=== PATIENT | male | born 1965 | race Caucasian/White ===

== ENCOUNTER 2021-03-24 17:31 | Inpatient (IN) | payer MEDICAID, SELFPAY ==
--- NOTE | 2021-03-24 | ECG_ITS ---
Test Reason : dyspnea Blood Pressure : / mmHG Vent. Rate : 122 BPM Atrial Rate : 122 BPM P-R Int : 120 ms QRS Dur : 080 ms QT Int : 410 ms P-R-T Axes : 005 -11 051 degrees QTc Int : 584 ms Sinus tachycardia RSR' or QR pattern in V1 suggests right ventricular conduction delay Nonspecific T wave abnormality Left axis deviation Abnormal ECG When compared with ECG of 07-MAY-2018 18:53, Nonspecific T wave abnormality now evident in Lateral leads Inferior leads Referred By: Generic ED Physician Electronically Signed By:YVETTE PEDROZA MD
--- NOTE | ~2021-03-24 | US_ITS ---
EXAMINATION: ULTRASOUND-GUIDED RIGHT THORACENTESIS CLINICAL INFORMATION: Moderate right pleural effusion on chest x-ray 03/27/2021. COMPARISON: Chest x-ray 03/29/2021 and CTA chest 03/24/2021 TECHNIQUE: Following explaining ultrasound-guided right thoracentesis procedure, benefits and risks, a written consent was obtained. Preliminary imaging through the right posterior chest was obtained with patient in upright sitting. An optimal site was selected along the right posterior scapular line and marked. The marked area was cleaned and draped in the usual sterile manner. 1% lidocaine was injected at the puncture site. Through a small skin incision, a 5 [place] N[place]u catheter was advanced into the right pleural space. After observing fluid return, stylet was withdrawn and catheter connected to vacuum bottle via a connecting cannula. After obtaining all fluid and observing normal fluid return, the catheter was withdrawn with complete hemostasis achieved at the puncture site. Gel-coated gauze was applied at the puncture site while withdrawing catheter making sure no air leaked in. Sterile dressing applied postprocedure. Patient tolerated the procedure extremely well. Chest x-ray was obtained subsequently. Patient was monitored by IR nurse during the exam. FINDINGS: On preliminary ultrasound imaging, there is moderate right pleural effusion with underlying atelectatic right lung. Approximately 1.9 L of clear yellowish fluid drained from the right pleural space. Part of this fluid was sent to lab for cell count and differential. US/US thoracentesis IMPRESSION: Successful ultrasound-guided right thoracentesis performed without immediate complication.
--- NOTE | ~2021-03-24 | CT_ITS ---
EXAMINATION: CT ANGIOGRAM OF THE CHEST WITH AND WITHOUT CONTRAST (CT PULMONARY ANGIOGRAM FOR PE) CLINICAL INFORMATION: Reason for Exam sob and elevated D-dimer COMPARISON: None TECHNIQUE: Prior to contrast administration, noncontrast localization images were obtained. Subsequently, multidetector volumetric imaging was performed from the thoracic inlet to below the diaphragms following the administration of 80 mL Omnipaque 350 intravenous contrast. No contrast reaction reported Sagittal, coronal, and MIP oblique sagittal reformatted images were obtained on the CT workstation, uploaded to PACS, and reviewed. This CT examination was performed using dose optimization techniques as appropriate, variously including the following: *Automated exposure control *Adjustment of mA and/or kV according to patient size (this includes techniques or standardized protocols for targeted exams where dose is matched to indication/reason for exam; i.e. extremities or head) *Use of iterative reconstruction technique Total exam dose-length product 502 mGy-cm FINDINGS: QUALITY OF STUDY/CONTRAST BOLUS: Satisfactory. PULMONARY ARTERIES: No evidence of filling defect to suggest a pulmonary embolism. THORACIC AORTA: Normal in caliber. LUNG: Right lung; Right-sided effusion. This appears moderate. Atelectasis of the right lower lobe and right middle lobe. Fluid may well be loculated with some fluid in the minor fissure and some fluid adjacent to the superior right mediastinum Left lung; No significant infiltrate or effusion. Some patchy areas of opacity which are minimal and small areas of nodularity. 7 mm semisolid area of nodularity on image 191 of series 7. PLEURA: Probable loculation on the right as described MEDIASTINUM: Thoracic inlet is within normal limits. There is some mediastinal adenopathy here and some hilar adenopathy is also felt to be present. This may be reactive. Attention to follow-up. For example a 1.3 cm short axis node on image 21 in the AP window. Probable subcarinal adenopathy No evidence of septal bowing or right heart strain. CHEST WALL/AXILLA: No axillary or internal mammary lymphadenopathy. OSSEOUS STRUCTURES: No acute or suspicious osseous abnormality. UPPER ABDOMEN: Exam also demonstrates fluid adjacent to liver and spleen. No reflux of contrast into the hepatic veins to suggest elevated right heart pressures. CT/CT angio chest PE protocol IMPRESSION: There is no filling defect to suggest a pulmonary embolism. There is pleural fluid on the right which in part appears loculated. There is right lower lobe atelectasis and right middle lobe atelectasis and prominent central adenopathy which may be reactive. Of course underlying malignancy cannot be excluded here. There is also ascites in the upper abdomen adjacent to the liver and spleen. Some small areas of nodularity are noted as described above. Recommend low-dose noncontrast CT in 6 months for continued evaluation VTE: negative
--- NOTE | ~2021-03-24 | XR_ITS ---
EXAMINATION: XR CHEST CLINICAL INFORMATION: Post right thoracentesis. COMPARISON: Chest x-ray 03/30/2021 TECHNIQUE: 2 views of the chest were obtained. FINDINGS: Post right thoracentesis there is no visible pneumothorax. There is complete resolution of right pleural effusion. There is linear atelectatic changes right lung base. Rest lungs are clear. The heart size and pulmonary vascularity is normal. There is moderate spondylosis dorsal spine. No lytic process seen. XR/XR chest 2V IMPRESSION: Interval complete resolution of right pleural effusion with no pneumothorax seen. There is minimal atelectatic changes right lung base.
--- NOTE | ~2021-03-24 | XR_ITS ---
EXAMINATION: XR CHEST CLINICAL INFORMATION: Right pleural effusion. COMPARISON: Chest x-ray 03/24/2021. TECHNIQUE: Frontal view of the chest was obtained. FINDINGS: There is opacification of right lung base from known pleural effusion with underlying atelectasis. The right upper lung and left lung remains clear. The heart size and pulmonary vascularity is normal. There is mild spondylosis dorsal spine. Incidental finding of a right azygos lobe. There is moderate spondylosis of dorsal spine.. XR/XR chest 1V IMPRESSION: Moderate right pleural effusion with underlying compressive atelectasis, similar to previous study 03/24/2021.
--- NOTE | ~2021-03-24 | XR_ITS ---
EXAMINATION: XR CHEST CLINICAL INFORMATION: Shortness of breath COMPARISON: Limited 2016 TECHNIQUE: Frontal view of the chest was obtained. FINDINGS: Right-sided opacity is likely moderate effusion with adjacent atelectasis or infiltrate. The left lung is grossly clear. There is some cephalization of the vasculature here. XR/XR chest 1V IMPRESSION: Right-sided opacity is likely moderate effusion with adjacent atelectasis or infiltrate. There is vascular congestion.
[2021-03-24 17:33] VITALS: BP 167/114; PULSE 124; RESP 24; TEMP 36.9; O2SAT 98; BMI 36.2
[2021-03-24 18:36] LABS: MANUAL DIFF FLAG NO
[2021-03-24 18:39] LABS: Basophils Absolute Auto 0.1 X10*3/uL (0.0-0.2); Basophils Percent Auto 0.7 % (0-2); Eosinophils Absolute Auto 0.2 X10*3/uL (0.0-0.4); Eosinophils Percent Auto 1.7 % (0-4); Hematocrit 45.2 % (42.0-52.0); Hemoglobin 14.9 g/dl (14.0-18.0); Imm Gran Abs Auto 0.04 X10*3/uL (0.00-0.03); Imm Gran Pct Auto 0.4 % (0.0-0.4); Lymphocytes Absolute Auto 1.5 X10*3/uL (1.2-4.9); Lymphocytes Percent Auto 15.9 % (20-40); Mean Corpuscular Hemoglobin 32.3 pg (27.0-33.0); Mean Platelet Volume 10.4 fL (9.4-12.4); Monocytes Absolute Auto 0.8 X10*3/uL (0.1-1.2); Monocytes Percent Auto 8.4 % (2-11); Neutrophils Percent Auto 72.9 % (45-73); Platelet Count 245 X10*3/uL (160-400); Red Blood Count 4.61 X10*6/uL (4.60-5.80); Red Cell Distribution Width 12.9 % (11.0-16.0); White Blood Count 9.7 X10*3/uL (4.8-10.8)
--- NOTE | 2021-03-24 18:40 | ED.SOB ---
HPI - SOB/Dyspnea General Chief Complaint: Dyspnea Stated Complaint: Asthma/COPD Time Seen by Provider: 03/24/21 18:33 Source: patient Mode of arrival: ambulatory Limitations: no limitations History of Present Illness HPI Narrative: 55-year-old male came in for evaluation of shortness of breath. Patient's symptoms started 5-6 days ago with shortness of breath, SOB is worsening with exertion, relieved with resting, describes symptoms as constant and moderate in severity, no chest pain associated, patient never had this symptoms in the past, shortness of breath is associated with lower extremity swelling, difficulty to sleep in supine position. Patient is complaining nonproductive cough, no fever, no chills. Patient is currently a smoker. Related Data Home Medications Medication Instructions Recorded Confirmed No Known Home Meds 03/24/21 03/24/21 Allergies Allergy/AdvReac Type Severity Reaction Status Date / Time canagliflozin [Invokana] Allergy Unknown Unknown Verified 03/24/21 19:21 cat dander [CATS] Allergy Unknown RASH Unverified 01/23/20 14:38 cats Allergy Unknown Unknown Unverified 03/24/21 19:21 clindamycin [CLINDAMYCIN] Allergy Unknown RASH Unverified 01/23/20 14:38 Clindamycin HCl Allergy Unknown itch Unverified 05/20/19 00:00 diltiazem [DILTIAZEM] Allergy Unknown ITCH Unverified 01/23/20 14:38 Diltiazem HCl Allergy Unknown itch Unverified 05/20/19 00:00 hydrochlorothiazide Allergy Unknown GOUT Unverified 01/23/20 14:38 [HYDROCHLOROTHIAZIDE] lisinopril [LISINOPRIL] Allergy Unknown TONGUE Unverified 01/23/20 14:38 SWELLING naproxen [From NAPROSYN] Allergy Unknown NIGHTMARES Unverified 01/23/20 14:38 penicillin V Allergy Unknown Unknown Unverified 03/24/21 19:21 Penicillins [PENICILLINS] Allergy Unknown UNKNWON Unverified 01/23/20 14:38 Sulfa (Sulfonamide Allergy Unknown UNKNOWN Unverified 01/23/20 14:38 Antibiotics) [SULFA(SULFONAMIDE ANTIBIOTICS)] Taztia XT Allergy Unknown Unknown Uncoded 03/24/21 19:21 Review of Systems Review of Systems: All other systems are reviewed and are negative Constitutional: Reports as per HPI and Reports no additional constitutional complaints Eyes: Reports as per HPI and Reports no additional eye complaints Reports system reviewed and no additional complaints, except as documented Cardiovascular: Reports as per HPI and Reports no additional cardiovascular complaints Respiratory: Reports as per HPI and Reports no additional respiratory complaints Gastrointestinal: Reports as per HPI and Reports no additional gastrointestinal complaints Genitourinary: Reports no additional female genitourinary complaints Musculoskeletal: Reports no additional musculoskeletal complaints Skin/Breast: Reports system reviewed and no additional complaints, except as docu Psychiatric: Reports no additional psychiatric complaints Endocrine: Reports no additional endocrine complaints Hematologic/Lymphatic: Reports no additional hematologic/lymphatic complaints Allergic/Immunologic: Reports no additional allergic/immunologic complaints Reports system reviewed and no additional complaints, except as documented and Reports Abnormal speech present [facility] Past Medical History Medical History Asthma COPD (chronic obstructive pulmonary disease) Diabetes Surgical History Hx of appendectomy Social History Social History Alcohol intake: unknown Patient Tobacco Use Status: Never used Tobacco Use of substances other than those prescribed or required for medical reasons: Unknown Advance Directives: No Advance Directives Information Provided: No Physical Exam Vital Signs: Vital Signs: Last Vital Signs Temp 98.8 F 03/24/21 18:44 Pulse 120 H 03/24/21 20:28 Resp 20 03/24/21 20:28 BP 151/103 H 03/24/21 20:28 Pulse Ox 92 03/24/21 20:28 Body Mass Index 36.2 Vital signs have been reviewed as appeared to be correct. Blood pressure elevated Heart rate elevated. Respiration rate elevated Temperature normal. Oxygen saturation normal. Appearance: Alert. Oriented X3. Acute mild respiratory distress. Head: Normal external exam. Normocephalic. Atraumatic. No Briggs signs noted. No raccoon eyes noted Eyes: PERRLA. EOMI. Conjunctiva and sclera normal. Eyelids normal. ENT: TM's Normal. Pharynx normal. Uvula midline. Moist mucous membranes. No trismus noted. No drooling noted. No muffled voice noted. Neck: Normal inspection. Neck supple. FROM. No adenopathy. Thyroid Normal. No meningeal signs. No neck mass noted. CVS: Tachycardia. No murmurs noted. Pulses normal throughout. Respiratory: Mild respiratory distress. Painless inspiration. Breath sounds normal. Diffuse expiratory wheezing with prolonged expiration, bilateral basilar rales, Chest nontender. No accessory muscle usage noted or decreased air movement noted. Abdomen: Soft and nontender. Bowel sounds normal in all 4 quadrants. No distention noted. No organomegaly noted. No visible injury noted. Back: No CVA tenderness. Full range of motion noted. Skin: Skin warm and dry. Normal skin color. Normal skin turgor. No rashes/lesions/lacerations noted. Extremities: Bilateral+ 2 lower extremity pitting edema. Extremities exhibit normal range of motion. Extremities nontender. Neuro: Oriented X 3. Cranial nerve exam: II-XII are grossly intact No motor deficit. No sensory deficit. Reflexes normal. Course Course Course Narrative: Assessment and plan. 55-year-old male came in for evaluation of shortness of breath for few days. Physical exam/x-ray/blood workup are consistent with COPD exacerbation and congestive heart failure (new diagnosis). Patient received in the emergency department bronchodilator/Solu-Medrol/magnesium/Lasix/nitro. Because elevated D-dimer in tachycardia patient had a CT of the chest which showed no acute pulmonary embolism. Will admit the patient for further bronchodilators/diuresis/cardiac workup and monitoring. MDM - SOB/Dyspnea Medical Records Attestation: I reviewed the patient's medical records. Lab Data Attestation: I reviewed the patient's lab results. Result diagrams: 03/24/21 18:31 03/24/21 18:31 Labs: Lab Results 03/24/21 03/24/21 03/24/21 Range/Units 18:28 18:31 18:31 WBC 9.7 (4.8-10.8) X10*3/uL RBC 4.61 (4.60-5.80) X10*6/uL Hgb 14.9 (14.0-18.0) g/dl Hct 45.2 (42.0-52.0) % MCV 98.0 (80.0-98.0) fL MCH 32.3 (27.0-33.0) pg MCHC 33.0 (31.0-36.0) g/dl RDW 12.9 (11.0-16.0) % Plt Count 245 (160-400) X10*3/uL MPV 10.4 (9.4-12.4) fL Immature Gran % (Auto) 0.4 (0.0-0.4) % Neut % (Auto) 72.9 (45-73) % Lymph % (Auto) 15.9 L (20-40) % [place] % (Auto) 8.4 (2-11) % Eos % (Auto) 1.7 (0-4) % Baso % (Auto) 0.7 (0-2) % Lymph # (Auto) 1.5 (1.2-4.9) X10*3/uL [place] # (Auto) 0.8 (0.1-1.2) X10*3/uL Eos # (Auto) 0.2 (0.0-0.4) X10*3/uL Baso # (Auto) 0.1 (0.0-0.2) X10*3/uL Abs Immat Gran (auto) 0.04 H (0.00-0.03) X10*3/uL Absolute Neuts (auto) 7.0 (2.0-8.3) x10*3/uL Absolute Nucleated RBC 0.000 (0.0-0.012) X10*3/uL Nucleated RBC % (auto) 0.0 (0.0-0.2) /100WBC D-Dimer High Sensitivty NG/ML Sodium 137 (135-145) mmol/L Potassium 3.9 (3.3-5.1) mmol/L Chloride 98 (96-108) mmol/L Carbon Dioxide 28 (22-29) mmol/L Anion Gap 15 (12-20) BUN 9 (9-16) mg/dL Creatinine 0.98 (0.5-1.4) mg/dL Estim Creat Clear Calc 113.8 Estimated GFR > 60 Random Glucose 379 H* (60-115) mg/dL Lactic Acid (0.5-2.0) mmol/L Calcium 8.8 (8.4-10.2) mg/dL Magnesium (1.6-2.6) mg/dL Total Bilirubin (0.0-1.0) mg/dL Direct Bilirubin (0.0-0.5) mg/dL AST (5-37) U/L ALT (0-40) U/L Alkaline Phosphatase (39-117) U/L Troponin I High Sens (<3.5-35.0) ng/L B-Natriuretic Peptide (<100) pg/mL Total Protein (6.5-8.0) g/dL Albumin (3.5-5.0) g/dL Lipase (8-78) U/L COVID-19 (JENNA) Negative (Negative) COVID-19 Clin Com See Note 03/24/21 03/24/21 03/24/21 Range/Units 18:31 18:31 19:06 WBC (4.8-10.8) X10*3/uL RBC (4.60-5.80) X10*6/uL Hgb (14.0-18.0) g/dl Hct (42.0-52.0) % MCV (80.0-98.0) fL MCH (27.0-33.0) pg MCHC (31.0-36.0) g/dl RDW (11.0-16.0) % Plt Count (160-400) X10*3/uL MPV (9.4-12.4) fL Immature Gran % (Auto) (0.0-0.4) % Neut % (Auto) (45-73) % Lymph % (Auto) (20-40) % [place] % (Auto) (2-11) % Eos % (Auto) (0-4) % Baso % (Auto) (0-2) % Lymph # (Auto) (1.2-4.9) X10*3/uL [place] # (Auto) (0.1-1.2) X10*3/uL Eos # (Auto) (0.0-0.4) X10*3/uL Baso # (Auto) (0.0-0.2) X10*3/uL Abs Immat Gran (auto) (0.00-0.03) X10*3/uL Absolute Neuts (auto) (2.0-8.3) x10*3/uL Absolute Nucleated RBC (0.0-0.012) X10*3/uL Nucleated RBC % (auto) (0.0-0.2) /100WBC D-Dimer High Sensitivty NG/ML Sodium (135-145) mmol/L Potassium (3.3-5.1) mmol/L Chloride (96-108) mmol/L Carbon Dioxide (22-29) mmol/L Anion Gap (12-20) BUN (9-16) mg/dL Creatinine (0.5-1.4) mg/dL Estim Creat Clear Calc Estimated GFR Random Glucose (60-115) mg/dL Lactic Acid 2.0 (0.5-2.0) mmol/L Calcium (8.4-10.2) mg/dL Magnesium (1.6-2.6) mg/dL Total Bilirubin (0.0-1.0) mg/dL Direct Bilirubin (0.0-0.5) mg/dL AST (5-37) U/L ALT (0-40) U/L Alkaline Phosphatase (39-117) U/L Troponin I High Sens 30.8 (<3.5-35.0) ng/L B-Natriuretic Peptide 2697 H (<100) pg/mL Total Protein (6.5-8.0) g/dL Albumin (3.5-5.0) g/dL Lipase (8-78) U/L COVID-19 (JENNA) (Negative) COVID-19 Clin Com 03/24/21 03/24/21 03/24/21 Range/Units 19:06 19:07 19:07 WBC (4.8-10.8) X10*3/uL RBC (4.60-5.80) X10*6/uL Hgb (14.0-18.0) g/dl Hct (42.0-52.0) % MCV (80.0-98.0) fL MCH (27.0-33.0) pg MCHC (31.0-36.0) g/dl RDW (11.0-16.0) % Plt Count (160-400) X10*3/uL MPV (9.4-12.4) fL Immature Gran % (Auto) (0.0-0.4) % Neut % (Auto) (45-73) % Lymph % (Auto) (20-40) % [place] % (Auto) (2-11) % Eos % (Auto) (0-4) % Baso % (Auto) (0-2) % Lymph # (Auto) (1.2-4.9) X10*3/uL [place] # (Auto) (0.1-1.2) X10*3/uL Eos # (Auto) (0.0-0.4) X10*3/uL Baso # (Auto) (0.0-0.2) X10*3/uL Abs Immat Gran (auto) (0.00-0.03) X10*3/uL Absolute Neuts (auto) (2.0-8.3) x10*3/uL Absolute Nucleated RBC (0.0-0.012) X10*3/uL Nucleated RBC % (auto) (0.0-0.2) /100WBC D-Dimer High Sensitivty 428 NG/ML Sodium (135-145) mmol/L Potassium (3.3-5.1) mmol/L Chloride (96-108) mmol/L Carbon Dioxide (22-29) mmol/L Anion Gap (12-20) BUN (9-16) mg/dL Creatinine (0.5-1.4) mg/dL Estim Creat Clear Calc Estimated GFR Random Glucose (60-115) mg/dL Lactic Acid (0.5-2.0) mmol/L Calcium (8.4-10.2) mg/dL Magnesium 1.4 L* (1.6-2.6) mg/dL Total Bilirubin 1.3 H (0.0-1.0) mg/dL Direct Bilirubin 0.7 H (0.0-0.5) mg/dL AST 27 (5-37) U/L ALT 19 (0-40) U/L Alkaline Phosphatase 124 H (39-117) U/L Troponin I High Sens (<3.5-35.0) ng/L B-Natriuretic Peptide 2781 H (<100) pg/mL Total Protein 6.3 L (6.5-8.0) g/dL Albumin 3.7 (3.5-5.0) g/dL Lipase 8 (8-78) U/L COVID-19 (JENNA) (Negative) COVID-19 Clin Com Imaging Data Chest x-ray: Radiologist's impression: Right-sided opacity is likely moderate effusion with adjacent atelectasis or infiltrate. There is vascular congestion. ? CT angio of the chest: Radiologist's impression: There is no filling defect to suggest a pulmonary embolism. ? There is pleural fluid on the right which in part appears loculated. There is right lower lobe atelectasis and right middle lobe atelectasis and prominent central adenopathy which may be reactive. Of course underlying malignancy cannot be excluded here. ? There is also ascites in the upper abdomen adjacent to the liver and spleen. ? Some small areas of nodularity are noted as described above. Recommend low-dose noncontrast CT in 6 months for continued evaluation ? ECG Data Attestation: I personally reviewed and interpreted this ECG as follows: Interpretation: Sinus tachycardia at 122 beats per minutes, normal interval, nonspecific T-wave changes. Discharge Plan Discharge Clinical Impression: Congestive heart failure, Acute exacerbation of chronic obstructive airways disease Patient Disposition: Admitted As Inpatient
[2021-03-24 18:44] VITALS: BP 141/99; PULSE 117; RESP 24; TEMP 37.1; O2SAT 95
[2021-03-24 18:58] LABS: COVID-19 Test Negative (Negative)
[2021-03-24 18:58] LABS: B Type Natriuretic Peptide 2697 pg/mL (<100); Troponin-I High Sensitivity 30.8 ng/L (<3.5-35.0)
[2021-03-24 19:00] LABS: Anion Gap 15 (12-20); Blood Urea Nitrogen 9 mg/dL (9-16); Calcium 8.8 mg/dL (8.4-10.2); Carbon Dioxide 28 mmol/L (22-29); Chloride 98 mmol/L (96-108); Creatinine Clr Calc Pharmacy 113.8; Estimated Glomerular Filt Rate > 60; Glucose Random 379 mg/dL (60-115); Potassium 3.9 mmol/L (3.3-5.1); Sodium 137 mmol/L (135-145)
[2021-03-24] MEDS: Albuterol Sulfate (0.083%) 2.5 MG/3 ML VIAL.NEB 5 MG INHALE (19:08)
[2021-03-24] MEDS: Albuterol/Iprat 2.5/0.5MG 3 ML AMPUL.NEB INHALE (19:08)
[2021-03-24 19:09] VITALS: PULSE 118; O2SAT 96
[2021-03-24] MEDS: methylPREDNISolone Sod Succ 125 MG/2 ML VIAL IVPUSH (19:10)
[2021-03-24] MEDS: Magnesium Sulfate/H2O 2 GM/50 ML PIGGYBACK IV (19:10)
[2021-03-24] MEDS: Furosemide 40 MG/4 ML VIAL IVPUSH (19:10)
[2021-03-24] MEDS: Nitroglycerin 2 % Oint 1 GM Packet 0.5 INCH TRANSDERMA (19:13)
[2021-03-24 19:26] LABS: D Dimer High Sensitivity 428 NG/ML
--- NOTE | 2021-03-24 19:27 | PC.NURSE ---
Patient reports that he doesn't have a pharmacy right now because he currently doesn't have insurance and therefore hasnt taken his medications in awhile.
[2021-03-24 19:36] LABS: Alanine Aminotransferase 19 U/L (0-40); Albumin Level 3.7 g/dL (3.5-5.0); Alkaline Phosphatase 124 U/L (39-117); Aspartate Amino Transferase 27 U/L (5-37); B Type Natriuretic Peptide 2781 pg/mL (<100); Bilirubin Direct 0.7 mg/dL (0.0-0.5); Bilirubin Total 1.3 mg/dL (0.0-1.0); Lipase 8 U/L (8-78); Magnesium 1.4 mg/dL (1.6-2.6); Total Protein 6.3 g/dL (6.5-8.0)
--- NOTE | 2021-03-24 20:00 | PHA.MEDREC ---
Pharmacy Consult ? Medication Reconciliation Pharmacy has completed the medication reconciliation. Patient states they have not seen MD or gotten any prescriptions filled secondary to not having insurance. I called his main pharmacy, [facility] on [address]. and his profile is empty (goes back 5 years). I also called [facility] on [address]. and they too have an empty profile. He states that a long time ago, he was on metformin, clonidine, and losartan. Thanks Italo Jesus Pharm D
[2021-03-24] MEDS: iohexoL 350 MG/ML 100 ML INFUS..BTL IV (20:08)
[2021-03-24 20:28] VITALS: BP 151/103; PULSE 120; RESP 20; O2SAT 92
--- NOTE | 2021-03-24 20:30 | P.HPHOSP_ITS ---
History of Present Illness Date of Service: 03/24/21 Chief Complaint: SOB 55-year-old male with past medical history of asthma, COPD, diabetes, who presents to the hospital with complaints of difficulty breathing. Patient reports that his symptoms started about a week ago, worsened over the next few days, he has a mild cough that has not worsened, with no sputum production, no fever or chills, he has lower extremity edema that also started about a week ago. Orthopnea and PND. He denies any palpitations or chest pain, he denies any headache or any change in vision. No abdominal pain nausea or vomiting, no diarrhea constipation, no urinary symptoms. On arrival to the ED patient's vitals are significant for a temp of 98.5?, heart rate of 124, respiratory rate of 24, blood pressure 167/114, satting 98% on room air Labs are generally unremarkable except for glucose of 379, magnesium of 1.4, and BNP of 2697. UA negative. Troponin of 30, no delta. Chest x-ray shows vascular congestion. Patient denies any history of CHF Patient will be admitted for further management. Review of Systems Review of Systems: Yes all other systems are reviewed and are negative [facility] Medical History (Updated 03/25/21 @ 05:56 by Roslyn Lin MD) Asthma COPD (chronic obstructive pulmonary disease) Diabetes Family History (Updated 03/25/21 @ 05:54 by Roslyn Lin MD) Father Leukemia Mother Scleroderma Surgical History (Updated 03/25/21 @ 05:55 by Roslyn Lin MD) H/O shoulder surgery Hx of appendectomy Social History Household Members: Children Housing: House Do you presently have visiting nurse or other home services: No Alcohol intake: unknown Patient Tobacco Use Status: Current someday Tobacco user Cigarette Packs Per Day: 1 Cigarettes Per Day: 20.0 Years Smoked: 30 Smoked in Last 30 Days: Yes Patient Interested in Nicotine Replacement: No Patient Given Instructions on How to Stop Smoking: Yes Date Education Initiated: 03/25/21 Second Hand Smoke Exposure: No Use of substances other than those prescribed or required for medical reasons: No Have you been hit, kicked, punched, or otherwise hurt by someone within the past year? If so, by whom?: No Do you feel safe in your current relationship?: No Current Relationship Is there a partner from a previous relationship who is making you feel unsafe now?: No Are you made to feel afraid or neglected: No Advance Directives: No Advance Directives Information Provided: No Do you have thoughts of harming others: None Do you have a plan to hurt others: No Plan Recently lost weight without trying: No Eating poorly because of decreased appetite: No Nutrition Risks: No Nutritional Risk Poor oral hygiene: No Meds Allergies Allergy/AdvReac Type Severity Reaction Status Date / Time canagliflozin [Invokana] Allergy Unknown Unknown Verified 03/25/21 00:25 cat dander [CATS] Allergy Unknown RASH Verified 03/25/21 00:25 cats Allergy Unknown Unknown Verified 03/25/21 00:25 clindamycin [CLINDAMYCIN] Allergy Unknown RASH Verified 03/25/21 00:25 Clindamycin HCl Allergy Unknown itch Verified 03/25/21 00:25 diltiazem [DILTIAZEM] Allergy Unknown ITCH Verified 03/25/21 00:25 Diltiazem HCl Allergy Unknown itch Verified 03/25/21 00:25 hydrochlorothiazide Allergy Unknown GOUT Verified 03/25/21 00:25 [HYDROCHLOROTHIAZIDE] lisinopril [LISINOPRIL] Allergy Unknown TONGUE Verified 03/25/21 00:25 SWELLING naproxen [From NAPROSYN] Allergy Unknown NIGHTMARES Verified 03/25/21 00:25 penicillin V Allergy Unknown Unknown Verified 03/25/21 00:25 Penicillins [PENICILLINS] Allergy Unknown UNKNWON Verified 03/25/21 00:25 Sulfa (Sulfonamide Allergy Unknown UNKNOWN Verified 03/25/21 00:25 Antibiotics) [SULFA(SULFONAMIDE ANTIBIOTICS)] Taztia XT Allergy Unknown Unknown Uncoded 03/24/21 19:21 Active Medications: Current Medications Acetaminophen (Acetaminophen 325 Mg Tablet) 650 mg PO Q6H PRN PRN Reason: Pain, Mild (Pain Scale 1-3) Docusate Sodium (Docusate Sodium 100 Mg Capsule) 100 mg PO DAILY PRN PRN Reason: Constipation Enoxaparin Sodium (Enoxaparin Sodium 40 Mg/0.4 Ml Syringe) 40 mg SUBCUT Q24H ANA Furosemide (Furosemide 40 Mg/4 Ml Vial) 40 mg IVPUSH BID@0900,1800 ANA; Protocol Magnesium Sulfate (Magnesium Sulfate/H2o) 2 gm in 50 mls @ 25 mls/hr IV ONCE ONE Stop: 03/24/21 20:33 Last Admin: 03/24/21 19:10 Dose: 25 mls/hr Documented by: Ondansetron HCl (Ondansetron Hcl 4 Mg/2 Ml Vial) 4 mg IVPUSH Q8H PRN PRN Reason: Nausea and Vomiting Pharmacy Consult (Consult Rx Perform Med Rec) 1 each MISCELLANE ONCE PRN PRN Reason: Consult order Sodium Chloride (0.9 % Sodium Chloride Flush 3 Ml Syringe) 3 ml IVFLUSH [facility] Home Medications Medication Instructions Recorded Confirmed Last Taken Type No Known Home Meds 03/24/21 03/24/21 Unknown History Physical Exam Vital Signs and Narrative: Vital Signs: Last Vital Signs Temp 98.8 F 03/24/21 18:44 Pulse 120 H 03/24/21 20:28 Resp 20 03/24/21 20:28 BP 151/103 H 03/24/21 20:28 Pulse Ox 92 03/24/21 20:28 Body Mass Index 36.2 Const: General: cooperative and no acute distress Orientation/consciousness: patient oriented x3 Eyes: General: appearance normal, both eyes and all related structures Pupils: Equal, round and reactive pupils present Resp: Other: Appears dyspneic on talking and given interview Effort & Inspection: normal respiratory effort Auscultation: clear to auscultation bilaterally Cardio: Rate: regular rate Rhythm: regular rhythm GI: Palpation (GI): Soft to palpation Auscultation: normal bowel sounds Skin: General skin exam: no rashes or lesions noted Neuro: General: patient oriented x3 Cranial nerves: Yes Equal, round and reactive pupils present Cognition (Neuro): normal cognition Extrem: Other: 3+ lower extremity edema up to the thighs General: Yes normal to inspection Results Labs CBC and Chem 7: 03/24/21 18:31 03/24/21 18:31 Labs: Laboratory Results - last 24 hr 03/24/21 03/24/21 03/24/21 18:28 18:31 18:31 MCV 98.0 MCH 32.3 MCHC 33.0 RDW 12.9 Plt Count 245 MPV 10.4 Immature Gran % (Auto) 0.4 Neut % (Auto) 72.9 Lymph % (Auto) 15.9 L [place] % (Auto) 8.4 Eos % (Auto) 1.7 Baso % (Auto) 0.7 Lymph # (Auto) 1.5 [place] # (Auto) 0.8 Eos # (Auto) 0.2 Baso # (Auto) 0.1 Abs Immat Gran (auto) 0.04 H Absolute Neuts (auto) 7.0 Absolute Nucleated RBC 0.000 Nucleated RBC % (auto) 0.0 D-Dimer High Sensitivty Anion Gap 15 Estim Creat Clear Calc 113.8 Estimated GFR > 60 Random Glucose 379 H* Lactic Acid Calcium 8.8 Magnesium Total Bilirubin Direct Bilirubin AST ALT Alkaline Phosphatase Troponin I High Sens B-Natriuretic Peptide Total Protein Albumin Lipase COVID-19 (JENNA) Negative COVID-19 Clin Com See Note 03/24/21 03/24/21 03/24/21 18:31 18:31 19:06 MCV MCH MCHC RDW Plt Count MPV Immature Gran % (Auto) Neut % (Auto) Lymph % (Auto) [place] % (Auto) Eos % (Auto) Baso % (Auto) Lymph # (Auto) [place] # (Auto) Eos # (Auto) Baso # (Auto) Abs Immat Gran (auto) Absolute Neuts (auto) Absolute Nucleated RBC Nucleated RBC % (auto) D-Dimer High Sensitivty Anion Gap Estim Creat Clear Calc Estimated GFR Random Glucose Lactic Acid 2.0 Calcium Magnesium Total Bilirubin Direct Bilirubin AST ALT Alkaline Phosphatase Troponin I High Sens 30.8 B-Natriuretic Peptide 2697 H Total Protein Albumin Lipase COVID-19 (JENNA) COVID-19 Clin Com 03/24/21 03/24/21 03/24/21 19:06 19:07 19:07 MCV MCH MCHC RDW Plt Count MPV Immature Gran % (Auto) Neut % (Auto) Lymph % (Auto) [place] % (Auto) Eos % (Auto) Baso % (Auto) Lymph # (Auto) [place] # (Auto) Eos # (Auto) Baso # (Auto) Abs Immat Gran (auto) Absolute Neuts (auto) Absolute Nucleated RBC Nucleated RBC % (auto) D-Dimer High Sensitivty 428 Anion Gap Estim Creat Clear Calc Estimated GFR Random Glucose Lactic Acid Calcium Magnesium 1.4 L* Total Bilirubin 1.3 H Direct Bilirubin 0.7 H AST 27 ALT 19 Alkaline Phosphatase 124 H Troponin I High Sens B-Natriuretic Peptide 2781 H Total Protein 6.3 L Albumin 3.7 Lipase 8 COVID-19 (JENNA) COVID-19 Clin Com ECG Interpretation: Sinus tachycardia, with a prolonged QT of 584, and evidence of septal infarct with age undetermined Imaging Radiologist's Impressions: Impressions Chest X-Ray 03/24/21 18:34 IMPRESSION: Right-sided opacity is likely moderate effusion with adjacent atelectasis or infiltrate. There is vascular congestion. Assessment and Plan (1) CHF exacerbation: Status: Acute 55-year-old male with past medical history of COPD and diabetes presents to the hospital with complaints of shortness of breath to have CHF exacerbation # acute CHF exacerbation - denies any history of CHF - has elevated BNP, dyspnea, edema, vascular congestion on chest x-ray, as well as orthopnea PND - troponin negative - EKG no changes suggestive of ACS but shows changes suggestive of old infarct - no chest pain -1 IV Lasix 40 IV b.i.d. - echocardiogram - strict I&O, daily weight, low-sodium diet - consult cardiology # prolonged QT - has low magnesium - magnesium repleted - will avoid QT prolonging medications - magnesium repleted in the ED - will check magnesium level # COPD - I do not believe the patient is in exacerbation, as he has no increased cough, sputum production, and no wheezing on exam - will continue his home inhalers although they need to be reviewed by pharmacy # diabetes - meds still need to be reconciled by pharmacy - will place him on low-dose sliding scale insulin - diabetic diet DVT prophylaxis: Lovenox Quality Stroke Does the patient have a stroke diagnosis?: No VTE Prior VTE?: No VTE Risk Level:: Medical - moderate - high VTE Device Contraindication: Treatment Not Indicated VTE Drug Contraindication: N/A - Med Ordered
[2021-03-24 20:40] LABS: Appearance Urine CLEAR; Color Urine STRAW; Glucose Urine UA 500 MG/DL (NEG); Leukocyte Esterase Urine NEG (NEG); Nitrite Urine NEG (NEG); Urine Blood NEG (NEG); Urine Ketones NEG (NEG); Urine Protein NEG (NEG-TRACE)
[2021-03-24 20:57] LABS: Troponin-I High Sensitivity 29.1 ng/L (<3.5-35.0)
[2021-03-24] MEDS: Enoxaparin Sodium 40 MG/0.4 ML SYRINGE SUBCUT (21:27)
--- NOTE | 2021-03-24 23:55 | PC.NURSE ---
Attempted to call floor to give report. Spoke to self contained behavior unit teacher who connected me to the nurse. Phone just rang and no answer. Will attempt again in 15 minutes before patient transferred to floor.
[2021-03-25] VITALS (9 sets, daily range): BP systolic 119–162; BP diastolic 73–111; PULSE 98–120; RESP 18–22; TEMP 36.6–37.3; O2SAT 90–97; BMI 36.6
[2021-03-25 00:24] LABS: Glucose, Whole Blood 358 mg/dL (60-115)
[2021-03-25] MEDS: 0.9 % Sodium Chloride Flush 3 ML SYRINGE IVFLUSH ×4 (01:15→22:34)
[2021-03-25] MEDS: Insulin Lispro 100 UNIT/ML 3 ML VIAL SUBCUT ×5 (01:16→22:34)
[2021-03-25 06:50] LABS: MANUAL DIFF FLAG NO
[2021-03-25 06:54] LABS: Basophils Percent Auto 0.3 % (0-2); Hematocrit 42.2 % (42.0-52.0); Hemoglobin 14.4 g/dl (14.0-18.0); Imm Gran Abs Auto 0.03 X10*3/uL (0.00-0.03); Imm Gran Pct Auto 0.4 % (0.0-0.4); Lymphocytes Absolute Auto 0.6 X10*3/uL (1.2-4.9); Lymphocytes Percent Auto 7.6 % (20-40); Mean Corpuscular HGB Conc 34.1 g/dl (31.0-36.0); Mean Corpuscular Hemoglobin 32.9 pg (27.0-33.0); Mean Corpuscular Volume 96.3 fL (80.0-98.0); Mean Platelet Volume 10.9 fL (9.4-12.4); Monocytes Absolute Auto 0.2 X10*3/uL (0.1-1.2); Monocytes Percent Auto 2.8 % (2-11); Neutrophils Absolute Auto 6.4 x10*3/uL (2.0-8.3); Neutrophils Percent Auto 88.9 % (45-73); Platelet Count 261 X10*3/uL (160-400); Red Blood Count 4.38 X10*6/uL (4.60-5.80); Red Cell Distribution Width 12.8 % (11.0-16.0); White Blood Count 7.2 X10*3/uL (4.8-10.8)
[2021-03-25 07:02] LABS: Glucose, Whole Blood 354 mg/dL (60-115)
[2021-03-25 07:41] LABS: Anion Gap 19 (12-20); Blood Urea Nitrogen 11 mg/dL (9-16); Calcium 8.8 mg/dL (8.4-10.2); Carbon Dioxide 26 mmol/L (22-29); Chloride 97 mmol/L (96-108); Creatinine Clr Calc Pharmacy 120.5; Estimated Glomerular Filt Rate > 60; Glucose Random 359 mg/dL (60-115); Magnesium 1.5 mg/dL (1.6-2.6); Potassium 3.7 mmol/L (3.3-5.1); Sodium 138 mmol/L (135-145)
[2021-03-25] MEDS: Folic Acid 1 MG TABLET PO (08:33)
[2021-03-25] MEDS: Magnesium Sulfate/H2O 2 GM/50 ML PIGGYBACK IV (08:33)
[2021-03-25] MEDS: Furosemide 40 MG/4 ML VIAL IVPUSH ×2 (08:33→17:58)
[2021-03-25] MEDS: Thiamine HCL 100 MG TABLET PO (08:34)
--- NOTE | 2021-03-25 09:29 | PC.NURSE ---
Skin assessment completed today. Patient has no skin issues at this time. He has very dry skin and slight pinkness to lower extremities.
--- NOTE | 2021-03-25 10:13 | MHC.CM.PN ---
pt lives in home c his sister. he reports that he is independent in his care. he does not use any AD c transportation. a ref. has been made to financial couseling for patient indicated as having no insurance. pt denies the need for vna at dc and will have his sister provide transportation at dc. dc plan is home no svcs. cm to cont. to follow.
[2021-03-25 11:34] LABS: Glucose, Whole Blood 356 mg/dL (60-115)
--- NOTE | 2021-03-25 12:12 | HO.PM.IMPN ---
Subjective Subjective Date of Service: 03/25/21 Interval History: the patient was seen and evaluated this morning Laying in bed, feels bladder since admission Denies any fever, chills or chest pain Shortness of breath improving No reported other overnight events. Systemic review: No fever, chills or weakness No chest pain, palpitation Improving shortness of breath or coughing No abdominal pain, nausea or vomiting No urinary symptoms No any rash or wounds Physical Exam Vital Signs: Vital Signs: Last Vital Signs Temp 98.9 F 03/25/21 11:48 Pulse 108 H 03/25/21 11:48 Resp 20 03/25/21 11:48 BP 145/93 H 03/25/21 11:48 Pulse Ox 92 03/25/21 11:48 Body Mass Index 36.6 Const: Other: Constitutional : Alert, oriented, not in distress Neck : Normal inspection, Supple Cardiovascular : RRR, S1 S2, +2 bilateral lower extremity edema Respiratory : Fair bilateral air entry, basal bilateral crackles, wheezes or rhonchi Gastrointestinal: soft, lax, Normal bowel sounds, Non tender Skin : Warm, Dry, mild erythema bilateral lower extremities Neurological : Alert & oriented x3, No focal deficit Objective Data Active Medications Acetaminophen (Acetaminophen 325 Mg Tablet) 650 mg PO Q6H PRN PRN Reason: Pain, Mild (Pain Scale 1-3) Dextrose (Dextrose 50 % 25 Gm/50 Ml Vial) 25 gm IVPUSH Q15M PRN; Protocol PRN Reason: per Hypoglycemia Standing Ord. Docusate Sodium (Docusate Sodium 100 Mg Capsule) 100 mg PO DAILY PRN PRN Reason: Constipation Enoxaparin Sodium (Enoxaparin Sodium 40 Mg/0.4 Ml Syringe) 40 mg SUBCUT Q24H [facility] Last Admin: 03/24/21 21:27 Dose: 40 mg Documented by: ARGELIA Folic Acid (Folic Acid 1 Mg Tablet) 1 mg PO DAILY [facility] Last Admin: 03/25/21 08:33 Dose: 1 mg Documented by: ANEESH Furosemide (Furosemide 40 Mg/4 Ml Vial) 40 mg IVPUSH BID@0900,1800 [facility]; Protocol Last Admin: 03/25/21 08:33 Dose: 40 mg Documented by: ANEESH Glucose (Glucose Gel 15 Gm Gel..Gram.) 15 gm PO Q15M PRN; Protocol PRN Reason: per Hypoglycemia Standing Ord. Insulin Human Lispro (Insulin Lispro 100 Unit/Ml 3 Ml Vial) 0 unit SUBCUT QIDACHS [facility]; Protocol Last Admin: 03/25/21 11:56 Dose: 10 unit Documented by: ANEESH Pharmacy Consult (Consult Rx Perform Med Rec) 1 each MISCELLANE ONCE PRN PRN Reason: Consult order Sodium Chloride (0.9 % Sodium Chloride Flush 3 Ml Syringe) 3 ml IVFLUSH QSHIFT [facility] Last Admin: 03/25/21 08:33 Dose: 3 ml Documented by: ANEESH Thiamine HCl (Thiamine Hcl 100 Mg Tablet) 100 mg PO DAILY [facility] Last Admin: 03/25/21 08:34 Dose: 100 mg Documented by: ANEESH Labs CBC & Chem 7: 03/25/21 05:50 03/25/21 05:50 Labs: Laboratory Results - last 24 hr 03/24/21 03/24/21 03/24/21 18:28 18:31 18:31 MCV 98.0 MCH 32.3 MCHC 33.0 RDW 12.9 Plt Count 245 MPV 10.4 Immature Gran % (Auto) 0.4 Neut % (Auto) 72.9 Lymph % (Auto) 15.9 L [place] % (Auto) 8.4 Eos % (Auto) 1.7 Baso % (Auto) 0.7 Lymph # (Auto) 1.5 [place] # (Auto) 0.8 Eos # (Auto) 0.2 Baso # (Auto) 0.1 Abs Immat Gran (auto) 0.04 H Absolute Neuts (auto) 7.0 Absolute Nucleated RBC 0.000 Nucleated RBC % (auto) 0.0 D-Dimer High Sensitivty Anion Gap 15 Estim Creat Clear Calc 113.8 Estimated GFR > 60 POC Glucose Random Glucose 379 H* Lactic Acid Calcium 8.8 Magnesium Total Bilirubin Direct Bilirubin AST ALT Alkaline Phosphatase Troponin I High Sens B-Natriuretic Peptide Total Protein Albumin Lipase Urine Color Urine Appearance Urine pH Ur Specific [place] Urine Protein Urine Glucose (UA) Urine Ketones Urine Blood Urine Nitrite Ur Leukocyte Esterase COVID-19 (JENNA) Negative COVID-19 Clin Com See Note 03/24/21 03/24/21 03/24/21 18:31 18:31 19:06 MCV MCH MCHC RDW Plt Count MPV Immature Gran % (Auto) Neut % (Auto) Lymph % (Auto) [place] % (Auto) Eos % (Auto) Baso % (Auto) Lymph # (Auto) [place] # (Auto) Eos # (Auto) Baso # (Auto) Abs Immat Gran (auto) Absolute Neuts (auto) Absolute Nucleated RBC Nucleated RBC % (auto) D-Dimer High Sensitivty Anion Gap Estim Creat Clear Calc Estimated GFR POC Glucose Random Glucose Lactic Acid 2.0 Calcium Magnesium Total Bilirubin Direct Bilirubin AST ALT Alkaline Phosphatase Troponin I High Sens 30.8 B-Natriuretic Peptide 2697 H Total Protein Albumin Lipase Urine Color Urine Appearance Urine pH Ur Specific [place] Urine Protein Urine Glucose (UA) Urine Ketones Urine Blood Urine Nitrite Ur Leukocyte Esterase COVID-19 (JENNA) COVID-19 [employer] 03/24/21 03/24/21 03/24/21 19:06 19:07 19:07 MCV MCH MCHC RDW Plt Count MPV Immature Gran % (Auto) Neut % (Auto) Lymph % (Auto) [place] % (Auto) Eos % (Auto) Baso % (Auto) Lymph # (Auto) [place] # (Auto) Eos # (Auto) Baso # (Auto) Abs Immat Gran (auto) Absolute Neuts (auto) Absolute Nucleated RBC Nucleated RBC % (auto) D-Dimer High Sensitivty 428 Anion Gap Estim Creat Clear Calc Estimated GFR POC Glucose Random Glucose Lactic Acid Calcium Magnesium 1.4 L* Total Bilirubin 1.3 H Direct Bilirubin 0.7 H AST 27 ALT 19 Alkaline Phosphatase 124 H Troponin I High Sens B-Natriuretic Peptide 2781 H Total Protein 6.3 L Albumin 3.7 Lipase 8 Urine Color Urine Appearance Urine pH Ur Specific [place] Urine Protein Urine Glucose (UA) Urine Ketones Urine Blood Urine Nitrite Ur Leukocyte Esterase COVID-19 (JENNA) COVID-[employer]plica 03/24/21 03/24/21 03/25/21 20:31 20:31 00:21 MCV MCH MCHC RDW Plt Count MPV Immature Gran % (Auto) Neut % (Auto) Lymph % (Auto) [place] % (Auto) Eos % (Auto) Baso % (Auto) Lymph # (Auto) [place] # (Auto) Eos # (Auto) Baso # (Auto) Abs Immat Gran (auto) Absolute Neuts (auto) Absolute Nucleated RBC Nucleated RBC % (auto) D-Dimer High Sensitivty Anion Gap Estim Creat Clear Calc Estimated GFR POC Glucose 358 H* Random Glucose Lactic Acid Calcium Magnesium Total Bilirubin Direct Bilirubin AST ALT Alkaline Phosphatase Troponin I High Sens 29.1 B-Natriuretic Peptide Total Protein Albumin Lipase Urine Color STRAW Urine Appearance CLEAR Urine pH 6.0 Ur Specific [place] 1.010 Urine Protein NEG Urine Glucose (UA) 500 H Urine Ketones NEG Urine Blood NEG Urine Nitrite NEG Ur Leukocyte Esterase NEG COVID-19 (JENNA) COVID-19 Clin Com 03/25/21 03/25/21 03/25/21 05:50 05:50 06:58 MCV 96.3 MCH 32.9 MCHC 34.1 RDW 12.8 Plt Count 261 MPV 10.9 Immature Gran % (Auto) 0.4 Neut % (Auto) 88.9 H Lymph % (Auto) 7.6 L [place] % (Auto) 2.8 Eos % (Auto) 0.0 Baso % (Auto) 0.3 Lymph # (Auto) 0.6 L [place] # (Auto) 0.2 Eos # (Auto) 0.0 Baso # (Auto) 0.0 Abs Immat Gran (auto) 0.03 Absolute Neuts (auto) 6.4 Absolute Nucleated RBC 0.000 Nucleated RBC % (auto) 0.0 D-Dimer High Sensitivty Anion Gap 19 Estim Creat Clear Calc 120.5 Estimated GFR > 60 POC Glucose 354 H* Random Glucose 359 H* Lactic Acid Calcium 8.8 Magnesium 1.5 L Total Bilirubin Direct Bilirubin AST ALT Alkaline Phosphatase Troponin I High Sens B-Natriuretic Peptide Total Protein Albumin Lipase Urine Color Urine Appearance Urine pH Ur Specific [place] Urine Protein Urine Glucose (UA) Urine Ketones Urine Blood Urine Nitrite Ur Leukocyte Esterase COVID-19 (JENNA) COVID-19 Clin Com 03/25/21 11:30 MCV MCH MCHC RDW Plt Count MPV Immature Gran % (Auto) Neut % (Auto) Lymph % (Auto) [place] % (Auto) Eos % (Auto) Baso % (Auto) Lymph # (Auto) [place] # (Auto) Eos # (Auto) Baso # (Auto) Abs Immat Gran (auto) Absolute Neuts (auto) Absolute Nucleated RBC Nucleated RBC % (auto) D-Dimer High Sensitivty Anion Gap Estim Creat Clear Calc Estimated GFR POC Glucose 356 H* Random Glucose Lactic Acid Calcium Magnesium Total Bilirubin Direct Bilirubin AST ALT Alkaline Phosphatase Troponin I High Sens B-Natriuretic Peptide Total Protein Albumin Lipase Urine Color Urine Appearance Urine pH Ur Specific [place] Urine Protein Urine Glucose (UA) Urine Ketones Urine Blood Urine Nitrite Ur Leukocyte Esterase COVID-19 (JENNA) COVID-19 Clin Com Assessment and Plan (1) CHF exacerbation: Status: Acute (2) Congestive heart failure: Status: Acute Assessment and Plan: 55-year-old male with past medical history of COPD and diabetes presents to the hospital with complaints of shortness of breath to have CHF exacerbation # new onset acute CHF exacerbation Pending echo Continue IV Lasix 40 IV b.i.d. Cardiology consult strict I&O, daily weight, low-sodium diet # prolonged QT # hypomagnesemia magnesium repleted avoid QT prolonging medications Follow magnesium level # COPD Not in exacerbation # uncontrolled diabetes Continue sliding scale insulin Add Lantus 10 units diabetic diet DVT prophylaxis Lovenox Quality Stroke Does the patient have a stroke diagnosis?: No VTE Prior VTE?: No VTE Risk Level:: Medical - moderate - high VTE Device Contraindication: Treatment Not Indicated VTE Drug Contraindication: N/A - Med Ordered
[2021-03-25] MEDS: Insulin Glargine,Hum.rec.anlog 100 UNIT/ML 10 ML VIAL 10 UNIT SUBCUT (13:00)
[2021-03-25 15:54] LABS: Glucose, Whole Blood 241 mg/dL (60-115)
[2021-03-25] MEDS: Omeprazole 20 MG CAPSULE.DR PO (16:41)
--- NOTE | 2021-03-25 16:41 | P.CONCA_ITS ---
History of Present Illness History of Present Illness Date of Service: 03/25/21 Requesting physician: William Huang Chief complaint: New Onset CHF Narrative: 55-year-old gentleman with background history of hypertension, hyperlipidemia and alcoholism who is presenting with lower extremity edema and shortness of breath. He has had approximately 1 week ago he started noticing shortness of breath with lower extremity edema. With these symptoms he presented to us. He clinically was noticed to be in congestive heart failure he was admitted and was started on IV diuretics. Denying any chest discomfort. He drinks what car approximately 6 drinks every night and has been doing it for long time. He is current smoker. [facility] Past Medical History Medical History (Updated 03/25/21 @ 05:56 by Roslyn Lin MD) Asthma COPD (chronic obstructive pulmonary disease) Diabetes Family History Family History (Updated 03/25/21 @ 05:54 by Roslyn Lin MD) Father Leukemia Mother Scleroderma Surgical History Surgical History (Updated 03/25/21 @ 05:55 by Roslyn Lin MD) H/O shoulder surgery Hx of appendectomy Social History Social History Household Members: Children Housing: House Do you presently have visiting nurse or other home services: No Alcohol intake: unknown Patient Tobacco Use Status: Current someday Tobacco user Cigarette Packs Per Day: 1 Cigarettes Per Day: 20.0 Years Smoked: 30 Smoked in Last 30 Days: Yes Patient Interested in Nicotine Replacement: No Patient Given Instructions on How to Stop Smoking: Yes Date Education Initiated: 03/25/21 Second Hand Smoke Exposure: No Use of substances other than those prescribed or required for medical reasons: No Currently Displaying Signs/Symptoms of Drug Intoxication Withdrawal: No Have you been hit, kicked, punched, or otherwise hurt by someone within the past year? If so, by whom?: No Do you feel safe in your current relationship?: No Current Relationship Is there a partner from a previous relationship who is making you feel unsafe now?: No Are you made to feel afraid or neglected: No Advance Directives: No Advance Directives Information Provided: No Do you have thoughts of harming others: None Do you have a plan to hurt others: No Plan Recently lost weight without trying: No Eating poorly because of decreased appetite: No Nutrition Risks: No Nutritional Risk Poor oral hygiene: No service: No Current occupational status: unemployed Meds Allergies Allergy/AdvReac Type Severity Reaction Status Date / Time canagliflozin [Invokana] Allergy Unknown Unknown Verified 03/25/21 00:25 cat dander [CATS] Allergy Unknown RASH Verified 03/25/21 00:25 cats Allergy Unknown Unknown Verified 03/25/21 00:25 clindamycin [CLINDAMYCIN] Allergy Unknown RASH Verified 03/25/21 00:25 Clindamycin HCl Allergy Unknown itch Verified 03/25/21 00:25 diltiazem [DILTIAZEM] Allergy Unknown ITCH Verified 03/25/21 00:25 Diltiazem HCl Allergy Unknown itch Verified 03/25/21 00:25 hydrochlorothiazide Allergy Unknown GOUT Verified 03/25/21 00:25 [HYDROCHLOROTHIAZIDE] lisinopril [LISINOPRIL] Allergy Unknown TONGUE Verified 03/25/21 00:25 SWELLING naproxen [From NAPROSYN] Allergy Unknown NIGHTMARES Verified 03/25/21 00:25 penicillin V Allergy Unknown Unknown Verified 03/25/21 00:25 Penicillins [PENICILLINS] Allergy Unknown UNKNWON Verified 03/25/21 00:25 Sulfa (Sulfonamide Allergy Unknown UNKNOWN Verified 03/25/21 00:25 Antibiotics) [SULFA(SULFONAMIDE ANTIBIOTICS)] Taztia XT Allergy Unknown Unknown Uncoded 03/24/21 19:21 Active Medications: Current Medications Acetaminophen (Acetaminophen 325 Mg Tablet) 650 mg PO Q6H PRN PRN Reason: Pain, Mild (Pain Scale 1-3) Dextrose (Dextrose 50 % 25 Gm/50 Ml Vial) 25 gm IVPUSH Q15M PRN; Protocol PRN Reason: per Hypoglycemia Standing Ord. Docusate Sodium (Docusate Sodium 100 Mg Capsule) 100 mg PO DAILY PRN PRN Reason: Constipation Enoxaparin Sodium (Enoxaparin Sodium 40 Mg/0.4 Ml Syringe) 40 mg SUBCUT Q24H [facility] Last Admin: 03/24/21 21:27 Dose: 40 mg Documented by: Fluticasone Propionate (Fluticasone Propionate Nasal 16 Gm Rocky) 2 spray NOSTRIL-B DAILY [facility] Folic Acid (Folic Acid 1 Mg Tablet) 1 mg PO DAILY [facility] Last Admin: 03/25/21 08:33 Dose: 1 mg Documented by: Furosemide (Furosemide 40 Mg/4 Ml Vial) 40 mg IVPUSH BID@0900,1800 [facility]; Protocol Last Admin: 03/25/21 08:33 Dose: 40 mg Documented by: Glucose (Glucose Gel 15 Gm Gel..Gram.) 15 gm PO Q15M PRN; Protocol PRN Reason: per Hypoglycemia Standing Ord. Insulin Glargine (Insulin Glargine,Hum.Rec.Anlog 100 Unit/Ml 10 Ml Vial) 10 unit SUBCUT DAILY [facility] Last Admin: 03/25/21 13:00 Dose: 10 unit Documented by: Insulin Human Lispro (Insulin Lispro 100 Unit/Ml 3 Ml Vial) 0 unit SUBCUT QIDACHS [facility]; Protocol Last Admin: 03/25/21 11:56 Dose: 10 unit Documented by: Omeprazole (Omeprazole 20 Mg Capsule.) 20 mg PO DAILY@0630 [facility] Pharmacy Consult (Consult Rx Perform Med Rec) 1 each MISCELLANE ONCE PRN PRN Reason: Consult order Sodium Chloride (0.9 % Sodium Chloride Flush 3 Ml Syringe) 3 ml IVFLUSH QSHIFT [facility] Last Admin: 03/25/21 08:33 Dose: 3 ml Documented by: Thiamine HCl (Thiamine Hcl 100 Mg Tablet) 100 mg PO DAILY [facility] Last Admin: 03/25/21 08:34 Dose: 100 mg Documented by: Home Medications Medication Instructions Recorded Confirmed Last Taken Type fluticasone propionate 50 2 spray INTRANASAL DAILY 03/25/21 03/25/21 Unknown History mcg/actuation nasal spray,suspension omeprazole 20 mg capsule,delayed 20 mg PO DAILY 03/25/21 03/25/21 Unknown History release Physical Exam Vital Signs: Vital Signs: Last Vital Signs Temp 99.2 F 03/25/21 15:08 Pulse 98 03/25/21 15:08 Resp 22 H 03/25/21 15:08 BP 155/96 H 03/25/21 15:08 Pulse Ox 95 03/25/21 15:08 Body Mass Index 36.6 GENERAL APPEARANCE: Short of breath. NECK: no carotid bruit, + jugular venous distention. SKIN: no suspicious lesions, warm and dry. HEART: no murmurs, tachycardic. LUNGS: Bibasilar crackles. ABDOMEN: soft, nontender. EXTREMITIES: 2+ edema to the knees. PERIPHERAL PULSES: equal. NEUROLOGIC: No gross deficits, AAO X 3 Objective Labs and Meds Result diagrams: 03/25/21 05:50 03/25/21 05:50 Lab results: Laboratory Results - last 24 hr 03/24/21 03/24/21 03/24/21 18:28 18:31 18:31 WBC 9.7 RBC 4.61 Hgb 14.9 Hct 45.2 MCV 98.0 MCH 32.3 MCHC 33.0 RDW 12.9 Plt Count 245 MPV 10.4 Immature Gran % (Auto) 0.4 Neut % (Auto) 72.9 Lymph % (Auto) 15.9 L Kerr % (Auto) 8.4 Eos % (Auto) 1.7 Baso % (Auto) 0.7 Lymph # (Auto) 1.5 Kerr # (Auto) 0.8 Eos # (Auto) 0.2 Baso # (Auto) 0.1 Abs Immat Gran (auto) 0.04 H Absolute Neuts (auto) 7.0 Absolute Nucleated RBC 0.000 Nucleated RBC % (auto) 0.0 D-Dimer High Sensitivty Sodium 137 Potassium 3.9 Chloride 98 Carbon Dioxide 28 Anion Gap 15 BUN 9 Creatinine 0.98 Estim Creat Clear Calc 113.8 Estimated GFR > 60 POC Glucose Random Glucose 379 H* Lactic Acid Calcium 8.8 Magnesium Total Bilirubin Direct Bilirubin AST ALT Alkaline Phosphatase Troponin I High Sens B-Natriuretic Peptide Total Protein Albumin Lipase Urine Color Urine Appearance Urine pH Ur Specific [place] Urine Protein Urine Glucose (UA) Urine Ketones Urine Blood Urine Nitrite Ur Leukocyte Esterase COVID-19 (JENNA) Negative COVID-19 Clin Com See Note 03/24/21 03/24/21 03/24/21 18:31 18:31 19:06 WBC RBC Hgb Hct MCV MCH MCHC RDW Plt Count MPV Immature Gran % (Auto) Neut % (Auto) Lymph % (Auto) Kerr % (Auto) Eos % (Auto) Baso % (Auto) Lymph # (Auto) Kerr # (Auto) Eos # (Auto) Baso # (Auto) Abs Immat Gran (auto) Absolute Neuts (auto) Absolute Nucleated RBC Nucleated RBC % (auto) D-Dimer High Sensitivty Sodium Potassium Chloride Carbon Dioxide Anion Gap BUN Creatinine Estim Creat Clear Calc Estimated GFR POC Glucose Random Glucose Lactic Acid 2.0 Calcium Magnesium Total Bilirubin Direct Bilirubin AST ALT Alkaline Phosphatase Troponin I High Sens 30.8 B-Natriuretic Peptide 2697 H Total Protein Albumin Lipase Urine Color Urine Appearance Urine pH Ur Specific [place] Urine Protein Urine Glucose (UA) Urine Ketones Urine Blood Urine Nitrite Ur Leukocyte Esterase COVID-19 (JENNA) COVID-19 [employer] Com 03/24/21 03/24/21 03/24/21 19:06 19:07 19:07 WBC RBC Hgb Hct MCV MCH MCHC RDW Plt Count MPV Immature Gran % (Auto) Neut % (Auto) Lymph % (Auto) Kerr % (Auto) Eos % (Auto) Baso % (Auto) Lymph # (Auto) Kerr # (Auto) Eos # (Auto) Baso # (Auto) Abs Immat Gran (auto) Absolute Neuts (auto) Absolute Nucleated RBC Nucleated RBC % (auto) D-Dimer High Sensitivty 428 Sodium Potassium Chloride Carbon Dioxide Anion Gap BUN Creatinine Estim Creat Clear Calc Estimated GFR POC Glucose Random Glucose Lactic Acid Calcium Magnesium 1.4 L* Total Bilirubin 1.3 H Direct Bilirubin 0.7 H AST 27 ALT 19 Alkaline Phosphatase 124 H Troponin I High Sens B-Natriuretic Peptide 2781 H Total Protein 6.3 L Albumin 3.7 Lipase 8 Urine Color Urine Appearance Urine pH Ur Specific [place] Urine Protein Urine Glucose (UA) Urine Ketones Urine Blood Urine Nitrite Ur Leukocyte Esterase COVID-19 (JENNA) COVID-19 [employer] Com 03/24/21 03/24/21 03/25/21 20:31 20:31 00:21 WBC RBC Hgb Hct MCV MCH MCHC RDW Plt Count MPV Immature Gran % (Auto) Neut % (Auto) Lymph % (Auto) Kerr % (Auto) Eos % (Auto) Baso % (Auto) Lymph # (Auto) Kerr # (Auto) Eos # (Auto) Baso # (Auto) Abs Immat Gran (auto) Absolute Neuts (auto) Absolute Nucleated RBC Nucleated RBC % (auto) D-Dimer High Sensitivty Sodium Potassium Chloride Carbon Dioxide Anion Gap BUN Creatinine Estim Creat Clear Calc Estimated GFR POC Glucose 358 H* Random Glucose Lactic Acid Calcium Magnesium Total Bilirubin Direct Bilirubin AST ALT Alkaline Phosphatase Troponin I High Sens 29.1 B-Natriuretic Peptide Total Protein Albumin Lipase Urine Color STRAW Urine Appearance CLEAR Urine pH 6.0 Ur Specific [place] 1.010 Urine Protein NEG Urine Glucose (UA) 500 H Urine Ketones NEG Urine Blood NEG Urine Nitrite NEG Ur Leukocyte Esterase NEG COVID-19 (JENNA) COVID-19 [employer] Com 03/25/21 03/25/21 03/25/21 05:50 05:50 06:58 WBC 7.2 RBC 4.38 L Hgb 14.4 Hct 42.2 MCV 96.3 MCH 32.9 MCHC 34.1 RDW 12.8 Plt Count 261 MPV 10.9 Immature Gran % (Auto) 0.4 Neut % (Auto) 88.9 H Lymph % (Auto) 7.6 L Kerr % (Auto) 2.8 Eos % (Auto) 0.0 Baso % (Auto) 0.3 Lymph # (Auto) 0.6 L Kerr # (Auto) 0.2 Eos # (Auto) 0.0 Baso # (Auto) 0.0 Abs Immat Gran (auto) 0.03 Absolute Neuts (auto) 6.4 Absolute Nucleated RBC 0.000 Nucleated RBC % (auto) 0.0 D-Dimer High Sensitivty Sodium 138 Potassium 3.7 Chloride 97 Carbon Dioxide 26 Anion Gap 19 BUN 11 Creatinine 0.93 Estim Creat Clear Calc 120.5 Estimated GFR > 60 POC Glucose 354 H* Random Glucose 359 H* Lactic Acid Calcium 8.8 Magnesium 1.5 L Total Bilirubin Direct Bilirubin AST ALT Alkaline Phosphatase Troponin I High Sens B-Natriuretic Peptide Total Protein Albumin Lipase Urine Color Urine Appearance Urine pH Ur Specific [place] Urine Protein Urine Glucose (UA) Urine Ketones Urine Blood Urine Nitrite Ur Leukocyte Esterase COVID-19 (JENNA) COVID-19 [employer] Com 03/25/21 03/25/21 11:30 15:50 WBC RBC Hgb Hct MCV MCH MCHC RDW Plt Count MPV Immature Gran % (Auto) Neut % (Auto) Lymph % (Auto) Kerr % (Auto) Eos % (Auto) Baso % (Auto) Lymph # (Auto) Kerr # (Auto) Eos # (Auto) Baso # (Auto) Abs Immat Gran (auto) Absolute Neuts (auto) Absolute Nucleated RBC Nucleated RBC % (auto) D-Dimer High Sensitivty Sodium Potassium Chloride Carbon Dioxide Anion Gap BUN Creatinine Estim Creat Clear Calc Estimated GFR POC Glucose 356 H* 241 H Random Glucose Lactic Acid Calcium Magnesium Total Bilirubin Direct Bilirubin AST ALT Alkaline Phosphatase Troponin I High Sens B-Natriuretic Peptide Total Protein Albumin Lipase Urine Color Urine Appearance Urine pH Ur Specific [place] Urine Protein Urine Glucose (UA) Urine Ketones Urine Blood Urine Nitrite Ur Leukocyte Esterase COVID-19 (JENNA) COVID-19 Clin Com Imaging Radiologist's impression: Impressions Chest X-Ray 03/24/21 18:34 IMPRESSION: Right-sided opacity is likely moderate effusion with adjacent atelectasis or infiltrate. There is vascular congestion. Chest CTA 03/24/21 19:31 IMPRESSION: There is no filling defect to suggest a pulmonary embolism. There is pleural fluid on the right which in part appears loculated. There is right lower lobe atelectasis and right middle lobe atelectasis and prominent central adenopathy which may be reactive. Of course underlying malignancy cannot be excluded here. There is also ascites in the upper abdomen adjacent to the liver and spleen. Some small areas of nodularity are noted as described above. Recommend low-dose noncontrast CT in 6 months for continued evaluation VTE: negative Assessment and Plan (1) Congestive heart failure: Status: Acute Pleasant 55-year-old gentleman with background of alcoholism who is presenting with new onset congestive heart failure. Echocardiography is showing biventricular dysfunction. Likely etiology is alcohol use. He is tachycardic which could be due to alcohol withdrawal versus due to cardiomyopathy. I would not give any beta kenton or negative inotropic agents at this point. 40 mg IV b.i.d. Lasix. 2.5 mg metolazone before the next dose which has already been written. Adding hydralazine 25 mg 3 times a day and Imdur 30 mg daily. He has previous lisinopril allergy with tongue swelling. I do not think we can use ARB or Entresto right now. As he gets diuresed and becomes euvolemic then we can discuss about starting carvedilol. Thank you for allowing me to participate in the care of your patient. Please feel free to contact me if you have any questions. Procedures Date of Service Date of Service: 03/25/21
[2021-03-25] MEDS: hydrALAZINE HCl 25 MG TABLET PO (16:49)
[2021-03-25] MEDS: metOLazone 2.5 MG TABLET PO (16:50)
[2021-03-25] MEDS: Isosorbide Mononitrate 30 MG TAB.ER.24H PO (16:50)
--- NOTE | 2021-03-25 20:25 | CA_ITS ---
Transthoracic Echocardiogram Patient (Last, First, Middle): Immanuel Turcios E Gender: Male Date of : 1965 Age: 55 Procedure Date: 03/25/2021 Procedure Type: Transthoracic E[place]ocardiogram [place] [facility] [place]: 180.34 cm Weight: 118.84 kg BSA: 2.37 m2 Heart Rate: bpm BP: 143 / 91 mmHg Ore Buyer: JORGE Referring MD: Roslyn Lin MD Symptoms: new onset CHF Conclusions: - The left ventricular systolic function is moderately decreased. The visually estimated ejection fraction is between 30-35%. - Mildly increased right ventricular cavity size. There is mildly decreased right ventricular systolic function. - Significantly elevated right atrial pressure. Moderate pulmonary hypertension is present. - There is a flattened septum in systole and diastole consistent with right ventricular pressure and volume overload. Findings Left Ventricle Normal left ventricular cavity size. There is mildly increased left ventricular wall thickness. The left ventricular systolic function is moderately decreased. The visually estimated ejection fraction is between 30 35%. There is moderate global hypokinesis. There is a flattened septum in systole and diastole consistent with right ventricular pressure and volume overload. Abnormal diastolic function is noted. Elevated filling pressures. Right Ventricle Mildly increased right ventricular cavity size. There is mildly decreased right ventricular systolic function. Atria The left atrium is mildly dilated. The right atrium is mildly dilated. Aortic Valve Normal aortic valve structure and function. There is no aortic valve stenosis. There is no aortic valve regurgitation. Mitral Valve The mitral valve appears normal. There is trace mitral valve regurgitation. There is no mitral valve stenosis. Pulmonic Valve Normal pulmonic valve structure and function. There is no pulmonic valve regurgitation. Tricuspid Valve Normal tricuspid valve structure. There is mild to moderate tricuspid valve regurgitation. Significantly elevated right atrial pressure. Moderate pulmonary hypertension is present. Great Vessels There is mild dilatation of the ascending aorta measuring 3.40 cm. The visualized portions of the pulmonary artery and branches are normal. Venous The inferior vena cava is dilated and does not collapse with inspiration. Pericardium/Pleural There is no evidence of pericardial effusion. Measurements 2D Linear Measurements IVSd: 1.21 0.6-0.9/0.6-1.0 cm LVIDd: 5.72 3.9-5.3/4.2-5.9 cm LVIDd Index: 2.41 2.4-3.2/2.2-3.1 cm/m2 LVIDs: 5.19 2.0-3.6 cm LVPWd: 1.10 0.7-1.1 cm Ao Root: 3.20 2.1-3.5 cm LA Diam: 4.50 2.7-3.8/3.0-4.0 cm LAIDs Index: 1.90 1.5-2.3 cm/m2 LV Mass: 343.86 67-162/88-224 g LV Mass Index: 145.09 43-95/49-115 g/m2 LVOT Diam: 2.10 3.0+(-)1.3 cm 2D Systolic Function EF 4C: 32.00 >55% EF 2C: 27.60 >55% EF BiP: 30.70 >55% Mitral Valve E'Lateral: 6.31 E'Medial: 2.39 Aortic Valve AoV Pk [place]: 1.27 AoV Mn [place]: 0.89 AoV VTI: 0.20 AoV Pk Grad: 6.00 Aov Mn Grad: 4.00 YENNI Cont.VTI: 2.19 LVOT LVOT Pk [place]: 0.78 LVOT Mn [place]: 0.53 LVOT VTI: 0.13 LVOT Pk Grad: 2.00 LVOT Mn Grad: 1.00 LVOT Diam: 2.10 LVOT Area: 3.46 Diastolic Function E'Medial: 2.39 E' Laterial: 6.31 Right Ventricle TAPSE (mm): 1.41 Tricuspid Valve TR Pk [place]: 3.03 TR Pk Grad: 37.00 RA Press: 15.00 RVSP: 52.00 Great Vessels Aorta Ao Root-2D: 3.20 2.0-3.7 cm Ao Asc: 3.40 2.1-3.4 cm Updated in Other Vendor System with Status of Final Alirio Childress MD electronically signed on 03/29/2021 4:22:24 PM with status of Final
--- NOTE | 2021-03-25 20:25 | CA_ITS ---
PATIENT: ESMER FLORES DATE: 03/25/2021 : 1965 AGE: 55 GENDER: MALE INDICATIONS: NEW ONSET CHF HT: 5'11 WT: 262 BP: 143/91 SENIOR SOFTWARE PROJECT MANAGER: YR STUDY QUALITY: ECG RHYTHM: CONCLUSIONS: FINDINGS: M-MODE/2D MEASUREMENTS: LVd: 5.72 cm LVs: 5.19 cm IVSd: 1.21 cm IVSs: LVPWd: 1.10 cm LVPWs: ASC. AORATA: 3.4 CM RVd: 4.10 cm AO root: 3.2 cm LA: AV Cusp: LVOT: 2.1 cm EF%: 25-30% TAPSE: 1.41 cm OTHER: EFFUSION: THROMBUS: WALL MOTION: RVSP: 52 mmHg Mitral E/A: E Med. 2.39 cm/s E Lat. 6.31 cm/s AV Cusps Trileaflet: DOPPLER MEASUREMENTS: AORTIC PP mmHg MFG 4 mmHg VELOCITY: 127 m/s VALVE AREA: 2.19 cm2 TRICUSPD: PP mmHg VELOCITY: 303 m/s RA Vol. 27.6ml/m2 IVC: 2.34 cm LA: Vol. 31.4 ml/m2 RVS 7.94 cm/s MTDD
[2021-03-25 22:06] LABS: Glucose, Whole Blood 281 mg/dL (60-115)
[2021-03-25] MEDS: Enoxaparin Sodium 40 MG/0.4 ML SYRINGE SUBCUT (22:34)
[2021-03-26] VITALS (10 sets, daily range): BP systolic 127–144; BP diastolic 54–95; PULSE 100–108; RESP 18–22; TEMP 36.1–37.1; O2SAT 95–97
[2021-03-26] MEDS: Omeprazole 20 MG CAPSULE.DR PO (06:11)
[2021-03-26 07:02] LABS: Hematocrit 40.6 % (42.0-52.0); Hemoglobin 13.6 g/dl (14.0-18.0); Mean Corpuscular HGB Conc 33.5 g/dl (31.0-36.0); Mean Corpuscular Hemoglobin 32.7 pg (27.0-33.0); Mean Corpuscular Volume 97.6 fL (80.0-98.0); Mean Platelet Volume 10.9 fL (9.4-12.4); Platelet Count 239 X10*3/uL (160-400); Red Blood Count 4.16 X10*6/uL (4.60-5.80); Red Cell Distribution Width 12.9 % (11.0-16.0); White Blood Count 12.7 X10*3/uL (4.8-10.8)
[2021-03-26 07:16] LABS: Glucose, Whole Blood 216 mg/dL (60-115)
[2021-03-26 07:23] LABS: Anion Gap 17 (12-20); Blood Urea Nitrogen 16 mg/dL (9-16); Calcium 8.3 mg/dL (8.4-10.2); Carbon Dioxide 27 mmol/L (22-29); Chloride 95 mmol/L (96-108); Creatinine Clr Calc Pharmacy 123.1; Estimated Glomerular Filt Rate > 60; Glucose Random 217 mg/dL (60-115); Potassium 3.5 mmol/L (3.3-5.1); Sodium 135 mmol/L (135-145)
[2021-03-26] MEDS: Insulin Lispro 100 UNIT/ML 3 ML VIAL SUBCUT ×4 (08:32→23:05)
[2021-03-26] MEDS: Folic Acid 1 MG TABLET PO (09:17)
[2021-03-26] MEDS: Thiamine HCL 100 MG TABLET PO (09:17)
[2021-03-26] MEDS: Isosorbide Mononitrate 30 MG TAB.ER.24H PO (09:17)
[2021-03-26] MEDS: Furosemide 40 MG/4 ML VIAL IVPUSH ×2 (09:18→17:12)
[2021-03-26] MEDS: hydrALAZINE HCl 25 MG TABLET PO ×3 (09:18→23:04)
[2021-03-26] MEDS: metOLazone 5 MG TABLET PO (09:18)
[2021-03-26] MEDS: 0.9 % Sodium Chloride Flush 3 ML SYRINGE IVFLUSH ×3 (09:19→23:08)
[2021-03-26] MEDS: Insulin Glargine,Hum.rec.anlog 100 UNIT/ML 10 ML VIAL 10 UNIT SUBCUT (09:22)
[2021-03-26] MEDS: Fluticasone Propionate Nasal 16 GM SPRAY 2 SPRAY NOSTRIL-B (09:24)
--- NOTE | 2021-03-26 10:10 | P.PNCA_ITS ---
Subjective Subjective Date of Service: 03/26/21 <TL Menendez - Last Filed: 03/26/21 10:28> 03/26/21 <Alirio Childress MD - Last Filed: 03/26/21 15:25> Principal diagnosis: CHF, CMP <TL Menendez - Last Filed: 03/26/21 10:28> Interval history: Cardiology follow up for CHF, CMP. Seen at 0810. Today he reports ongoing sob. Wearing O2 with nasal cannula. Reports that he slept well during the night with HOB partially elevated. Denies having chest pains, palpitations, dizziness. Reports ongoing leg edema. <TL Menendez Last Filed: 03/26/21 10:28> Review of Systems Review of Systems as above <TL Menendez Last Filed: 03/26/21 10:28> Yes all other systems are reviewed and are negative <TL Menendez - Last Filed: 03/26/21 10:28> Physical Exam Vital Signs: Last Vital Signs Temp 97.6 F 03/26/21 07:06 Pulse 104 H 03/26/21 09:18 Resp 20 03/26/21 07:06 BP 134/87 03/26/21 09:18 Pulse Ox 96 03/26/21 07:06 Body Mass Index 36.6 <TL Menendez Last Filed: 03/26/21 10:28> Const General: cooperative, no acute distress, alert and awake <TL Menendez ast Filed: 03/26/21 10:28> Orientation/consciousness: patient oriented x3 <TL Menendez Last Filed: 03/26/21 10:28> Neck Neck: Yes normal visual inspection and Yes JVD <TL Menendez Last Filed: 03/26/21 10:28> Resp Effort & Inspection: normal respiratory effort and able to speak in complete sentences <TL Menendez Last Filed: 03/26/21 10:28> Auscultation: clear to auscultation bilaterally, no rales, no rhonchi, no wheezes and diminished lung sounds (right lower lobe) <Juliana Ramirez NPC - Last Filed: 03/26/21 10:28> Cardio Jugular venous distension: JVD present <Juilana Ramirez NPC - Last Filed: 03/26/21 10:28> Palpation: normal PMI <Juliana Ramirez NPC - Last Filed: 03/26/21 10:28> Rate: regular rate <Juliana Ramirez [facility] - Last Filed: 03/26/21 10:28> Rhythm: regular rhythm <Julianajessi Ramirez NPC - Last Filed: 03/26/21 10:28> Heart sounds: S1 normal heart sound present and S2 normal heart sound present <Juliana Ramirez NP - Last Filed: 03/26/21 10:28> Peripheral pulses: Peripheral pulses 2+ throughout <Juliana Ramirez [facility] - Last Filed: 03/26/21 10:28> GI Other: obese, distended, edema of tissue lower abdomen <Juliana Ramirez [facility] - Last Filed: 03/26/21 10:28> Neuro General: patient oriented x3 <Juliana Ramirez NPC - Last Filed: 03/26/21 10:28> Extrem Other: Pitting edema to upper thighs <Juliana Ramirez [facility] - Last Filed: 03/26/21 10:28> Objective Labs and Meds Result diagrams: : 03/26/21 05:58 03/26/21 05:58 <Juliana Ramirez NP - Last Filed: 03/26/21 10:28> Lab results: Laboratory Results - last 24 hr 03/25/21 03/25/21 03/25/21 11:30 15:50 22:02 WBC RBC Hgb Hct MCV MCH MCHC RDW Plt Count MPV Absolute Nucleated RBC Nucleated RBC % (auto) Sodium Potassium Chloride Carbon Dioxide Anion Gap BUN Creatinine Estim Creat Clear Calc Estimated GFR POC Glucose 356 H* 241 H 281 H Random Glucose Calcium 03/26/21 03/26/21 03/26/21 05:58 05:58 07:12 WBC 12.7 H RBC 4.16 L Hgb 13.6 L Hct 40.6 L MCV 97.6 MCH 32.7 MCHC 33.5 RDW 12.9 Plt Count 239 MPV 10.9 Absolute Nucleated RBC 0.000 Nucleated RBC % (auto) 0.0 Sodium 135 Potassium 3.5 Chloride 95 L Carbon Dioxide 27 Anion Gap 17 BUN 16 Creatinine 0.91 Estim Creat Clear Calc 123.1 Estimated GFR > 60 POC Glucose 216 H Random Glucose 217 H D Calcium 8.3 L <TL Menendez - Last Filed: 03/26/21 10:28> Progress Note: A&P Assessment and plan (1) Congestive heart failure: Status: Acute <TL Menendez - Last Filed: 03/26/21 10:28> Assessment and Plan: Admit with shortness of breath and edema. BNP elevated at 2697. D dimer elevated - CTA neg for PE. CXR with vascular congestion, right effusion. Echo reported to have biV dysfunction, EF 25-30%. Being treated for acute systolic/ RH failure. Could be alcohol induced. Ischemia is not ruled out. Being diuresed with IV Lasix with neg fluid balance 2.5 liters since admit. Still reporting sob this am. Wearing O2 2liters, sat 96%. Lungs with dim R base, pitting edema all the way to upper thighs/ lower abdomen. Still needs ongoing diuresis. Does not take lasix at home. Continue Lasix 40mg IV BID. Continue hydralazine and Imdur for preload and afterload reduction. No BB at present, will plan to start once more euvolemic. Strict I+O monitoring. Close monitoring of electrolyte and kidney function. Electrolyte replacement as warranted. We will follow. <TL Menendez - Last Filed: 03/26/21 10:28> (2) Cardiomyopathy: Status: Acute <TL Menendez - Last Filed: 03/26/21 10:28> Assessment and Plan: As above. Eventual ischemic eval. <TL Menendez - Last Filed: 03/26/21 10:28> (3) Alcohol abuse: Status: Acute <TL Menendez - Last Filed: 03/26/21 10:28> Assessment and Plan: Hx of daily alcohol use. May undergo withdrawal. Being followed by hospitalist. <TL Menendez - Last Filed: 03/26/21 10:28> Fall Risk Details Current Medications: Current Medications Acetaminophen (Acetaminophen 325 Mg Tablet) 650 mg PO Q6H PRN PRN Reason: Pain, Mild (Pain Scale 1-3) Dextrose (Dextrose 50 % 25 Gm/50 Ml Vial) 25 gm IVPUSH Q15M PRN; Protocol PRN Reason: per Hypoglycemia Standing Ord. Docusate Sodium (Docusate Sodium 100 Mg Capsule) 100 mg PO DAILY PRN PRN Reason: Constipation Enoxaparin Sodium (Enoxaparin Sodium 40 Mg/0.4 Ml Syringe) 40 mg SUBCUT Q24H COUNTS INCLUDE 234 BEDS AT THE [facility] Last Admin: 03/25/21 22:34 Dose: 40 mg Documented by: Fluticasone Propionate (Fluticasone Propionate Nasal 16 Gm [place]) 2 spray NOSTRIL-B DAILY COUNTS INCLUDE 234 BEDS AT THE [facility] Last Admin: 03/26/21 09:24 Dose: 2 spray Documented by: Folic Acid (Folic Acid 1 Mg Tablet) 1 mg PO DAILY COUNTS INCLUDE 234 BEDS AT THE [facility] Last Admin: 03/26/21 09:17 Dose: 1 mg Documented by: Furosemide (Furosemide 40 Mg/4 Ml Vial) 40 mg IVPUSH BID@0900,1800 COUNTS INCLUDE 234 BEDS AT THE [facility]; Protocol Last Admin: 03/26/21 09:18 Dose: 40 mg Documented by: Glucose (Glucose Gel 15 Gm Gel..Gram.) 15 gm PO Q15M PRN; Protocol PRN Reason: per Hypoglycemia Standing Ord. Hydralazine HCl (Hydralazine Hcl 25 Mg Tablet) 25 mg PO TID COUNTS INCLUDE 234 BEDS AT THE [facility]; Protocol Last Admin: 03/26/21 09:18 Dose: 25 mg Documented by: Insulin Glargine (Insulin Glargine,Hum.Rec.Anlog 100 Unit/Ml 10 Ml Vial) 10 unit SUBCUT DAILY COUNTS INCLUDE 234 BEDS AT THE [facility] Last Admin: 03/26/21 09:22 Dose: 10 unit Documented by: Insulin Human Lispro (Insulin Lispro 100 Unit/Ml 3 Ml Vial) 0 unit SUBCUT QIDACHS COUNTS INCLUDE 234 BEDS AT THE [facility]; Protocol Last Admin: 03/26/21 08:32 Dose: 4 unit Documented by: Isosorbide Mononitrate (Isosorbide Mononitrate 30 Mg Tab.Er.24h) 30 mg PO DAILY COUNTS INCLUDE 234 BEDS AT THE [facility]; Protocol Last Admin: 03/26/21 09:17 Dose: 30 mg Documented by: Omeprazole (Omeprazole 20 Mg Capsule.) 20 mg PO DAILY@0630 COUNTS INCLUDE 234 BEDS AT THE [facility] Last Admin: 03/26/21 06:11 Dose: 20 mg Documented by: Pharmacy Consult (Consult Rx Perform Med Rec) 1 each MISCELLANE ONCE PRN PRN Reason: Consult order Sodium Chloride (0.9 % Sodium Chloride Flush 3 Ml Syringe) 3 ml IVFLUSH QSHIFT COUNTS INCLUDE 234 BEDS AT THE [facility] Last Admin: 03/26/21 09:19 Dose: 3 ml Documented by: Thiamine HCl (Thiamine Hcl 100 Mg Tablet) 100 mg PO DAILY COUNTS INCLUDE 234 BEDS AT THE [facility] Last Admin: 03/26/21 09:17 Dose: 100 mg Documented by: <TL Menendez - Last Filed: 03/26/21 10:28> Time Spent With Patient Time: Total time spent is greater than 50% in coordination of care (as documented) at patient's floor/unit and/or counseling patient: <TL Menendez - Last Filed: 03/26/21 10:28> Time with patient: 25 - 35 minutes <TL Menendez - Last Filed: 03/26/21 10:28> Progress Note: Quality Stroke Does the patient have a stroke diagnosis?: No <TL Menendez - Last Filed: 03/26/21 10:28> Procedures Date of Service Date of Service: 03/26/21 <TL Menendez - Last Filed: 03/26/21 10:28>
[2021-03-26 11:11] LABS: Glucose, Whole Blood 231 mg/dL (60-115)
--- NOTE | 2021-03-26 11:52 | HO.PM.IMPN ---
Subjective Subjective Date of Service: 03/26/21 Interval History: the patient was seen and evaluated this morning Laying in bed, feels little better today swelling going down Denies any fever, chills or chest pain Shortness of breath improving No reported other overnight events. Systemic review: No fever, chills or weakness No chest pain, palpitation Improving shortness of breath or coughing No abdominal pain, nausea or vomiting No urinary symptoms No any rash or wounds Physical Exam Vital Signs: Vital Signs: Last Vital Signs Temp 97.2 F 03/26/21 11:03 Pulse 108 H 03/26/21 11:03 Resp 18 03/26/21 11:03 BP 129/90 H 03/26/21 11:03 Pulse Ox 95 03/26/21 11:03 Body Mass Index 36.6 Const: Other: Constitutional : Alert, oriented, not in distress Neck : Normal inspection, Supple Cardiovascular : RRR, S1 S2, +1 bilateral lower extremity edema Respiratory : Fair bilateral air entry, basal bilateral crackles, wheezes or rhonchi Gastrointestinal: soft, lax, Normal bowel sounds, Non tender Skin : Warm, Dry, mild erythema bilateral lower extremities improving Neurological : Alert & oriented x3, No focal deficit Objective Data Active Medications Acetaminophen (Acetaminophen 325 Mg Tablet) 650 mg PO Q6H PRN PRN Reason: Pain, Mild (Pain Scale 1-3) Dextrose (Dextrose 50 % 25 Gm/50 Ml Vial) 25 gm IVPUSH Q15M PRN; Protocol PRN Reason: per Hypoglycemia Standing Ord. Docusate Sodium (Docusate Sodium 100 Mg Capsule) 100 mg PO DAILY PRN PRN Reason: Constipation Enoxaparin Sodium (Enoxaparin Sodium 40 Mg/0.4 Ml Syringe) 40 mg SUBCUT Q24H [facility] Last Admin: 03/25/21 22:34 Dose: 40 mg Documented by: LELAND Fluticasone Propionate (Fluticasone Propionate Nasal 16 Gm [place]) 2 spray NOSTRIL-B DAILY [facility] Last Admin: 03/26/21 09:24 Dose: 2 spray Documented by: EULALIO Folic Acid (Folic Acid 1 Mg Tablet) 1 mg PO DAILY [facility] Last Admin: 03/26/21 09:17 Dose: 1 mg Documented by: EULALIO Furosemide (Furosemide 40 Mg/4 Ml Vial) 40 mg IVPUSH BID@0900,1800 [facility]; Protocol Last Admin: 03/26/21 09:18 Dose: 40 mg Documented by: EULALIO Glucose (Glucose Gel 15 Gm Gel..Gram.) 15 gm PO Q15M PRN; Protocol PRN Reason: per Hypoglycemia Standing Ord. Hydralazine HCl (Hydralazine Hcl 25 Mg Tablet) 25 mg PO TID [facility]; Protocol Last Admin: 03/26/21 09:18 Dose: 25 mg Documented by: EULALIO Insulin Glargine (Insulin Glargine,Hum.Rec.Anlog 100 Unit/Ml 10 Ml Vial) 10 unit SUBCUT DAILY [facility] Last Admin: 03/26/21 09:22 Dose: 10 unit Documented by: EULALIO Insulin Human Lispro (Insulin Lispro 100 Unit/Ml 3 Ml Vial) 0 unit SUBCUT QIDACHS [facility]; Protocol Last Admin: 03/26/21 08:32 Dose: 4 unit Documented by: MARILU Isosorbide Mononitrate (Isosorbide Mononitrate 30 Mg Tab.Er.24h) 30 mg PO DAILY [facility]; Protocol Last Admin: 03/26/21 09:17 Dose: 30 mg Documented by: EULALIO Omeprazole (Omeprazole 20 Mg Capsule.) 20 mg PO DAILY@0630 [facility] Last Admin: 03/26/21 06:11 Dose: 20 mg Documented by: XAVI Pharmacy Consult (Consult Rx Perform Med Rec) 1 each MISCELLANE ONCE PRN PRN Reason: Consult order Sodium Chloride (0.9 % Sodium Chloride Flush 3 Ml Syringe) 3 ml IVFLUSH QSHIFT [facility] Last Admin: 03/26/21 09:19 Dose: 3 ml Documented by: EULALIO Thiamine HCl (Thiamine Hcl 100 Mg Tablet) 100 mg PO DAILY [facility] Last Admin: 03/26/21 09:17 Dose: 100 mg Documented by: EULALIO Labs CBC & Chem 7: 03/26/21 05:58 03/26/21 05:58 Labs: Laboratory Results - last 24 hr 03/25/21 03/25/21 03/26/21 15:50 22:02 05:58 MCV 97.6 MCH 32.7 MCHC 33.5 RDW 12.9 Plt Count 239 MPV 10.9 Absolute Nucleated RBC 0.000 Nucleated RBC % (auto) 0.0 Anion Gap Estim Creat Clear Calc Estimated GFR POC Glucose 241 H 281 H Random Glucose Calcium 03/26/21 03/26/21 03/26/21 05:58 07:12 11:04 MCV MCH MCHC RDW Plt Count MPV Absolute Nucleated RBC Nucleated RBC % (auto) Anion Gap 17 Estim Creat Clear Calc 123.1 Estimated GFR > 60 POC Glucose 216 H 231 H Random Glucose 217 H D Calcium 8.3 L Microbiology Microbiology Results: Microbiology 03/24/21 19:06 Blood Culture - Preliminary Blood - Venous No growth after 24 hours. 03/24/21 18:54 Blood Culture - Preliminary Blood - Venous No growth after 24 hours. Assessment and Plan (1) Cardiomyopathy: Status: Acute (2) Alcohol abuse: Status: Acute (3) CHF exacerbation: Status: Acute (4) Acute systolic CHF (congestive heart failure): Status: Acute Assessment and Plan: 55-year-old male with past medical history of COPD and diabetes presents to the hospital with complaints of shortness of breath to have CHF exacerbation # new onset acute systolic CHF exacerbation echo showing low EF 25-30% Continue IV Lasix 40 IV b.i.d. with Metolazone Addition of Hydralazine and Imdur Cardiology consult appreciated strict I&O, daily weight, low-sodium diet # prolonged QT # hypomagnesemia magnesium repleted avoid QT prolonging medications Follow magnesium level # COPD Not in exacerbation # uncontrolled diabetes Continue sliding scale insulin Lantus 10 units diabetic diet DVT prophylaxis Lovenox Quality Stroke Does the patient have a stroke diagnosis?: No VTE Prior VTE?: No VTE Risk Level:: Medical - moderate - high VTE Device Contraindication: Treatment Not Indicated VTE Drug Contraindication: N/A - Med Ordered
--- NOTE | 2021-03-26 11:54 | MHC.CM.PN ---
per rounds no dc date at thsi time dc plan remains home no servcies
[2021-03-26] MEDS: Acetaminophen 325 MG TABLET 650 MG PO (12:03)
[2021-03-26 16:15] LABS: Glucose, Whole Blood 228 mg/dL (60-115)
[2021-03-26 21:43] LABS: Glucose, Whole Blood 284 mg/dL (60-115)
[2021-03-26] MEDS: Enoxaparin Sodium 40 MG/0.4 ML SYRINGE SUBCUT (23:03)
[2021-03-27] VITALS (10 sets, daily range): BP systolic 117–149; BP diastolic 77–99; PULSE 95–100; RESP 18–20; TEMP 36.1–36.7; O2SAT 92–96
[2021-03-27 07:16] LABS: Glucose, Whole Blood 215 mg/dL (60-115)
[2021-03-27 08:04] LABS: B Type Natriuretic Peptide 1689 pg/mL (<100)
[2021-03-27 08:10] LABS: Anion Gap 13 (12-20); Blood Urea Nitrogen 13 mg/dL (9-16); Calcium 8.3 mg/dL (8.4-10.2); Carbon Dioxide 34 mmol/L (22-29); Chloride 90 mmol/L (96-108); Creatinine Clr Calc Pharmacy 141.9; Estimated Glomerular Filt Rate > 60; Glucose Random 212 mg/dL (60-115); Potassium 3.3 mmol/L (3.3-5.1); Sodium 134 mmol/L (135-145)
[2021-03-27] MEDS: Isosorbide Mononitrate 30 MG TAB.ER.24H PO (08:55)
[2021-03-27] MEDS: Folic Acid 1 MG TABLET PO (08:56)
[2021-03-27] MEDS: Thiamine HCL 100 MG TABLET PO (08:56)
[2021-03-27] MEDS: hydrALAZINE HCl 25 MG TABLET PO ×3 (08:57→21:46)
[2021-03-27] MEDS: Furosemide 40 MG/4 ML VIAL IVPUSH ×2 (08:58→18:14)
[2021-03-27] MEDS: 0.9 % Sodium Chloride Flush 3 ML SYRINGE IVFLUSH ×3 (08:59→21:52)
[2021-03-27] MEDS: Insulin Lispro 100 UNIT/ML 3 ML VIAL SUBCUT ×4 (09:00→21:46)
[2021-03-27] MEDS: Insulin Glargine,Hum.rec.anlog 100 UNIT/ML 10 ML VIAL 15 UNIT SUBCUT (09:00)
[2021-03-27] MEDS: Fluticasone Propionate Nasal 16 GM SPRAY 2 SPRAY NOSTRIL-B (09:02)
--- NOTE | 2021-03-27 10:50 | P.PNIM_ITS ---
Subjective Subjective Date of Service: 03/27/21 Interval History: The patient was seen and evaluated this morning Laying in bed, feels little better today but still short of breath Denies any fever, chills or chest pain Shortness of breath improving No reported other overnight events. Systemic review: No fever, chills or weakness No chest pain, palpitation Improving shortness of breath or coughing No abdominal pain, nausea or vomiting No urinary symptoms No any rash or wounds Physical Exam Vital Signs: Vital Signs: Last Vital Signs Temp 97.2 F 03/27/21 07:25 Pulse 95 03/27/21 08:57 Resp 20 03/27/21 07:25 BP 117/81 03/27/21 08:57 Pulse Ox 96 03/27/21 07:25 Body Mass Index 36.6 Const: Other: Constitutional : Alert, oriented, not in distress Neck : Normal inspection, Supple Cardiovascular : RRR, S1 S2, +1 bilateral lower extremity edema Respiratory : Fair bilateral air entry, basal bilateral crackles, wheezes or rhonchi Gastrointestinal: soft, lax, Normal bowel sounds, Non tender Skin : Warm, Dry, mild erythema bilateral lower extremities improving Neurological : Alert & oriented x3, No focal deficit Objective Data Active Medications Acetaminophen (Acetaminophen 325 Mg Tablet) 650 mg PO Q6H PRN PRN Reason: Pain, Mild (Pain Scale 1-3) Last Admin: 03/26/21 12:03 Dose: 650 mg Documented by: EULALIO Dextrose (Dextrose 50 % 25 Gm/50 Ml Vial) 25 gm IVPUSH Q15M PRN; Protocol PRN Reason: per Hypoglycemia Standing Ord. Docusate Sodium (Docusate Sodium 100 Mg Capsule) 100 mg PO DAILY PRN PRN Reason: Constipation Enoxaparin Sodium (Enoxaparin Sodium 40 Mg/0.4 Ml Syringe) 40 mg SUBCUT Q24H [facility] Last Admin: 03/26/21 23:03 Dose: 40 mg Documented by: MANUEL Fluticasone Propionate (Fluticasone Propionate Nasal 16 Gm [place]) 2 spray NOSTRIL-B DAILY [facility] Last Admin: 03/27/21 09:02 Dose: 2 spray Documented by: EULALIO Folic Acid (Folic Acid 1 Mg Tablet) 1 mg PO DAILY [facility] Last Admin: 03/27/21 08:56 Dose: 1 mg Documented by: EULALIO Furosemide (Furosemide 40 Mg/4 Ml Vial) 40 mg IVPUSH BID@0900,1800 [facility]; Protocol Last Admin: 03/27/21 08:58 Dose: 40 mg Documented by: EULALIO Glucose (Glucose Gel 15 Gm Gel..Gram.) 15 gm PO Q15M PRN; Protocol PRN Reason: per Hypoglycemia Standing Ord. Hydralazine HCl (Hydralazine Hcl 25 Mg Tablet) 25 mg PO TID [facility]; Protocol Last Admin: 03/27/21 08:57 Dose: 25 mg Documented by: EULALIO Insulin Glargine (Insulin Glargine,Hum.Rec.Anlog 100 Unit/Ml 10 Ml Vial) 15 unit SUBCUT DAILY [facility] Last Admin: 03/27/21 09:00 Dose: 15 unit Documented by: EULALIO Insulin Human Lispro (Insulin Lispro 100 Unit/Ml 3 Ml Vial) 0 unit SUBCUT QIDACHS [facility]; Protocol Last Admin: 03/27/21 09:00 Dose: 4 unit Documented by: EULALIO Isosorbide Mononitrate (Isosorbide Mononitrate 30 Mg Tab.Er.24h) 30 mg PO DAILY [facility]; Protocol Last Admin: 03/27/21 08:55 Dose: 30 mg Documented by: EULALIO Omeprazole (Omeprazole 20 Mg Capsule.) 20 mg PO DAILY@0630 [facility] Last Admin: 03/27/21 06:30 Dose: Not Given Documented by: MANUEL Non-Admin Reason: Patient Refused Pharmacy Consult (Consult Rx Perform Med Rec) 1 each MISCELLANE ONCE PRN PRN Reason: Consult order Sodium Chloride (0.9 % Sodium Chloride Flush 3 Ml Syringe) 3 ml IVFLUSH QSHIFT [facility] Last Admin: 03/27/21 08:59 Dose: 3 ml Documented by: EULALIO Thiamine HCl (Thiamine Hcl 100 Mg Tablet) 100 mg PO DAILY [facility] Last Admin: 03/27/21 08:56 Dose: 100 mg Documented by: EULALIO Labs CBC & Chem 7: 03/26/21 05:58 03/27/21 07:06 Labs: Laboratory Results - last 24 hr 03/26/21 03/26/21 03/26/21 11:04 15:54 21:26 Anion Gap Estim Creat Clear Calc Estimated GFR POC Glucose 231 H 228 H 284 H Random Glucose Calcium B-Natriuretic Peptide 03/27/21 03/27/21 03/27/21 07:06 07:06 07:10 Anion Gap 13 Estim Creat Clear Calc 141.9 Estimated GFR > 60 POC Glucose 215 H Random Glucose 212 H Calcium 8.3 L B-Natriuretic Peptide 1689 H Microbiology Microbiology Results: Microbiology 03/24/21 19:06 Blood Culture - Preliminary Blood - Venous No growth after 48 hours. 03/24/21 18:54 Blood Culture - Preliminary Blood - Venous No growth after 48 hours. Assessment and Plan (1) Acute systolic CHF (congestive heart failure): Status: Acute (2) Uncontrolled diabetes mellitus: Status: Acute Assessment and Plan: 55-year-old male with past medical history of COPD and diabetes presents to the hospital with complaints of shortness of breath to have CHF exacerbation # new onset acute systolic CHF exacerbation echo showing low EF 25-30% Continue IV Lasix 40 IV b.i.d. Addition of Hydralazine and Imdur Cardiology consult appreciated strict I&O, daily weight, low-sodium diet # prolonged QT # hypomagnesemia magnesium repleted avoid QT prolonging medications Follow magnesium level # COPD Not in exacerbation # uncontrolled diabetes w hyperglycemia Continue sliding scale insulin increase Lantus 15 units diabetic diet DVT prophylaxis Lovenox Quality Stroke Does the patient have a stroke diagnosis?: No VTE Prior VTE?: No VTE Risk Level:: Medical - moderate - high VTE Device Contraindication: Treatment Not Indicated VTE Drug Contraindication: N/A - Med Ordered
[2021-03-27 11:04] LABS: Glucose, Whole Blood 268 mg/dL (60-115)
--- NOTE | 2021-03-27 12:17 | P.PNCA_ITS ---
Subjective Subjective Date of Service: 03/27/21 Principal diagnosis: CHF, CMP Interval history: Feeling better. Continues to be volume overloaded. Physical Exam Vital Signs: Last Vital Signs Temp 97.3 F 03/27/21 11:03 Pulse 97 03/27/21 11:03 Resp 20 03/27/21 11:03 BP 125/83 03/27/21 11:03 Pulse Ox 93 03/27/21 11:03 Body Mass Index 36.6 GENERAL APPEARANCE:? In no acute distress NECK: no carotid bruit, + jugular venous distention. SKIN: no suspicious lesions, warm and dry. HEART: no murmurs, regular rate and rhythm. LUNGS:? Clear to auscultation. ABDOMEN: soft, nontender. EXTREMITIES:? 2+ edema. PERIPHERAL PULSES: equal. NEUROLOGIC: No gross deficits, AAO X 3 Objective Labs and Meds Result diagrams: 03/26/21 05:58 03/27/21 07:06 Lab results: Laboratory Results - last 24 hr 03/26/21 03/26/21 03/27/21 15:54 21:26 07:06 Sodium 134 L Potassium 3.3 Chloride 90 L Carbon Dioxide 34 H Anion Gap 13 BUN 13 Creatinine 0.79 Estim Creat Clear Calc 141.9 Estimated GFR > 60 POC Glucose 228 H 284 H Random Glucose 212 H Calcium 8.3 L B-Natriuretic Peptide 03/27/21 03/27/21 03/27/21 07:06 07:10 10:58 Sodium Potassium Chloride Carbon Dioxide Anion Gap BUN Creatinine Estim Creat Clear Calc Estimated GFR POC Glucose 215 H 268 H Random Glucose Calcium B-Natriuretic Peptide 1689 H Progress Note: A&P Assessment and plan (1) Cardiomyopathy: Status: Acute (2) Alcohol abuse: Status: Acute (3) Acute systolic CHF (congestive heart failure): Status: Acute Assessment and Plan: 55-year-old gentleman with alcoholism and new onset cardiomyopathy and acute systolic heart failure. Responding to diuretics. Continue IV diuretics at this stage. Started on hydralazine nitrate because he has an Rafael inhibitor allergy. Not ready for beta-blockers yet. As we diurese further and he becomes euvolemic then I will add carvedilol 3.125 mg twice a day. We will follow along with you. Thank you for allowing me to participate in the care of your patient. Please feel free to contact me if you have any questions. Fall Risk Details Current Medications: Current Medications Acetaminophen (Acetaminophen 325 Mg Tablet) 650 mg PO Q6H PRN PRN Reason: Pain, Mild (Pain Scale 1-3) Last Admin: 03/26/21 12:03 Dose: 650 mg Documented by: Dextrose (Dextrose 50 % 25 Gm/50 Ml Vial) 25 gm IVPUSH Q15M PRN; Protocol PRN Reason: per Hypoglycemia Standing Ord. Docusate Sodium (Docusate Sodium 100 Mg Capsule) 100 mg PO DAILY PRN PRN Reason: Constipation Enoxaparin Sodium (Enoxaparin Sodium 40 Mg/0.4 Ml Syringe) 40 mg SUBCUT Q24H [facility] Last Admin: 03/26/21 23:03 Dose: 40 mg Documented by: Fluticasone Propionate (Fluticasone Propionate Nasal 16 Gm [place]) 2 spray NOSTRIL-B DAILY [facility] Last Admin: 03/27/21 09:02 Dose: 2 spray Documented by: Folic Acid (Folic Acid 1 Mg Tablet) 1 mg PO DAILY [facility] Last Admin: 03/27/21 08:56 Dose: 1 mg Documented by: Furosemide (Furosemide 40 Mg/4 Ml Vial) 40 mg IVPUSH BID@0900,1800 [facility]; Protocol Last Admin: 03/27/21 08:58 Dose: 40 mg Documented by: Glucose (Glucose Gel 15 Gm Gel..Gram.) 15 gm PO Q15M PRN; Protocol PRN Reason: per Hypoglycemia Standing Ord. Hydralazine HCl (Hydralazine Hcl 25 Mg Tablet) 25 mg PO TID [facility]; Protocol Last Admin: 03/27/21 08:57 Dose: 25 mg Documented by: Insulin Glargine (Insulin Glargine,Hum.Rec.Anlog 100 Unit/Ml 10 Ml Vial) 15 unit SUBCUT DAILY [facility] Last Admin: 03/27/21 09:00 Dose: 15 unit Documented by: Insulin Human Lispro (Insulin Lispro 100 Unit/Ml 3 Ml Vial) 0 unit SUBCUT QIDACHS [facility]; Protocol Last Admin: 03/27/21 11:29 Dose: 6 unit Documented by: Isosorbide Mononitrate (Isosorbide Mononitrate 30 Mg Tab.Er.24h) 30 mg PO DAILY [facility]; Protocol Last Admin: 03/27/21 08:55 Dose: 30 mg Documented by: Omeprazole (Omeprazole 20 Mg Capsule.) 20 mg PO DAILY@0630 [facility] Last Admin: 03/27/21 06:30 Dose: Not Given Documented by: Pharmacy Consult (Consult Rx Perform Med Rec) 1 each MISCELLANE ONCE PRN PRN Reason: Consult order Sodium Chloride (0.9 % Sodium Chloride Flush 3 Ml Syringe) 3 ml IVFLUSH QSHIFT [facility] Last Admin: 03/27/21 08:59 Dose: 3 ml Documented by: Thiamine HCl (Thiamine Hcl 100 Mg Tablet) 100 mg PO DAILY [facility] Last Admin: 03/27/21 08:56 Dose: 100 mg Documented by: Time Spent With Patient Time: Total time spent is greater than 50% in coordination of care (as documented) at patient's floor/unit and/or counseling patient: Time with patient: 15 - 24 minutes Progress Note: Quality Stroke Does the patient have a stroke diagnosis?: No Procedures Date of Service Date of Service: 03/27/21
[2021-03-27] MEDS: Acetaminophen 325 MG TABLET 650 MG PO (13:08)
[2021-03-27 15:40] LABS: Magnesium 1.4 mg/dL (1.6-2.6)
[2021-03-27 15:52] LABS: Glucose, Whole Blood 185 mg/dL (60-115)
[2021-03-27] MEDS: Magnesium Sulfate/H2O 2 GM/50 ML PIGGYBACK IV (16:09)
--- NOTE | 2021-03-27 16:52 | PC.NURSE ---
Pt had a short run of PAT; remained asymptomatic for duration and had no complaints. Noted upon review of labs that mag drawn two days go, redraw was was 1.4 and potassium was 3.3 this am[address] Provider informed Dr Huang - new order for IV Magnesium - administered. Will continue to monitor.)
[2021-03-27 20:07] LABS: Glucose, Whole Blood 214 mg/dL (60-115)
[2021-03-27] MEDS: Enoxaparin Sodium 40 MG/0.4 ML SYRINGE SUBCUT (21:47)
[2021-03-28] VITALS (9 sets, daily range): BP systolic 119–131; BP diastolic 81–88; PULSE 96–102; RESP 18–20; TEMP 36.1–36.8; O2SAT 90–97
[2021-03-28 06:13] LABS: Hematocrit 42.4 % (42.0-52.0); Hemoglobin 14.3 g/dl (14.0-18.0); Mean Corpuscular HGB Conc 33.7 g/dl (31.0-36.0); Mean Corpuscular Hemoglobin 32.3 pg (27.0-33.0); Mean Corpuscular Volume 95.7 fL (80.0-98.0); Mean Platelet Volume 10.7 fL (9.4-12.4); Platelet Count 251 X10*3/uL (160-400); Red Blood Count 4.43 X10*6/uL (4.60-5.80); Red Cell Distribution Width 12.3 % (11.0-16.0); White Blood Count 8.2 X10*3/uL (4.8-10.8)
[2021-03-28 06:47] LABS: Anion Gap 16 (12-20); Blood Urea Nitrogen 13 mg/dL (9-16); Calcium 8.9 mg/dL (8.4-10.2); Carbon Dioxide 33 mmol/L (22-29); Chloride 89 mmol/L (96-108); Creatinine Clr Calc Pharmacy 130.3; Estimated Glomerular Filt Rate > 60; Glucose Random 269 mg/dL (60-115); Magnesium 1.6 mg/dL (1.6-2.6); Potassium 3.5 mmol/L (3.3-5.1); Sodium 134 mmol/L (135-145)
[2021-03-28 07:46] LABS: Glucose, Whole Blood 253 mg/dL (60-115)
[2021-03-28] MEDS: Isosorbide Mononitrate 30 MG TAB.ER.24H PO (08:05)
[2021-03-28] MEDS: Folic Acid 1 MG TABLET PO (08:05)
[2021-03-28] MEDS: Furosemide 40 MG/4 ML VIAL IVPUSH ×2 (08:06→18:06)
[2021-03-28] MEDS: Thiamine HCL 100 MG TABLET PO (08:06)
[2021-03-28] MEDS: hydrALAZINE HCl 25 MG TABLET PO ×3 (08:06→21:07)
[2021-03-28] MEDS: Insulin Glargine,Hum.rec.anlog 100 UNIT/ML 10 ML VIAL 20 UNIT SUBCUT (08:07)
[2021-03-28] MEDS: Insulin Lispro 100 UNIT/ML 3 ML VIAL SUBCUT ×4 (08:07→21:09)
[2021-03-28] MEDS: Fluticasone Propionate Nasal 16 GM SPRAY 2 SPRAY NOSTRIL-B (08:11)
[2021-03-28] MEDS: 0.9 % Sodium Chloride Flush 3 ML SYRINGE IVFLUSH ×3 (08:11→21:15)
[2021-03-28 11:11] LABS: Glucose, Whole Blood 183 mg/dL (60-115)
--- NOTE | 2021-03-28 11:13 | HO.PM.IMPN ---
Subjective Subjective Date of Service: 03/28/21 Interval History: The patient was seen and evaluated this morning Laying in bed, feels better today With improvement in breathing Denies any fever, chills or chest pain Shortness of breath improving No reported other overnight events. Systemic review: No fever, chills or weakness No chest pain, palpitation Improving shortness of breath or coughing No abdominal pain, nausea or vomiting No urinary symptoms No any rash or wounds Physical Exam Vital Signs: Vital Signs: Last Vital Signs Temp 97.9 F 03/28/21 07:15 Pulse 96 03/28/21 08:06 Resp 20 03/28/21 07:15 BP 131/88 03/28/21 08:06 Pulse Ox 90 L 03/28/21 07:15 Body Mass Index 36.6 Const: Other: Constitutional : Alert, oriented, not in distress Neck : Normal inspection, Supple Cardiovascular : RRR, S1 S2, Trace bilateral lower extremity edema Respiratory : Fair bilateral air entry, Fine basal bilateral crackles, wheezes or rhonchi Gastrointestinal: soft, lax, Normal bowel sounds, Non tender Skin : Warm, Dry, mild erythema bilateral lower extremities improving Neurological : Alert & oriented x3, No focal deficit Objective Data Active Medications Acetaminophen (Acetaminophen 325 Mg Tablet) 650 mg PO Q6H PRN PRN Reason: Pain, Mild (Pain Scale 1-3) Last Admin: 03/27/21 13:08 Dose: 650 mg Documented by: JOY Dextrose (Dextrose 50 % 25 Gm/50 Ml Vial) 25 gm IVPUSH Q15M PRN; Protocol PRN Reason: per Hypoglycemia Standing Ord. Docusate Sodium (Docusate Sodium 100 Mg Capsule) 100 mg PO DAILY PRN PRN Reason: Constipation Enoxaparin Sodium (Enoxaparin Sodium 40 Mg/0.4 Ml Syringe) 40 mg SUBCUT Q24H [facility] Last Admin: 03/27/21 21:47 Dose: 40 mg Documented by: MANUEL Fluticasone Propionate (Fluticasone Propionate Nasal 16 Gm [place]) 2 spray NOSTRIL-B DAILY [facility] Last Admin: 03/28/21 08:11 Dose: 2 spray Documented by: EULALIO Folic Acid (Folic Acid 1 Mg Tablet) 1 mg PO DAILY [facility] Last Admin: 03/28/21 08:05 Dose: 1 mg Documented by: EULALIO Furosemide (Furosemide 40 Mg/4 Ml Vial) 40 mg IVPUSH BID@0900,1800 [facility]; Protocol Last Admin: 03/28/21 08:06 Dose: 40 mg Documented by: EULALIO Glucose (Glucose Gel 15 Gm Gel..Gram.) 15 gm PO Q15M PRN; Protocol PRN Reason: per Hypoglycemia Standing Ord. Hydralazine HCl (Hydralazine Hcl 25 Mg Tablet) 25 mg PO TID [facility]; Protocol Last Admin: 03/28/21 08:06 Dose: 25 mg Documented by: EULALIO Insulin Glargine (Insulin Glargine,Hum.Rec.Anlog 100 Unit/Ml 10 Ml Vial) 20 unit SUBCUT DAILY [facility] Last Admin: 03/28/21 08:07 Dose: 20 unit Documented by: EULALIO Insulin Human Lispro (Insulin Lispro 100 Unit/Ml 3 Ml Vial) 0 unit SUBCUT QIDACHS [facility]; Protocol Last Admin: 03/28/21 08:07 Dose: 6 unit Documented by: EULALIO Isosorbide Mononitrate (Isosorbide Mononitrate 30 Mg Tab.Er.24h) 30 mg PO DAILY [facility]; Protocol Last Admin: 03/28/21 08:05 Dose: 30 mg Documented by: EULALIO Omeprazole (Omeprazole 20 Mg Capsule.) 20 mg PO DAILY@0630 [facility] Last Admin: 03/28/21 06:25 Dose: Not Given Documented by: MANUEL Non-Admin Reason: Patient Refused Pharmacy Consult (Consult Rx Perform Med Rec) 1 each MISCELLANE ONCE PRN PRN Reason: Consult order Sodium Chloride (0.9 % Sodium Chloride Flush 3 Ml Syringe) 3 ml IVFLUSH QSHIFT [facility] Last Admin: 03/28/21 08:11 Dose: 3 ml Documented by: EULALIO Thiamine HCl (Thiamine Hcl 100 Mg Tablet) 100 mg PO DAILY [facility] Last Admin: 03/28/21 08:06 Dose: 100 mg Documented by: EULALIO Labs CBC & Chem 7: 03/28/21 05:33 03/28/21 05:33 Labs: Laboratory Results - last 24 hr 03/27/21 03/27/21 03/27/21 07:06 15:48 19:49 MCV MCH MCHC RDW Plt Count MPV Absolute Nucleated RBC Nucleated RBC % (auto) Anion Gap Estim Creat Clear Calc Estimated GFR POC Glucose 185 H 214 H Random Glucose Calcium Magnesium 1.4 L* 03/28/21 03/28/21 03/28/21 05:33 05:33 07:32 MCV 95.7 MCH 32.3 MCHC 33.7 RDW 12.3 Plt Count 251 MPV 10.7 Absolute Nucleated RBC 0.000 Nucleated RBC % (auto) 0.0 Anion Gap 16 Estim Creat Clear Calc 130.3 Estimated GFR > 60 POC Glucose 253 H Random Glucose 269 H Calcium 8.9 D Magnesium 1.6 03/28/21 11:05 MCV MCH MCHC RDW Plt Count MPV Absolute Nucleated RBC Nucleated RBC % (auto) Anion Gap Estim Creat Clear Calc Estimated GFR POC Glucose 183 H Random Glucose Calcium Magnesium Assessment and Plan (1) Uncontrolled diabetes mellitus: Status: Acute (2) Acute systolic CHF (congestive heart failure): Status: Acute (3) Cardiomyopathy: Status: Acute Assessment and Plan: 55-year-old male with past medical history of COPD and diabetes presents to the hospital with complaints of shortness of breath to have CHF exacerbation # new onset acute systolic CHF exacerbation echo showing low EF 25-30% Continue IV Lasix 40 IV b.i.d. Addition of Hydralazine and Imdur Cardiology consult appreciated strict I&O, daily weight, low-sodium diet Plan to add carvedilol b.i.d. tomorrow # prolonged QT # hypomagnesemia magnesium Of 1.6, to give extra today avoid QT prolonging medications Follow magnesium level # COPD Not in exacerbation # uncontrolled diabetes w hyperglycemia Continue sliding scale insulin increase Lantus 20 units diabetic diet DVT prophylaxis Lovenox Quality Stroke Does the patient have a stroke diagnosis?: No VTE Prior VTE?: No VTE Risk Level:: Medical - moderate - high VTE Device Contraindication: Treatment Not Indicated VTE Drug Contraindication: N/A - Med Ordered
--- NOTE | 2021-03-28 11:22 | PM.PNCARD ---
Subjective Subjective Date of Service: 03/28/21 Principal diagnosis: CHF, CMP Interval history: Still overloaded and short of breath. Physical Exam Vital Signs: Last Vital Signs Temp 97.9 F 03/28/21 07:15 Pulse 96 03/28/21 08:06 Resp 20 03/28/21 07:15 BP 131/88 03/28/21 08:06 Pulse Ox 90 L 03/28/21 07:15 Body Mass Index 36.6 GENERAL APPEARANCE:? In no acute distress NECK: no carotid bruit, + jugular venous distention. SKIN: no suspicious lesions, warm and dry. HEART: no murmurs, regular rate and rhythm. LUNGS:? Clear to auscultation. ABDOMEN: soft, nontender. EXTREMITIES:? 1-2+ edema. PERIPHERAL PULSES: equal. NEUROLOGIC: No gross deficits, AAO X 3 Objective Labs and Meds Result diagrams: 03/28/21 05:33 03/28/21 05:33 Lab results: Laboratory Results - last 24 hr 03/27/21 03/27/21 03/27/21 07:06 15:48 19:49 WBC RBC Hgb Hct MCV MCH MCHC RDW Plt Count MPV Absolute Nucleated RBC Nucleated RBC % (auto) Sodium Potassium Chloride Carbon Dioxide Anion Gap BUN Creatinine Estim Creat Clear Calc Estimated GFR POC Glucose 185 H 214 H Random Glucose Calcium Magnesium 1.4 L* 03/28/21 03/28/21 03/28/21 05:33 05:33 07:32 WBC 8.2 RBC 4.43 L Hgb 14.3 Hct 42.4 MCV 95.7 MCH 32.3 MCHC 33.7 RDW 12.3 Plt Count 251 MPV 10.7 Absolute Nucleated RBC 0.000 Nucleated RBC % (auto) 0.0 Sodium 134 L Potassium 3.5 Chloride 89 L Carbon Dioxide 33 H Anion Gap 16 BUN 13 Creatinine 0.86 Estim Creat Clear Calc 130.3 Estimated GFR > 60 POC Glucose 253 H Random Glucose 269 H Calcium 8.9 D Magnesium 1.6 03/28/21 11:05 WBC RBC Hgb Hct MCV MCH MCHC RDW Plt Count MPV Absolute Nucleated RBC Nucleated RBC % (auto) Sodium Potassium Chloride Carbon Dioxide Anion Gap BUN Creatinine Estim Creat Clear Calc Estimated GFR POC Glucose 183 H Random Glucose Calcium Magnesium Progress Note: A&P Assessment and plan (1) Acute systolic CHF (congestive heart failure): Status: Acute (2) Cardiomyopathy: Status: Acute (3) Alcohol abuse: Status: Acute Assessment and Plan: 55-year-old gentleman with alcoholism and new onset cardiomyopathy and acute systolic heart failure.? Responding to diuretics.? Continue IV diuretics at this stage.? Started on hydralazine nitrate because he has an Rafael inhibitor allergy.? Not ready for beta-blockers yet.? As we diurese further and he becomes euvolemic then I will add carvedilol 3.125 mg twice a day.? We will follow along with you.? Thank you for allowing me to participate in the care of your patient.? Please feel free to contact me if you have any questions. Fall Risk Details Current Medications: Current Medications Acetaminophen (Acetaminophen 325 Mg Tablet) 650 mg PO Q6H PRN PRN Reason: Pain, Mild (Pain Scale 1-3) Last Admin: 03/27/21 13:08 Dose: 650 mg Documented by: Dextrose (Dextrose 50 % 25 Gm/50 Ml Vial) 25 gm IVPUSH Q15M PRN; Protocol PRN Reason: per Hypoglycemia Standing Ord. Docusate Sodium (Docusate Sodium 100 Mg Capsule) 100 mg PO DAILY PRN PRN Reason: Constipation Enoxaparin Sodium (Enoxaparin Sodium 40 Mg/0.4 Ml Syringe) 40 mg SUBCUT Q24H [facility] Last Admin: 03/27/21 21:47 Dose: 40 mg Documented by: Fluticasone Propionate (Fluticasone Propionate Nasal 16 Gm [place]) 2 spray NOSTRIL-B DAILY [facility] Last Admin: 03/28/21 08:11 Dose: 2 spray Documented by: Folic Acid (Folic Acid 1 Mg Tablet) 1 mg PO DAILY [facility] Last Admin: 03/28/21 08:05 Dose: 1 mg Documented by: Furosemide (Furosemide 40 Mg/4 Ml Vial) 40 mg IVPUSH BID@0900,1800 [facility]; Protocol Last Admin: 03/28/21 08:06 Dose: 40 mg Documented by: Glucose (Glucose Gel 15 Gm Gel..Gram.) 15 gm PO Q15M PRN; Protocol PRN Reason: per Hypoglycemia Standing Ord. Hydralazine HCl (Hydralazine Hcl 25 Mg Tablet) 25 mg PO TID [facility]; Protocol Last Admin: 03/28/21 08:06 Dose: 25 mg Documented by: Magnesium Sulfate (Magnesium Sulfate/H2o) 2 gm in 50 mls @ 25 mls/hr IV ONCE ONE Stop: 03/28/21 13:15 Insulin Glargine (Insulin Glargine,Hum.Rec.Anlog 100 Unit/Ml 10 Ml Vial) 20 unit SUBCUT DAILY [facility] Last Admin: 03/28/21 08:07 Dose: 20 unit Documented by: Insulin Human Lispro (Insulin Lispro 100 Unit/Ml 3 Ml Vial) 0 unit SUBCUT QIDACHS [facility]; Protocol Last Admin: 03/28/21 08:07 Dose: 6 unit Documented by: Isosorbide Mononitrate (Isosorbide Mononitrate 30 Mg Tab.Er.24h) 30 mg PO DAILY [facility]; Protocol Last Admin: 03/28/21 08:05 Dose: 30 mg Documented by: Omeprazole (Omeprazole 20 Mg Capsule.Dr) 20 mg PO DAILY@0630 [facility] Last Admin: 03/28/21 06:25 Dose: Not Given Documented by: Pharmacy Consult (Consult Rx Perform Med Rec) 1 each MISCELLANE ONCE PRN PRN Reason: Consult order Sodium Chloride (0.9 % Sodium Chloride Flush 3 Ml Syringe) 3 ml IVFLUSH QSHIFT [facility] Last Admin: 03/28/21 08:11 Dose: 3 ml Documented by: Thiamine HCl (Thiamine Hcl 100 Mg Tablet) 100 mg PO DAILY [facility] Last Admin: 03/28/21 08:06 Dose: 100 mg Documented by: Time Spent With Patient Time: Total time spent is greater than 50% in coordination of care (as documented) at patient's floor/unit and/or counseling patient: Time with patient: 15 - 24 minutes Progress Note: Quality Stroke Does the patient have a stroke diagnosis?: No Procedures Date of Service Date of Service: 03/28/21
[2021-03-28] MEDS: Magnesium Sulfate/H2O 2 GM/50 ML PIGGYBACK IV (12:27)
[2021-03-28 16:02] LABS: Glucose, Whole Blood 239 mg/dL (60-115)
[2021-03-28 19:39] LABS: Glucose, Whole Blood 349 mg/dL (60-115)
[2021-03-28] MEDS: Enoxaparin Sodium 40 MG/0.4 ML SYRINGE SUBCUT (21:06)
[2021-03-29] VITALS (11 sets, daily range): BP systolic 109–122; BP diastolic 68–82; PULSE 88–102; RESP 16–20; TEMP 36.1–36.9; O2SAT 90–99
[2021-03-29 06:43] LABS: Anion Gap 17 (12-20); Blood Urea Nitrogen 11 mg/dL (9-16); Calcium 8.7 mg/dL (8.4-10.2); Carbon Dioxide 29 mmol/L (22-29); Chloride 92 mmol/L (96-108); Creatinine Clr Calc Pharmacy 141.9; Estimated Glomerular Filt Rate > 60; Glucose Random 276 mg/dL (60-115); Potassium 4.1 mmol/L (3.3-5.1); Sodium 134 mmol/L (135-145)
[2021-03-29 06:47] LABS: Magnesium 1.6 mg/dL (1.6-2.6)
[2021-03-29 06:52] LABS: Hematocrit 42.1 % (42.0-52.0); Hemoglobin 14.3 g/dl (14.0-18.0); Mean Corpuscular Hemoglobin 32.6 pg (27.0-33.0); Mean Corpuscular Volume 96.1 fL (80.0-98.0); Mean Platelet Volume 10.9 fL (9.4-12.4); Platelet Count 240 X10*3/uL (160-400); Red Blood Count 4.38 X10*6/uL (4.60-5.80); Red Cell Distribution Width 12.5 % (11.0-16.0); White Blood Count 8.3 X10*3/uL (4.8-10.8)
[2021-03-29 06:53] LABS: B Type Natriuretic Peptide 1362 pg/mL (<100)
[2021-03-29 07:29] LABS: Glucose, Whole Blood 249 mg/dL (60-115)
[2021-03-29] MEDS: Omeprazole 20 MG CAPSULE.DR PO (07:57)
[2021-03-29] MEDS: Fluticasone Propionate Nasal 16 GM SPRAY 2 SPRAY NOSTRIL-B (07:58)
[2021-03-29] MEDS: metOLazone 5 MG TABLET PO (07:58)
[2021-03-29] MEDS: Thiamine HCL 100 MG TABLET PO (07:58)
[2021-03-29] MEDS: Folic Acid 1 MG TABLET PO (07:58)
[2021-03-29] MEDS: Isosorbide Mononitrate 30 MG TAB.ER.24H PO (07:58)
[2021-03-29] MEDS: hydrALAZINE HCl 25 MG TABLET PO ×3 (07:58→20:41)
[2021-03-29] MEDS: Furosemide 40 MG/4 ML VIAL IVPUSH ×2 (07:59→16:28)
[2021-03-29] MEDS: 0.9 % Sodium Chloride Flush 3 ML SYRINGE IVFLUSH ×3 (07:59→20:41)
[2021-03-29] MEDS: Insulin Glargine,Hum.rec.anlog 100 UNIT/ML 10 ML VIAL 30 UNIT SUBCUT (07:59)
[2021-03-29] MEDS: Insulin Lispro 100 UNIT/ML 3 ML VIAL SUBCUT ×4 (07:59→20:39)
--- NOTE | 2021-03-29 09:41 | P.PNCA_ITS ---
Subjective Subjective Date of Service: 03/29/21 <TL Menendez - Last Filed: 03/29/21 11:36> 03/29/21 <Brayan Cadena MD - Last Filed: 03/29/21 12:41> Principal diagnosis: CHF, CMP <TL Menendez - Last Filed: 03/29/21 11:36> Interval history: Cardiology follow up for CHF, CMP. Seen at 0830. Today he reports having episodes of sob at times, that makes him feel like it is hyperventilating. Not wearing O2 supplement. Denies cough. Slept with HOB elevated some. Denies having any chest pains, abdominal pains. Leg swelling much improved but still present in lower legs. No dizziness when getting up into recliner today. He reports that may be discharged today but is concerned about his insurance and getting medication. <TL Menendez - Last Filed: 03/29/21 11:36> Review of Systems Review of Systems as above <TL Menendez - Last Filed: 03/29/21 11:36> Yes all other systems are reviewed and are negative <TL Menendez - Last Filed: 03/29/21 11:36> Physical Exam Vital Signs: Last Vital Signs Temp 98.2 F 03/29/21 07:23 Pulse 100 03/29/21 07:58 Resp 18 03/29/21 07:23 BP 110/68 03/29/21 07:58 Pulse Ox 93 03/29/21 07:23 Body Mass Index 36.6 <TL Menendez - Last Filed: 03/29/21 11:36> Const General: cooperative, no acute distress, alert and awake <TL Menendez - Last Filed: 03/29/21 11:36> Orientation/consciousness: patient oriented x3 <TL Menendez Last Filed: 03/29/21 11:36> Neck Neck: Yes normal visual inspection and Yes no JVD <TL Menendez - Last Filed: 03/29/21 11:36> Resp Effort & Inspection: normal respiratory effort, able to speak in complete sentences and not labored <SKINNY Menendez - Last Filed: 03/29/21 11:36> Auscultation: clear to auscultation bilaterally, no rales, no rhonchi, no wheezes and diminished lung sounds (right lung 1/2 up diminished) <Juliana Ramirez NP - Last Filed: 03/29/21 11:36> Cardio Palpation: normal PMI <SKINNY Menendez - Last Filed: 03/29/21 11:36> Rate: regular rate <[facility] Last Filed: 03/29/21 11:36> Rhythm: regular rhythm <[facility] Last Filed: 03/29/21 11:36> Heart sounds: S1 normal heart sound present and S2 normal heart sound present <[facility] Last Filed: 03/29/21 11:36> Peripheral pulses: Peripheral pulses 2+ throughout <[facility] Last Filed: 03/29/21 11:36> GI Inspection: Yes normal to inspection <Juliana Ramirez NP - Last Filed: 03/29/21 11:36> Skin General skin exam: no rashes or lesions noted <SKINNY Menendez - Last Filed: 03/29/21 11:36> Neuro General: patient oriented x3 <[facility] Last Filed: 03/29/21 11:36> Extrem Other: redness to skin of lower legs, no open skin areas noted. Lower leg pitting edema present <Juliana Ramirez NP - Last Filed: 03/29/21 11:36> Objective Labs and Meds Result diagrams: : 03/29/21 05:58 03/29/21 05:58 <Juliana Ramirez NP - Last Filed: 03/29/21 11:36> Lab results: Laboratory Results - last 24 hr 03/28/21 03/28/21 03/28/21 11:05 15:55 19:31 WBC RBC Hgb Hct MCV MCH MCHC RDW Plt Count MPV Absolute Nucleated RBC Nucleated RBC % (auto) Sodium Potassium Chloride Carbon Dioxide Anion Gap BUN Creatinine Estim Creat Clear Calc Estimated GFR POC Glucose 183 H 239 H 349 H Random Glucose Calcium Magnesium B-Natriuretic Peptide 03/29/21 03/29/21 03/29/21 05:58 05:58 05:58 WBC 8.3 RBC 4.38 L Hgb 14.3 Hct 42.1 MCV 96.1 MCH 32.6 MCHC 34.0 RDW 12.5 Plt Count 240 MPV 10.9 Absolute Nucleated RBC 0.000 Nucleated RBC % (auto) 0.0 Sodium 134 L Potassium 4.1 Chloride 92 L Carbon Dioxide 29 Anion Gap 17 BUN 11 Creatinine 0.79 Estim Creat Clear Calc 141.9 Estimated GFR > 60 POC Glucose Random Glucose 276 H Calcium 8.7 Magnesium 1.6 B-Natriuretic Peptide 03/29/21 03/29/21 05:59 07:24 WBC RBC Hgb Hct MCV MCH MCHC RDW Plt Count MPV Absolute Nucleated RBC Nucleated RBC % (auto) Sodium Potassium Chloride Carbon Dioxide Anion Gap BUN Creatinine Estim Creat Clear Calc Estimated GFR POC Glucose 249 H Random Glucose Calcium Magnesium B-Natriuretic Peptide 1362 H <TL Menendez - Last Filed: 03/29/21 11:36> Progress Note: A&P Assessment and plan (1) Acute systolic CHF (congestive heart failure): Status: Acute <TL Menendez - Last Filed: 03/29/21 11:36> Assessment and Plan: Admit with shortness of breath and edema. BNP elevated at 2697. D dimer elevated - CTA neg for PE.? CXR with vascular congestion, right effusion. Echo reported to have biV dysfunction, EF 25-30%. Being treated for acute systolic/ RH failure. Could be alcohol induced. Ischemia is not ruled out. Being diuresed with IV Lasix with neg fluid balance 13 liters since admit. Sat 93% on room air. Still has episodes of sob. Right lung very dim posteriorly. CXR this am, shows moderate right effusion with atelectasis. Edema much improved. Still has some in lower legs. Continue IV Lasix today, then eval for change to PO victorino orrow. Continue hydralazine and Imdur for preload and afterload reduction. Notes indicate he has allergy to Lisinopril. ARB will be avoided for this reason. Initially not started on BB, however now that he is more euvolemic, will start on Carvedilol 3.125mg bid. Tele does shows SR/ ST 90- low 100s. Will start Aldactone 12.5mg daily. Continue I+O monitoring. Close monitoring of electrolyte and kidney function. Electrolyte replacement as warranted. Plan for outpt ischemic eval. He will need CHF education and complete abstinence from alcohol. We will follow. <TL Menendez - Last Filed: 03/29/21 11:36> Admit with shortness of breath and edema. BNP elevated at 2697. D dimer elevated - CTA neg for PE.? CXR with vascular congestion, right effusion. Echo reported to have biV dysfunction, EF 25-30%. Being treated for acute systolic/ RH failure. Could be alcohol induced. Ischemia is not ruled out. Being diuresed with IV Lasix with neg fluid balance 13 liters since admit. Sat 93% on room air. Still has episodes of sob. Right lung very dim posteriorly. CXR this am, shows moderate right effusion with atelectasis. Edema much improved. Still has some in lower legs. Continue IV Lasix today, then eval for change to PO tomorrow. Continue hydralazine and Imdur for preload and afterload reduction. Notes indicate he has allergy to Lisinopril. ARB will be avoided for this reason. Initially not started on BB, however now that he is more euvolemic, will start on Carvedilol 3.125mg bid. Tele does shows SR/ ST 90- low 100s. Will start Aldactone 12.5mg daily. Continue I+O monitoring. Close monitoring of electrolyte and kidney function. Electrolyte replacement as warranted. Plan for outpt ischemic eval. He will need CHF education and complete abstinence from alcohol. We will follow. Patient seen and examined. Case discussed with Juliana campos here. Patient still appears mildly fluid overloaded. Continue IV diuresis. Strict intake and output chart. Should consider right pleural effusion removal. Will start him on carvedilol. Will also start him on Aldactone. Continue vasodilators therapy. Heart failure management was discussed with him. Complete cessation of alcohol was discussed. Strict intake and output chart. Ischemic workup as an outpatient. Will follow with you <Brayan Cadena MD - Last Filed: 03/29/21 12:41> (2) Cardiomyopathy: Status: Acute <TL Menendez - Last Filed: 03/29/21 11:36> (3) Alcohol abuse: Status: Acute <TL Menendez - Last Filed: 03/29/21 11:36> Fall Risk Details Current Medications: Current Medications Acetaminophen (Acetaminophen 325 Mg Tablet) 650 mg PO Q6H PRN PRN Reason: Pain, Mild (Pain Scale 1-3) Last Admin: 03/27/21 13:08 Dose: 650 mg Documented by: Dextrose (Dextrose 50 % 25 Gm/50 Ml Vial) 25 gm IVPUSH Q15M PRN; Protocol PRN Reason: per Hypoglycemia Standing Ord. Docusate Sodium (Docusate Sodium 100 Mg Capsule) 100 mg PO DAILY PRN PRN Reason: Constipation Enoxaparin Sodium (Enoxaparin Sodium 40 Mg/0.4 Ml Syringe) 40 mg SUBCUT Q24H [facility] Last Admin: 03/28/21 21:06 Dose: 40 mg Documented by: Fluticasone Propionate (Fluticasone Propionate Nasal 16 Gm [place]) 2 spray NOSTRIL-B DAILY [facility] Last Admin: 03/29/21 07:58 Dose: 2 spray Documented by: Folic Acid (Folic Acid 1 Mg Tablet) 1 mg PO DAILY [facility] Last Admin: 03/29/21 07:58 Dose: 1 mg Documented by: Furosemide (Furosemide 40 Mg/4 Ml Vial) 40 mg IVPUSH BID@0900,1800 [facility]; Protocol Last Admin: 03/29/21 07:59 Dose: 40 mg Documented by: Glucose (Glucose Gel 15 Gm Gel..Gram.) 15 gm PO Q15M PRN; Protocol PRN Reason: per Hypoglycemia Standing Ord. Hydralazine HCl (Hydralazine Hcl 25 Mg Tablet) 25 mg PO TID [facility]; Protocol Last Admin: 03/29/21 07:58 Dose: 25 mg Documented by: Insulin Glargine (Insulin Glargine,Hum.Rec.Anlog 100 Unit/Ml 10 Ml Vial) 30 unit SUBCUT DAILY [facility] Last Admin: 03/29/21 07:59 Dose: 30 unit Documented by: Insulin Human Lispro (Insulin Lispro 100 Unit/Ml 3 Ml Vial) 0 unit SUBCUT QIDACHS [facility]; Protocol Last Admin: 03/29/21 07:59 Dose: 4 unit Documented by: Isosorbide Mononitrate (Isosorbide Mononitrate 30 Mg Tab.Er.24h) 30 mg PO DAILY [facility]; Protocol Last Admin: 03/29/21 07:58 Dose: 30 mg Documented by: Omeprazole (Omeprazole 20 Mg Capsule.Dr) 20 mg PO DAILY@0630 [facility] Last Admin: 03/29/21 07:57 Dose: 20 mg Documented by: Pharmacy Consult (Consult Rx Perform Med Rec) 1 each MISCELLANE ONCE PRN PRN Reason: Consult order Sodium Chloride (0.9 % Sodium Chloride Flush 3 Ml Syringe) 3 ml IVFLUSH QSHIFT [facility] Last Admin: 03/29/21 07:59 Dose: 3 ml Documented by: Thiamine HCl (Thiamine Hcl 100 Mg Tablet) 100 mg PO DAILY [facility] Last Admin: 03/29/21 07:58 Dose: 100 mg Documented by: <TL Menendez - Last Filed: 03/29/21 11:36> Time Spent With Patient Time: Total time spent is greater than 50% in coordination of care (as documented) at patient's floor/unit and/or counseling patient: 26 <TL Menendez - Last Filed: 03/29/21 11:36> Time with patient: 25 - 35 minutes <TL Menendez - Last Filed: 03/29/21 11:36> Progress Note: Quality Stroke Does the patient have a stroke diagnosis?: No <TL Menendez - Last Filed: 03/29/21 11:36> Procedures Date of Service Date of Service: 03/29/21 <TL Menendez - Last Filed: 03/29/21 11:36>
[2021-03-29 11:06] LABS: Glucose, Whole Blood 250 mg/dL (60-115)
--- NOTE | 2021-03-29 11:29 | P.PNIM_ITS ---
Subjective Subjective Date of Service: 03/29/21 Interval History: The patient was seen and evaluated this morning Laying in bed, feels better today But still complaining of shortness of breath and orthopnea Denies any fever, chills or chest pain Shortness of breath improving No reported other overnight events. Systemic review: No fever, chills or weakness No chest pain, palpitation Improving shortness of breath or coughing No abdominal pain, nausea or vomiting No urinary symptoms No any rash or wounds Physical Exam Vital Signs: Vital Signs: Last Vital Signs Temp 97.6 F 03/29/21 11:02 Pulse 101 H 03/29/21 11:02 Resp 18 03/29/21 11:02 BP 122/82 03/29/21 11:02 Pulse Ox 91 L 03/29/21 11:02 Body Mass Index 36.6 Const: Other: Constitutional : Alert, oriented, not in distress Neck : Normal inspection, Supple Cardiovascular : RRR, S1 S2, Trace bilateral lower extremity edema Respiratory : Fair bilateral air entry, Fine basal bilateral crackles more on t he right side, wheezes or rhonchi Gastrointestinal: soft, lax, Normal bowel sounds, Non tender Skin : Warm, Dry, mild erythema bilateral lower extremities improving Neurological : Alert & oriented x3, No focal deficit Objective Data Active Medications Acetaminophen (Acetaminophen 325 Mg Tablet) 650 mg PO Q6H PRN PRN Reason: Pain, Mild (Pain Scale 1-3) Last Admin: 03/27/21 13:08 Dose: 650 mg Documented by: JOY Carvedilol (Carvedilol 3.125 Mg Tablet) 3.125 mg PO BID [facility]; Protocol Dextrose (Dextrose 50 % 25 Gm/50 Ml Vial) 25 gm IVPUSH Q15M PRN; Protocol PRN Reason: per Hypoglycemia Standing Ord. Docusate Sodium (Docusate Sodium 100 Mg Capsule) 100 mg PO DAILY PRN PRN Reason: Constipation Enoxaparin Sodium (Enoxaparin Sodium 40 Mg/0.4 Ml Syringe) 40 mg SUBCUT Q24H [facility] Last Admin: 03/28/21 21:06 Dose: 40 mg Documented by: DAVID Fluticasone Propionate (Fluticasone Propionate Nasal 16 Gm [place]) 2 spray NOSTRIL-B DAILY [facility] Last Admin: 03/29/21 07:58 Dose: 2 spray Documented by: MARILU Folic Acid (Folic Acid 1 Mg Tablet) 1 mg PO DAILY [facility] Last Admin: 03/29/21 07:58 Dose: 1 mg Documented by: MARILU Furosemide (Furosemide 40 Mg/4 Ml Vial) 40 mg IVPUSH BID@0900,1800 [facility]; Protocol Last Admin: 03/29/21 07:59 Dose: 40 mg Documented by: MARILU Glucose (Glucose Gel 15 Gm Gel..Gram.) 15 gm PO Q15M PRN; Protocol PRN Reason: per Hypoglycemia Standing Ord. Hydralazine HCl (Hydralazine Hcl 25 Mg Tablet) 25 mg PO TID [facility]; Protocol Last Admin: 03/29/21 07:58 Dose: 25 mg Documented by: MARILU Insulin Glargine (Insulin Glargine,Hum.Rec.Anlog 100 Unit/Ml 10 Ml Vial) 30 unit SUBCUT DAILY [facility] Last Admin: 03/29/21 07:59 Dose: 30 unit Documented by: MARILU Insulin Human Lispro (Insulin Lispro 100 Unit/Ml 3 Ml Vial) 0 unit SUBCUT QIDACHS [facility]; Protocol Last Admin: 03/29/21 07:59 Dose: 4 unit Documented by: MARILU Isosorbide Mononitrate (Isosorbide Mononitrate 30 Mg Tab.Er.24h) 30 mg PO DAILY [facility]; Protocol Last Admin: 03/29/21 07:58 Dose: 30 mg Documented by: MARILU Omeprazole (Omeprazole 20 Mg Capsule.Dr) 20 mg PO DAILY@0630 [facility] Last Admin: 03/29/21 07:57 Dose: 20 mg Documented by: MARILU Pharmacy Consult (Consult Rx Perform Med Rec) 1 each MISCELLANE ONCE PRN PRN Reason: Consult order Sodium Chloride (0.9 % Sodium Chloride Flush 3 Ml Syringe) 3 ml IVFLUSH QSHIFT [facility] Last Admin: 03/29/21 07:59 Dose: 3 ml Documented by: MARILU Spironolactone (Spironolactone 25 Mg Tablet) 12.5 mg PO DAILY [facility]; Protocol Thiamine HCl (Thiamine Hcl 100 Mg Tablet) 100 mg PO DAILY [facility] Last Admin: 03/29/21 07:58 Dose: 100 mg Documented by: MARILU Labs CBC & Chem 7: 03/29/21 05:58 03/29/21 05:58 Labs: Laboratory Results - last 24 hr 03/28/21 03/28/21 03/29/21 15:55 19:31 05:58 MCV 96.1 MCH 32.6 MCHC 34.0 RDW 12.5 Plt Count 240 MPV 10.9 Absolute Nucleated RBC 0.000 Nucleated RBC % (auto) 0.0 Anion Gap Estim Creat Clear Calc Estimated GFR POC Glucose 239 H 349 H Random Glucose Calcium Magnesium B-Natriuretic Peptide 03/29/21 03/29/21 03/29/21 05:58 05:58 05:59 MCV MCH MCHC RDW Plt Count MPV Absolute Nucleated RBC Nucleated RBC % (auto) Anion Gap 17 Estim Creat Clear Calc 141.9 Estimated GFR > 60 POC Glucose Random Glucose 276 H Calcium 8.7 Magnesium 1.6 B-Natriuretic Peptide 1362 H 03/29/21 03/29/21 07:24 11:03 MCV MCH MCHC RDW Plt Count MPV Absolute Nucleated RBC Nucleated RBC % (auto) Anion Gap Estim Creat Clear Calc Estimated GFR POC Glucose 249 H 250 H Random Glucose Calcium Magnesium B-Natriuretic Peptide Assessment and Plan (1) Uncontrolled diabetes mellitus: Status: Acute (2) Acute systolic CHF (congestive heart failure): Status: Acute (3) Cardiomyopathy: Status: Acute Assessment and Plan: 55-year-old male with past medical history of COPD and diabetes presents to the hospital with complaints of shortness of breath to have CHF exacerbation # new onset acute systolic CHF exacerbation # Right-sided pleural effusion echo showing low EF 25-30% Repeated CXR showing right-sided pleural effusion, to drain Continue IV Lasix 40 IV b.i.d. Continue Hydralazine, spironolactone and Imdur Cardiology consult appreciated strict I&O, daily weight, low-sodium diet Started carvedilol b.i.d. # prolonged QT # hypomagnesemia magnesium Of 1.6, to give extra today avoid QT prolonging medications Follow magnesium level # COPD Not in exacerbation # uncontrolled diabetes w hyperglycemia Continue sliding scale insulin increase Lantus 30 units diabetic diet DVT prophylaxis Lovenox Quality Stroke Does the patient have a stroke diagnosis?: No VTE Prior VTE?: No VTE Risk Level:: Medical - moderate - high VTE Device Contraindication: Treatment Not Indicated VTE Drug Contraindication: N/A - Med Ordered
[2021-03-29] MEDS: carvediloL 3.125 MG TABLET PO ×2 (12:01→20:40)
--- NOTE | 2021-03-29 12:01 | MHC.CM.PN ---
per rounds pt to be dcd today home no servceis
--- NOTE | 2021-03-29 12:16 | MHC.CM.PN ---
met with pt pt given pcp list at [facility] pt to be milagro sue
--- NOTE | 2021-03-29 12:18 | MHC.CM.PN ---
per rounds pt to be dcd in 1 to 2 days dc plan remanins home with resumption of [employer] servceis
[2021-03-29 12:35] LABS: INTERNATIONAL NORM RATIO 1.2 (0.9-1.1); Prothrombin Time 13.6 SEC (9.9-13.0)
[2021-03-29 12:38] LABS: Lactate Dehydrogenase 214 U/L (118-273); Total Protein 6.7 g/dL (6.5-8.0)
[2021-03-29 16:18] LABS: Glucose, Whole Blood 229 mg/dL (60-115)
[2021-03-29] MEDS: Acetaminophen 325 MG TABLET 650 MG PO (16:28)
[2021-03-29 20:17] LABS: Glucose, Whole Blood 323 mg/dL (60-115)
[2021-03-30] VITALS (7 sets, daily range): BP systolic 98–115; BP diastolic 61–83; PULSE 90–103; RESP 18–20; TEMP 36.6–37.2; O2SAT 91–97
[2021-03-30] MEDS: Omeprazole 20 MG CAPSULE.DR PO (06:03)
[2021-03-30 06:51] LABS: Anion Gap 15 (12-20); Blood Urea Nitrogen 11 mg/dL (9-16); Carbon Dioxide 29 mmol/L (22-29); Chloride 94 mmol/L (96-108); Estimated Glomerular Filt Rate > 60; Glucose Random 252 mg/dL (60-115); Sodium 134 mmol/L (135-145)
[2021-03-30 06:52] LABS: B Type Natriuretic Peptide 1006 pg/mL (<100)
[2021-03-30 07:26] LABS: Glucose, Whole Blood 223 mg/dL (60-115)
[2021-03-30] MEDS: Spironolactone 25 MG TABLET 12.5 MG PO (08:22)
[2021-03-30] MEDS: Thiamine HCL 100 MG TABLET PO (08:22)
[2021-03-30] MEDS: carvediloL 3.125 MG TABLET PO (08:22)
[2021-03-30] MEDS: metOLazone 5 MG TABLET PO (08:22)
[2021-03-30] MEDS: Insulin Lispro 100 UNIT/ML 3 ML VIAL SUBCUT ×2 (08:22→11:46)
[2021-03-30] MEDS: hydrALAZINE HCl 25 MG TABLET PO (08:22)
[2021-03-30] MEDS: Isosorbide Mononitrate 30 MG TAB.ER.24H PO (08:22)
[2021-03-30] MEDS: Folic Acid 1 MG TABLET PO (08:22)
[2021-03-30] MEDS: Insulin Glargine,Hum.rec.anlog 100 UNIT/ML 10 ML VIAL 30 UNIT SUBCUT (08:24)
[2021-03-30] MEDS: 0.9 % Sodium Chloride Flush 3 ML SYRINGE IVFLUSH (08:25)
[2021-03-30] MEDS: Fluticasone Propionate Nasal 16 GM SPRAY 2 SPRAY NOSTRIL-B (08:28)
[2021-03-30 09:05] LABS: Estimated Average Glucose 318 mg/dL; Hemoglobin A1c % 12.7 %
[2021-03-30] MEDS: Lidocaine HCl 1 % MPF 5 ML VIAL SUBCUT (09:48)
[2021-03-30 10:15] LABS: MN% 90.9 %; PMN% 9.1 %; RBC Peritoneal Fluid < 0.002 X10*6/uL
--- NOTE | 2021-03-30 10:30 | PM.PNCARD ---
Subjective Subjective Date of Service: 03/30/21 <TL Menendez - Last Filed: 03/30/21 11:01> 03/30/21 <Brayan Cadena MD - Last Filed: 03/30/21 11:56> Principal diagnosis: CHF, CMP <TL Menendez - Last Filed: 03/30/21 11:01> Interval history: Cardiology follow up for CHF, CMP. Seen at 0835. Today he is observed sitting up in chair. He reports that breathing is comfortable. Denies PND, orthopnea. Not wearing supplemental O2. No reports of chest pains or palpitation. Leg edema much improved since admit. Planning thoracentesis at 9a today. Hoping to be able to go home but concerned about being able to get his meds. <TL Menendez - Last Filed: 03/30/21 11:01> Review of Systems Review of Systems as above <TL Menendez - Last Filed: 03/30/21 11:01> Yes all other systems are reviewed and are negative <TL Menendez - Last Filed: 03/30/21 11:01> Physical Exam Vital Signs: Last Vital Signs Temp 98.0 F 03/30/21 10:03 Pulse 102 H 03/30/21 10:03 Resp 20 03/30/21 10:03 BP 112/79 03/30/21 10:03 Pulse Ox 97 03/30/21 10:03 Body Mass Index 36.6 <TL Menendez - Last Filed: 03/30/21 11:01> Const General: cooperative, no acute distress, alert and awake <TL Menendez - Last Filed: 03/30/21 11:01> Orientation/consciousness: patient oriented x3 <TL Menendez - Last Filed: 03/30/21 11:01> Neck Neck: Yes normal visual inspection and Yes no JVD <TL Menendez - Last Filed: 03/30/21 11:01> Resp Other: Dim 1/2 up on right posterior <TL Menendez - Last Filed: 03/30/21 11:01> Effort & Inspection: normal respiratory effort, able to speak in complete sentences and not labored <Juliana JamesHUONG-C - Last Filed: 03/30/21 11:01> Auscultation: clear to auscultation bilaterally, no rales, no rhonchi and no wheezes <[facility] SOAP INSPECTOR-C - Last Filed: 03/30/21 11:01> Cardio Palpation: normal PMI <[facility] JamesHUONG-C - Last Filed: 03/30/21 11:01> Rate: regular rate [facility]PECT[facility] - Last Filed: 03/30/21 11:01> Rhythm: regular rhythm <[facility], SOAP INSPECTOR-C - Last Filed: 03/30/21 11:01> Heart sounds: S1 normal heart sound present and S2 normal heart sound present <[facility] JamesHUONG-C - Last Filed: 03/30/21 11:01> Neuro General: patient oriented x3 <[facility] JamesHUONG-C - Last Filed: 03/30/21 11:01> Extrem Other: Pitting edema of lower legs, mid calf down bilaterally <[facility] SOAP INSPECTOR-C - Last Filed: 03/30/21 11:01> Objective Labs and Meds Result diagrams: : 03/29/21 05:58 03/30/21 05:52 <Juliana JamesHUONG-C - Last Filed: 03/30/21 11:01> Lab results: Laboratory Results - last 24 hr 03/29/21 03/29/21 03/29/21 11:03 12:21 12:21 PT 13.6 H INR 1.2 H Sodium Potassium Chloride Carbon Dioxide Anion Gap BUN Creatinine Estim Creat Clear Calc Estimated GFR POC Glucose 250 H Random Glucose Estimat Average Glucose Hemoglobin A1c % Calcium Lactate Dehydrogenase 214 B-Natriuretic Peptide Total Protein 6.7 Peritoneal WBC Peritoneal RBC 03/29/21 03/29/21 03/30/21 16:04 20:11 05:52 PT INR Sodium 134 L Potassium 4.0 Chloride 94 L Carbon Dioxide 29 Anion Gap 15 BUN 11 Creatinine 0.83 Estim Creat Clear Calc 135.0 Estimated GFR > 60 POC Glucose 229 H 323 H Random Glucose 252 H Estimat Average Glucose Hemoglobin A1c % Calcium 9.0 Lactate Dehydrogenase B-Natriuretic Peptide Total Protein Peritoneal WBC Peritoneal RBC 03/30/21 03/30/21 03/30/21 05:52 07:13 08:05 PT INR Sodium Potassium Chloride Carbon Dioxide Anion Gap BUN Creatinine Estim Creat Clear Calc Estimated GFR POC Glucose 223 H Random Glucose Estimat Average Glucose 318 Hemoglobin A1c % 12.7 Calcium Lactate Dehydrogenase B-Natriuretic Peptide 1006 H Total Protein Peritoneal WBC Peritoneal RBC 03/30/21 09:20 PT INR Sodium Potassium Chloride Carbon Dioxide Anion Gap BUN Creatinine Estim Creat Clear Calc Estimated GFR POC Glucose Random Glucose Estimat Average Glucose Hemoglobin A1c % Calcium Lactate Dehydrogenase B-Natriuretic Peptide Total Protein Peritoneal WBC 0.490 Peritoneal RBC < 0.002 <TL Menendez - Last Filed: 03/30/21 11:01> Imaging Radiologist's impression: Impressions Chest X-Ray 03/29/21 10:08 IMPRESSION: Moderate right pleural effusion with underlying compressive atelectasis, similar to previous study 03/24/2021. Chest X-Ray 03/30/21 09:52 IMPRESSION: Interval complete resolution of right pleural effusion with no pneumothorax seen. There is minimal atelectatic changes right lung base. <TL Menendez - Last Filed: 03/30/21 11:01> Progress Note: A&P Assessment and plan (1) Acute systolic CHF (congestive heart failure): Status: Acute <TL Menendez - Last Filed: 03/30/21 11:01> Assessment and Plan: Admit with shortness of breath and edema. Echo reported to have biV dysfunction, EF 25-30%. Being treated for acute systolic/ RH failure. Could be alcohol induced. Ischemia is not ruled out. Being diuresed with IV Lasix with neg fluid balance 16 liters since admit. Sat 94% on room air. Still has episodes of sob. Right lung very dim posteriorly.? CXR yest am, shows moderate right effusion with atelectasis. He has Thoracentesis planned for this am. Edema much improved this admit. Still has some in lower legs.?Will change his Lasix to po. Continue hydralazine and Imdur for preload and afterload reduction. Notes indicate he has allergy to Lisinopril. ARB will be avoided for this reason. Continue Carvedilol and aldactone. Later today, he can be discharged from a cardiology perspective. I spoke with case management and they will give him his insurance information so that he can obtain his medications as outpt. Will arrange for outpt nuclear stress test to eval for ischemia and outpt cardiology follow up. I spent time reviewing CHF education and complete abstinence from alcohol.?Reinforce on discharge. <TL Menendez - Last Filed: 03/30/21 11:01> Admit with shortness of breath and edema. Echo reported to have biV dysfunction, EF 25-30%. Being treated for acute systolic/ RH failure. Could be alcohol induced. Ischemia is not ruled out. Being diuresed with IV Lasix with neg fluid balance 16 liters since admit. Sat 94% on room air. Still has episodes of sob. Right lung very dim posteriorly.? CXR yest am, shows moderate right effusion with atelectasis. He has Thoracentesis planned for this am. Edema much improved this admit. Still has some in lower legs.?Will change his Lasix to po. Continue hydralazine and Imdur for preload and afterload reduction. Notes indicate he has allergy to Lisinopril. ARB will be avoided for this reason. Continue Carvedilol and aldactone. Later today, he can be discharged from a cardiology perspective. I spoke with case management and they will give him his insurance information so that he can obtain his medications as outpt. Will arrange for outpt nuclear stress test to eval for ischemia and outpt cardiology follow up. I spent time reviewing CHF education and complete abstinence from alcohol.?Reinforce on discharge. Patient seen and case discussed with Juliana Ramirez. Patient status post thoracocentesis. Doing well. Continue current medications including vasodilators as well as carvedilol and Aldactone. Outpatient ischemic workup will be pursued. Complete abstinence from alcohol was discussed with the patient. Heart failure management was discussed. Continue current diuretic regimen. Patient can be discharged from cardiac perspective. Will follow as outpatient <Brayan Cadena MD - Last Filed: 03/30/21 11:56> (2) Cardiomyopathy: Status: Acute <TL Menendez - Last Filed: 03/30/21 11:01> (3) Alcohol abuse: Status: Acute <TL Menendez - Last Filed: 03/30/21 11:01> Fall Risk Details Current Medications: Current Medications Acetaminophen (Acetaminophen 325 Mg Tablet) 650 mg PO Q6H PRN PRN Reason: Pain, Mild (Pain Scale 1-3) Last Admin: 03/29/21 16:28 Dose: 650 mg Documented by: Carvedilol (Carvedilol 3.125 Mg Tablet) 3.125 mg PO BID [facility]; Protocol Last Admin: 03/30/21 08:22 Dose: 3.125 mg Documented by: Dextrose (Dextrose 50 % 25 Gm/50 Ml Vial) 25 gm IVPUSH Q15M PRN; Protocol PRN Reason: per Hypoglycemia Standing Ord. Docusate Sodium (Docusate Sodium 100 Mg Capsule) 100 mg PO DAILY PRN PRN Reason: Constipation Enoxaparin Sodium (Enoxaparin Sodium 40 Mg/0.4 Ml Syringe) 40 mg SUBCUT Q24H [facility] Last Admin: 03/28/21 21:06 Dose: 40 mg Documented by: Fluticasone Propionate (Fluticasone Propionate Nasal 16 Gm [place]) 2 spray NOSTRIL-B DAILY [facility] Last Admin: 03/30/21 08:28 Dose: 2 spray Documented by: Folic Acid (Folic Acid 1 Mg Tablet) 1 mg PO DAILY [facility] Last Admin: 03/30/21 08:22 Dose: 1 mg Documented by: Glucose (Glucose Gel 15 Gm Gel..Gram.) 15 gm PO Q15M PRN; Protocol PRN Reason: per Hypoglycemia Standing Ord. Hydralazine HCl (Hydralazine Hcl 25 Mg Tablet) 25 mg PO TID [facility]; Protocol Last Admin: 03/30/21 08:22 Dose: 25 mg Documented by: Insulin Glargine (Insulin Glargine,Hum.Rec.Anlog 100 Unit/Ml 10 Ml Vial) 40 unit SUBCUT DAILY [facility] Insulin Human Lispro (Insulin Lispro 100 Unit/Ml 3 Ml Vial) 0 unit SUBCUT QIDACHS [facility]; Protocol Last Admin: 03/30/21 08:22 Dose: 4 unit Documented by: Isosorbide Mononitrate (Isosorbide Mononitrate 30 Mg Tab.Er.24h) 30 mg PO DAILY [facility]; Protocol Last Admin: 03/30/21 08:22 Dose: 30 mg Documented by: Omeprazole (Omeprazole 20 Mg Capsule.Dr) 20 mg PO DAILY@0630 [facility] Last Admin: 03/30/21 06:03 Dose: 20 mg Documented by: Pharmacy Consult (Consult Rx Perform Med Rec) 1 each MISCELLANE ONCE PRN PRN Reason: Consult order Sodium Chloride (0.9 % Sodium Chloride Flush 3 Ml Syringe) 3 ml IVFLUSH QSHIFT [facility] Last Admin: 03/30/21 08:25 Dose: 3 ml Documented by: Spironolactone (Spironolactone 25 Mg Tablet) 12.5 mg PO DAILY [facility]; Protocol Last Admin: 03/30/21 08:22 Dose: 12.5 mg Documented by: Thiamine HCl (Thiamine Hcl 100 Mg Tablet) 100 mg PO DAILY [facility] Last Admin: 03/30/21 08:22 Dose: 100 mg Documented by: <TL Menendez - Last Filed: 03/30/21 11:01> Time Spent With Patient Time: Total time spent is greater than 50% in coordination of care (as documented) at patient's floor/unit and/or counseling patient: 26 <TL Menendez - Last Filed: 03/30/21 11:01> Time with patient: 25 - 35 minutes <TL Menendez - Last Filed: 03/30/21 11:01> Progress Note: Quality Stroke Does the patient have a stroke diagnosis?: No <TL Menendez - Last Filed: 03/30/21 11:01> Procedures Date of Service Date of Service: 03/30/21 <TL Menendez - Last Filed: 03/30/21 11:01>
[2021-03-30 10:43] LABS: BF Shift QC OK YES; Basophils Peritoneal Fl 0 %; Eosinophils Peritoneal Fl 2 %; Lymphocyte Peritoneal Fl 40 %; Man Diluent Bkgrd OK YES; Monocytes Peritoneal Fl 2 %; Neutrophils Peritoneal Fluid 7 %; Other Peritioneal Fl 52 %
--- NOTE | 2021-03-30 11:15 | P.DS_ITS ---
DS: Providers Provider Date of Service: 03/30/21 Date of admission: 03/24/21 20:24 Primary care physician: Unknown Physician Consults: 03/25/21 10:07 Consult to Cardiology Routine Consulting Provider: Alirio Childress Reason for consultation: New onset CHF w exacerbation. DS: Diagnosis Discharge Diagnosis (1) Acute systolic CHF (congestive heart failure): Status: Acute (2) Cardiomyopathy: Status: Acute (3) Uncontrolled diabetes mellitus: Status: Acute DS: Summary Hospital Course Hospital Course: Admission note HPI 55-year-old male with past medical history of asthma, COPD, diabetes, who presents to the hospital with complaints of difficulty breathing.? Patient reports that his symptoms started about a week ago, worsened over the next few days, he has a mild cough that has not worsened, with no sputum production, no fever or chills, he has lower extremity edema that also started about a week ago.? Orthopnea and PND.? He denies any palpitations or chest pain, he denies any headache or any change in vision.? No abdominal pain nausea or vomiting, no diarrhea constipation, no urinary symptoms.? On arrival to the ED patient's vitals are significant for a temp of 98.5?, heart rate of 124, respiratory rate of 24, blood pressure 167/114, satting 98% on room air Labs are generally unremarkable except for glucose of 379, magnesium of 1.4, and BNP of 2697.? UA negative.? Troponin of 30, no delta. Chest x-ray shows vascular congestion.? Patient denies any history of CHF Patient will be admitted for further management. Hospital course Patient was admitted for evaluation of difficulty breathing. Chest x-ray showed evidence of pulmonary edema with right-sided effusion. Blood work was consistent with elevated BNP and signs of heart failure. Admitted and treated with IV diuresis with good response over the course of hospital stay as an echo was done showing ejection fraction of 25-30%. Evaluated by Cardiology team 0 started multiple medications including hydralazine, Aldactone, isosorbide mononitrate and eventually carvedilol along with the Lasix. Thoracentesis was done to the right-sided pleural effusion with removal of 1.9 L of fluids. Patient was weaned off the oxygen was able to ambulate on room air with no reported difficulty breathing. Blood sugar was noticed to be significantly elevated. He reported missing medication for over a year now. Started on Lantus insulin with dose increased up to 40 units with blood sugar readings remain around 200s. Diabetes education done by the nurses as the patient will be discharged home on metformin, insulin lispro and Lantus. With a plan for referral to endocrinology and to follow-up with his PCP. Time Spent with Patient Time attestation: Total time spent providing and/or coordinating discharge services: Discharge coordination time: Greater than 30 minutes Quality: Stroke Does the patient have a stroke diagnosis?: No Physical Exam Vital Signs: Vital Signs: Last Vital Signs Temp 98.0 F 03/30/21 10:03 Pulse 102 H 03/30/21 10:03 Resp 20 03/30/21 10:03 BP 112/79 03/30/21 10:03 Pulse Ox 97 03/30/21 10:03 Body Mass Index 36.6 Const: Other: Constitutional : Alert, oriented, not in distress Neck : Normal inspection, Supple Cardiovascular : RRR, S1 S2, Trace bilateral lower extremity edema Respiratory : Fair bilateral air entry, Fine basal bilateral crackles more on the right side, wheezes or rhonchi Gastrointestinal: soft, lax, Normal bowel sounds, Non tender Skin : Warm, Dry, mild erythema bilateral lower extremities improving Neurological : Alert & oriented x3, No focal deficit DS: Data Data Completed and Pending Labs on day of discharge: Laboratory Results - last 24 hr 03/29/21 03/29/21 03/29/21 12:21 12:21 16:04 PT 13.6 H INR 1.2 H Sodium Potassium Chloride Carbon Dioxide Anion Gap BUN Creatinine Estim Creat Clear Calc Estimated GFR POC Glucose 229 H Random Glucose Estimat Average Glucose Hemoglobin A1c % Calcium Lactate Dehydrogenase 214 B-Natriuretic Peptide Total Protein 6.7 Peritoneal WBC Peritoneal RBC Periton Neutrophils Periton Lymphocytes Peritoneal Monocytes Peritoneal Eosinophils Peritoneal Basophils Peritoneal Other Cells 03/29/21 03/30/21 03/30/21 20:11 05:52 05:52 PT INR Sodium 134 L Potassium 4.0 Chloride 94 L Carbon Dioxide 29 Anion Gap 15 BUN 11 Creatinine 0.83 Estim Creat Clear Calc 135.0 Estimated GFR > 60 POC Glucose 323 H Random Glucose 252 H Estimat Average Glucose Hemoglobin A1c % Calcium 9.0 Lactate Dehydrogenase B-Natriuretic Peptide 1006 H Total Protein Peritoneal WBC Peritoneal RBC Periton Neutrophils Periton Lymphocytes Peritoneal Monocytes Peritoneal Eosinophils Peritoneal Basophils Peritoneal Other Cells 03/30/21 03/30/21 03/30/21 07:13 08:05 09:20 PT INR Sodium Potassium Chloride Carbon Dioxide Anion Gap BUN Creatinine Estim Creat Clear Calc Estimated GFR POC Glucose 223 H Random Glucose Estimat Average Glucose 318 Hemoglobin A1c % 12.7 Calcium Lactate Dehydrogenase B-Natriuretic Peptide Total Protein Peritoneal WBC 0.490 Peritoneal RBC < 0.002 Periton Neutrophils 7 Periton Lymphocytes 40 Peritoneal Monocytes 2 Peritoneal Eosinophils 2 Peritoneal Basophils 0 Peritoneal Other Cells 52 Discharge Plan Discharge Patient Disposition: Home, Self-Care Discharge Diagnosis: Acute heart failure exacerbation Uncontrolled diabetes type 2 Uncontrolled hypertension Referrals: Physician,Unknown J [Primary Care Provider] - 1 Week Discharge Medications: New furosemide 40 mg Tablet 40 mg PO BID@0900,1800 30 Days RF: 0 Lantus U-100 Insulin 100 unit/mL Solution 40 unit subcut DAILY 30 Days Qty: 12 RF: 0 isosorbide mononitrate 30 mg Tablet Extended Release 24 Hr 30 mg PO DAILY 30 Days Qty: 30 RF: 0 hydralazine 25 mg Tablet 25 mg PO TID 30 Days Qty: 90 RF: 0 spironolactone 25 mg Tablet 12.5 mg PO DAILY 30 Days Qty: 15 RF: 0 carvedilol 3.125 mg Tablet 3.125 mg PO BID 30 Days Qty: 60 RF: 0 nystatin-triamcinolone 100,000-0.1 unit/gram-% Ointment 1 appl topical BID 7 Days RF: 0 insulin lispro [Humalog U-100 Insulin] 100 unit/mL Solution See Protocol unit subcut QIDACHS 30 Days RF: 0 (DME) blood-glucose meter [FreeStyle Lite Meter] Kit See Rx Instructions .ROUTE .MEDSUPPLY Qty: 1 RF: 0 (DME) FreeStyle Lite Strips Strip See Rx Instructions .ROUTE .MEDSUPPLY Qty: 100 RF: 0 (DME) lancets Misc See Rx Instructions .ROUTE .MEDSUPPLY Qty: 100 RF: 0 (DME) needle (disp) 32 gauge 32 gauge x 5/16 needle See Rx Instructions .ROUTE .MEDSUPPLY Qty: 100 RF: 0 alcohol swabs Pads, Medicated See Rx Instructions .ROUTE .COMPLEX Qty: 200 RF: 0 metformin 500 mg tablet 500 mg PO BID Qty: 60 RF: 0 Continued omeprazole 20 mg Capsule,Delayed Release(Dr/Ec) 20 mg PO DAILY 30 Days Qty: 30 RF: 0 fluticasone propionate 50 mcg/actuation [place],Suspension 2 spray INTRANASAL DAILY 30 Days RF: 0 Discharge Orders: Discharge Order (Routine); Ordered 03/30/21 Ordered By: William Huang Diet: advance to usual diet and low salt diet Activity on Discharge: As tolerated Stand Alone Forms: Patient Portal Discharge page Care Plan Goals: Read below Health Concerns: Read below Plan of Treatment: Read below Assessment: You were admitted to the hospital for evaluation of difficulty breathing. Found to have heart failure symptoms. Treated with IV diuretics with good response. Evaluated by Cardiology team who did an echo showing decreased heart ejection fraction to 30%. Repeated chest x-ray showed fluid collection in your right lung which was drained out almost 2 L. You were noticed to have significantly elevated blood sugar readings treated with insulin. Start insulin long and short-acting, to follow with Endocrinology Clinic as outpatient and your PCP to adjusted doses Start heart failure medications as prescribed Monitor your weight at home and report any changes to PCP or optic fibre drawer To follow up with Cardiology team as outpatient
[2021-03-30 11:16] LABS: Glucose, Whole Blood 269 mg/dL (60-115)
--- NOTE | 2021-03-30 11:17 | MHC.CM.PN ---
pt dcd home pt given mass enGreet number with effective dATE FOR HIS MED COVERAGE
[2021-03-31 08:30] LABS: Total Protein Peritoneal Fluid 2.2
[2021-03-31 08:31] LABS: LDH Peritoneal Fluid 96
[2021-03-31 08:32] LABS: Glucose Peritoneal Fluid 303
== END 2021-03-30 15:45 | disposition home or self-care (01) | DRG 194 ==
LOC: HO.ED 19:41 → HO.EDOVER 21:16 → HO.IMC 23:35
PROVIDERS: Radiology Diagnostic Radiology; Admitting Provider Internal Medicine; Emergency Provider Emergency Medicine; Visit Provider Student in an Organized Health Care Education/Training Program
DX: I11.0 Hypertensive heart disease with heart failure (principal); I42.9 Cardiomyopathy, unspecified; F17.210 Nicotine dependence, cigarettes, uncomplicated; I50.21 Acute systolic (congestive) heart failure; Z20.822 Contact with and (suspected) exposure to COVID-19; R94.31 Abnormal electrocardiogram [ECG] [EKG]; E83.42 Hypomagnesemia; E78.5 Hyperlipidemia, unspecified; F10.20 Alcohol dependence, uncomplicated; J44.9 Chronic obstructive pulmonary disease, unspecified; E11.65 Type 2 diabetes mellitus with hyperglycemia; Z23 Encounter for immunization; Z71.6 Tobacco abuse counseling; Z88.0 Allergy status to penicillin; Z88.2 Allergy status to sulfonamides; Z88.6 Allergy status to analgesic agent; Z79.4 Long term (current) use of insulin; Z79.51 Long term (current) use of inhaled steroids; Z79.899 Other long term (current) drug therapy
CPT/HCPCS: 32555; 36415; 71045; 71046; 71275; 80048; 80076; 81003; 82945; 82947; 83036; 83605; 83615; 83690; 83735; 83880; 84155; 84157; 84484; 85025; 85027; 85379; 85610; 87040; 87635; 89051; 90686; 93005; 93306; 94640; 94644; 96365; 96366; 96375; 99285; J1650; J1940; J2930; J3475; Q9957; Q9967

== ENCOUNTER → 2021-05-17 09:51 | Outpatient (REF) | payer MEDICAID, SELFPAY ==
--- NOTE | ~2021-05-17 | NM_ITS ---
Myocardial perfusion study Indication: Cardiomyopathy to evaluate for myocardial ischemia Technique: The patient was brought in for a Lexiscan perfusion study on 05/17/2021. Patient performed low-level exercise and was injected 0.4 mg of Lexiscan intravenously. Within a minute of injection, 30 mCi of sestamibi was given intravenously. Images were obtained using the SPECT gamma camera interlaced with the gating device. Images were obtained in supine position. Resting perfusion study was performed on 05/18/2021. Patient was administered 30 mCi of sestamibi intravenously at rest. Images were then obtained in supine position. Images obtained with and without CT attenuation. Total DLP 96 mGy-cm. Images were processed with the software and compared side to side in short axis, horizontal long axis and vertical long axis views. Findings: The stress perfusion study showed non attenuated images show moderately reduced uptake in the inferior wall of the LV myocardium. Remainder of the LV myocardium normally perfused. Attenuation corrected images show mildly to moderately uptake in the distal anterior, mid anterior, anterolateral, anteroseptal as well as distal lateral wall of the LV myocardium.. The gated study shows reduced LV systolic function with calculated LVEF of 28%. LV cavity is moderately dilated size. The gated study shows diffusely reduced wall thickening and contraction of all segments. Resting study shows non attenuated images show moderately reduced uptake in the inferior wall of the LV myocardium. Attenuation corrected images show mildly to moderately reduced uptake in the apex of the LV myocardium. Gating at rest reveals diffuse inferior hypokinesis with ejection fraction at 59%. The findings are consistent with attenuated corrected images suggesting reversible defect in the LAD territory.. NM/NM cardiolite stress test Impression: 1. Myocardial perfusion imaging study shows LAD territory ischemia on attenuated corrected images 2. Gated LVEF is 28% 3. Transient ischemic dilatation not present but LV cavity is dilated EKG is nondiagnostic for ischemia
--- NOTE | 2021-05-17 09:56 | CA_ITS ---
Acquisition Time: 2021-05-17 09:58:47 Total Exercise Time: 00:02:00 Test Indications: CARDIOMYOPATHY Medications: SEE CHART Protocol: LEXISCAN Max HR: 125 BPM 74% of Pred: 167 BPM Max BP: 118/070 mmHG Max Work Load: 1.0 METS Pharmacological stress test with Lexiscan injection, while sitting and kicking his legs, without anginal symptoms, without arrythmia, with normotensive response to injection, with nondiagnostic EKG for ischemia. In recovery he reported sob and headache that was treated with Aminophylline 75mg IVP with resolution of symptoms. Nuclear images pending. Test reviewed with Dr Back. Referred By: Juliana Ramirez Overread By: JULIANA RAMIREZ
== END ==
LOC: HO.CARD 09:51
PROVIDERS: Visit Provider Nurse Practitioner Family
DX: I42.9 Cardiomyopathy, unspecified (principal)
CPT/HCPCS: 78452; 93017; A9500; J0280; J2785

== ENCOUNTER 2021-05-26 12:35 | Outpatient (REF) | payer MEDICAID, SELFPAY ==
[2021-05-26 15:02] LABS: Alanine Aminotransferase 20 U/L (0-40); Albumin Level 4.4 g/dL (3.5-5.0); Alkaline Phosphatase 66 U/L (39-117); Anion Gap 17 (12-20); Aspartate Amino Transferase 17 U/L (5-37); B Type Natriuretic Peptide 393 pg/mL (<100); Blood Urea Nitrogen 20 mg/dL (9-16); Calcium 10.4 mg/dL (8.4-10.2); Carbon Dioxide 25 mmol/L (22-29); Chloride 100 mmol/L (96-108); Cholesterol 202 mg/dL; Estimated Glomerular Filt Rate > 60; Glucose Random 214 mg/dL (60-115); HDL Cholesterol 31 mg/dL; LDL Cholesterol Calculated 137 mg/dl; Sodium 137 mmol/L (135-145); Total Protein 7.3 g/dL (6.5-8.0); Triglycerides 171 mg/dL
== END 2021-05-26 12:36 | disposition home or self-care (01) ==
LOC: HO.LAB 12:35
PROVIDERS: Referring Provider Nurse Practitioner Family; Visit Provider Nurse Practitioner Family
DX: I50.9 Heart failure, unspecified (principal); I42.9 Cardiomyopathy, unspecified; R94.39 Abnormal result of other cardiovascular function study; J44.9 Chronic obstructive pulmonary disease, unspecified; E11.9 Type 2 diabetes mellitus without complications; F10.10 Alcohol abuse, uncomplicated; F17.210 Nicotine dependence, cigarettes, uncomplicated
CPT/HCPCS: 36415; 80053; 80061; 83880; 99212

== ENCOUNTER 2021-06-12 09:03 | Outpatient (REF) | payer MEDICAID, SELFPAY ==
[2021-06-12 09:21] LABS: MANUAL DIFF FLAG NO
[2021-06-12 10:14] LABS: Basophils Absolute Auto 0.1 X10*3/uL (0.0-0.2); Basophils Percent Auto 0.9 % (0-2); Eosinophils Absolute Auto 0.6 X10*3/uL (0.0-0.4); Eosinophils Percent Auto 5.6 % (0-4); Hemoglobin 12.1 g/dl (14.0-18.0); Imm Gran Abs Auto 0.03 X10*3/uL (0.00-0.03); Imm Gran Pct Auto 0.3 % (0.0-0.4); Lymphocytes Absolute Auto 2.7 X10*3/uL (1.2-4.9); Lymphocytes Percent Auto 27.2 % (20-40); Mean Corpuscular HGB Conc 34.6 g/dl (31.0-36.0); Mean Corpuscular Hemoglobin 31.2 pg (27.0-33.0); Mean Corpuscular Volume 90.2 fL (80.0-98.0); Mean Platelet Volume 10.4 fL (9.4-12.4); Monocytes Absolute Auto 0.8 X10*3/uL (0.1-1.2); Monocytes Percent Auto 8.1 % (2-11); Neutrophils Absolute Auto 5.8 x10*3/uL (2.0-8.3); Neutrophils Percent Auto 57.9 % (45-73); Platelet Count 338 X10*3/uL (160-400); Red Blood Count 3.88 X10*6/uL (4.60-5.80); Red Cell Distribution Width 12.8 % (11.0-16.0)
[2021-06-12 10:19] LABS: INTERNATIONAL NORM RATIO 1.1 (0.9-1.1)
[2021-06-12 10:36] LABS: Anion Gap 15 (12-20); Blood Urea Nitrogen 17 mg/dL (9-16); Carbon Dioxide 26 mmol/L (22-29); Chloride 103 mmol/L (96-108); Estimated Glomerular Filt Rate > 60; Glucose Random 115 mg/dL (60-115); Potassium 4.1 mmol/L (3.3-5.1); Sodium 140 mmol/L (135-145)
== END 2021-06-12 09:04 | disposition home or self-care (01) ==
LOC: HO.LAB 09:03
PROVIDERS: Visit Provider Nurse Practitioner Family
DX: R94.39 Abnormal result of other cardiovascular function study (principal)
CPT/HCPCS: 36415; 80048; 85025; 85610

== ENCOUNTER → 2021-06-16 13:22 | Outpatient (BNVA) | payer MEDICAID, SELFPAY | PROVIDERS: PCP Emergency Medicine; Referring Provider Emergency Medicine; Visit Provider Nurse Practitioner Family ==

== ENCOUNTER → 2021-08-02 12:52 | Outpatient (REF) | payer MEDICAID, SELFPAY ==
--- NOTE | 2021-08-02 12:59 | CA_ITS ---
Transthoracic Echocardiogram Patient (Last, First, Middle): Immanuel Turcios E Gender: Male Date of : 1965 Age: 56 Procedure Date: 08/02/2021 Procedure Type: Transthoracic Echocardiogram Location: OP Height: 182.88 cm Weight: 81.65 kg BSA: 2.04 m2 Heart Rate: bpm BP: 132 / 94 mmHg Pie Maker Machine: MAURO Referring MD: Juliana Ramirez SLOT MACHINE KEY PERSONKarleyC Symptoms: I42.9 - Cardiomyopathy, unspecified Study Quality: Fair ECG Rhythm: Sinus Conclusions: - The left ventricular systolic function is moderately decreased. The visually estimated ejection fraction is between 30-35%. Findings Left Ventricle Normal left ventricular cavity size. There is mildly increased left ventricular wall thickness. The left ventricular systolic function is moderately decreased. The visually estimated ejection fraction is between 30 35%. There is severe global hypokinesis. LV peak GLS -8.9% (significantly reduced). Prior Study Comparison No significant change compared to prior study dated: 03/25/2021. Measurements 2D Linear Measurements IVSd: 1.23 0.6-0.9/0.6-1.0 cm LVIDd: 5.50 3.9-5.3/4.2-5.9 cm LVIDd Index: 2.70 2.4-3.2/2.2-3.1 cm/m2 LVIDs: 4.83 2.0-3.6 cm LVPWd: 1.14 0.7-1.1 cm LV Mass: 333.91 67-162/88-224 g LV Mass Index: 163.68 43-95/49-115 g/m2 2D Systolic Function EF 4C: 42.20 >55% EF 2C: 42.70 >55% Mitral Valve E'Lateral: 3.24 E'Medial: 2.68 Diastolic Function E'Medial: 2.68 E' Laterial: 3.24 Updated in Other Vendor System with Status of Final Mino Back MD electronically signed on 08/03/2021 11:46:36 AM with status of Final
== END ==
LOC: HO.CARD 12:52
PROVIDERS: Visit Provider Nurse Practitioner Family
DX: I42.9 Cardiomyopathy, unspecified (principal)
CPT/HCPCS: 93308; 93356

== ENCOUNTER → 2021-09-20 13:06 | Outpatient (BNVA) | payer MEDICAID, SELFPAY | PROVIDERS: PCP Emergency Medicine; Referring Provider Emergency Medicine; Visit Provider Internal Medicine Cardiovascular Disease | DX: I42.9 Cardiomyopathy, unspecified (principal); I50.9 Heart failure, unspecified | CPT/HCPCS: 93005; 99212 ==

== ENCOUNTER 2021-09-27 16:05 | Emergency (ER) | payer MEDICAID, SELFPAY ==
[2021-09-27 16:37] VITALS: BP 107/72; PULSE 110; RESP 18; TEMP 36.9; O2SAT 98; BMI 24.4
--- NOTE | 2021-09-27 16:39 | ECG_ITS ---
Test Reason : CHF/TACHY Blood Pressure : / mmHG Vent. Rate : 111 BPM Atrial Rate : 111 BPM P-R Int : 140 ms QRS Dur : 098 ms QT Int : 354 ms P-R-T Axes : 072 -02 052 degrees QTc Int : 481 ms Sinus tachycardia Otherwise normal ECG When compared with ECG of 24-MAR-2021 18:00, Criteria for Septal infarct are no longer Present Nonspecific T wave abnormality no longer evident in Lateral leads Referred By: Generic ED Physician Electronically Signed By:Alirio Childress
[2021-09-27 16:53] LABS: Basophils Absolute Auto 0.1 X10*3/uL (0.0-0.2); Basophils Percent Auto 0.8 % (0-2); Eosinophils Absolute Auto 0.5 X10*3/uL (0.0-0.4); Eosinophils Percent Auto 3.9 % (0-4); Hemoglobin 13.8 g/dl (14.0-18.0); Imm Gran Abs Auto 0.03 X10*3/uL (0.00-0.03); Imm Gran Pct Auto 0.2 % (0.0-0.4); Lymphocytes Absolute Auto 3.5 X10*3/uL (1.2-4.9); Lymphocytes Percent Auto 27.5 % (20-40); MANUAL DIFF FLAG NO; Mean Corpuscular HGB Conc 35.4 g/dl (31.0-36.0); Mean Corpuscular Hemoglobin 32.7 pg (27.0-33.0); Mean Corpuscular Volume 92.4 fL (80.0-98.0); Mean Platelet Volume 9.4 fL (9.4-12.4); Monocytes Absolute Auto 0.9 X10*3/uL (0.1-1.2); Monocytes Percent Auto 7.4 % (2-11); Neutrophils Absolute Auto 7.6 x10*3/uL (2.0-8.3); Neutrophils Percent Auto 60.2 % (45-73); Platelet Count 322 X10*3/uL (160-400); Red Blood Count 4.22 X10*6/uL (4.60-5.80); Red Cell Distribution Width 12.4 % (11.0-16.0); White Blood Count 12.7 X10*3/uL (4.8-10.8)
[2021-09-27 17:08] LABS: Anion Gap 17 (12-20); Blood Urea Nitrogen 20 mg/dL (9-16); Calcium 10.3 mg/dL (8.4-10.2); Carbon Dioxide 26 mmol/L (22-29); Chloride 100 mmol/L (96-108); Estimated Glomerular Filt Rate > 60; Glucose Random 199 mg/dL (60-115); Potassium 4.2 mmol/L (3.3-5.1); Sodium 139 mmol/L (135-145)
--- NOTE | 2021-09-27 21:56 | ED_ITS ---
HPI - General Adult General Chief complaint: General Medical Stated complaint: ? Bug Bites Side Pain Time Seen by Provider: 09/27/21 21:56 Source: patient Mode of arrival: ambulatory Limitations: no limitations History of Present Illness HPI narrative: Patient diabetic ,history of hypertension, alcohol abuse, COPD complaining of mottling of superficial blood vessels on his lower extremities since morning otherwise patient feels fine fever no chills no shortness of breath no cough no open wound Related Data Home Medications Medication Instructions Recorded Confirmed lancets 28 gauge (FreeStyle #100 ea 05/26/21 09/20/21 Lancets) nicotine (polacrilex) 4 mg buccal mg PO 05/26/21 09/20/21 lozenge Previous Rx's Medication Instructions Recorded alcohol swabs See Rx Instructions .ROUTE 03/30/21 .COMPLEX #200 ea blood sugar diagnostic (FreeStyle #100 ea 03/30/21 Lite Strips) blood-glucose meter (FreeStyle #1 ea 03/30/21 Lite Meter) fluticasone propionate 50 2 spray INTRANASAL DAILY 30 Days g 03/30/21 mcg/actuation nasal spray,suspension insulin glargine 100 unit/mL 40 unit (0.4 mL) SUBCUT DAILY 30 03/30/21 subcutaneous solution (Lantus Days #12 ml U-100 Insulin) insulin lispro 100 unit/mL See Protocol SUBCUT QIDACHS 30 03/30/21 subcutaneous solution (Humalog Days ml U-100 Insulin) lancets #100 ea 03/30/21 metformin 500 mg tablet 500 mg PO BID #60 tab 03/30/21 needle (disp) 32 gauge 32 gauge x #100 ea 03/30/2109/20 nystatin-triamcinolone 100,000 1 appl TOPICAL BID 7 Days g 03/30/21 unit/gram-0.1 % topical ointment omeprazole 20 mg capsule,delayed 20 mg PO DAILY 30 Days #30 cap 03/30/21 release needle (disp) 31 gauge 31 gauge x #100 ea 03/31/2109/20 atorvastatin 40 mg tablet 40 mg PO BEDTIME #90 tab 09/20/21 carvedilol 3.125 mg tablet 3.125 mg PO BID 90 Days #180 tab 09/20/21 furosemide 40 mg tablet 40 mg PO DAILY 90 Days #90 tab 09/20/21 hydralazine 50 mg tablet 50 mg PO TID #120 tab 09/20/21 isosorbide mononitrate 30 mg 30 mg PO DAILY 90 Days #90 tab 09/20/21 tablet,extended release 24 hr spironolactone 25 mg tablet 25 mg PO DAILY #90 tab 09/20/21 Allergies Allergy/AdvReac Type Severity Reaction Status Date / Time canagliflozin [Invokana] Allergy Unknown Unknown Verified 09/20/21 13:09 cats Allergy Unknown Unknown Verified 09/20/21 13:09 Clindamycin HCl Allergy Unknown itch Verified 09/20/21 13:09 Diltiazem HCl Allergy Unknown itch Verified 09/20/21 13:09 hydrochlorothiazide Allergy Unknown GOUT Verified 09/20/21 13:09 [HYDROCHLOROTHIAZIDE] lisinopril [LISINOPRIL] Allergy Unknown TONGUE Verified 09/20/21 13:09 SWELLING naproxen [From NAPROSYN] Allergy Unknown NIGHTMARES Verified 09/20/21 13:09 penicillin V Allergy Unknown Unknown Verified 09/20/21 13:09 Sulfa (Sulfonamide Allergy Unknown UNKNOWN Verified 09/20/21 13:09 Antibiotics) [SULFA(SULFONAMIDE ANTIBIOTICS)] Taztia XT Allergy Unknown Unknown Uncoded 09/20/21 13:09 Review of Systems Review of Systems: Yes all other systems are reviewed and are negative PMFSH Past Medical History Medical History Alcohol abuse Asthma Cardiomyopathy Congestive heart failure COPD (chronic obstructive pulmonary disease) Diabetes Uncontrolled diabetes mellitus Surgical History H/O shoulder surgery Hx of appendectomy Family History Family History Father Leukemia Mother Scleroderma Social History Social History Household Members: Children Housing: House Do you presently have visiting nurse or other home services: No Alcohol intake: never Patient Tobacco Use Status: Current everyday Tobacco user Cigarette Packs Per Day: 1 Cigarettes Per Day: 20.0 Years Smoked: 30 Second Hand Smoke Exposure: No Use of substances other than those prescribed or required for medical reasons: No Advance Directives: No Advance Directives Information Provided: No service: No Current occupational status: unemployed Physical Exam ED Vital Signs: Vital Signs - 24 hr 09/27/21 16:37 09/27/21 22:18 09/27/21 22:19 Temperature 98.4 F Pulse Rate 110 H 86 90 Respiratory Rate 18 Blood Pressure 107/72 138/82 132/88 Pulse Oximetry 98 09/27/21 22:20 09/27/21 22:38 09/27/21 22:40 Temperature 98.5 F Pulse Rate 87 70 Respiratory Rate 15 Blood Pressure 118/78 115/70 110/62 Pulse Oximetry 97 BMI result Body Mass Index 24.4 Appearance: Alert. Oriented X3. No acute distress. Anxious Eyes: No pallor or icterus ENT: Pharynx normal. Oral Mucosa moist Neck: Normal inspection. Neck supple. CVS: Normal heart rate and rhythm. Pulses normal. Respiratory: No respiratory distress. Equal air entry bilateral, no wheezing/rales/rhonchi Abdomen: Soft and nontender. Bowel sounds are present, no mass palpable, no CVA tenderness Skin: Skin warm and dry. Normal skin color. Normal skin turgor. Extremities: No lower extremity edema. No calf tenderness , prominent superficial veins in lower extremity Neuro: Oriented X 3. No motor deficit. No sensory deficit.No cerebellar signs , cranial nerves II-XII intact Medical Decision Making MDM Narrative Medical decision making narrative: Patient non specific rash no signs of infection or sepsis will discharge patient home patient has stable orthostatic blood pressures Lab Data Lab results reviewed: Yes I reviewed the patient's lab results. Result diagrams: 09/27/21 16:45 09/27/21 16:45 Labs: Lab Results 09/27/21 09/27/21 Range/Units 16:45 16:45 WBC 12.7 H (4.8-10.8) X10*3/uL RBC 4.22 L (4.60-5.80) X10*6/uL Hgb 13.8 L (14.0-18.0) g/dl Hct 39.0 L (42.0-52.0) % MCV 92.4 (80.0-98.0) fL MCH 32.7 (27.0-33.0) pg MCHC 35.4 (31.0-36.0) g/dl RDW 12.4 (11.0-16.0) % Plt Count 322 (160-400) X10*3/uL MPV 9.4 (9.4-12.4) fL Immature Gran % (Auto) 0.2 (0.0-0.4) % Neut % (Auto) 60.2 (45-73) % Lymph % (Auto) 27.5 (20-40) % [place] % (Auto) 7.4 (2-11) % Eos % (Auto) 3.9 (0-4) % Baso % (Auto) 0.8 (0-2) % Lymph # (Auto) 3.5 (1.2-4.9) X10*3/uL [place] # (Auto) 0.9 (0.1-1.2) X10*3/uL Eos # (Auto) 0.5 H (0.0-0.4) X10*3/uL Baso # (Auto) 0.1 (0.0-0.2) X10*3/uL Abs Immat Gran (auto) 0.03 (0.00-0.03) X10*3/uL Absolute Neuts (auto) 7.6 (2.0-8.3) x10*3/uL Absolute Nucleated RBC 0.000 (0.0-0.012) X10*3/uL Nucleated RBC % (auto) 0.0 (0.0-0.2) /100WBC Sodium 139 (135-145) mmol/L Potassium 4.2 (3.3-5.1) mmol/L Chloride 100 (96-108) mmol/L Carbon Dioxide 26 (22-29) mmol/L Anion Gap 17 (12-20) BUN 20 H (9-16) mg/dL Creatinine 1.11 (0.5-1.4) mg/dL Estim Creat Clear Calc 81.0 Estimated GFR > 60 Random Glucose 199 H D (60-115) mg/dL Calcium 10.3 H (8.4-10.2) mg/dL ECG Data Attestation: I personally reviewed and interpreted this ECG as follows: Interpretation: Sinus tachycardia heart rate 111 beats per minute nonspecific ST T-wave changes no acute ischemic normal axis Discharge Plan Discharge Clinical Impression: Rash, skin Patient Disposition: Home, Self-Care Instructions: Acute Rash (ED) Additional Instructions: you have nonspecific rash Report to the ER if any fever Prescriptions: No Action Lantus U-100 Insulin 100 unit/mL Solution 40 unit subcut DAILY 30 Days Qty: 12 0RF nystatin-triamcinolone 100,000-0.1 unit/gram-% Ointment 1 appl topical BID 7 Days 0RF Protocol: Apply to: Apply to: affected areas insulin lispro [Humalog U-100 Insulin] 100 unit/mL Solution See Protocol unit subcut QIDACHS 30 Days 0RF Protocol: Insulin Correction Scale Less than or equal to 110 ---- Give (units): 0 111 to 150 Give (units): 0 151 to 200 Give (units): 2 201 to 250 Give (units): 4 251 to 300 Give (units): 6 301 to 350 Give (units): 8 Greater than 350 Give (units): 10 Call MD if Blood Glucose > : 350 (DME) blood-glucose meter [FreeStyle Lite Meter] Kit See Rx Instructions .ROUTE .MEDSUPPLY Qty: 1 0RF Rx Instructions: As directed (DME) FreeStyle Lite Strips Strip See Rx Instructions .ROUTE .MEDSUPPLY Qty: 100 0RF Rx Instructions: As directed (DME) lancets [facility] [place] See Rx Instructions .ROUTE .MEDSUPPLY Qty: 100 0RF Rx Instructions: 4 times daily (DME) needle (disp) 32 gauge 32 gauge x 5/16 needle See Rx Instructions .ROUTE .MEDSUPPLY Qty: 100 0RF Rx Instructions: As directed alcohol swabs Pads, Medicated See Rx Instructions .ROUTE .COMPLEX Qty: 200 0RF Rx Instructions: pad topically omeprazole 20 mg Capsule,Delayed Release(Dr/Ec) 20 mg PO DAILY 30 Days Qty: 30 0RF fluticasone propionate 50 mcg/actuation [place],Suspension 2 spray INTRANASAL DAILY 30 Days 0RF metformin 500 mg tablet 500 mg PO BID Qty: 60 0RF (DME) needle (disp) 31 gauge 31 gauge x 5/16 needle See Rx Instructions .Route Qty: 100 1RF Rx Instructions: As directed (DME) lancets [FreeStyle Lancets] 28 gauge misc See Rx Instructions ea topical QID Qty: 100 0RF Rx Instructions: As directed nicotine (polacrilex) 4 mg lozenge PO 0RF atorvastatin 40 mg tablet 40 mg PO BEDTIME Qty: 90 3RF carvedilol 3.125 mg tablet 3.125 mg PO BID 90 Days Qty: 180 3RF Protocol: Hold for SBP/HR < HOLD for SBP < : 90 HOLD for HR < : 60 furosemide 40 mg tablet 40 mg PO DAILY 90 Days Qty: 90 3RF Protocol: Hold for SBP< HOLD for SBP < : 90 hydralazine 50 mg tablet 50 mg PO TID Qty: 120 3RF isosorbide mononitrate 30 mg tablet extended release 24 hr 30 mg PO DAILY 90 Days Qty: 90 3RF Protocol: Hold for SBP< HOLD for SBP < : 90 spironolactone 25 mg tablet 25 mg PO DAILY Qty: 90 3RF
[2021-09-27 22:18] VITALS: BP 138/82; PULSE 86
[2021-09-27 22:19] VITALS: BP 132/88; PULSE 90
[2021-09-27 22:20] VITALS: BP 118/78; PULSE 87
[2021-09-27 22:38] VITALS: BP 115/70; PULSE 70; RESP 15; TEMP 36.9; O2SAT 97
[2021-09-27 22:40] VITALS: BP 110/62
== END 2021-09-27 23:01 | disposition home or self-care (01) ==
PROVIDERS: Emergency Provider Internal Medicine; PCP Emergency Medicine
DX: R21 Rash and other nonspecific skin eruption (principal); R00.0 Tachycardia, unspecified; E11.9 Type 2 diabetes mellitus without complications; I10 Essential (primary) hypertension; F17.200 Nicotine dependence, unspecified, uncomplicated; Z79.4 Long term (current) use of insulin
CPT/HCPCS: 36415; 80048; 85025; 93005; 99284

== ENCOUNTER → 2021-11-29 14:28 | Outpatient (BNVA) | payer MEDICAID, SELFPAY | PROVIDERS: PCP Nurse Practitioner; Referring Provider Nurse Practitioner; Visit Provider Internal Medicine Cardiovascular Disease | DX: I42.8 Other cardiomyopathies (principal); I50.9 Heart failure, unspecified; Z79.899 Other long term (current) drug therapy | CPT/HCPCS: 93005; 99212 ==

== ENCOUNTER → 2021-12-06 13:37 | Outpatient (REF) | payer MEDICAID, SELFPAY ==
--- NOTE | 2021-12-06 13:41 | CA_ITS ---
Transthoracic Echocardiogram Patient (Last, First, Middle): Immanuel Turcios E Gender: Male Date of : 1965 Age: 56 Procedure Date: 12/06/2021 Procedure Type: Transthoracic Echocardiogram Location: OP Height: 180.34 cm Weight: 81.65 kg BSA: 2.02 m2 Heart Rate: 87 bpm BP: 102 / 76 mmHg Medical Data Analyst: SB Referring MD: Alirio Childress MD Director Of Strategic Communications: Brayan Cadena MD Symptoms: I50.9 - Heart failure, unspecified Study Quality: Adequate ECG Rhythm: Sinus Conclusions: - 1. Mildly reduced LV systolic function with LVEF of 45-50% with grade 1 diastolic dysfunction 2. Normal cardiac valvular Dopplers 3. No gross pericardial effusion Findings Left Ventricle Normal left ventricular cavity size. There is normal left ventricular wall thickness. The left ventricular systolic function is mildly decreased. The visually estimated ejection fraction is between 45-50%. Spectral Doppler is indicative of an impaired relaxation filling pattern. E/E prime ratio is <8, consistent with normal filling pressures. Evidence suggests grade I (mild) diastolic dysfunction. Peak GLS is -11.8%, which is reduced. Right Ventricle Normal right ventricular cavity size and systolic function. Atria The left atrium is normal in size. There is lipomatous hypertrophy of the interatrial septum. There is no evidence of interatrial shunt. The right atrium is normal in size. Aortic Valve The aortic valve structure and function is likely normal. There is no aortic valve stenosis. There is no aortic valve regurgitation. Mitral Valve There is mild anterior and posterior mitral leaflet thickening. There is trace mitral valve regurgitation. There is no mitral valve stenosis. Pulmonic Valve The pulmonic valve was not well visualized. Tricuspid Valve Likely normal tricuspid valve structure and function. Tricuspid regurgitation envelope is inadequate for calculation of right ventricular systolic pressure. Normal right atrial pressure. Great Vessels All visible segments of the aorta are normal in size. The pulmonary artery was not well visualized. Venous The inferior vena cava is normal in size and collapses greater than 50% with inspiration. Pericardium/Pleural There is no evidence of pericardial effusion. Prior Study Comparison Changes noted compared to prior study dated: 08/02/2021. LV systolic function is improved Measurements 2D Linear Measurements IVSd: 0.79 0.6-0.9/0.6-1.0 cm LVIDd: 4.62 3.9-5.3/4.2-5.9 cm LVIDd Index: 2.29 2.4-3.2/2.2-3.1 cm/m2 LVIDs: 3.51 2.0-3.6 cm LVPWd: 1.08 0.7-1.1 cm LA Diam: 2.80 2.7-3.8/3.0-4.0 cm LAIDs Index: 1.39 1.5-2.3 cm/m2 LV Mass: 181.21 67-162/88-224 g LV Mass Index: 89.71 43-95/49-115 g/m2 LVOT Diam: 2.10 3.0+(-)1.3 cm 2D Systolic Function EF 4C: 44.90 >55% EF 2C: 47.80 >55% EF BiP: 46.10 >55% Mitral Valve MV Pk E: 0.43 MV PK A: 0.63 MV Decel Time: 170.00 E/A: 0.70 E'Lateral: 5.22 E'Medial: 5.22 E/E' Med: 8.20 E/E' Lat: 8.20 PHT: 50.00 MVA PHT: 4.40 Decel [place]: 2.51 Aortic Valve AoV Pk [place]: 1.18 AoV Mn [place]: 0.84 AoV VTI: 0.18 AoV Pk Grad: 6.00 Aov Mn Grad: 3.00 YENNI Cont.VTI: 2.48 LVOT LVOT Pk [place]: 0.83 LVOT Mn [place]: 0.59 LVOT VTI: 0.13 LVOT Pk Grad: 3.00 LVOT Mn Grad: 2.00 LVOT Diam: 2.10 LVOT Area: 3.46 Diastolic Function MV Pk E: 0.43 MV Pk A: 0.63 E/A: 0.70 E'Medial: 5.22 E/E' Med: 8.20 E' Laterial: 5.22 E/E' Lat: 8.20 Right Ventricle TAPSE (mm): 12.40 TVS' [place]: 8.92 Tricuspid Valve RA Press: 3.00 Great Vessels Aorta Sinus of Valsalva: 3.10 2.0-3.5 cm Ao Asc: 3.70 2.1-3.4 cm Ao Arch: 3.20 Pulmonary Valve PV Pk [place]: 0.73 Peak PV Grad: 2.00 Updated in Other Vendor System with Status of Final Brayan Cadena MD electronically signed on 12/06/2021 3:04:35 PM with status of Final
== END ==
LOC: HO.CARD 13:37
PROVIDERS: Visit Provider Internal Medicine Cardiovascular Disease
DX: I50.9 Heart failure, unspecified (principal)
CPT/HCPCS: 93306; 93356

== ENCOUNTER 2022-01-28 13:53 | Outpatient (REF) | payer MEDICAID, SELFPAY ==
[2021-12-20 07:44] VITALS: BP 106/62; BP 116/74
[2022-01-14 11:35] VITALS: BP 120/80; BMI 25.7
--- NOTE | ~2022-01-28 | CT_ITS ---
EXAMINATION: CT CHEST SCREENING CLINICAL INFORMATION: Current smoker. 36 pack year history. COMPARISON: Previous chest CTA March 2021 and chest x-ray March 2021 TECHNIQUE: Multidetector volumetric CT imaging of the chest is performed without contrast using low dose technique. Additional 2D coronal and sagittal reformatted images and axial 3D maximum intensity projection (MIP) images are generated on the CT workstation. This CT examination was performed using dose optimization techniques as appropriate, variously including the following: *Automated exposure control *Adjustment of mA and/or kV according to patient size (this includes techniques or standardized protocols for targeted exams where dose is matched to indication/reason for exam; i.e. extremities or head) *Use of iterative reconstruction technique DLP: 60 mGy-cm FINDINGS: LUNGS: There is a 4 mm heterogeneous left upper lobe nodule axial image 143 series 5. The lungs are otherwise clear. No endobronchial or endotracheal lesion. There is an azygos lobe. MEDIASTINUM: Normal heart size. No pericardial effusion. Normal caliber thoracic aorta. Small mediastinal lymph nodes. No enlarged lymph nodes seen. CORONARY ARTERY CALCIFICATION: Mild PLEURA: There is no pleural effusion. No pleural mass or thickening. AXILLA: Bilateral gynecomastia. UPPER ABDOMEN: Unremarkable OSSEOUS STRUCTURES: Degenerative changes of the spine. CT/CT lung screening IMPRESSION: Small left upper lobe nodule. Mild coronary artery calcification. ASSESSMENT: Lung-RADS category 1: Negative RECOMMENDATION: Annual low-dose chest CT follow-up recommended.
== END 2022-01-28 13:54 | disposition home or self-care (01) ==
LOC: HO.CT 13:53
PROVIDERS: Visit Provider Physician Assistant Medical
DX: Z12.2 Encounter for screening for malignant neoplasm of respiratory organs (principal); F17.210 Nicotine dependence, cigarettes, uncomplicated
CPT/HCPCS: 71271; G0296

== ENCOUNTER 2022-04-04 15:07 | Outpatient (REF) | payer MEDICAID, SELFPAY ==
[2021-12-20 07:44] VITALS: BP 106/62; BP 116/74
[2022-03-15 10:04] VITALS: BP 100/52; BMI 27.1
--- NOTE | ~2022-04-04 | XR_ITS ---
EXAMINATION: XR HIP, LEFT CLINICAL INFORMATION: Pain COMPARISON: None TECHNIQUE: Two views of the left hip. FINDINGS: Bone alignment is normal. No fracture or dislocation. The joint space is normal. Soft tissues are normal. XR/XR hip LT min 2V IMPRESSION: Normal left hip.
== END 2022-04-04 15:08 | disposition home or self-care (01) ==
LOC: HO.XRAY 15:07
PROVIDERS: Visit Provider Nurse Practitioner Primary Care
DX: M25.552 Pain in left hip (principal)
CPT/HCPCS: 73502

== ENCOUNTER → 2022-08-03 15:29 | Outpatient (BNVA) | payer MEDICAID, SELFPAY ==
[2021-12-20 07:44] VITALS: BP 106/62; BP 116/74
[2022-07-12 07:42] VITALS: BP 132/78; BMI 28.8
== END ==
PROVIDERS: PCP Nurse Practitioner Primary Care; Referring Provider Nurse Practitioner; Visit Provider Internal Medicine Cardiovascular Disease
DX: I42.8 Other cardiomyopathies (principal); I50.9 Heart failure, unspecified; F10.10 Alcohol abuse, uncomplicated; F17.210 Nicotine dependence, cigarettes, uncomplicated; Z79.899 Other long term (current) drug therapy
CPT/HCPCS: 93005; 99212

== ENCOUNTER 2022-09-09 20:42 | Inpatient (IN) | payer MEDICAID, SELFPAY ==
[2021-12-20 07:44] VITALS: BP 106/62; BP 116/74
[2022-07-12 07:42] VITALS: BP 132/78; BMI 28.8
--- NOTE | ~2022-09-09 | XR_ITS ---
EXAMINATION: XR PELVIS CLINICAL INFORMATION: Post left hip arthroplasty COMPARISON: Left hip x-ray on 09/09/2022 TECHNIQUE: AP view of the pelvis. FINDINGS: Prosthetic components of the left total hip arthroplasty are appropriately aligned. No periprosthetic fracture. Gas from recent surgery is present in the surrounding soft tissues. Moderate degenerative disease of the right hip. XR/XR pelvis 1-2V IMPRESSION: Normal postoperative appearance of the left total hip prosthesis.
--- NOTE | ~2022-09-09 | XR_ITS ---
EXAMINATION: XR HIP, LEFT CLINICAL INFORMATION: Left hip pain. COMPARISON: 04/04/2022. TECHNIQUE: Two views of the left hip. FINDINGS: Displaced and impacted left femoral neck fracture. 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 SI joints are symmetric. Pubic symphysis is maintained. XR/XR hip LT w PEL1V IMPRESSION: Displaced and impacted left femoral neck fracture.
[2022-09-09 20:54] VITALS: BP 113/65; BP 115/80; PULSE 104; PULSE 90; RESP 18; TEMP 37.1; O2SAT 97; O2SAT 98; BMI 31.6
[2022-09-09 20:58] VITALS: BP 113/65; PULSE 90; RESP 18; TEMP 37.1; O2SAT 97
[2022-09-09 21:16] LABS: MANUAL DIFF FLAG NO
[2022-09-09 21:21] LABS: Basophils Absolute Auto 0.1 X10*3/uL (0.0-0.2); Basophils Percent Auto 0.6 % (0-2); Eosinophils Absolute Auto 0.4 X10*3/uL (0.0-0.4); Eosinophils Percent Auto 2.9 % (0-4); Hematocrit 36.9 % (42.0-52.0); Hemoglobin 12.8 g/dl (14.0-18.0); Imm Gran Pct Auto 0.8 % (0.0-0.4); Lymphocytes Absolute Auto 3.6 X10*3/uL (1.2-4.9); Lymphocytes Percent Auto 28.7 % (20-40); Mean Corpuscular HGB Conc 34.7 g/dl (31.0-36.0); Mean Corpuscular Hemoglobin 32.2 pg (27.0-33.0); Mean Corpuscular Volume 92.7 fL (80.0-98.0); Mean Platelet Volume 9.1 fL (9.4-12.4); Monocytes Absolute Auto 0.8 X10*3/uL (0.1-1.2); Monocytes Percent Auto 6.6 % (2-11); Neutrophils Absolute Auto 7.6 x10*3/uL (2.0-8.3); Neutrophils Percent Auto 60.4 % (45-73); Platelet Count 301 X10*3/uL (160-400); Red Blood Count 3.98 X10*6/uL (4.60-5.80); Red Cell Distribution Width 12.2 % (11.0-16.0); White Blood Count 12.6 X10*3/uL (4.8-10.8)
[2022-09-09 21:31] LABS: Alanine Aminotransferase 59 U/L (0-40); Albumin Level 4.1 g/dL (3.5-5.0); Alkaline Phosphatase 110 U/L (39-117); Anion Gap 18 (12-20); Aspartate Amino Transferase 31 U/L (5-37); Bilirubin Total 0.3 mg/dL (0.0-1.0); Blood Urea Nitrogen 19 mg/dL (9-16); Calcium 8.8 mg/dL (8.4-10.2); Carbon Dioxide 23 mmol/L (22-29); Chloride 102 mmol/L (96-108); Creatinine Clr Calc Pharmacy 108.1; Estimated Glomerular Filt Rate > 60; Glucose Random 172 mg/dL (60-115); Potassium 3.6 mmol/L (3.3-5.1); Sodium 139 mmol/L (135-145); Total Protein 6.4 g/dL (6.5-8.0)
--- NOTE | 2022-09-09 22:20 | ED.FALL ---
HPI - Fall General Chief Complaint: Extremity Problem Stated Complaint: left hip pain Time Seen by Provider: 09/09/22 22:08 Source: patient and family ( sister) Mode of arrival: EMS Limitations: no limitations History of Present Illness HPI Narrative: 57-year-old male with history of diabetes mellitus, diabetic neuropathy, hypertension cardiomegaly, CHF who presents emergency department for evaluation of left hip injury after fall. The patient states that he has diabetic neuropathy. His car was parked at the curb. He reached into his car to pull out some pillows, his foot got stuck between the car and the curb, he twisted and then fell landing on his left hip. Developed immediate pain in his hip. He denied any head injury or loss of consciousness. An ambulance was called and was brought to the emergency department. In the emergency department he was complaining of 10/10 pain in his left hip and was having difficulty moving his hip secondary to pain. He did have an abrasion to his left knee that occurred through his pants, states that his tetanus status is up-to-date he received a tetanus shot within 5 years. Patient states that he was drinking alcohol this evening and did have 2 beers to drink prior to coming to the emergency department. Related Data Home Medications Medication Instructions Recorded Confirmed lancets 28 gauge (FreeStyle #100 ea 05/26/21 08/03/22 Lancets) gabapentin 100 mg capsule 100 mg PO TID 11/29/21 08/03/22 levalbuterol tartrate 45 2 puff PO Q6H 11/29/21 08/03/22 mcg/actuation aerosol inhaler (Xopenex HFA) vitamin E (dl, acetate) 180 mg 180 mg PO DAILY 11/29/21 08/03/22 (400 unit) capsule ascorbate calcium (vitamin C) 500 500 mg PO DAILY 08/03/22 08/03/22 mg tablet cholecalciferol (vitamin D3) 25 25 mcg PO DAILY 08/03/22 08/03/22 mcg (1,000 unit) capsule hydralazine 50 mg tablet 25 mg PO TID 08/03/22 08/03/22 Previous Rx's Medication Instructions Recorded alcohol swabs See Rx Instructions .Route 03/30/21 .COMPLEX #200 ea blood sugar diagnostic (FreeStyle #100 ea 03/30/21 Lite Strips) blood-glucose meter (FreeStyle #1 ea 03/30/21 Lite Meter kit) fluticasone propionate 50 2 spray intranasal DAILY 30 days 03/30/21 mcg/actuation nasal spray,suspension insulin glargine 100 unit/mL 40 unit (0.4 mL) subcut DAILY 30 03/30/21 subcutaneous solution (Lantus days #12 mL U-100 Insulin) lancets #100 ea 03/30/21 metformin 500 mg tablet 500 mg PO BID #60 tabs 03/30/21 needle (disp) 32 gauge 32 gauge x #100 ea 03/30/21 5 omeprazole 20 mg capsule,delayed 20 mg PO DAILY 30 days #30 caps 03/30/21 release needle (disp) 31 gauge 31 gauge x #100 ea 03/31/2109/20 furosemide 40 mg tablet 20 mg PO DAILY 90 days #45 tabs 11/29/21 carvedilol 6.25 mg tablet 6.25 mg PO BID #100 tabs 08/03/22 atorvastatin 40 mg tablet 40 mg PO BEDTIME #90 tabs 09/09/22 isosorbide mononitrate 30 mg 30 mg PO DAILY 90 days #90 tabs 09/09/22 tablet,extended release 24 hr spironolactone 25 mg tablet 25 mg PO DAILY #90 tabs 09/09/22 Allergies Allergy/AdvReac Type Severity Reaction Status Date / Time canagliflozin [Invokana] Allergy Unknown Unknown Verified 08/03/22 15:47 cats Allergy Unknown Unknown Verified 08/03/22 15:47 Clindamycin HCl Allergy Unknown itch Verified 08/03/22 15:47 Diltiazem HCl Allergy Unknown itch Verified 08/03/22 15:47 hydrochlorothiazide Allergy Unknown GOUT Verified 08/03/22 15:47 [HYDROCHLOROTHIAZIDE] lisinopril [LISINOPRIL] Allergy Unknown TONGUE Verified 08/03/22 15:47 SWELLING naproxen [From NAPROSYN] Allergy Unknown NIGHTMARES Verified 08/03/22 15:47 penicillin V Allergy Unknown Unknown Verified 08/03/22 15:47 Sulfa (Sulfonamide Allergy Unknown UNKNOWN Verified 08/03/22 15:47 Antibiotics) [SULFA(SULFONAMIDE ANTIBIOTICS)] Taztia XT Allergy Unknown Unknown Uncoded 08/03/22 15:47 Review of Systems Review of Systems: Yes all other systems are reviewed and are negative PMFSH Past Medical History [facility] Narrative: Social history: Patient denies tobacco use. He states that he drinks 4 beers per week. He did drink 2 beers this evening. He denies drug use. Medical History (Updated 09/10/22 @ 00:36 by Cornelius Crowder MD) Alcohol abuse Asthma Cardiomyopathy Congestive heart failure COPD (chronic obstructive pulmonary disease) Diabetes Personal history of nicotine dependence Uncontrolled diabetes mellitus Surgical History History of appendectomy History of cardiac cath History of esophagogastroduodenoscopy (EGD) History of shoulder surgery Family History Family History Father Leukemia Mother Scleroderma Social History Social History Household Members: Children Housing: House Do you presently have visiting nurse or other home services: No Alcohol intake: current Alcohol intake frequency: 3 or more drinks per day Alcohol type: beer and hard liquor Patient Tobacco Use Status: Current everyday Tobacco user Tobacco use type: Cigarette Cigarette Packs Per Day: 1 Cigarettes Per Day: 20.0 Years Smoked: (onset 20yo, 3/4-1ppd x 36yrs, 30pyh) Smoked in Last 30 Days: Yes Second Hand Smoke Exposure: No Use of substances other than those prescribed or required for medical reasons: No Advance Directives: No Advance Directives Information Provided: Yes service: No Current occupational status: unemployed Physical Exam Vital Signs: Vital Signs: Last Vital Signs Temp 98.7 F 09/09/22 20:58 Pulse 90 09/09/22 20:58 Resp 18 09/09/22 23:23 BP 113/65 09/09/22 20:58 Pulse Ox 97 09/09/22 20:58 O2 Del Method Room Air 09/09/22 20:58 BMI result Body Mass Index 31.6 Const: Other: Awake, alert, male patient, appears to be in distress secondary to his pain, unable to move his left hip secondary to pain. Orientation/consciousness: oriented to person and oriented to place HEENT: Head: Yes normal to inspection, Yes normocephalic and Yes atraumatic Ears: external ears normal General nose exam: Normal external nose present Face and sinus: Yes normal facial exam Mouth: Normal oral and palatal mucosa present Throat: Yes posterior oropharynx normal Eyes: General: appearance normal, both eyes and all related structures Pupils: Equal, round and reactive pupils present Neck: Neck: Yes normal visual inspection, Yes no lymphadenopathy, Yes trachea midline and Yes supple Chest: Chest palpation & inspection: normal inspection of the chest and normal palpation of entire chest wall Resp: Effort & Inspection: normal respiratory effort and able to speak in complete sentences Auscultation: clear to auscultation bilaterally Cardio: Rate: regular rate Rhythm: regular rhythm Heart sounds: S1 normal heart sound present, S2 normal heart sound present and no murmurs GI: Inspection: Yes normal to inspection Palpation (GI): Soft to palpation, nontender and no guarding Auscultation: normal bowel sounds : General: Yes no CVA tenderness Back/Spine/Pelvis: Back: no CVA tenderness Skin: General skin exam: no rashes or lesions noted Neuro: General: oriented to person and oriented to place Cranial nerves: Yes CN's II-XII intact bilaterally and Yes Equal, round and reactive pupils present Cognition (Neuro): normal cognition Motor exam (neuro): 5/5 motor strength present throughout ( except for left hip /lower extremity) Extrem: Other: Patient has an abrasion to his left knee, no abrasions or hematomas noted to his left lateral hip, patient has significant pain with minimal movement of his left hip joint, his lower extremities neurovascular intact Psych: Appearance: grossly normal Speech and movement: Normal speech and movement present Affect: normal affect Attitude: cooperative Thought process: Normal thought process present Thought content: Normal thought content present Medications Administered Discontinued Medications Generic Name Dose Route Start Last Admin Trade Name Jaden PRN Reason Stop Dose Admin Diphenhydramine HCl 50 mg 09/09/22 23:20 09/09/22 23:23 Diphenhydramine Hcl 50 Mg/Ml Vial IVPUSH 09/09/22 23:21 50 mg ONCE STA Administration Hydromorphone HCl 1 mg 09/09/22 22:17 09/09/22 22:32 Hydromorphone Hcl 1 Mg/Ml Syringe IVPUSH 09/09/22 22:18 1 mg ONCE STA Administration Protocol Hydromorphone HCl 1 mg 09/09/22 23:20 09/09/22 23:23 Hydromorphone Hcl 1 Mg/Ml Syringe IVPUSH 09/09/22 23:21 1 mg ONCE STA Administration Protocol Medical Decision Making Medical Decision Making [facility] Narrative: 57-year-old male who presents emergency department for evaluation of severe left hip pain after trip and fall that occurred prior to coming to the emergency department. Patient does have an abrasion to his left knee, no evidence of a hematoma or abrasion to his left lateral hip. Patient has significant pain with minimal movement of his hip, his left lower extremity is neurovascularly intact. No evidence for any other injury, the patient is awake and alert and able answer questions without any difficulty. He does not appear to be acutely intoxicated and states that mainly drink 2 beers today. X-ray of the left hip revealed a left femoral neck fracture. Patient was treated with Dilaudid 1 mg IV x2. I did discuss this patient over tiger text with the orthopedic physician care management assistant Magalys Andrew who recommended the patient be admitted to the hospitalist with orthopedic consult. I also discuss this patient's presentation and orthopedic recommendations with the covering hospitalist, Dr. Lin accepted the onto the hospitalist service. The patient's tetanus status is up-to-date he believes that he had 1 within 5 years. I did order a PT /INR, PTT, type and screen and alcohol level Differential Diagnosis Differential diagnosis includes was not limited to left hip fracture, pelvic fracture, left hip contusion, left hip sprain, electrolyte abnormality, anemia, alcohol intoxication Admission/Observation Consideration of admission/observation: Escalation of care including admission/observation considered Consult Healthcare Provider Management of the patient was discussed with: Hospitalist and Category Development Manager ( orthopedics) Lab Data [facility] Lab Attestation statement: I reviewed the patient's lab results. my independent interpretation patient's laboratory evaluation is as follows: Elevated WBC [id number] likely secondary to pain, anemia with an H&H of 12 and 36.9. Elevated glucose 172. Elevated ALT 59. 09/09/22 21:08 09/09/22 21:08 Labs: Lab Results 09/09/22 09/09/22 Range/Units 21:08 21:08 WBC 12.6 H (4.8-10.8) X10*3/uL RBC 3.98 L (4.60-5.80) X10*6/uL Hgb 12.8 L (14.0-18.0) g/dl Hct 36.9 L (42.0-52.0) % MCV 92.7 (80.0-98.0) fL MCH 32.2 (27.0-33.0) pg MCHC 34.7 (31.0-36.0) g/dl RDW 12.2 (11.0-16.0) % Plt Count 301 (160-400) X10*3/uL MPV 9.1 L (9.4-12.4) fL Immature Gran % (Auto) 0.8 H (0.0-0.4) % Neut % (Auto) 60.4 (45-73) % Lymph % (Auto) 28.7 (20-40) % [place] % (Auto) 6.6 (2-11) % Eos % (Auto) 2.9 (0-4) % Baso % (Auto) 0.6 (0-2) % Lymph # (Auto) 3.6 (1.2-4.9) X10*3/uL [place] # (Auto) 0.8 (0.1-1.2) X10*3/uL Eos # (Auto) 0.4 (0.0-0.4) X10*3/uL Baso # (Auto) 0.1 (0.0-0.2) X10*3/uL Abs Immat Gran (auto) 0.10 H (0.00-0.03) X10*3/uL Absolute Neuts (auto) 7.6 (2.0-8.3) x10*3/uL Absolute Nucleated RBC 0.000 (0.0-0.012) X10*3/uL Nucleated RBC % (auto) 0.0 (0.0-0.2) /100WBC Sodium 139 (135-145) mmol/L Potassium 3.6 (3.3-5.1) mmol/L Chloride 102 (96-108) mmol/L Carbon Dioxide 23 (22-29) mmol/L Anion Gap 18 (12-20) BUN 19 H (9-16) mg/dL Creatinine 0.97 (0.5-1.4) mg/dL Estim Creat Clear Calc 108.1 Estimated GFR > 60 Random Glucose 172 H (60-115) mg/dL Calcium 8.8 D (8.4-10.2) mg/dL Total Bilirubin 0.3 (0.0-1.0) mg/dL AST 31 (5-37) U/L ALT 59 H (0-40) U/L Alkaline Phosphatase 110 (39-117) U/L Total Protein 6.4 L (6.5-8.0) g/dL Albumin 4.1 (3.5-5.0) g/dL Independent Interpretation I performed an independent interpretation of an: EKG and Plain X-Ray ( left hip and pelvis) Interpretation: my independent interpretation patient's left hip and pelvis x-ray is as follows: Left femoral neck fracture my independent interpretation patient's 12 EKG done at 00:33 hours is as follows: Normal sinus rhythm with a rate of 97, normal NV and QRS duration, elevated QTC of 485 milliseconds, Q-wave in 3 and AVF, no ST segment elevation, no ST segment depression, flattened T-wave in 3 and V1 compared to EKG dated 09/27/2021 Q-wave in AVF is new, flattened T-wave in 3 and V1 are new. I do not think these changes however are acute and not related to the patient's presentation. Radiology Impression Discussion of test interpretation with radiology: I have reviewed the radiologist's reading. Radiologist Impression: XR hip LT w PEL1V IMPRESSION: Displaced and impacted left femoral neck fracture. Dictated By:Mirta Lovett Independent Historian Clinical information obtained from an independent historian. History obtained from or confirmed by: Other ( sister) External Record Review External record reviewed: Inpatient record ( 03/30/2021 -admit for CHF, cardiomyopathy, diabetes mellitus with elevated glucose) Discharge Plan Discharge Clinical Impression: Closed fracture of neck of left femur Qualifiers: Encounter type: initial encounter Qualified Code(s): S72.002A - Fracture of unspecified part of neck of left femur, initial encounter for closed fracture Fall Qualifiers: Encounter type: initial encounter Qualified Code(s): W19.XXXA - Unspecified fall, initial encounter Patient Disposition: Admitted As Inpatient
[2022-09-09 22:32] VITALS: RESP 16
[2022-09-09] MEDS: HYDROmorphone HCl 1 MG/ML SYRINGE IVPUSH ×2 (22:32→23:23)
[2022-09-09 23:23] VITALS: RESP 18
[2022-09-09] MEDS: diphenhydrAMINE HCL 50 MG/ML VIAL IVPUSH (23:23)
--- NOTE | 2022-09-10 00:10 | ECG_ITS ---
Test Reason : PREOP,LEFT INTRATROCHANTERIC FRACTURE Blood Pressure : / mmHG Vent. Rate : 097 BPM Atrial Rate : 097 BPM P-R Int : 146 ms QRS Dur : 094 ms QT Int : 382 ms P-R-T Axes : 056 -25 049 degrees QTc Int : 485 ms Normal sinus rhythm Possible Inferior infarct , age undetermined Abnormal ECG When compared with ECG of 27-SEP-2021 16:36, Borderline criteria for Inferior infarct are now Present Referred By: Cornelius Crowder Electronically Signed By:GUI FLORENTINO MD
--- NOTE | 2022-09-10 00:35 | P.HPHOSP_ITS ---
History of Present Illness Date of Service: 09/10/22 Chief Complaint: fall 57-year-old male with past medical history of diabetes, COPD, HFrEF, presents to the hospital after experiencing a mechanical fall. Patient reports that he got home, trying to grab something from his car, twisted his foot and fell to the left side, causing him cell significant pain in the left hip. Patient denies any loss of consciousness, no head injury, denies any chest pain, no shortness of breath, no palpitations, no headache or change in vision, no urinary symptoms and no lower extremity edema. No abdominal pain nausea or vom iting, no diarrhea constipation, On arrival to the ED patient hemodynamically stable with no significant abnormal vitals Labs are significant for WBC count of 12.6, hemoglobin of 12.8, hematocrit 36.9, Hip x-ray shows displaced an impacted left femoral neck fracture orthopedic consult to, patient will be admitted for further evaluation Review of Systems Review of Systems: Yes all other systems are reviewed and are negative [facility] Medical History Alcohol abuse Asthma Cardiomyopathy Congestive heart failure COPD (chronic obstructive pulmonary disease) Diabetes Personal history of nicotine dependence Uncontrolled diabetes mellitus Family History Father Leukemia Mother Scleroderma Surgical History History of appendectomy History of cardiac cath History of esophagogastroduodenoscopy (EGD) History of shoulder surgery Social History Household Members: Children Housing: Apartment Do you presently have visiting nurse or other home services: No Alcohol intake: current Alcohol intake frequency: 3 or more drinks per day Alcohol type: beer and hard liquor Patient Tobacco Use Status: Current everyday Tobacco user Tobacco use type: Cigarette Cigarette Packs Per Day: 1 Cigarettes Per Day: 20.0 Years Smoked: (onset 20yo, 3/4-1ppd x 36yrs, 30pyh) Smoked in Last 30 Days: Yes Second Hand Smoke Exposure: No Use of substances other than those prescribed or required for medical reasons: No Have you been hit, kicked, punched, or otherwise hurt by someone within the past year? If so, by whom?: No Do you feel safe in your current relationship?: No Current Relationship Is there a partner from a previous relationship who is making you feel unsafe now?: No Are you made to feel afraid or neglected: No Advance Directives: No Advance Directives Information Provided: Yes Do you have thoughts of harming others: None Do you have a plan to hurt others: No Plan Recently lost weight without trying: No Eating poorly because of decreased appetite: No Nutrition Risks: No Nutritional Risk Poor oral hygiene: No (no teeth, no dentures) service: No Current occupational status: unemployed Meds Allergies Allergy/AdvReac Type Severity Reaction Status Date / Time canagliflozin [Invokana] Allergy Unknown Unknown Verified 08/03/22 15:47 cats Allergy Unknown Unknown Verified 08/03/22 15:47 Clindamycin HCl Allergy Unknown itch Verified 08/03/22 15:47 Diltiazem HCl Allergy Unknown itch Verified 08/03/22 15:47 hydrochlorothiazide Allergy Unknown GOUT Verified 08/03/22 15:47 [HYDROCHLOROTHIAZIDE] lisinopril [LISINOPRIL] Allergy Unknown TONGUE Verified 08/03/22 15:47 SWELLING naproxen [From NAPROSYN] Allergy Unknown NIGHTMARES Verified 08/03/22 15:47 penicillin V Allergy Unknown Unknown Verified 08/03/22 15:47 Sulfa (Sulfonamide Allergy Unknown UNKNOWN Verified 08/03/22 15:47 Antibiotics) [SULFA(SULFONAMIDE ANTIBIOTICS)] Taztia XT Allergy Unknown Unknown Uncoded 08/03/22 15:47 Home Medications Medication Instructions Recorded Confirmed Last Taken Type lancets 28 gauge (FreeStyle #100 ea 05/26/21 08/03/22 Unknown History Lancets) atorvastatin 40 mg tablet 40 mg PO BEDTIME 09/10/22 09/10/22 Unknown History carvedilol 6.25 mg tablet 6.25 mg PO BID 09/10/22 09/10/22 Unknown History furosemide 40 mg tablet 20 mg PO DAILY 09/10/22 09/10/22 Unknown History gabapentin 100 mg capsule 100 mg PO TID 09/10/22 09/10/22 Unknown History hydralazine 50 mg tablet 25 mg PO TID 09/10/22 09/10/22 Unknown History insulin glargine 100 unit/mL (3 30 unit subcut QPM 09/10/22 09/10/22 Unknown H istory mL) subcutaneous pen (Lantus Solostar U-100 Insulin) levalbuterol tartrate 45 2 puff inhalation Q6H 09/10/22 09/10/22 Unknown History mcg/actuation aerosol inhaler (Xopenex HFA) omeprazole 20 mg capsule,delayed 20 mg PO DAILY 09/10/22 09/10/22 Unknown History release spironolactone 25 mg tablet 25 mg PO DAILY 09/10/22 09/10/22 Unknown History Physical Exam Vital Signs and Narrative: Vital Signs: Last Vital Signs Temp 98.7 F 09/09/22 20:58 Pulse 90 09/09/22 20:58 Resp 18 09/09/22 23:23 BP 113/65 09/09/22 20:58 Pulse Ox 97 09/09/22 20:58 O2 Del Method Room Air 09/09/22 20:58 BMI result Body Mass Index 31.6 Const: General: cooperative and no acute distress Orientation/consciousness: patient oriented x3 Eyes: General: appearance normal, both eyes and all related structures Pupils: Equal, round and reactive pupils present Resp: Effort & Inspection: normal respiratory effort Auscultation: clear to auscultation bilaterally Cardio: Rate: regular rate Rhythm: regular rhythm GI: Palpation (GI): Soft to palpation Auscultation: normal bowel sounds Skin: General skin exam: no rashes or lesions noted Neuro: General: patient oriented x3 Cranial nerves: Yes Equal, round and reactive pupils present Cognition (Neuro): normal cognition Extrem: Other: left hip externally rotated, shortened compared to right General: Yes no pedal edema Results Labs 09/09/22 21:08 09/09/22 21:08 Labs: Laboratory Results - last 24 hr 09/09/22 09/09/22 21:08 21:08 MCV 92.7 MCH 32.2 MCHC 34.7 RDW 12.2 Plt Count 301 MPV 9.1 L Immature Gran % (Auto) 0.8 H Neut % (Auto) 60.4 Lymph % (Auto) 28.7 [place] % (Auto) 6.6 Eos % (Auto) 2.9 Baso % (Auto) 0.6 Lymph # (Auto) 3.6 [place] # (Auto) 0.8 Eos # (Auto) 0.4 Baso # (Auto) 0.1 Abs Immat Gran (auto) 0.10 H Absolute Neuts (auto) 7.6 Absolute Nucleated RBC 0.000 Nucleated RBC % (auto) 0.0 Anion Gap 18 Estim Creat Clear Calc 108.1 Estimated GFR > 60 Random Glucose 172 H Calcium 8.8 D Total Bilirubin 0.3 AST 31 ALT 59 H Alkaline Phosphatase 110 Total Protein 6.4 L Albumin 4.1 Imaging Radiologist's Impressions: Impressions Hip/Pelvis X-Ray 09/09/22 23:41 IMPRESSION: Displaced and impacted left femoral neck fracture. Assessment and Plan (1) Closed fracture of neck of left femur: Qualifiers: Encounter type: initial encounter Qualified Code(s): S72.002A - Fracture of unspecified part of neck of left femur, initial encounter for closed fracture Status: Acute (2) Fall: Qualifiers: Encounter type: initial encounter Qualified Code(s): W19.XXXA - Unspecified fall, initial encounter Status: Acute Plan 57-year-old male with a history of CHF with reduced ejection fracture, diabetes, presents to the hospital after having a fall and experiencing a femoral neck fracture # acute left femoral neck fracture - secondary to mechanical fall - IV pain control - orthopedic consulted - given patient's past medical history of CHF, and insulin use, patienthas a class 3 risk revised cardiac risk index placing him a 10% risk of developing major 30 day event including AR, , cardiac arrest - currently has no chest pain, no EKG changes suggestive of ACS - given this risk, will consult Cardiology, for risk stratification, for surgery # diabetes - hold low-dose sliding scale insulin - diabetic diet # CHF - with reduced ejection fraction - not in acute exacerbation - continue Lasix, spironolactone, # hypertension - stable - continue antihypertensives DVT prophylaxis: Lovenox given patient's need for further evaluation by Orthopedic for possible hip fracture patient will require minimum 2 nights inpatient hospital stay for further management and monitor Time Spent With Patient Time: Total time managing care of this patient today ____ minutes. Quality Stroke Does the patient have a stroke diagnosis?: No VTE Prior VTE?: No VTE Risk Level:: Surgical - high VTE Device Contraindication: N/A - Device Ordered VTE Drug Contraindication: Treatment Not Indicated
[2022-09-10 00:47] LABS: Ethanol 190 mg/dL
[2022-09-10 00:58] LABS: Prothrombin Time 11.4 SEC (10.0-13.1)
[2022-09-10 01:00] LABS: Partial Thromboplastin Time 26.4 SEC (26.0-36.4)
[2022-09-10 01:07] LABS: COVID-19 Test Negative (Negative); IDNOW Serial# 6674DD1D
--- NOTE | 2022-09-10 01:32 | MHC.EDTECH ---
Patient is unable to provide a urine sample at this time
[2022-09-10 01:45] VITALS: RESP 16
[2022-09-10] MEDS: HYDROmorphone HCl 0.5 MG/0.5 ML SYRINGE IVPUSH ×2 (01:45→05:24)
--- NOTE | 2022-09-10 01:50 | PC.NURSE ---
Patient is alert and oriented x3, VSS. Patient reports pain in left hip ranging from 7-10/10 on 0/10 pain scale. Per patient's report pain is constant, sharp, achy, and being aggravated by movement/repositioning. Pain is managed with Dilaudid IV push with fair relief. 20 G IV line in R AC is patient. Patient is able to make his needs known. Call leon placed within patient's reach.
[2022-09-10 02:24] VITALS: BMI 31.6
[2022-09-10] MEDS: Lactated Ringers 1,000 ML 50 ML IVCONT (02:38)
[2022-09-10 03:49] VITALS: BP 145/87; PULSE 99; RESP 18; TEMP 37.6; O2SAT 95
[2022-09-10 06:34] LABS: MANUAL DIFF FLAG NO
[2022-09-10 06:37] LABS: Basophils Absolute Auto 0.1 X10*3/uL (0.0-0.2); Basophils Percent Auto 0.4 % (0-2); Eosinophils Absolute Auto 0.3 X10*3/uL (0.0-0.4); Eosinophils Percent Auto 2.1 % (0-4); Hematocrit 35.9 % (42.0-52.0); Hemoglobin 12.6 g/dl (14.0-18.0); Imm Gran Pct Auto 0.6 % (0.0-0.4); Lymphocytes Absolute Auto 2.8 X10*3/uL (1.2-4.9); Lymphocytes Percent Auto 18.1 % (20-40); Mean Corpuscular HGB Conc 35.1 g/dl (31.0-36.0); Mean Corpuscular Hemoglobin 32.9 pg (27.0-33.0); Mean Corpuscular Volume 93.7 fL (80.0-98.0); Mean Platelet Volume 9.5 fL (9.4-12.4); Monocytes Absolute Auto 1.3 X10*3/uL (0.1-1.2); Monocytes Percent Auto 8.6 % (2-11); Neutrophils Absolute Auto 10.9 x10*3/uL (2.0-8.3); Neutrophils Percent Auto 70.2 % (45-73); Platelet Count 291 X10*3/uL (160-400); Red Blood Count 3.83 X10*6/uL (4.60-5.80); Red Cell Distribution Width 12.3 % (11.0-16.0); White Blood Count 15.5 X10*3/uL (4.8-10.8)
[2022-09-10 06:52] LABS: Anion Gap 15 (12-20); Blood Urea Nitrogen 16 mg/dL (9-16); Calcium 8.8 mg/dL (8.4-10.2); Carbon Dioxide 26 mmol/L (22-29); Chloride 100 mmol/L (96-108); Creatinine Clr Calc Pharmacy 124.9; Estimated Glomerular Filt Rate > 60; Glucose Random 131 mg/dL (60-115); Potassium 4.4 mmol/L (3.3-5.1); Sodium 137 mmol/L (135-145)
[2022-09-10 07:44] VITALS: BP 163/92; PULSE 98; RESP 20; TEMP 37.1; O2SAT 98
[2022-09-10 07:48] LABS: Glucose, Whole Blood 144 mg/dL (60-115)
[2022-09-10] MEDS: Acetaminophen 325 MG TABLET 650 MG PO (08:51)
[2022-09-10] MEDS: Furosemide 20 MG TABLET PO (08:51)
[2022-09-10] MEDS: hydrALAZINE HCl 25 MG TABLET PO ×3 (08:51→21:17)
[2022-09-10] MEDS: oxyCODONE HCl Immed Release 5 MG TABLET PO (08:52)
[2022-09-10] MEDS: Isosorbide Mononitrate 30 MG TAB.ER.24H PO (08:52)
[2022-09-10] MEDS: Gabapentin 100 MG CAPSULE PO ×3 (08:52→21:17)
[2022-09-10] MEDS: carvediloL 6.25 MG TABLET PO ×2 (08:52→21:18)
[2022-09-10] MEDS: Omeprazole 20 MG CAPSULE.DR PO (08:52)
--- NOTE | 2022-09-10 08:58 | PHA.MEDREC ---
Pharmacy Consult ? Medication Reconciliation Pharmacy has completed the medication reconciliation. Spoke to patient to confirm meds. Patient attests to taking metformin 500mg bid, lasix 20mg daily, hydralazine 25mg tid, and lantus 30 units at bedtime.
[2022-09-10] MEDS: HYDROmorphone HCl 0.5 MG/0.5 ML SYRINGE 1 MG IVPUSH ×3 (09:31→16:29)
--- NOTE | 2022-09-10 09:54 | PM.EVENT ---
Event Note Date of Service: 09/10/22 Event Note: Patient seen and evaluated report significant pain in LLE NPO for now good functional status at baseline, pending Cardio eval for preOp clearance Pending Ortho eval Increase Dilaudid for severe pain Narcan PRN for reversal if needed Time Spent With Patient Time: Total time managing care of this patient today ____ minutes.
--- NOTE | 2022-09-10 10:22 | P.CONOP_ITS ---
History of Present Illness HPI Consult date: 09/10/22 Chief complaint: left hip fx Narrative: Patient presented to the ED yesterday after sustaining a fall. He was reaching into his car to grab some pillows and placed his foot between the car and curb. He twisted and lost his balance landing on the left hip. X-rays obtained in the ED revela a left hip femoral neck fracture. He was admitted to the medicine service and orthopedics was consulted for further evaluation and treatent. PMH: DMII with neuropathy, COPD, CHF, cardiomegaly Review of Systems Review of Systems: Yes all other systems are reviewed and are negative [facility] Past Medical History Medical History Alcohol abuse Asthma Cardiomyopathy Congestive heart failure COPD (chronic obstructive pulmonary disease) Diabetes Personal history of nicotine dependence Uncontrolled diabetes mellitus Family History Family History Father Leukemia Mother Scleroderma Surgical History Surgical History History of appendectomy History of cardiac cath History of esophagogastroduodenoscopy (EGD) History of shoulder surgery Social History Social History Household Members: Children Housing: Apartment Do you presently have visiting nurse or other home services: No Alcohol intake: current Alcohol intake frequency: 3 or more drinks per day Alcohol type: beer and hard liquor Patient Tobacco Use Status: Current everyday Tobacco user Tobacco use type: Cigarette Cigarette Packs Per Day: 1 Cigarettes Per Day: 20.0 Years Smoked: (onset 20yo, 3/4-1ppd x 36yrs, 30pyh) Smoked in Last 30 Days: Yes Second Hand Smoke Exposure: No Use of substances other than those prescribed or required for medical reasons: No Currently Displaying Signs/Symptoms of Drug Intoxication Withdrawal: No Have you been hit, kicked, punched, or otherwise hurt by someone within the past year? If so, by whom?: No Do you feel safe in your current relationship?: No Current Relationship Is there a partner from a previous relationship who is making you feel unsafe now?: No Are you made to feel afraid or neglected: No Advance Directives: No Advance Directives Information Provided: Yes Do you have thoughts of harming others: None Do you have a plan to hurt others: No Plan Recently lost weight without trying: No Eating poorly because of decreased appetite: No Nutrition Risks: No Nutritional Risk Poor oral hygiene: No (no teeth, no dentures) service: No Current occupational status: unemployed Meds Allergies Allergy/AdvReac Type Severity Reaction Status Date / Time canagliflozin [Invokana] Allergy Unknown Unknown Verified 08/03/22 15:47 cats Allergy Unknown Unknown Verified 08/03/22 15:47 Clindamycin HCl Allergy Unknown itch Verified 08/03/22 15:47 Diltiazem HCl Allergy Unknown itch Verified 08/03/22 15:47 hydrochlorothiazide Allergy Unknown GOUT Verified 08/03/22 15:47 [HYDROCHLOROTHIAZIDE] lisinopril [LISINOPRIL] Allergy Unknown TONGUE Verified 08/03/22 15:47 SWELLING naproxen [From NAPROSYN] Allergy Unknown NIGHTMARES Verified 08/03/22 15:47 penicillin V Allergy Unknown Unknown Verified 08/03/22 15:47 Sulfa (Sulfonamide Allergy Unknown UNKNOWN Verified 08/03/22 15:47 Antibiotics) [SULFA(SULFONAMIDE ANTIBIOTICS)] Taztia XT Allergy Unknown Unknown Uncoded 08/03/22 15:47 Active Medications: Current Medications Acetaminophen (Acetaminophen 325 Mg Tablet) 650 mg PO Q6H PRN PRN Reason: Pain, Mild (Pain Scale 1-3) Last Admin: 09/10/22 08:51 Dose: 650 mg Atorvastatin Calcium (Atorvastatin Calcium 40 Mg Tablet) 40 mg PO BEDTIME ANA Carvedilol (Carvedilol 6.25 Mg Tablet) 6.25 mg PO BID ANA; Protocol Last Admin: 09/10/22 08:52 Dose: 6.25 mg Fluticasone Propionate (Fluticasone Propionate Nasal 16 Gm [place]) 1 spray NOSTRIL-B DAILY ANA Furosemide (Furosemide 20 Mg Tablet) 20 mg PO DAILY ANA; Protocol Last Admin: 09/10/22 08:51 Dose: 20 mg Gabapentin (Gabapentin 100 Mg Capsule) 100 mg PO TID ANA Last Admin: 09/10/22 08:52 Dose: 100 mg Glucose (Glucose Gel 15 Gm Gel..Gram.) 15 gm PO Q15M PRN; Protocol PRN Reason: per Hypoglycemia Standing Ord. Hydralazine HCl (Hydralazine Hcl 25 Mg Tablet) 25 mg PO TID [facility]; Protocol Last Admin: 09/10/22 08:51 Dose: 25 mg Hydromorphone HCl (Hydromorphone Hcl 0.5 Mg/0.5 Ml Syringe) 1 mg IVPUSH Q3H PRN; Protocol PRN Reason: Pain, Severe (Pain Scale 7-10) Last Admin: 09/10/22 09:31 Dose: 1 mg Dextrose (D10) 250 mls @ 750 mls/hr IV Q15M PRN; Protocol PRN Reason: per Hypoglycemia Standing Ord. Dextrose (D10) 250 mls @ 750 mls/hr IV Q15M PRN; Protocol PRN Reason: per Hypoglycemia Standing Ord. Insulin Glargine (Insulin Glargine,Hum.Rec.Anlog 100 Unit/Ml 10 Ml Vial) 30 unit SUBCUT BEDTIME [facility] Insulin Human Lispro (Insulin Lispro 100 Unit/Ml 3 Ml Vial) 0 unit SUBCUT QIDACHS [facility]; Protocol Last Admin: 09/10/22 07:54 Dose: Not Given Isosorbide Mononitrate (Isosorbide Mononitrate 30 Mg Tab.Er.24h) 30 mg PO DAILY [facility]; Protocol Last Admin: 09/10/22 08:52 Dose: 30 mg Levalbuterol HCl (Levalbuterol Hcl 1.25 Mg/3 Ml Vial.Neb) 1.25 mg INHALE Q3H PRN PRN Reason: Shortness of Breath/Wheezing Loratadine (Loratadine 10 Mg Tablet) 10 mg PO DAILY [facility] Naloxone HCl (Naloxone Hcl Nasal 4 Mg [place]) 4 mg NOSTRILALT ONCE PRN PRN Reason: Opiate Reversal Omeprazole (Omeprazole 20 Mg Capsule.Dr) 20 mg PO DAILY [facility] Last Admin: 09/10/22 08:52 Dose: 20 mg Ondansetron HCl (Ondansetron Hcl 4 Mg/2 Ml Vial) 4 mg IVPUSH Q8H PRN PRN Reason: Nausea and Vomiting Oxycodone HCl (Oxycodone Hcl Immed Release 5 Mg Tablet) 5 mg PO Q4H PRN PRN Reason: Pain, Moderate(Pain Scale 4-6) Last Admin: 09/10/22 08:52 Dose: 5 mg Pharmacy Consult (Consult Rx Perform Med Rec) 1 each MISCELLANE ONCE PRN PRN Reason: Consult order Sodium Chloride (0.9 % Sodium Chloride Flush 3 Ml Syringe) 3 ml IVFLUSH QSHIFT [facility] Last Admin: 09/10/22 07:14 Dose: Not Given Home Medications Medication Instructions Recorded Confirmed Last Taken Type lancets 28 gauge (FreeStyle #100 ea 05/26/21 08/03/22 Unknown History Lancets) ascorbic acid (vitamin C) 500 mg 500 mg PO DAILY 09/10/22 09/10/22 09/09/22 09:00 History tablet (Vitamin C) atorvastatin 40 mg tablet 40 mg PO BEDTIME 09/10/22 09/10/22 09/08/22 History carvedilol 6.25 mg tablet 6.25 mg PO BID 09/10/22 09/10/22 09/09/22 09:00 History cholecalciferol (vitamin D3) 10 10 mcg PO DAILY 09/10/22 09/10/22 09/09/22 09:00 History mcg (400 unit) tablet (Vitamin D3) fluticasone propionate 50 1 spray intranasal DAILY 09/10/22 09/10/22 09/09/22 09:00 History mcg/actuation nasal spray,suspension furosemide 40 mg tablet 20 mg PO DAILY 09/10/22 09/10/22 09/09/22 09:00 History gabapentin 100 mg capsule 100 mg PO TID 09/10/22 09/10/22 09/09/22 09:00 History hydralazine 50 mg tablet 25 mg PO TID 09/10/22 09/10/22 09/09/22 09:00 History insulin glargine 100 unit/mL (3 30 unit subcut BEDTIME 09/10/22 09/10/22 09/08/22 History mL) subcutaneous pen (Lantus Solostar U-100 Insulin) levalbuterol tartrate 45 2 puff inhalation Q6H PRN 09/10/22 09/10/22 Unknown History mcg/actuation aerosol inhaler Shortness Of Breath Or Wheezing (Xopenex HFA) loratadine 10 mg tablet (Claritin) 10 mg PO DAILY 09/10/22 09/10/22 09/09/22 09:00 History multivitamin 1 tab PO DAILY 09/10/22 09/10/22 09/09/22 09:00 History omeprazole 20 mg capsule,delayed 20 mg PO DAILY@0630 09/10/22 09/10/22 09/09/22 07:00 History release spironolactone 25 mg tablet 25 mg PO DAILY 09/10/22 09/10/22 09/09/22 09:00 History Physical Exam Vital Signs: Vital Signs: Last Vital Signs Temp 98.8 F 09/10/22 07:44 Pulse 98 09/10/22 07:44 Resp 20 09/10/22 07:44 BP 163/92 H 09/10/22 07:44 Pulse Ox 98 09/10/22 07:44 O2 Del Method Room Air 09/10/22 07:44 BMI result Body Mass Index 31.6 Extrem: Other: Left hip skin is intact. Lower extremity is shortened and externally rotated. Able to dorsi/plantarflex. Results Labs 09/10/22 06:11 09/10/22 06:11 Labs: Abnormal lab results 09/09/22 09/09/22 09/10/22 Range/Units 21:08 21:08 06:11 WBC 12.6 H 15.5 H (4.8-10.8) X10*3/uL RBC 3.98 L 3.83 L (4.60-5.80) X10*6/uL Hgb 12.8 L 12.6 L (14.0-18.0) g/dl Hct 36.9 L 35.9 L (42.0-52.0) % MPV 9.1 L (9.4-12.4) fL Immature Gran % (Auto) 0.8 H 0.6 H (0.0-0.4) % Lymph % (Auto) 18.1 L (20-40) % [place] # (Auto) 1.3 H (0.1-1.2) X10*3/uL Abs Immat Gran (auto) 0.10 H 0.10 H (0.00-0.03) X10*3/uL Absolute Neuts (auto) 10.9 H (2.0-8.3) x10*3/uL BUN 19 H (9-16) mg/dL POC Glucose (60-115) mg/dL Random Glucose 172 H (60-115) mg/dL ALT 59 H (0-40) U/L Total Protein 6.4 L (6.5-8.0) g/dL 09/10/22 09/10/22 Range/Units 06:11 07:42 WBC (4.8-10.8) X10*3/uL RBC (4.60-5.80) X10*6/uL Hgb (14.0-18.0) g/dl Hct (42.0-52.0) % MPV (9.4-12.4) fL Immature Gran % (Auto) (0.0-0.4) % Lymph % (Auto) (20-40) % [place] # (Auto) (0.1-1.2) X10*3/uL Abs Immat Gran (auto) (0.00-0.03) X10*3/uL Absolute Neuts (auto) (2.0-8.3) x10*3/uL BUN (9-16) mg/dL POC Glucose 144 H (60-115) mg/dL Random Glucose 131 H (60-115) mg/dL ALT (0-40) U/L Total Protein (6.5-8.0) g/dL H & H 09/09/22 09/10/22 Range/Units 21:08 06:11 Hgb 12.8 L 12.6 L (14.0-18.0) g/dl Hct 36.9 L 35.9 L (42.0-52.0) % Coagulation 09/10/22 Range/Units 00:46 INR 1.0 (0.9-1.1) All other labs normal. Assessment and Plan (1) Closed fracture of neck of left femur: Qualifiers: Encounter type: initial encounter Qualified Code(s): S72.002A - Fracture of unspecified part of neck of left femur, initial encounter for closed fracture Status: Acute Plan for LTHA once medical clearance is obtained NPO after midnight Pain management as appropriate Time Spent With Patient Time: Total time managing care of this patient today ____ minutes. Procedures Date of Service Date of Service: 09/10/22
[2022-09-10 11:17] LABS: Glucose, Whole Blood 167 mg/dL (60-115)
--- NOTE | 2022-09-10 11:52 | P.CONCA_ITS ---
History of Present Illness History of Present Illness Date of Service: 09/10/22 Requesting physician: William Huang Consult reason: pre-op evaluation Chief complaint: left hip fx Narrative: I was consulted to see Immanuel in cardiology consultation today for preoperative cardiovascular risk stratification. 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 Patient's last LV ejection fraction noted be 45-50%. Currently participate in cardiac rehab and doing well. He also denies use of alcohol. Yesterday he had an accidental fall with fracture of his left femoral head. Plan to undergo hip replacement tomorrow. Patient has no recent cardiac complaints. Currently in mild pain, blood pressure is elevated related to the same. He has no recent heart failure symptoms. Has been in good functional status taking all his medications. He has no anginal symptoms. No palpitations or irregular heartbeat. Review of Systems Constitutional: Constitutional: Reports no additional constitutional complaints Cardiovascular: Cardiovascular: Reports no additional cardiovascular complaints Respiratory: Respiratory: Reports no additional respiratory complaints Gastrointestinal: Gastrointestinal: Reports no additional gastrointestinal complaints Musculoskeletal: Musculoskeletal: Reports other (Left hip pain) Neurologic: Reports system reviewed and no additional complaints, except as documented Psychiatric: Psychiatric: Reports no additional psychiatric complaints Endocrine: Endocrine: Reports no additional endocrine complaints Hematologic/Lymphatic: Hematologic/Lymphatic: Reports no additional hemat ologic/lymphatic complaints Allergic/Immunologic: Allergic/Immunologic: Reports no additional allergic/immunologic complaints [facility] Past Medical History Medical History Alcohol abuse Asthma Cardiomyopathy Congestive heart failure COPD (chronic obstructive pulmonary disease) Diabetes Personal history of nicotine dependence Uncontrolled diabetes mellitus Family History Family History Father Leukemia Mother Scleroderma Surgical History Surgical History History of appendectomy History of cardiac cath History of esophagogastroduodenoscopy (EGD) History of shoulder surgery Social History Social History Household Members: Children Housing: Apartment Do you presently have visiting nurse or other home services: No Alcohol intake: current Alcohol intake frequency: 3 or more drinks per day Alcohol type: beer and hard liquor Patient Tobacco Use Status: Current everyday Tobacco user Tobacco use type: Cigarette Cigarette Packs Per Day: 1 Cigarettes Per Day: 20.0 Years Smoked: (onset 20yo, 3/4-1ppd x 36yrs, 30pyh) Smoked in Last 30 Days: Yes Second Hand Smoke Exposure: No Use of substances other than those prescribed or required for medical reasons: No Currently Displaying Signs/Symptoms of Drug Intoxication Withdrawal: No Have you been hit, kicked, punched, or otherwise hurt by someone within the past year? If so, by whom?: No Do you feel safe in your current relationship?: No Current Relationship Is there a partner from a previous relationship who is making you feel unsafe now?: No Are you made to feel afraid or neglected: No Advance Directives: No Advance Directives Information Provided: Yes Do you have thoughts of harming others: None Do you have a plan to hurt others: No Plan Recently lost weight without trying: No Eating poorly because of decreased appetite: No Nutrition Risks: No Nutritional Risk Poor oral hygiene: No (no teeth, no dentures) service: No Current occupational status: unemployed Meds Allergies Allergy/AdvReac Type Severity Reaction Status Date / Time canagliflozin [Invokana] Allergy Unknown Unknown Verified 08/03/22 15:47 cats Allergy Unknown Unknown Verified 08/03/22 15:47 Clindamycin HCl Allergy Unknown itch Verified 08/03/22 15:47 Diltiazem HCl Allergy Unknown itch Verified 08/03/22 15:47 hydrochlorothiazide Allergy Unknown GOUT Verified 08/03/22 15:47 [HYDROCHLOROTHIAZIDE] lisinopril [LISINOPRIL] Allergy Unknown TONGUE Verified 08/03/22 15:47 SWELLING naproxen [From NAPROSYN] Allergy Unknown NIGHTMARES Verified 08/03/22 15:47 penicillin V Allergy Unknown Unknown Verified 08/03/22 15:47 Sulfa (Sulfonamide Allergy Unknown UNKNOWN Verified 08/03/22 15:47 Antibiotics) [SULFA(SULFONAMIDE ANTIBIOTICS)] Taztia XT Allergy Unknown Unknown Uncoded 08/03/22 15:47 Active Medications: Current Medications Acetaminophen (Acetaminophen 325 Mg Tablet) 650 mg PO Q6H PRN PRN Reason: Pain, Mild (Pain Scale 1-3) Last Admin: 09/10/22 08:51 Dose: 650 mg Atorvastatin Calcium (Atorvastatin Calcium 40 Mg Tablet) 40 mg PO BEDTIME [facility] Carvedilol (Carvedilol 6.25 Mg Tablet) 6.25 mg PO BID [facility]; Protocol Last Admin: 09/10/22 08:52 Dose: 6.25 mg Fluticasone Propionate (Fluticasone Propionate Nasal 16 Gm [place]) 1 spray NOSTRIL-B DAILY [facility] Furosemide (Furosemide 20 Mg Tablet) 20 mg PO DAILY [facility]; Protocol Last Admin: 09/10/22 08:51 Dose: 20 mg Gabapentin (Gabapentin 100 Mg Capsule) 100 mg PO TID [facility] Last Admin: 09/10/22 08:52 Dose: 100 mg Glucose (Glucose Gel 15 Gm Gel..Gram.) 15 gm PO Q15M PRN; Protocol PRN Reason: per Hypoglycemia Standing Ord. Hydralazine HCl (Hydralazine Hcl 25 Mg Tablet) 25 mg PO TID [facility]; Protocol Last Admin: 09/10/22 08:51 Dose: 25 mg Hydromorphone HCl (Hydromorphone Hcl 0.5 Mg/0.5 Ml Syringe) 1 mg IVPUSH Q3H PRN; Protocol PRN Reason: Pain, Severe (Pain Scale 7-10) Last Admin: 09/10/22 09:31 Dose: 1 mg Dextrose (D10) 250 mls @ 750 mls/hr IV Q15M PRN; Protocol PRN Reason: per Hypoglycemia Standing Ord. Dextrose (D10) 250 mls @ 750 mls/hr IV Q15M PRN; Protocol PRN Reason: per Hypoglycemia Standing Ord. Insulin Glargine (Insulin Glargine,Hum.Rec.Anlog 100 Unit/Ml 10 Ml Vial) 30 unit SUBCUT BEDTIME [facility] Insulin Human Lispro (Insulin Lispro 100 Unit/Ml 3 Ml Vial) 0 unit SUBCUT QIDACHS [facility]; Protocol Last Admin: 09/10/22 07:54 Dose: Not Given Isosorbide Mononitrate (Isosorbide Mononitrate 30 Mg Tab.Er.24h) 30 mg PO DAILY [facility]; Protocol Last Admin: 09/10/22 08:52 Dose: 30 mg Levalbuterol HCl (Levalbuterol Hcl 1.25 Mg/3 Ml Vial.Neb) 1.25 mg INHALE Q3H PRN PRN Reason: Shortness of Breath/Wheezing Loratadine (Loratadine 10 Mg Tablet) 10 mg PO DAILY [facility] Naloxone HCl (Naloxone Hcl Nasal 4 Mg [place]) 4 mg NOSTRILALT ONCE PRN PRN Reason: Opiate Reversal Omeprazole (Omeprazole 20 Mg Capsule.Dr) 20 mg PO DAILY [facility] Last Admin: 09/10/22 08:52 Dose: 20 mg Ondansetron HCl (Ondansetron Hcl 4 Mg/2 Ml Vial) 4 mg IVPUSH Q8H PRN PRN Reason: Nausea and Vomiting Oxycodone HCl (Oxycodone Hcl Immed Release 5 Mg Tablet) 5 mg PO Q4H PRN PRN Reason: Pain, Moderate(Pain Scale 4-6) Last Admin: 09/10/22 08:52 Dose: 5 mg Pharmacy Consult (Consult Rx Perform Med Rec) 1 each MISCELLANE ONCE PRN PRN Reason: Consult order Sodium Chloride (0.9 % Sodium Chloride Flush 3 Ml Syringe) 3 ml IVFLUSH QSHIFT [facility] Last Admin: 09/10/22 07:14 Dose: Not Given Home Medications Medication Instructions Recorded Confirmed Last Taken Type lancets 28 gauge (FreeStyle #100 ea 05/26/21 08/03/22 Unknown History Lancets) ascorbic acid (vitamin C) 500 mg 500 mg PO DAILY 09/10/22 09/10/22 09/09/22 09:00 History tablet (Vitamin C) atorvastatin 40 mg tablet 40 mg PO BEDTIME 09/10/22 09/10/22 09/08/22 History carvedilol 6.25 mg tablet 6.25 mg PO BID 09/10/22 09/10/22 09/09/22 09:00 History cholecalciferol (vitamin D3) 10 10 mcg PO DAILY 09/10/22 09/10/22 09/09/22 09:00 History mcg (400 unit) tablet (Vitamin D3) fluticasone propionate 50 1 spray intranasal DAILY 09/10/22 09/10/22 09/09/22 09:00 History mcg/actuation nasal spray,suspension furosemide 40 mg tablet 20 mg PO DAILY 09/10/22 09/10/22 09/09/22 09:00 History gabapentin 100 mg capsule 100 mg PO TID 09/10/22 09/10/22 09/09/22 09:00 History hydralazine 50 mg tablet 25 mg PO TID 09/10/22 09/10/22 09/09/22 09:00 History insulin glargine 100 unit/mL (3 30 unit subcut BEDTIME 09/10/22 09/10/22 09/08/22 History mL) subcutaneous pen (Lantus Solostar U-100 Insulin) levalbuterol tartrate 45 2 puff inhalation Q6H PRN 09/10/22 09/10/22 Unknown History mcg/actuation aerosol inhaler Shortness Of Breath Or Wheezing (Xopenex HFA) loratadine 10 mg tablet (Claritin) 10 mg PO DAILY 09/10/22 09/10/22 09/09/22 09:00 History multivitamin 1 tab PO DAILY 09/10/22 09/10/22 09/09/22 09:00 History omeprazole 20 mg capsule,delayed 20 mg PO DAILY@0630 09/10/22 09/10/22 09/09/22 07:00 History release spironolactone 25 mg tablet 25 mg PO DAILY 09/10/22 09/10/22 09/09/22 09:00 History Physical Exam Vital Signs: Vital Signs: Last Vital Signs Temp 98.8 F 09/10/22 07:44 Pulse 98 09/10/22 07:44 Resp 20 09/10/22 07:44 BP 163/92 H 09/10/22 07:44 Pulse Ox 98 09/10/22 07:44 O2 Del Method Room Air 09/10/22 07:44 BMI result Body Mass Index 31.6 Const: General: cooperative, comfortable, no acute distress, alert and awake Nutritional Appearance: overweight Orientation/consciousness: patient oriented x3 HEENT: Head: Yes normocephalic and Yes atraumatic Neck: Neck: Yes trachea midline, Yes supple and Yes no JVD Resp: Effort & Inspection: normal respiratory effort Auscultation: clear to auscultation bilaterally Cardio: Jugular venous distension: no JVD Palpation: normal PMI Rate: regular rate Rhythm: regular rhythm Heart sounds: S1 normal heart sound present, S2 normal heart sound present, no click, no gallops, no murmurs and no rubs GI: Auscultation: normal bowel sounds Skin: General skin exam: no rashes or lesions noted Neuro: General: patient oriented x3 and no focal motor deficits Extrem: General: Yes no clubbing, cyanosis or edema Objective Labs and Meds 09/10/22 06:11 09/10/22 06:11 Lab results: Laboratory Results - last 24 hr 09/09/22 09/09/22 09/10/22 21:08 21:08 00:46 WBC 12.6 H RBC 3.98 L Hgb 12.8 L Hct 36.9 L MCV 92.7 MCH 32.2 MCHC 34.7 RDW 12.2 Plt Count 301 MPV 9.1 L Immature Gran % (Auto) 0.8 H Neut % (Auto) 60.4 Lymph % (Auto) 28.7 [place] % (Auto) 6.6 Eos % (Auto) 2.9 Baso % (Auto) 0.6 Lymph # (Auto) 3.6 [place] # (Auto) 0.8 Eos # (Auto) 0.4 Baso # (Auto) 0.1 Abs Immat Gran (auto) 0.10 H Absolute Neuts (auto) 7.6 Absolute Nucleated RBC 0.000 Nucleated RBC % (auto) 0.0 PT 11.4 INR 1.0 APTT 26.4 Sodium 139 Potassium 3.6 Chloride 102 Carbon Dioxide 23 Anion Gap 18 BUN 19 H Creatinine 0.97 Estim Creat Clear Calc 108.1 Estimated GFR > 60 POC Glucose Random Glucose 172 H Calcium 8.8 D Total Bilirubin 0.3 AST 31 ALT 59 H Alkaline Phosphatase 110 Total Protein 6.4 L Albumin 4.1 Ethyl Alcohol 190 COVID-19 ([facility]ENNA) COVID-19 Clin Com Blood Type Antibody Screen 09/10/22 09/10/22 09/10/22 00:46 00:46 06:11 WBC 15.5 H RBC 3.83 L Hgb 12.6 L Hct 35.9 L MCV 93.7 MCH 32.9 MCHC 35.1 RDW 12.3 Plt Count 291 MPV 9.5 Immature Gran % (Auto) 0.6 H Neut % (Auto) 70.2 Lymph % (Auto) 18.1 L [place] % (Auto) 8.6 Eos % (Auto) 2.1 Baso % (Auto) 0.4 Lymph # (Auto) 2.8 [place] # (Auto) 1.3 H Eos # (Auto) 0.3 Baso # (Auto) 0.1 Abs Immat Gran (auto) 0.10 H Absolute Neuts (auto) 10.9 H Absolute Nucleated RBC 0.000 Nucleated RBC % (auto) 0.0 PT INR APTT Sodium Potassium Chloride Carbon Dioxide Anion Gap BUN Creatinine Estim Creat Clear Calc Estimated GFR POC Glucose Random Glucose Calcium Total Bilirubin AST ALT Alkaline Phosphatase Total Protein Albumin Ethyl Alcohol COVID-19 ([facility]ENNA) Negative COVID-19 Clin Com See Note Blood Type A Positive Antibody Screen NEGATIVE 09/10/22 09/10/22 09/10/22 06:11 07:42 11:06 WBC RBC Hgb Hct MCV MCH MCHC RDW Plt Count MPV Immature Gran % (Auto) Neut % (Auto) Lymph % (Auto) [place] % (Auto) Eos % (Auto) Baso % (Auto) Lymph # (Auto) [place] # (Auto) Eos # (Auto) Baso # (Auto) Abs Immat Gran (auto) Absolute Neuts (auto) Absolute Nucleated RBC Nucleated RBC % (auto) PT INR APTT Sodium 137 Potassium 4.4 D Chloride 100 Carbon Dioxide 26 Anion Gap 15 BUN 16 Creatinine 0.84 Estim Creat Clear Calc 124.9 Estimated GFR > 60 POC Glucose 144 H 167 H Random Glucose 131 H Calcium 8.8 Total Bilirubin AST ALT Alkaline Phosphatase Total Protein Albumin Ethyl Alcohol COVID-19 ([facility]NA) COVID-19 Clin Com Blood Type Antibody Screen EKG shows normal sinus rhythm with left axis deviation with Q-waves in lead 3 and AVF most likely due to body habitus Imaging Radiologist's impression: Impressions Hip/Pelvis X-Ray 09/09/22 23:41 IMPRESSION: Displaced and impacted left femoral neck fracture. Assessment and Plan (1) Preoperative cardiovascular examination: Status: Acute Preoperative cardiovascular risk stratification this middle-aged man with prior history of nonischemic cardiomyopathy with heart failure syndrome which has remained stable and NYHA class 1-2 symptoms, currently participate in cardiac rehab. He is currently on carvedilol as well as hydralazine and isosorbide combination due to intolerance to renin angiotensin antagonist in the past. Clinically euvolemic and well compensated and good functional status recently. He unfortunately had a fall with left hip fracture and needs to undergo urgent left hip replacement therapy. Clinically without heart failure appears to be euvolemic. His blood pressure is elevated most likely due to pain. Will further optimize any increase carvedilol to 12.5 mg b.i.d. and increase hydralazine to 50 mg b.i.d. and isosorbide to 30 mg b.i.d.. Continue Lasix therapy. He is currently optimized to undergo surgery with low to intermediate risk for perioperative cardiovascular morbidity mortality. Close hemodynamic monitoring through surgery and close attention to fluid shifts and replace acute blood loss volume immediately. Will sign of the case at this point time. Feel free to consult me if the any further cardiac issues. Thank you for allowing me to partake in his care Time Spent With Patient Time: Total time managing care of this patient today ____ minutes. Procedures Date of Service Date of Service: 09/10/22
[2022-09-10] MEDS: Insulin Lispro 100 UNIT/ML 3 ML VIAL SUBCUT ×3 (12:12→21:18)
[2022-09-10 13:09] LABS: Amphetamine Screen Urine Not Detected (Not Detect); Barbiturates, Urine Not Detected (Not Detect); Benzodiazepines Screen Urine Not Detected (Not Detect); Cannabinoid Screen Urine POSITIVE (Not Detect); Cocaine Screen Urine Not Detected (Not Detect); Fentanyl, urine Not Detected (Not Detect); Opiate Screen Urine POSITIVE (Not Detect); Phencyclidine Screen Urine Not Detected (Not Detect)
[2022-09-10] MEDS: 0.9 % Sodium Chloride Flush 3 ML SYRINGE IVFLUSH ×2 (14:03→21:19)
[2022-09-10 15:37] VITALS: BP 142/87; PULSE 100; RESP 20; TEMP 37.3; O2SAT 95
[2022-09-10 16:29] LABS: Glucose, Whole Blood 165 mg/dL (60-115)
[2022-09-10] MEDS: HYDROmorphone HCl 1 MG/ML SYRINGE IVPUSH ×2 (19:18→22:06)
[2022-09-10 19:37] VITALS: BP 145/84; PULSE 97; RESP 20; TEMP 37.2; O2SAT 92
[2022-09-10 20:11] LABS: Glucose, Whole Blood 233 mg/dL (60-115)
[2022-09-10] MEDS: Atorvastatin Calcium 40 MG TABLET PO (21:17)
[2022-09-10] MEDS: Insulin Glargine,Hum.rec.anlog 100 UNIT/ML 10 ML VIAL 30 UNIT SUBCUT (21:18)
[2022-09-11] VITALS (14 sets, daily range): BP systolic 119–163; BP diastolic 73–99; PULSE 96–108; RESP 15–18; TEMP 36.1–36.9; O2SAT 90–95
[2022-09-11] MEDS: HYDROmorphone HCl 1 MG/ML SYRINGE IVPUSH ×6 (01:02→22:19)
[2022-09-11 06:14] LABS: Hematocrit 38.3 % (42.0-52.0); Hemoglobin 13.2 g/dl (14.0-18.0); Mean Corpuscular HGB Conc 34.5 g/dl (31.0-36.0); Mean Corpuscular Hemoglobin 32.8 pg (27.0-33.0); Mean Corpuscular Volume 95.3 fL (80.0-98.0); Mean Platelet Volume 9.4 fL (9.4-12.4); Platelet Count 245 X10*3/uL (160-400); Red Blood Count 4.02 X10*6/uL (4.60-5.80); Red Cell Distribution Width 12.4 % (11.0-16.0); White Blood Count 14.3 X10*3/uL (4.8-10.8)
[2022-09-11 06:38] LABS: Anion Gap 13 (12-20); Blood Urea Nitrogen 13 mg/dL (9-16); Calcium 8.7 mg/dL (8.4-10.2); Carbon Dioxide 28 mmol/L (22-29); Chloride 99 mmol/L (96-108); Estimated Glomerular Filt Rate > 60; Glucose Random 164 mg/dL (60-115); Potassium 4.2 mmol/L (3.3-5.1); Sodium 136 mmol/L (135-145)
[2022-09-11 07:40] LABS: Glucose, Whole Blood 184 mg/dL (60-115)
[2022-09-11] MEDS: Isosorbide Mononitrate 30 MG TAB.ER.24H PO ×2 (07:49→20:49)
[2022-09-11] MEDS: hydrALAZINE HCl 25 MG TABLET PO (07:49)
[2022-09-11] MEDS: Loratadine 10 MG TABLET PO (07:49)
[2022-09-11] MEDS: carvediloL 6.25 MG TABLET PO (07:49)
[2022-09-11] MEDS: Fluticasone Propionate Nasal 16 GM SPRAY 1 SPRAY NOSTRIL-B (07:50)
[2022-09-11] MEDS: Omeprazole 20 MG CAPSULE.DR PO (07:50)
[2022-09-11] MEDS: Gabapentin 100 MG CAPSULE PO ×3 (07:50→20:49)
[2022-09-11] MEDS: 0.9 % Sodium Chloride Flush 3 ML SYRINGE IVFLUSH ×3 (07:50→20:48)
--- NOTE | 2022-09-11 08:51 | P.CONAN_ITS ---
HPI - Anesthesia Eval Consult details Narrative: Left femoral neck fracture PMFSH Active Problems Active Problems: All Active Problems (Updated 09/10/22 @ 11:55 by Brayan Cadena MD) Preoperative cardiovascular examination (Acute) Closed fracture of neck of left femur (Acute) Fall (Acute) Nicotine dependence, cigarettes, uncomplicated (Acute) Personal history of nicotine dependence (Acute) Chronic heart failure (Acute) Alcohol abuse (Acute) Cardiomyopathy (Acute) Abnormal nuclear stress test (Acute) Congestive heart failure (Acute) Past Medical History Medical History Alcohol abuse Asthma Cardiomyopathy Congestive heart failure COPD (chronic obstructive pulmonary disease) Diabetes Personal history of nicotine dependence Uncontrolled diabetes mellitus Family History Family History Father Leukemia Mother Scleroderma Family history of problems with anesthesia: No Surgical History Surgical History History of appendectomy History of cardiac cath History of esophagogastroduodenoscopy (EGD) History of shoulder surgery History of Problems with Anesthesia: No Social History Social History Household Members: Children Housing: Apartment Do you presently have visiting nurse or other home services: No Alcohol intake: current Alcohol intake frequency: 3 or more drinks per day Alcohol type: beer and hard liquor Patient Tobacco Use Status: Current everyday Tobacco user Tobacco use type: Cigarette Cigarette Packs Per Day: 1 Cigarettes Per Day: 20.0 Years Smoked: (onset 20yo, 3/4-1ppd x 36yrs, 30pyh) Smoked in Last 30 Days: Yes Second Hand Smoke Exposure: No Use of substances other than those prescribed or required for medical reasons: No Currently Displaying Signs/Symptoms of Drug Intoxication Withdrawal: No Have you been hit, kicked, punched, or otherwise hurt by someone within the past year? If so, by whom?: No Do you feel safe in your current relationship?: No Current Relationship Is there a partner from a previous relationship who is making you feel unsafe now?: No Are you made to feel afraid or neglected: No Advance Directives: No Advance Directives Information Provided: Yes Do you have thoughts of harming others: None Do you have a plan to hurt others: No Plan Recently lost weight without trying: No Eating poorly because of decreased appetite: No Nutrition Risks: No Nutritional Risk Poor oral hygiene: No (no teeth, no dentures) service: No Current occupational status: unemployed Meds Allergies Allergy/AdvReac Type Severity Reaction Status Date / Time canagliflozin [Invokana] Allergy Unknown Unknown Verified 08/03/22 15:47 cats Allergy Unknown Unknown Verified 08/03/22 15:47 Clindamycin HCl Allergy Unknown itch Verified 08/03/22 15:47 Diltiazem HCl Allergy Unknown itch Verified 08/03/22 15:47 hydrochlorothiazide Allergy Unknown GOUT Verified 08/03/22 15:47 [HYDROCHLOROTHIAZIDE] lisinopril [LISINOPRIL] Allergy Unknown TONGUE Verified 08/03/22 15:47 SWELLING naproxen [From NAPROSYN] Allergy Unknown NIGHTMARES Verified 08/03/22 15:47 penicillin V Allergy Unknown Unknown Verified 08/03/22 15:47 Sulfa (Sulfonamide Allergy Unknown UNKNOWN Verified 08/03/22 15:47 Antibiotics) [SULFA(SULFONAMIDE ANTIBIOTICS)] Taztia XT Allergy Unknown Unknown Uncoded 08/03/22 15:47 Active Medications: Current Medications Acetaminophen (Acetaminophen 325 Mg Tablet) 650 mg PO Q6H PRN PRN Reason: Pain, Mild (Pain Scale 1-3) Last Admin: 09/10/22 08:51 Dose: 650 mg Atorvastatin Calcium (Atorvastatin Calcium 40 Mg Tablet) 40 mg PO BEDTIME [facility] Last Admin: 09/10/22 21:17 Dose: 40 mg Carvedilol (Carvedilol 6.25 Mg Tablet) 6.25 mg PO BID [facility]; Protocol Last Admin: 09/11/22 07:49 Dose: 6.25 mg Fluticasone Propionate (Fluticasone Propionate Nasal 16 Gm [place]) 1 spray NOSTRIL-B DAILY [facility] Last Admin: 09/11/22 07:50 Dose: 1 spray Furosemide (Furosemide 20 Mg Tablet) 20 mg PO DAILY [facility]; Protocol Last Admin: 09/10/22 08:51 Dose: 20 mg Gabapentin (Gabapentin 100 Mg Capsule) 100 mg PO TID [facility] Last Admin: 09/11/22 07:50 Dose: 100 mg Glucose (Glucose Gel 15 Gm Gel..Gram.) 15 gm PO Q15M PRN; Protocol PRN Reason: per Hypoglycemia Standing Ord. Hydralazine HCl (Hydralazine Hcl 25 Mg Tablet) 25 mg PO TID [facility]; Protocol Last Admin: 09/11/22 07:49 Dose: 25 mg Hydromorphone HCl (Hydromorphone Hcl 1 Mg/Ml Syringe) 1 mg IVPUSH Q3H PRN; Protocol PRN Reason: Pain, Severe (Pain Scale 7-10) Last Admin: 09/11/22 06:52 Dose: 1 mg Dextrose (D10) 250 mls @ 750 mls/hr IV Q15M PRN; Protocol PRN Reason: per Hypoglycemia Standing Ord. Dextrose (D10) 250 mls @ 750 mls/hr IV Q15M PRN; Protocol PRN Reason: per Hypoglycemia Standing Ord. Cefazolin Sodium/Dextrose (Ancef) 2 gm in 50 mls @ 100 mls/hr IV PREOP ONE Stop: 09/11/22 09:08 Insulin Glargine (Insulin Glargine,Hum.Rec.Anlog 100 Unit/Ml 10 Ml Vial) 30 unit SUBCUT BEDTIME [facility] Last Admin: 09/10/22 21:18 Dose: 30 unit Insulin Human Lispro (Insulin Lispro 100 Unit/Ml 3 Ml Vial) 0 unit SUBCUT QIDACHS [facility]; Protocol Last Admin: 09/11/22 07:39 Dose: Not Given Isosorbide Mononitrate (Isosorbide Mononitrate 30 Mg Tab.Er.24h) 30 mg PO DAILY [facility]; Protocol Last Admin: 09/11/22 07:49 Dose: 30 mg Levalbuterol HCl (Levalbuterol Hcl 1.25 Mg/3 Ml Vial.Neb) 1.25 mg INHALE Q3H PRN PRN Reason: Shortness of Breath/Wheezing Loratadine (Loratadine 10 Mg Tablet) 10 mg PO DAILY [facility] Last Admin: 09/11/22 07:49 Dose: 10 mg Naloxone HCl (Naloxone Hcl Nasal 4 Mg [place]) 4 mg NOSTRILALT ONCE PRN PRN Reason: Opiate Reversal Omeprazole (Omeprazole 20 Mg Capsule.Dr) 20 mg PO DAILY [facility] Last Admin: 09/11/22 07:50 Dose: 20 mg Ondansetron HCl (Ondansetron Hcl 4 Mg/2 Ml Vial) 4 mg IVPUSH Q8H PRN PRN Reason: Nausea and Vomiting Oxycodone HCl (Oxycodone Hcl Immed Release 5 Mg Tablet) 5 mg PO Q4H PRN PRN Reason: Pain, Moderate(Pain Scale 4-6) Last Admin: 09/10/22 08:52 Dose: 5 mg Pharmacy Consult (Consult Rx Perform Med Rec) 1 each MISCELLANE ONCE PRN PRN Reason: Consult order Sodium Chloride (0.9 % Sodium Chloride Flush 3 Ml Syringe) 3 ml IVFLUSH QSHIFT [facility] Last Admin: 09/11/22 07:50 Dose: 3 ml Home Medications Medication Instructions Recorded Confirmed Last Taken Type lancets 28 gauge (FreeStyle #100 ea 05/26/21 08/03/22 Unknown History Lancets) ascorbic acid (vitamin C) 500 mg 500 mg PO DAILY 09/10/22 09/10/22 09/09/22 09:00 History tablet (Vitamin C) atorvastatin 40 mg tablet 40 mg PO BEDTIME 09/10/22 09/10/22 09/08/22 History carvedilol 6.25 mg tablet 6.25 mg PO BID 09/10/22 09/10/22 09/09/22 09:00 History cholecalciferol (vitamin D3) 10 10 mcg PO DAILY 09/10/22 09/10/22 09/09/22 09:00 History mcg (400 unit) tablet (Vitamin D3) fluticasone propionate 50 1 spray intranasal DAILY 09/10/22 09/10/22 09/09/22 09:00 History mcg/actuation nasal spray,suspension furosemide 40 mg tablet 20 mg PO DAILY 09/10/22 09/10/22 09/09/22 09:00 History gabapentin 100 mg capsule 100 mg PO TID 09/10/22 09/10/22 09/09/22 09:00 History hydralazine 50 mg tablet 25 mg PO TID 09/10/22 09/10/22 09/09/22 09:00 History insulin glargine 100 unit/mL (3 30 unit subcut BEDTIME 09/10/22 09/10/22 09/08/22 History mL) subcutaneous pen (Lantus Solostar U-100 Insulin) levalbuterol tartrate 45 2 puff inhalation Q6H PRN 09/10/22 09/10/22 Unknown History mcg/actuation aerosol inhaler Shortness Of Breath Or Wheezing (Xopenex HFA) loratadine 10 mg tablet (Claritin) 10 mg PO DAILY 09/10/22 09/10/22 09/09/22 09:00 History multivitamin 1 tab PO DAILY 09/10/22 09/10/22 09/09/22 09:00 History omeprazole 20 mg capsule,delayed 20 mg PO DAILY@0630 09/10/22 09/10/22 09/09/22 07:00 History release spironolactone 25 mg tablet 25 mg PO DAILY 09/10/22 09/10/22 09/09/22 09:00 History Exam Exam Date and Time: September 11, 2022 0851 Height,Weight and Vital Signs: Height 6 ft Weight 105.8 kg Last Vital Signs Temp 98.3 F 09/11/22 08:00 Pulse 96 09/11/22 08:00 Resp 18 09/11/22 08:00 BP 147/83 H 09/11/22 08:00 Pulse Ox 91 L 09/11/22 08:00 O2 Del Method Room Air 09/11/22 08:00 Pertinent Lab Results Pertinent Lab Results: Laboratory Tests 09/09/22 09/09/22 09/10/22 21:08 21:08 00:46 WBC 12.6 H RBC 3.98 L Hgb 12.8 L Hct 36.9 L MCV 92.7 MCH 32.2 MCHC 34.7 RDW 12.2 Plt Count 301 MPV 9.1 L Immature Gran % (Auto) 0.8 H Neut % (Auto) 60.4 Lymph % (Auto) 28.7 [place] % (Auto) 6.6 Eos % (Auto) 2.9 Baso % (Auto) 0.6 Lymph # (Auto) 3.6 [place] # (Auto) 0.8 Eos # (Auto) 0.4 Baso # (Auto) 0.1 Abs Immat Gran (auto) 0.10 H Absolute Neuts (auto) 7.6 Absolute Nucleated RBC 0.000 Nucleated RBC % (auto) 0.0 PT 11.4 INR 1.0 APTT 26.4 Sodium 139 Potassium 3.6 Chloride 102 Carbon Dioxide 23 Anion Gap 18 BUN 19 H Creatinine 0.97 Estim Creat Clear Calc 108.1 Estimated GFR > 60 POC Glucose Random Glucose 172 H Calcium 8.8 D Total Bilirubin 0.3 AST 31 ALT 59 H Alkaline Phosphatase 110 Total Protein 6.4 L Albumin 4.1 Urine Opiates Screen Urine Fentanyl Screen Ur Barbiturates Screen Ur Phencyclidine Scrn Ur Amphetamines Screen U Benzodiazepines Scrn Urine Cocaine Screen U Marijuana (THC) Screen Ethyl Alcohol 190 COVID-19 ([facility]ENNA) COVID-19 Clin Com Blood Type Antibody Screen 09/10/22 09/10/22 09/10/22 00:46 00:46 06:11 WBC 15.5 H RBC 3.83 L Hgb 12.6 L Hct 35.9 L MCV 93.7 MCH 32.9 MCHC 35.1 RDW 12.3 Plt Count 291 MPV 9.5 Immature Gran % (Auto) 0.6 H Neut % (Auto) 70.2 Lymph % (Auto) 18.1 L [place] % (Auto) 8.6 Eos % (Auto) 2.1 Baso % (Auto) 0.4 Lymph # (Auto) 2.8 [place] # (Auto) 1.3 H Eos # (Auto) 0.3 Baso # (Auto) 0.1 Abs Immat Gran (auto) 0.10 H Absolute Neuts (auto) 10.9 H Absolute Nucleated RBC 0.000 Nucleated RBC % (auto) 0.0 PT INR APTT Sodium Potassium Chloride Carbon Dioxide Anion Gap BUN Creatinine Estim Creat Clear Calc Estimated GFR POC Glucose Random Glucose Calcium Total Bilirubin AST ALT Alkaline Phosphatase Total Protein Albumin Urine Opiates Screen Urine Fentanyl Screen Ur Barbiturates Screen Ur Phencyclidine Scrn Ur Amphetamines Screen U Benzodiazepines Scrn Urine Cocaine Screen U Marijuana (THC) Screen Ethyl Alcohol COVID-19 (JENNA) Negative COVID-19 Clin Com See Note Blood Type A Positive Antibody Screen NEGATIVE 09/10/22 09/10/22 09/10/22 06:11 07:42 11:06 WBC RBC Hgb Hct MCV MCH MCHC RDW Plt Count MPV Immature Gran % (Auto) Neut % (Auto) Lymph % (Auto) [place] % (Auto) Eos % (Auto) Baso % (Auto) Lymph # (Auto) [place] # (Auto) Eos # (Auto) Baso # (Auto) Abs Immat Gran (auto) Absolute Neuts (auto) Absolute Nucleated RBC Nucleated RBC % (auto) PT INR APTT Sodium 137 Potassium 4.4 D Chloride 100 Carbon Dioxide 26 Anion Gap 15 BUN 16 Creatinine 0.84 Estim Creat Clear Calc 124.9 Estimated GFR > 60 POC Glucose 144 H 167 H Random Glucose 131 H Calcium 8.8 Total Bilirubin AST ALT Alkaline Phosphatase Total Protein Albumin Urine Opiates Screen Urine Fentanyl Screen Ur Barbiturates Screen Ur Phencyclidine Scrn Ur Amphetamines Screen U Benzodiazepines Scrn Urine Cocaine Screen U Marijuana (THC) Screen Ethyl Alcohol COVID-19 (JENNA) COVID-19 [facility] Com Blood Type Antibody Screen 09/10/22 09/10/22 09/10/22 12:00 16:21 20:06 WBC RBC Hgb Hct MCV MCH MCHC RDW Plt Count MPV Immature Gran % (Auto) Neut % (Auto) Lymph % (Auto) [place] % (Auto) Eos % (Auto) Baso % (Auto) Lymph # (Auto) [place] # (Auto) Eos # (Auto) Baso # (Auto) Abs Immat Gran (auto) Absolute Neuts (auto) Absolute Nucleated RBC Nucleated RBC % (auto) PT INR APTT Sodium Potassium Chloride Carbon Dioxide Anion Gap BUN Creatinine Estim Creat Clear Calc Estimated GFR POC Glucose 165 H 233 H Random Glucose Calcium Total Bilirubin AST ALT Alkaline Phosphatase Total Protein Albumin Urine Opiates Screen POSITIVE H Urine Fentanyl Screen Not Detected Ur Barbiturates Screen Not Detected Ur Phencyclidine Scrn Not Detected Ur Amphetamines Screen Not Detected U Benzodiazepines Scrn Not Detected Urine Cocaine Screen Not Detected U Marijuana (THC) Screen POSITIVE H Ethyl Alcohol COVID-19 (JENNA) COVID-19 [facility] Com Blood Type Antibody Screen 09/11/22 09/11/22 09/11/22 06:05 06:05 07:35 WBC 14.3 H RBC 4.02 L Hgb 13.2 L Hct 38.3 L MCV 95.3 MCH 32.8 MCHC 34.5 RDW 12.4 Plt Count 245 MPV 9.4 Immature Gran % (Auto) Neut % (Auto) Lymph % (Auto) [place] % (Auto) Eos % (Auto) Baso % (Auto) Lymph # (Auto) [place] # (Auto) Eos # (Auto) Baso # (Auto) Abs Immat Gran (auto) Absolute Neuts (auto) Absolute Nucleated RBC 0.000 Nucleated RBC % (auto) 0.0 PT INR APTT Sodium 136 Potassium 4.2 Chloride 99 Carbon Dioxide 28 Anion Gap 13 BUN 13 Creatinine 0.86 Estim Creat Clear Calc 122.0 Estimated GFR > 60 POC Glucose 184 H Random Glucose 164 H Calcium 8.7 Total Bilirubin AST ALT Alkaline Phosphatase Total Protein Albumin Urine Opiates Screen Urine Fentanyl Screen Ur Barbiturates Screen Ur Phencyclidine Scrn Ur Amphetamines Screen U Benzodiazepines Scrn Urine Cocaine Screen U Marijuana (THC) Screen Ethyl Alcohol COVID-19 (JENNA) COVID-19 Clin Com Blood Type Antibody Screen Airway Mallampati Class: II TM Dist: >3cm Neck ROM: Full Denture: Upper and Lower Loose/Missing/Broken Teeth: No Heart: RRR Lungs: CTA Assessment and Plan Assessment Anesthesia Assessment: Anesthesia Plan Discussed, Smoking Cess. Discussed and Chart Reviewed Final Anesthetic Review Family History of Problems with Anesthesia: No History of Problems with Anesthesia: No NPO: Yes ASA Class: III Final Preanesthetic Review: No Changes in Pt Med Stat, Meds/Allgs Chart Reviewed, Consent Obtained/Reviewed and Anes Risks/Benef Reviewed Patient Risk: Intermediate Procedure Risk: Intermediate Anesthetic Plan Anesthetic Plan: GA Disposition: Standard PACU
--- NOTE | 2022-09-11 09:44 | HO.PM.IMPN ---
Subjective Subjective Date of Service: 09/11/22 Interval History: Seen and evaluated this morning Less pain in hip planning to go for surger today no other overnight events Review of Systems Review of Systems: Yes all other systems are reviewed and are negative Physical Exam Vital Signs: Vital Signs: Last Vital Signs Temp 98.3 F 09/11/22 08:00 Pulse 96 09/11/22 08:00 Resp 18 09/11/22 08:00 BP 147/83 H 09/11/22 08:00 Pulse Ox 91 L 09/11/22 08:00 O2 Del Method Room Air 09/11/22 08:00 BMI result Body Mass Index 31.6 Const: Other: Constitutional : Awake, interactive, not in distress Neck : Normal inspection, Supple Cardiovascular : RRR, no JVP, no lower extremity edema Respiratory : good bilateral air entry, no crackles, wheezes or rhonchi Gastrointestinal: soft, lax, Normal bowel sounds, Non tender Skin : Warm, Dry skeletal: LLE shorted and externally rotated Neurological : Alert & oriented x3, No focal deficit Objective Data Active Medications Acetaminophen (Acetaminophen 325 Mg Tablet) 650 mg PO Q6H PRN PRN Reason: Pain, Mild (Pain Scale 1-3) Last Admin: 09/10/22 08:51 Dose: 650 mg Documented By: SUSHMA Albuterol Sulfate (Albuterol Sulfate (0.083%) 2.5 Mg/3 Ml Vial.Neb) 2.5 mg INHALE ONCE PRN PRN Reason: Wheezing Atorvastatin Calcium (Atorvastatin Calcium 40 Mg Tablet) 40 mg PO BEDTIME [facility] Last Admin: 09/10/22 21:17 Dose: 40 mg Documented By: SUSHMA Carvedilol (Carvedilol 6.25 Mg Tablet) 6.25 mg PO BID [facility]; Protocol Last Admin: 09/11/22 07:49 Dose: 6.25 mg Documented By: MAXWELL Fentanyl (Fentanyl Citrate/Pf 100 Mcg/2 Ml Vial) 50 mcg IVPUSH Q5M PRN; Protocol PRN Reason: Pain, Severe (Pain Scale 7-10) Fluticasone Propionate (Fluticasone Propionate Nasal 16 Gm [place]) 1 spray NOSTRIL-B DAILY [facility] Last Admin: 09/11/22 07:50 Dose: 1 spray Documented By: MAXWELL Furosemide (Furosemide 20 Mg Tablet) 20 mg PO DAILY [facility]; Protocol Last Admin: 09/10/22 08:51 Dose: 20 mg Documented By: SUSHMA Gabapentin (Gabapentin 100 Mg Capsule) 100 mg PO TID [facility] Last Admin: 09/11/22 07:50 Dose: 100 mg Documented By: MAXWELL Glucose (Glucose Gel 15 Gm Gel..Gram.) 15 gm PO Q15M PRN; Protocol PRN Reason: per Hypoglycemia Standing Ord. Hydralazine HCl (Hydralazine Hcl 25 Mg Tablet) 25 mg PO TID [facility]; Protocol Last Admin: 09/11/22 07:49 Dose: 25 mg Documented By: MAXWELL Hydromorphone HCl (Hydromorphone Hcl 1 Mg/Ml Syringe) 1 mg IVPUSH Q3H PRN; Protocol PRN Reason: Pain, Severe (Pain Scale 7-10) Last Admin: 09/11/22 06:52 Dose: 1 mg Documented By: SUSHMA Hydromorphone HCl (Hydromorphone Hcl 0.5 Mg/0.5 Ml Syringe) 0.5 mg IVPUSH Q5M PRN; Protocol PRN Reason: Pain, Severe (Pain Scale 7-10) Dextrose (D10) 250 mls @ 750 mls/hr IV Q15M PRN; Protocol PRN Reason: per Hypoglycemia Standing Ord. Dextrose (D10) 250 mls @ 750 mls/hr IV Q15M PRN; Protocol PRN Reason: per Hypoglycemia Standing Ord. Promethazine HCl 12.5 mg/ (Sodium Chloride) 50.5 mls @ 202 mls/hr IV ONCE PRN PRN Reason: Nausea and Vomiting Insulin Glargine (Insulin Glargine,Hum.Rec.Anlog 100 Unit/Ml 10 Ml Vial) 30 unit SUBCUT BEDTIME [facility] Last Admin: 09/10/22 21:18 Dose: 30 unit Documented By: SUSHMA Insulin Human Lispro (Insulin Lispro 100 Unit/Ml 3 Ml Vial) 0 unit SUBCUT QIDACHS [facility]; Protocol Last Admin: 09/11/22 07:39 Dose: Not Given Documented By: MAXWELL Non-Admin Reason: NPO Isosorbide Mononitrate (Isosorbide Mononitrate 30 Mg Tab.Er.24h) 30 mg PO DAILY [facility]; Protocol Last Admin: 09/11/22 07:49 Dose: 30 mg Documented By: MAXWELL Levalbuterol HCl (Levalbuterol Hcl 1.25 Mg/3 Ml Vial.Neb) 1.25 mg INHALE Q3H PRN PRN Reason: Shortness of Breath/Wheezing Loratadine (Loratadine 10 Mg Tablet) 10 mg PO DAILY [facility] Last Admin: 09/11/22 07:49 Dose: 10 mg Documented By: MAXWELL Naloxone HCl (Naloxone Hcl Nasal 4 Mg [place]) 4 mg NOSTRILALT ONCE PRN PRN Reason: Opiate Reversal Omeprazole (Omeprazole 20 Mg Capsule.Dr) 20 mg PO DAILY [facility] Last Admin: 09/11/22 07:50 Dose: 20 mg Documented By: MAXWELL Ondansetron HCl (Ondansetron Hcl 4 Mg/2 Ml Vial) 4 mg IVPUSH Q8H PRN PRN Reason: Nausea and Vomiting Ondansetron HCl (Ondansetron Hcl 4 Mg/2 Ml Vial) 4 mg IVPUSH ONCE PRN PRN Reason: Nausea and Vomiting Oxycodone HCl (Oxycodone Hcl Immed Release 5 Mg Tablet) 5 mg PO Q4H PRN PRN Reason: Pain, Moderate(Pain Scale 4-6) Last Admin: 09/10/22 08:52 Dose: 5 mg Documented By: SUSHMA Pharmacy Consult (Consult Rx Perform Med Rec) 1 each MISCELLANE ONCE PRN PRN Reason: Consult order Sodium Chloride (0.9 % Sodium Chloride Flush 3 Ml Syringe) 3 ml IVFLUSH QSHIFT [facility] Last Admin: 09/11/22 07:50 Dose: 3 ml Documented By: MAXWELL Labs 09/11/22 06:05 09/11/22 06:05 Labs: Laboratory Results - last 24 hr 09/10/22 09/10/22 09/10/22 11:06 12:00 16:21 MCV MCH MCHC RDW Plt Count MPV Absolute Nucleated RBC Nucleated RBC % (auto) Anion Gap Estim Creat Clear Calc Estimated GFR POC Glucose 167 H 165 H Random Glucose Calcium Urine Opiates Screen POSITIVE H Urine Fentanyl Screen Not Detected Ur Barbiturates Screen Not Detected Ur Phencyclidine Scrn Not Detected Ur Amphetamines Screen Not Detected U Benzodiazepines Scrn Not Detected Urine Cocaine Screen Not Detected U Marijuana (THC) Screen POSITIVE H 09/10/22 09/11/22 09/11/22 20:06 06:05 06:05 MCV 95.3 MCH 32.8 MCHC 34.5 RDW 12.4 Plt Count 245 MPV 9.4 Absolute Nucleated RBC 0.000 Nucleated RBC % (auto) 0.0 Anion Gap 13 Estim Creat Clear Calc 122.0 Estimated GFR > 60 POC Glucose 233 H Random Glucose 164 H Calcium 8.7 Urine Opiates Screen Urine Fentanyl Screen Ur Barbiturates Screen Ur Phencyclidine Scrn Ur Amphetamines Screen U Benzodiazepines Scrn Urine Cocaine Screen U Marijuana (THC) Screen 09/11/22 07:35 MCV MCH MCHC RDW Plt Count MPV Absolute Nucleated RBC Nucleated RBC % (auto) Anion Gap Estim Creat Clear Calc Estimated GFR POC Glucose 184 H Random Glucose Calcium Urine Opiates Screen Urine Fentanyl Screen Ur Barbiturates Screen Ur Phencyclidine Scrn Ur Amphetamines Screen U Benzodiazepines Scrn Urine Cocaine Screen U Marijuana (THC) Screen Assessment and Plan (1) Closed fracture of neck of left femur: Status: Acute (2) Cardiomyopathy: Status: Acute Plan 57-year-old male with a history of CHF with reduced ejection fracture, diabetes, presents to the hospital after having a fall and experiencing a femoral neck fracture # acute left femoral neck fracture secondary to mechanical fall IV pain control orthopedic to do arthroplasty today cleared to OP with low risk # diabetes hold low-dose sliding scale insulin diabetic diet # CHF with reduced ejection fraction not in acute exacerbation continue Lasix, spironolactone, increase carvedilol to 12.5 mg b.i.d. and hydralazine to 50 mg b.i.d. and isosorbide to 30 mg b.i.d # hypertension stable continue antihypertensives DVT prophylaxis: Lovenox given patient's need for further evaluation by Orthopedic for possible hip fracture patient will overnight inpatient hospital stay for further management and monitor Time Spent With Patient Time: Total time managing care of this patient today ____ minutes. Quality Stroke Does the patient have a stroke diagnosis?: No VTE Prior VTE?: No VTE Risk Level:: Surgical - high VTE Device Contraindication: N/A - Device Ordered VTE Drug Contraindication: Treatment Not Indicated
--- NOTE | 2022-09-11 10:06 | MHC.CM.PN ---
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
--- NOTE | 2022-09-11 12:16 | P.BOP_ITS ---
Brief Operative Note Date of Service: 09/11/22 Pre-op diagnosis: left femoral neck fracture Post-op diagnosis: same Procedure: Left SARWAT Implants: Dorene [place] 2 56/20 deg liner [place] Accolade2 #8 132deg with +0/36/femoral head Surgeon: Leeroy Denis MD Was an Rn Clinical Trials used for this Procedure?: No Rn Clinical Trials: Magalys Andrew Estimated blood loss (mL): 200 IV fluids (mL): 1,000 Pathology: other Condition: stable Disposition: PACU
[2022-09-11] MEDS: fentaNYL citrate/PF 100 MCG/2 ML VIAL 50 MCG IVPUSH ×4 (12:33→12:59)
[2022-09-11] MEDS: oxyCODONE HCl Immed Release 5 MG TABLET PO ×2 (12:51→20:49)
[2022-09-11 13:13] LABS: Glucose, Whole Blood 247 mg/dL (60-115)
--- NOTE | 2022-09-11 15:24 | P.OP_ITS ---
Operative Note Operative Note Date of Service: 09/11/22 Narrative: Date of Service: 09/11/22 Pre-op diagnosis: left femoral neck fracture Post-op diagnosis: same Procedure: Left SARWAT Implants: [place] Trident 2 56/20 deg liner Dorene Accolade2 #8 132deg with +0/36/femoral head Surgeon: Leeroy Denis MD Was an Administration Dean used for this Procedure?: No Administration Dean: Magalys Andrew Estimated blood loss (mL): 200 IV fluids (mL): 1,000 Pathology: other Condition: stable Disposition: PACU Indications: This is a 57-year-old active gentleman with a displaced femoral neck fracture. He was consented to undergo total hip arthroplasty given his high activity level and relatively young age. Procedure in detail: Patient was brought into the operating room and placed in the right lateral decubitus position. All bony prominences were well padded and the limb was prepped and draped in standard sterile fashion. A time-out was called to identify proper site procedure proper surgeon IV antibiotics and 1 g of transaxemic acid were administered. I began by making a curvilinear incision over the posterolateral aspect of the greater trochanter. Dissection was taken down to the tensor fascia which was incised in line with the incision and a Charnley retractor was placed. Cautery was used to maintain hemostasis. The hip was internally rotated and the external rotators were identified. The vessels were cauterized and a full-thickness capsular/external rotator layer was developed starting just proximal to the piriformis. This layer was tagged and a dull Hohmann retractor was placed underneath the neck in the hip was examined. There was a femoral neck fracture. A clean-up cut was used and the head was removed with a corkscrew. An additional neck cut was made 1 cm proximal to the lesser trochanter and the head and neck were removed and measured 52mm on the back table. I then removed the labrum and cauterized the fovea. I started with a 44 reamer and medialized to the inner table. I sequentially reamed up to a size 55 and impacted a 56mm cup at 45 degrees of inclination and 25 degrees of version. I then placed a 20 deg posterior lipped liner and turned my attention to the femur. I identified the piriformis insertion and used this as a starting point for my courtney cutter. The medius tendon was protected with a Hibs retractor. A Charnley awl was inserted in the canal and a curved curette used to remove the lateral bone. I irrigated copiously. I then sequentially broached in the patient's natural version to a size 8 and placed my trial implants. I used a #8/132/+0 based on my pre-operative template. Using a trail head I took the hip through range of motion. I was satisfied with the stability. and length. I removed all instrumentation and copiously irrigated. I placed my final femoral implant and again took the hip through range of motion and was satisfied with the stability and length. The final 36/+0 implant was impacted in place and the hip reduced. A Werewolf cautery wand was used to maintain hemostasis over the capsule and meniscal beds, the gutters and peripatellar soft tissues. I then irrigated for 3 minutes with iodine and placed 1 g of local transaxemic acid. I performed a capsular closure with 2.0 fiberwire, Pavan's fascia with 0 Vicryl, subcuticular with 2-0 Vicryl and the skin with rosalinda. Patient was placed into a sterile dressing. Patient was extubated brought to the recovery room in stable condition. There were no known complications.
[2022-09-11 16:21] LABS: Glucose, Whole Blood 219 mg/dL (60-115)
[2022-09-11] MEDS: Insulin Lispro 100 UNIT/ML 3 ML VIAL SUBCUT ×2 (17:40→20:47)
[2022-09-11 20:02] LABS: Glucose, Whole Blood 194 mg/dL (60-115)
[2022-09-11] MEDS: Insulin Glargine,Hum.rec.anlog 100 UNIT/ML 10 ML VIAL 30 UNIT SUBCUT (20:47)
[2022-09-11] MEDS: hydrALAZINE HCl 50 MG TABLET PO (20:48)
[2022-09-11] MEDS: Acetaminophen 325 MG TABLET 650 MG PO (20:48)
[2022-09-11] MEDS: Atorvastatin Calcium 40 MG TABLET PO (20:48)
[2022-09-11] MEDS: carvediloL 12.5 MG TABLET PO (20:49)
[2022-09-12] MEDS: HYDROmorphone HCl 1 MG/ML SYRINGE IVPUSH (01:46)
[2022-09-12 03:29] VITALS: BP 125/56; PULSE 100; RESP 18; TEMP 36.7; O2SAT 95
[2022-09-12 05:31] LABS: Basophils Percent Auto 0.2 % (0-2); Eosinophils Absolute Auto 0.2 X10*3/uL (0.0-0.4); Hematocrit 32.1 % (42.0-52.0); Hemoglobin 11.1 g/dl (14.0-18.0); Imm Gran Abs Auto 0.09 X10*3/uL (0.00-0.03); Imm Gran Pct Auto 0.5 % (0.0-0.4); Lymphocytes Absolute Auto 1.3 X10*3/uL (1.2-4.9); Lymphocytes Percent Auto 8.2 % (20-40); MANUAL DIFF FLAG SCAN; Mean Corpuscular HGB Conc 34.6 g/dl (31.0-36.0); Mean Corpuscular Hemoglobin 33.3 pg (27.0-33.0); Mean Corpuscular Volume 96.4 fL (80.0-98.0); Mean Platelet Volume 9.2 fL (9.4-12.4); Monocytes Absolute Auto 1.8 X10*3/uL (0.1-1.2); Monocytes Percent Auto 10.9 % (2-11); Neutrophils Percent Auto 79.2 % (45-73); Platelet Count 226 X10*3/uL (160-400); Red Blood Count 3.33 X10*6/uL (4.60-5.80); Red Cell Distribution Width 12.5 % (11.0-16.0); SCAN SMEAR FLAG 1; White Blood Count 16.4 X10*3/uL (4.8-10.8)
[2022-09-12 05:45] LABS: Anion Gap 13 (12-20); Blood Urea Nitrogen 12 mg/dL (9-16); Calcium 8.3 mg/dL (8.4-10.2); Carbon Dioxide 25 mmol/L (22-29); Chloride 99 mmol/L (96-108); Creatinine Clr Calc Pharmacy 109.2; Estimated Glomerular Filt Rate > 60; Glucose Random 185 mg/dL (60-115); Potassium 4.1 mmol/L (3.3-5.1); Sodium 133 mmol/L (135-145)
[2022-09-12 05:50] LABS: SLIDE REVIEW VERIFIED
[2022-09-12] MEDS: Acetaminophen 325 MG TABLET 650 MG PO (06:18)
[2022-09-12] MEDS: oxyCODONE HCl Immed Release 5 MG TABLET PO (06:18)
[2022-09-12 07:21] VITALS: BP 123/69; PULSE 106; RESP 18; TEMP 36.6; O2SAT 92
[2022-09-12 07:29] LABS: Glucose, Whole Blood 223 mg/dL (60-115)
[2022-09-12] MEDS: Insulin Lispro 100 UNIT/ML 3 ML VIAL SUBCUT ×4 (08:09→21:00)
[2022-09-12] MEDS: Fluticasone Propionate Nasal 16 GM SPRAY 1 SPRAY NOSTRIL-B (08:10)
[2022-09-12] MEDS: 0.9 % Sodium Chloride Flush 3 ML SYRINGE IVFLUSH ×2 (08:10→15:28)
[2022-09-12] MEDS: Omeprazole 20 MG CAPSULE.DR PO (08:11)
[2022-09-12] MEDS: Isosorbide Mononitrate 30 MG TAB.ER.24H PO ×2 (08:11→20:59)
[2022-09-12] MEDS: Gabapentin 100 MG CAPSULE PO ×3 (08:11→21:00)
[2022-09-12] MEDS: carvediloL 12.5 MG TABLET PO ×2 (08:11→20:59)
[2022-09-12] MEDS: Loratadine 10 MG TABLET PO (08:11)
[2022-09-12] MEDS: hydrALAZINE HCl 50 MG TABLET PO ×2 (08:11→21:00)
--- NOTE | 2022-09-12 08:21 | PM.PNORT ---
Subjective Subjective Date of Service: 09/12/22 Interval history: POD1 s/p LTHA. Patient is resting in bed comfortably. No overnight events. Complains of pain. No additional complaints. Physical Exam Vital Signs: Vital Signs: Last Vital Signs Temp 97.9 F 09/12/22 07:21 Pulse 106 H 09/12/22 07:21 Resp 18 09/12/22 07:21 BP 123/69 09/12/22 07:21 Pulse Ox 92 09/12/22 07:21 O2 Del Method Room Air 09/12/22 07:21 O2 Flow Rate 2 09/11/22 13:44 BMI result Body Mass Index 31.6 Const: General: cooperative, healthy appearing and no acute distress Resp: Effort & Inspection: normal respiratory effort and able to speak in complete sentences Cardio: Rate: regular rate Peripheral pulses: Peripheral pulses 2+ throughout GI: Palpation (GI): Soft to palpation Skin: Lesions: no lesions Rashes: no rashes Extrem: Other: Left hip Aquacel is c/d/i. Able to dorsi/plantar flex. NVI. Procedures Date of Service Date of Service: 09/12/22 Progress Note: A&P Assessment and plan (1) S/P total left hip arthroplasty: Status: Acute Assessment and Plan: Continue pain mgmnt Begin Lovenox for dvt ppx begin PT for LTHA - WBAT Dispo planning-Pending PT eval, pain mgmnt Time Spent With Patient Time: Total time managing care of this patient today ____ minutes. Quality Stroke Does the patient have a stroke diagnosis?: No VTE Prior VTE?: No VTE Risk Level:: Surgical - high VTE Device Contraindication: N/A - Device Ordered VTE Drug Contraindication: Treatment Not Indicated
[2022-09-12] MEDS: oxyCODONE HCl ER 10 MG TAB.ER.12H PO ×2 (09:07→20:59)
[2022-09-12] MEDS: oxyCODONE HCl Immed Release 5 MG TABLET 10 MG PO ×2 (09:08→14:53)
[2022-09-12] MEDS: Enoxaparin Sodium 40 MG/0.4 ML SYRINGE SUBCUT (09:08)
--- NOTE | 2022-09-12 09:18 | MHC.CLN ---
NUTRITION DIET CHANGED TO DIABETIC 2000 KCALS, CARDIAC DUE TO DX DM AND CHF.
[2022-09-12 10:38] VITALS: BP 123/69; PULSE 106; O2SAT 92
[2022-09-12 11:15] LABS: Glucose, Whole Blood 230 mg/dL (60-115)
--- NOTE | 2022-09-12 11:55 | HO.PM.IMPN ---
Subjective Subjective Date of Service: 09/12/22 Interval History: Seen and evaluated this morning improved pain in hip after surgery plan for PT eval no other overnight events Review of Systems Review of Systems: Yes all other systems are reviewed and are negative Physical Exam Vital Signs: Vital Signs: Last Vital Signs Temp 97.9 F 09/12/22 07:21 Pulse 106 H 09/12/22 10:38 Resp 18 09/12/22 07:21 BP 123/69 09/12/22 10:38 Pulse Ox 92 09/12/22 10:38 O2 Del Method Room Air 09/12/22 07:21 O2 Flow Rate 2 09/11/22 13:44 BMI result Body Mass Index 31.6 Const: Other: Constitutional : Awake, interactive, not in distress Neck : Normal inspection, Supple Cardiovascular : RRR, no JVP, no lower extremity edema Respiratory : good bilateral air entry, no crackles, wheezes or rhonchi Gastrointestinal: soft, lax, Normal bowel sounds, Non tender Skin : Warm, Dry skeletal: LLE surgical wound clean with no bleeding or drainage Neurological : Alert & oriented x3, No focal deficit Objective Data Active Medications Acetaminophen (Acetaminophen 325 Mg Tablet) 650 mg PO Q6H PRN PRN Reason: Pain, Mild (Pain Scale 1-3) Last Admin: 09/12/22 06:18 Dose: 650 mg Documented By: SUSHMA Atorvastatin Calcium (Atorvastatin Calcium 40 Mg Tablet) 40 mg PO BEDTIME [facility] Last Admin: 09/11/22 20:48 Dose: 40 mg Documented By: SUSHMA Carvedilol (Carvedilol 12.5 Mg Tablet) 12.5 mg PO BID [facility]; Protocol Last Admin: 09/12/22 08:11 Dose: 12.5 mg Documented By: BOB Enoxaparin Sodium (Enoxaparin Sodium 40 Mg/0.4 Ml Syringe) 40 mg SUBCUT Q24H [facility] Last Admin: 09/12/22 09:08 Dose: 40 mg Documented By: BOB Fluticasone Propionate (Fluticasone Propionate Nasal 16 Gm [place]) 1 spray NOSTRIL-B DAILY [facility] Last Admin: 09/12/22 08:10 Dose: 1 spray Documented By: BOB Furosemide (Furosemide 20 Mg Tablet) 20 mg PO DAILY [facility]; Protocol Last Admin: 09/10/22 08:51 Dose: 20 mg Documented By: SUSHMA Gabapentin (Gabapentin 100 Mg Capsule) 100 mg PO TID [facility] Last Admin: 09/12/22 08:11 Dose: 100 mg Documented By: BOB Glucose (Glucose Gel 15 Gm Gel..Gram.) 15 gm PO Q15M PRN; Protocol PRN Reason: per Hypoglycemia Standing Ord. Hydralazine HCl (Hydralazine Hcl 50 Mg Tablet) 50 mg PO BID [facility]; Protocol Last Admin: 09/12/22 08:11 Dose: 50 mg Documented By: BOB Hydromorphone HCl (Hydromorphone Hcl 1 Mg/Ml Syringe) 0.5 mg IVPUSH Q3H PRN; Protocol PRN Reason: Pain, Severe (Pain Scale 7-10) Dextrose (D10) 250 mls @ 750 mls/hr IV Q15M PRN; Protocol PRN Reason: per Hypoglycemia Standing Ord. Dextrose (D10) 250 mls @ 750 mls/hr IV Q15M PRN; Protocol PRN Reason: per Hypoglycemia Standing Ord. Insulin Glargine (Insulin Glargine,Hum.Rec.Anlog 100 Unit/Ml 10 Ml Vial) 30 unit SUBCUT BEDTIME [facility] Last Admin: 09/11/22 20:47 Dose: 30 unit Documented By: SUSHMA Insulin Human Lispro (Insulin Lispro 100 Unit/Ml 3 Ml Vial) 0 unit SUBCUT QIDACHS [facility]; Protocol Last Admin: 09/12/22 08:09 Dose: 4 unit Documented By: BOB Isosorbide Mononitrate (Isosorbide Mononitrate 30 Mg Tab.Er.24h) 30 mg PO BID [facility]; Protocol Last Admin: 09/12/22 08:11 Dose: 30 mg Documented By: BOB Levalbuterol HCl (Levalbuterol Hcl 1.25 Mg/3 Ml Vial.Neb) 1.25 mg INHALE Q3H PRN PRN Reason: Shortness of Breath/Wheezing Loratadine (Loratadine 10 Mg Tablet) 10 mg PO DAILY [facility] Last Admin: 09/12/22 08:11 Dose: 10 mg Documented By: BOB Naloxone HCl (Naloxone Hcl Nasal 4 Mg [place]) 4 mg NOSTRILALT ONCE PRN PRN Reason: Opiate Reversal Omeprazole (Omeprazole 20 Mg Capsule.) 20 mg PO DAILY [facility] Last Admin: 09/12/22 08:11 Dose: 20 mg Documented By: BOB Ondansetron HCl (Ondansetron Hcl 4 Mg/2 Ml Vial) 4 mg IVPUSH Q8H PRN PRN Reason: Nausea and Vomiting Oxycodone HCl (Oxycodone Hcl Er 10 Mg Tab.Er.12h) 10 mg PO BID [facility] Last Admin: 09/12/22 09:07 Dose: 10 mg Documented By: BOB Oxycodone HCl (Oxycodone Hcl Immed Release 5 Mg Tablet) 10 mg PO Q4H PRN PRN Reason: Pain, Moderate(Pain Scale 4-6) Last Admin: 09/12/22 09:08 Dose: 10 mg Documented By: BOB Pharmacy Consult (Consult Rx Perform Med Rec) 1 each MISCELLANE ONCE PRN PRN Reason: Consult order Sodium Chloride (0.9 % Sodium Chloride Flush 3 Ml Syringe) 3 ml IVFLUSH QSHIFT [facility] Last Admin: 09/12/22 08:10 Dose: 3 ml Documented By: BOB Labs 09/12/22 05:21 09/12/22 05:21 Labs: Laboratory Results - last 24 hr 09/11/22 09/11/22 09/11/22 13:08 16:17 20:00 MCV MCH MCHC RDW Plt Count MPV Immature Gran % (Auto) Neut % (Auto) Lymph % (Auto) [place] % (Auto) Eos % (Auto) Baso % (Auto) Lymph # (Auto) [place] # (Auto) Eos # (Auto) Baso # (Auto) Abs Immat Gran (auto) Absolute Neuts (auto) Absolute Nucleated RBC Nucleated RBC % (auto) Smear Tech's Comments Anion Gap Estim Creat Clear Calc Estimated GFR POC Glucose 247 H 219 H 194 H Random Glucose Calcium 09/12/22 09/12/22 09/12/22 05:21 05:21 07:24 MCV 96.4 MCH 33.3 H MCHC 34.6 RDW 12.5 Plt Count 226 MPV 9.2 L Immature Gran % (Auto) 0.5 H Neut % (Auto) 79.2 H Lymph % (Auto) 8.2 L [place] % (Auto) 10.9 Eos % (Auto) 1.0 Baso % (Auto) 0.2 Lymph # (Auto) 1.3 [place] # (Auto) 1.8 H Eos # (Auto) 0.2 Baso # (Auto) 0.0 Abs Immat Gran (auto) 0.09 H Absolute Neuts (auto) 13.0 H Absolute Nucleated RBC 0.000 Nucleated RBC % (auto) 0.0 Smear Tech's Comments VERIFIED Anion Gap 13 Estim Creat Clear Calc 109.2 Estimated GFR > 60 POC Glucose 223 H Random Glucose 185 H Calcium 8.3 L 09/12/22 11:11 MCV MCH MCHC RDW Plt Count MPV Immature Gran % (Auto) Neut % (Auto) Lymph % (Auto) [place] % (Auto) Eos % (Auto) Baso % (Auto) Lymph # (Auto) [place] # (Auto) Eos # (Auto) Baso # (Auto) Abs Immat Gran (auto) Absolute Neuts (auto) Absolute Nucleated RBC Nucleated RBC % (auto) Smear Tech's Comments Anion Gap Estim Creat Clear Calc Estimated GFR POC Glucose 230 H Random Glucose Calcium Assessment and Plan (1) S/P total left hip arthroplasty: Status: Acute (2) Closed fracture of neck of left femur: Status: Acute Plan 57-year-old male with a history of CHF with reduced ejection fracture, diabetes, presents to the hospital after having a fall and experiencing a femoral neck fracture # acute left femoral neck fracture secondary to mechanical fall POD 1 pain control orthopedic following start PT DVT PPx # diabetes low-dose sliding scale insulin and Lantus diabetic diet # CHF with reduced ejection fraction not in acute exacerbation continue Lasix, spironolactone, Cardiology input appreciated, increase carvedilol to 12.5 mg b.i.d. and hydralazine to 50 mg b.i.d. and isosorbide to 30 mg b.i.d # hypertension stable continue antihypertensives DVT prophylaxis: Lovenox given patient's need for PT pending safe discharge plan post hip surgery Time Spent With Patient Time: Total time managing care of this patient today ____ minutes. Quality Stroke Does the patient have a stroke diagnosis?: No VTE Prior VTE?: No VTE Risk Level:: Surgical - high VTE Device Contraindication: N/A - Device Ordered VTE Drug Contraindication: Treatment Not Indicated
--- NOTE | 2022-09-12 14:43 | HO.POSTANES ---
Post Anesthesia Evaluation Post Anesthesia Evaluation Vital Signs: Vital Signs Temp Pulse Resp BP Pulse Ox O2 Del Method 09/12/22 10:38 106 H 123/69 92 09/12/22 07:21 97.9 F 106 H 18 123/69 92 Room Air 09/12/22 03:29 98.0 F 100 18 125/56 L 95 Room Air Anesthesia: General Mental Status: Awake Pain Control: Satisfactory (complains of pain. ) Nausea/Vomiting: None Hydration: Adequate Anesthesia-Related Issues: No Anes. Related Issues
[2022-09-12 15:12] VITALS: BP 131/76; PULSE 108; RESP 20; TEMP 36.9; O2SAT 93
[2022-09-12] MEDS: Tamsulosin HCL 0.4 MG CAPSULE 0.8 MG PO (15:24)
--- NOTE | 2022-09-12 16:11 | MHC.CM.PN ---
per rounds pt will need str pt agreeable mds completed
[2022-09-12 16:13] LABS: Glucose, Whole Blood 201 mg/dL (60-115)
[2022-09-12 19:05] VITALS: BP 136/74; PULSE 115; RESP 18; TEMP 37.1; O2SAT 92
[2022-09-12 20:31] LABS: Glucose, Whole Blood 200 mg/dL (60-115)
[2022-09-12] MEDS: Atorvastatin Calcium 40 MG TABLET PO (20:59)
[2022-09-12] MEDS: Insulin Glargine,Hum.rec.anlog 100 UNIT/ML 10 ML VIAL 30 UNIT SUBCUT (21:00)
[2022-09-13] MEDS: 0.9 % Sodium Chloride Flush 3 ML SYRINGE IVFLUSH ×3 (01:04→15:13)
[2022-09-13 04:00] VITALS: BP 108/64; PULSE 99; RESP 16; TEMP 36.3; O2SAT 93
[2022-09-13 04:58] LABS: Basophils Percent Auto 0.3 % (0-2); Eosinophils Absolute Auto 0.2 X10*3/uL (0.0-0.4); Eosinophils Percent Auto 1.5 % (0-4); Hematocrit 28.2 % (42.0-52.0); Hemoglobin 9.7 g/dl (14.0-18.0); Imm Gran Abs Auto 0.09 X10*3/uL (0.00-0.03); Imm Gran Pct Auto 0.6 % (0.0-0.4); Lymphocytes Absolute Auto 1.8 X10*3/uL (1.2-4.9); Lymphocytes Percent Auto 11.8 % (20-40); MANUAL DIFF FLAG SCAN; Mean Corpuscular HGB Conc 34.4 g/dl (31.0-36.0); Mean Corpuscular Hemoglobin 32.8 pg (27.0-33.0); Mean Corpuscular Volume 95.3 fL (80.0-98.0); Mean Platelet Volume 9.4 fL (9.4-12.4); Monocytes Percent Auto 13.1 % (2-11); Neutrophils Absolute Auto 10.8 x10*3/uL (2.0-8.3); Neutrophils Percent Auto 72.7 % (45-73); Platelet Count 215 X10*3/uL (160-400); Red Blood Count 2.96 X10*6/uL (4.60-5.80); Red Cell Distribution Width 12.4 % (11.0-16.0); SCAN SMEAR FLAG 1; White Blood Count 14.9 X10*3/uL (4.8-10.8)
[2022-09-13 05:08] LABS: Anion Gap 11 (12-20); Blood Urea Nitrogen 12 mg/dL (9-16); Calcium 8.1 mg/dL (8.4-10.2); Carbon Dioxide 28 mmol/L (22-29); Chloride 100 mmol/L (96-108); Creatinine Clr Calc Pharmacy 111.6; Estimated Glomerular Filt Rate > 60; Glucose Random 157 mg/dL (60-115); Potassium 3.9 mmol/L (3.3-5.1); Sodium 135 mmol/L (135-145)
[2022-09-13 05:30] LABS: SLIDE REVIEW VERIFIED
[2022-09-13 07:22] VITALS: BP 128/69; PULSE 99; RESP 18; TEMP 36.9; O2SAT 93
[2022-09-13 08:03] LABS: Glucose, Whole Blood 172 mg/dL (60-115)
[2022-09-13] MEDS: Insulin Lispro 100 UNIT/ML 3 ML VIAL SUBCUT ×4 (08:08→21:15)
[2022-09-13] MEDS: Gabapentin 100 MG CAPSULE PO ×3 (08:09→21:14)
[2022-09-13] MEDS: hydrALAZINE HCl 50 MG TABLET PO ×2 (08:09→21:15)
[2022-09-13] MEDS: Omeprazole 20 MG CAPSULE.DR PO (08:09)
[2022-09-13] MEDS: Isosorbide Mononitrate 30 MG TAB.ER.24H PO ×2 (08:09→21:15)
[2022-09-13] MEDS: carvediloL 12.5 MG TABLET PO ×2 (08:09→21:15)
[2022-09-13] MEDS: Loratadine 10 MG TABLET PO (08:09)
[2022-09-13] MEDS: oxyCODONE HCl ER 10 MG TAB.ER.12H PO ×2 (08:09→21:14)
[2022-09-13] MEDS: Fluticasone Propionate Nasal 16 GM SPRAY 1 SPRAY NOSTRIL-B (08:12)
--- NOTE | 2022-09-13 10:10 | PM.PNORT ---
Subjective Subjective Date of Service: 09/13/22 Interval history: POD 2 s/p LTHA. Patient is resting in bed comfortably. No overnight events. Complains of pain. No additional complaints. Physical Exam Vital Signs: Vital Signs: Last Vital Signs Temp 98.4 F 09/13/22 07:22 Pulse 99 09/13/22 07:22 Resp 18 09/13/22 07:22 BP 128/69 09/13/22 07:22 Pulse Ox 93 09/13/22 07:22 O2 Del Method Room Air 09/13/22 07:22 O2 Flow Rate 2 09/11/22 13:44 BMI result Body Mass Index 31.6 Const: General: cooperative, healthy appearing and no acute distress Resp: Effort & Inspection: normal respiratory effort and able to speak in complete sentences Cardio: Rate: regular rate Peripheral pulses: Peripheral pulses 2+ throughout GI: Palpation (GI): Soft to palpation Skin: Lesions: no lesions Rashes: no rashes Extrem: Other: Left hip Aquacel is c/d/i. Able to dorsi/plantar flex. NVI. Procedures Date of Service Date of Service: 09/13/22 Progress Note: A&P Assessment and plan (1) S/P total left hip arthroplasty: Status: Acute Assessment and Plan: Continue pain mgmnt continue Lovenox for dvt ppx continue PT /OT for LTHA - WBAT posterior precautions Dispo planning-STR placement Time Spent With Patient Time: Total time managing care of this patient today ____ minutes. Quality Stroke Does the patient have a stroke diagnosis?: No VTE Prior VTE?: No VTE Risk Level:: Surgical - high VTE Device Contraindication: N/A - Device Ordered VTE Drug Contraindication: Treatment Not Indicated
[2022-09-13 11:15] LABS: Glucose, Whole Blood 269 mg/dL (60-115)
[2022-09-13] MEDS: Enoxaparin Sodium 40 MG/0.4 ML SYRINGE SUBCUT (11:24)
[2022-09-13] MEDS: oxyCODONE HCl Immed Release 5 MG TABLET 10 MG PO ×3 (11:24→21:14)
--- NOTE | 2022-09-13 13:06 | HO.PM.IMPN ---
Subjective Subjective Date of Service: 09/13/22 Interval History: Seen and evaluated this morning improved pain , walking with help of PT Hb dropped below 10 but no bleeding reported no other overnight events Review of Systems Review of Systems: Yes all other systems are reviewed and are negative Physical Exam Vital Signs: Vital Signs: Last Vital Signs Temp 98.4 F 09/13/22 07:22 Pulse 99 09/13/22 07:22 Resp 18 09/13/22 07:22 BP 128/69 09/13/22 07:22 Pulse Ox 93 09/13/22 07:22 O2 Del Method Room Air 09/13/22 07:22 O2 Flow Rate 2 09/11/22 13:44 BMI result Body Mass Index 31.6 Const: Other: Constitutional : Awake, interactive, not in distress Neck : Normal inspection, Supple Cardiovascular : RRR, no JVP, no lower extremity edema Respiratory : good bilateral air entry, no crackles, wheezes or rhonchi Gastrointestinal: soft, lax, Normal bowel sounds, Non tender Skin : Warm, Dry skeletal: LLE surgical wound clean with no bleeding or drainage Neurological : Alert & oriented x3, No focal deficit Objective Data Active Medications Acetaminophen (Acetaminophen 325 Mg Tablet) 650 mg PO Q6H PRN PRN Reason: Pain, Mild (Pain Scale 1-3) Last Admin: 09/12/22 06:18 Dose: 650 mg Documented By: SUSHMA Atorvastatin Calcium (Atorvastatin Calcium 40 Mg Tablet) 40 mg PO BEDTIME [facility] Last Admin: 09/12/22 20:59 Dose: 40 mg Documented By: EULALIO Carvedilol (Carvedilol 12.5 Mg Tablet) 12.5 mg PO BID [facility]; Protocol Last Admin: 09/13/22 08:09 Dose: 12.5 mg Documented By: DARRYL Enoxaparin Sodium (Enoxaparin Sodium 40 Mg/0.4 Ml Syringe) 40 mg SUBCUT Q24H [facility] Last Admin: 09/13/22 11:24 Dose: 40 mg Documented By: DARRYL Fluticasone Propionate (Fluticasone Propionate Nasal 16 Gm [place]) 1 spray NOSTRIL-B DAILY [facility] Last Admin: 09/13/22 08:12 Dose: 1 spray Documented By: DARRYL Furosemide (Furosemide 20 Mg Tablet) 20 mg PO DAILY [facility]; Protocol Last Admin: 09/10/22 08:51 Dose: 20 mg Documented By: SUSHMA Gabapentin (Gabapentin 100 Mg Capsule) 100 mg PO TID [facility] Last Admin: 09/13/22 08:09 Dose: 100 mg Documented By: DARRYL Glucose (Glucose Gel 15 Gm Gel..Gram.) 15 gm PO Q15M PRN; Protocol PRN Reason: per Hypoglycemia Standing Ord. Hydralazine HCl (Hydralazine Hcl 50 Mg Tablet) 50 mg PO BID [facility]; Protocol Last Admin: 09/13/22 08:09 Dose: 50 mg Documented By: DARRYL Hydromorphone HCl (Hydromorphone Hcl 1 Mg/Ml Syringe) 0.5 mg IVPUSH Q3H PRN; Protocol PRN Reason: Pain, Severe (Pain Scale 7-10) Dextrose (D10) 250 mls @ 750 mls/hr IV Q15M PRN; Protocol PRN Reason: per Hypoglycemia Standing Ord. Dextrose (D10) 250 mls @ 750 mls/hr IV Q15M PRN; Protocol PRN Reason: per Hypoglycemia Standing Ord. Insulin Glargine (Insulin Glargine,Hum.Rec.Anlog 100 Unit/Ml 10 Ml Vial) 30 unit SUBCUT BEDTIME [facility] Last Admin: 09/12/22 21:00 Dose: 30 unit Documented By: EULALIO Insulin Human Lispro (Insulin Lispro 100 Unit/Ml 3 Ml Vial) 0 unit SUBCUT QIDACHS [facility]; Protocol Last Admin: 09/13/22 11:25 Dose: 6 unit Documented By: DARRYL Isosorbide Mononitrate (Isosorbide Mononitrate 30 Mg Tab.Er.24h) 30 mg PO BID [facility]; Protocol Last Admin: 09/13/22 08:09 Dose: 30 mg Documented By: DARRYL Levalbuterol HCl (Levalbuterol Hcl 1.25 Mg/3 Ml Vial.Neb) 1.25 mg INHALE Q3H PRN PRN Reason: Shortness of Breath/Wheezing Loratadine (Loratadine 10 Mg Tablet) 10 mg PO DAILY [facility] Last Admin: 09/13/22 08:09 Dose: 10 mg Documented By: DARRYL Naloxone HCl (Naloxone Hcl Nasal 4 Mg [place]) 4 mg NOSTRILALT ONCE PRN PRN Reason: Opiate Reversal Omeprazole (Omeprazole 20 Mg Capsule.Dr) 20 mg PO DAILY [facility] Last Admin: 09/13/22 08:09 Dose: 20 mg Documented By: DARRYL Ondansetron HCl (Ondansetron Hcl 4 Mg/2 Ml Vial) 4 mg IVPUSH Q8H PRN PRN Reason: Nausea and Vomiting Oxycodone HCl (Oxycodone Hcl Er 10 Mg Tab.Er.12h) 10 mg PO BID [facility] Last Admin: 09/13/22 08:09 Dose: 10 mg Documented By: DARRYL Oxycodone HCl (Oxycodone Hcl Immed Release 5 Mg Tablet) 10 mg PO Q4H PRN PRN Reason: Pain, Moderate(Pain Scale 4-6) Last Admin: 09/13/22 11:24 Dose: 10 mg Documented By: DARRYL Pharmacy Consult (Consult Rx Perform Med Rec) 1 each MISCELLANE ONCE PRN PRN Reason: Consult order Sodium Chloride (0.9 % Sodium Chloride Flush 3 Ml Syringe) 3 ml IVFLUSH QSHIFT [facility] Last Admin: 09/13/22 08:10 Dose: 3 ml Documented By: DARRYL Labs 09/13/22 04:40 09/13/22 04:40 Labs: Laboratory Results - last 24 hr 09/12/22 09/12/22 09/13/22 16:09 20:26 04:40 MCV 95.3 MCH 32.8 MCHC 34.4 RDW 12.4 Plt Count 215 MPV 9.4 Immature Gran % (Auto) 0.6 H Neut % (Auto) 72.7 Lymph % (Auto) 11.8 L [place] % (Auto) 13.1 H Eos % (Auto) 1.5 Baso % (Auto) 0.3 Lymph # (Auto) 1.8 [place] # (Auto) 2.0 H Eos # (Auto) 0.2 Baso # (Auto) 0.0 Abs Immat Gran (auto) 0.09 H Absolute Neuts (auto) 10.8 H Absolute Nucleated RBC 0.000 Nucleated RBC % (auto) 0.0 Smear Tech's Comments VERIFIED Anion Gap Estim Creat Clear Calc Estimated GFR POC Glucose 201 H 200 H Random Glucose Calcium 09/13/22 09/13/22 09/13/22 04:40 07:21 11:11 MCV MCH MCHC RDW Plt Count MPV Immature Gran % (Auto) Neut % (Auto) Lymph % (Auto) [place] % (Auto) Eos % (Auto) Baso % (Auto) Lymph # (Auto) [place] # (Auto) Eos # (Auto) Baso # (Auto) Abs Immat Gran (auto) Absolute Neuts (auto) Absolute Nucleated RBC Nucleated RBC % (auto) Smear Tech's Comments Anion Gap 11 L Estim Creat Clear Calc 111.6 Estimated GFR > 60 POC Glucose 172 H 269 H Random Glucose 157 H Calcium 8.1 L Assessment and Plan (1) S/P total left hip arthroplasty: Status: Acute (2) Fall: Status: Acute Plan 57-year-old male with a history of CHF with reduced ejection fracture, diabetes, presents to the hospital after having a fall and experiencing a femoral neck fracture # acute left femoral neck fracture secondary to mechanical fall POD 2 pain control orthopedic following, start Lovenox dvt ppx start PT DVT PPx # Acute on chronic anemia Hb below 10 no evidence of bleeding, 2/2 loss during surgery and dilutional no need for transfusion, monitor # diabetes low-dose sliding scale insulin and Lantus diabetic diet # CHF with reduced ejection fraction not in acute exacerbation continue Lasix, spironolactone, Cardiology input appreciated, increase carvedilol to 12.5 mg b.i.d. and hydralazine to 50 mg b.i.d. and isosorbide to 30 mg b.i.d # hypertension stable continue antihypertensives DVT prophylaxis: Lovenox given patient's need for PT pending safe discharge plan post hip surgery Time Spent With Patient Time: Total time managing care of this patient today ____ minutes. Quality Stroke Does the patient have a stroke diagnosis?: No VTE Prior VTE?: No VTE Risk Level:: Surgical - high VTE Device Contraindication: N/A - Device Ordered VTE Drug Contraindication: Treatment Not Indicated
--- NOTE | 2022-09-13 14:28 | P.CDIM_ITS ---
PROVIDER RESPONSE TEXT: To clarify, the appropriate diagnosis supported by the clinical indicators: Diabetes mellitus with hyperglycemia, uncontrolled or other QUERY TEXT: PHYSICIAN'S DOCUMENTATION REQUEST Date of Query: 09/12/2022 11:38 AM EDT Patient Name: Immanuel Turcios Admit Date: 09/10/2022 Dear William Huang, A review of the medical record indicates additional documentation may be needed. Please review below and update the documentation accordingly. Clinical Indicators: POC Glucose: 230 H Insulin, diabetic diet PMH: diabetic neuropathy Please clarify the following regarding the Complications of Diabetes Mellitus (DM): Diabetes mellitus with hyperglycemia, uncontrolled or other Diabetes mellitus with neuropathy, peripheral, autonomic, polyneuropathy or other Unable to determine Other (explain) Clinically unable to determine (explain) Thank you, Vidhi [place], CCS, CDIS Use of terms such as suspected, likely, concern for, or probable (associated with a specific diagnosi s that is being evaluated, monitored, or treated as if it exists) are acceptable and can be coded in the inpatient se tting, when documented at the time of discharge. Please use your independent medical judgment in providing your response. THIS QUERY IS PART OF THE PERMANENT MEDICAL RECORD
[2022-09-13 15:25] VITALS: BP 113/67; PULSE 103; RESP 17; TEMP 36.6; O2SAT 93
[2022-09-13 16:39] LABS: Glucose, Whole Blood 167 mg/dL (60-115)
[2022-09-13 19:50] VITALS: BP 119/70; PULSE 97; RESP 17; TEMP 36.9; O2SAT 93
[2022-09-13 20:59] LABS: Glucose, Whole Blood 210 mg/dL (60-115)
[2022-09-13] MEDS: Insulin Glargine,Hum.rec.anlog 100 UNIT/ML 10 ML VIAL 30 UNIT SUBCUT (21:15)
[2022-09-13] MEDS: Atorvastatin Calcium 40 MG TABLET PO (21:15)
[2022-09-14 03:31] VITALS: BP 115/62; PULSE 88; RESP 18; TEMP 36.3; O2SAT 93
[2022-09-14 05:40] LABS: Basophils Percent Auto 0.3 % (0-2); Eosinophils Absolute Auto 0.4 X10*3/uL (0.0-0.4); Eosinophils Percent Auto 3.4 % (0-4); Hematocrit 25.9 % (42.0-52.0); Hemoglobin 9.1 g/dl (14.0-18.0); Imm Gran Abs Auto 0.11 X10*3/uL (0.00-0.03); Imm Gran Pct Auto 0.9 % (0.0-0.4); Lymphocytes Absolute Auto 1.7 X10*3/uL (1.2-4.9); Lymphocytes Percent Auto 14.5 % (20-40); MANUAL DIFF FLAG SCAN; Mean Corpuscular HGB Conc 35.1 g/dl (31.0-36.0); Mean Corpuscular Volume 93.8 fL (80.0-98.0); Mean Platelet Volume 9.1 fL (9.4-12.4); Monocytes Absolute Auto 1.7 X10*3/uL (0.1-1.2); Neutrophils Percent Auto 66.9 % (45-73); Platelet Count 220 X10*3/uL (160-400); Red Blood Count 2.76 X10*6/uL (4.60-5.80); Red Cell Distribution Width 12.4 % (11.0-16.0); SCAN SMEAR FLAG 1
[2022-09-14 06:12] LABS: Anion Gap 11 (12-20); Blood Urea Nitrogen 15 mg/dL (9-16); Calcium 8.3 mg/dL (8.4-10.2); Carbon Dioxide 28 mmol/L (22-29); Chloride 98 mmol/L (96-108); Creatinine Clr Calc Pharmacy 116.5; Estimated Glomerular Filt Rate > 60; Glucose Random 135 mg/dL (60-115); Potassium 3.8 mmol/L (3.3-5.1); Sodium 133 mmol/L (135-145)
[2022-09-14 06:18] LABS: SLIDE REVIEW VERIFIED
[2022-09-14 07:38] VITALS: BP 116/67; PULSE 89; RESP 18; TEMP 36.5; O2SAT 92
[2022-09-14 07:43] LABS: Glucose, Whole Blood 146 mg/dL (60-115)
[2022-09-14] MEDS: Omeprazole 20 MG CAPSULE.DR PO (08:45)
[2022-09-14] MEDS: Gabapentin 100 MG CAPSULE PO ×3 (08:45→22:06)
[2022-09-14] MEDS: Loratadine 10 MG TABLET PO (08:46)
[2022-09-14] MEDS: oxyCODONE HCl Immed Release 5 MG TABLET 10 MG PO ×3 (08:46→22:06)
[2022-09-14] MEDS: hydrALAZINE HCl 50 MG TABLET PO ×2 (08:46→22:05)
[2022-09-14] MEDS: carvediloL 12.5 MG TABLET PO ×2 (08:46→22:05)
[2022-09-14] MEDS: Isosorbide Mononitrate 30 MG TAB.ER.24H PO ×2 (08:47→22:05)
[2022-09-14] MEDS: oxyCODONE HCl ER 10 MG TAB.ER.12H PO ×2 (08:47→22:06)
[2022-09-14] MEDS: 0.9 % Sodium Chloride Flush 3 ML SYRINGE IVFLUSH ×2 (08:48→17:38)
[2022-09-14] MEDS: Fluticasone Propionate Nasal 16 GM SPRAY 1 SPRAY NOSTRIL-B (08:49)
--- NOTE | 2022-09-14 10:36 | P.PNIM_ITS ---
Subjective Subjective Date of Service: 09/14/22 Interval History: hip pain improving Physical Exam Vital Signs: Vital Signs: Last Vital Signs Temp 97.7 F 09/14/22 07:38 Pulse 89 09/14/22 07:38 Resp 18 09/14/22 07:38 BP 116/67 09/14/22 07:38 Pulse Ox 92 09/14/22 07:38 O2 Del Method Room Air 09/14/22 07:38 O2 Flow Rate 2 09/11/22 13:44 BMI result Body Mass Index 31.6 Const: Other: Constitutional : Awake, interactive, not in distress Neck : Normal inspection, Supple Cardiovascular : RRR, no JVP, no lower extremity edema Respiratory : good bilateral air entry, no crackles, wheezes or rhonchi Gastrointestinal: soft, lax, Normal bowel sounds, Non tender Skin : Warm, Dry skeletal: LLE surgical wound clean with no bleeding or drainage Neurological : Alert & oriented x3, No focal deficit Objective Data Active Medications Acetaminophen (Acetaminophen 325 Mg Tablet) 650 mg PO Q6H PRN PRN Reason: Pain, Mild (Pain Scale 1-3) Last Admin: 09/12/22 06:18 Dose: 650 mg Documented By: SUSHMA Atorvastatin Calcium (Atorvastatin Calcium 40 Mg Tablet) 40 mg PO BEDTIME [facility] Last Admin: 09/13/22 21:15 Dose: 40 mg Documented By: MONIQUE Carvedilol (Carvedilol 12.5 Mg Tablet) 12.5 mg PO BID [facility]; Protocol Last Admin: 09/14/22 08:46 Dose: 12.5 mg Documented By: CECILIA Enoxaparin Sodium (Enoxaparin Sodium 40 Mg/0.4 Ml Syringe) 40 mg SUBCUT Q24H [facility] Last Admin: 09/13/22 11:24 Dose: 40 mg Documented By: DARRYL Fluticasone Propionate (Fluticasone Propionate Nasal 16 Gm [place]) 1 spray NOSTRIL-B DAILY [facility] Last Admin: 09/14/22 08:49 Dose: 1 spray Documented By: CECILIA Furosemide (Furosemide 20 Mg Tablet) 20 mg PO DAILY [facility]; Protocol Last Admin: 09/10/22 08:51 Dose: 20 mg Documented By: SUSHMA Gabapentin (Gabapentin 100 Mg Capsule) 100 mg PO TID [facility] Last Admin: 09/14/22 08:45 Dose: 100 mg Documented By: CECILIA Glucose (Glucose Gel 15 Gm Gel..Gram.) 15 gm PO Q15M PRN; Protocol PRN Reason: per Hypoglycemia Standing Ord. Hydralazine HCl (Hydralazine Hcl 50 Mg Tablet) 50 mg PO BID [facility]; Protocol Last Admin: 09/14/22 08:46 Dose: 50 mg Documented By: CECILIA Hydromorphone HCl (Hydromorphone Hcl 1 Mg/Ml Syringe) 0.5 mg IVPUSH Q3H PRN; Protocol PRN Reason: Pain, Severe (Pain Scale 7-10) Dextrose (D10) 250 mls @ 750 mls/hr IV Q15M PRN; Protocol PRN Reason: per Hypoglycemia Standing Ord. Dextrose (D10) 250 mls @ 750 mls/hr IV Q15M PRN; Protocol PRN Reason: per Hypoglycemia Standing Ord. Insulin Glargine (Insulin Glargine,Hum.Rec.Anlog 100 Unit/Ml 10 Ml Vial) 30 unit SUBCUT BEDTIME [facility] Last Admin: 09/13/22 21:15 Dose: 30 unit Documented By: MAURO-MARY Insulin Human Lispro (Insulin Lispro 100 Unit/Ml 3 Ml Vial) 0 unit SUBCUT QIDACHS [facility]; Protocol Last Admin: 09/14/22 08:11 Dose: Not Given Documented By: CECILIA Non-Admin Reason: No Insulin Coverage Isosorbide Mononitrate (Isosorbide Mononitrate 30 Mg Tab.Er.24h) 30 mg PO BID [facility]; Protocol Last Admin: 09/14/22 08:47 Dose: 30 mg Documented By: CECILIA Levalbuterol HCl (Levalbuterol Hcl 1.25 Mg/3 Ml Vial.Neb) 1.25 mg INHALE Q3H PRN PRN Reason: Shortness of Breath/Wheezing Loratadine (Loratadine 10 Mg Tablet) 10 mg PO DAILY [facility] Last Admin: 09/14/22 08:46 Dose: 10 mg Documented By: CECILIA Naloxone HCl (Naloxone Hcl Nasal 4 Mg [place]) 4 mg NOSTRILALT ONCE PRN PRN Reason: Opiate Reversal Omeprazole (Omeprazole 20 Mg Capsule.Dr) 20 mg PO DAILY [facility] Last Admin: 09/14/22 08:45 Dose: 20 mg Documented By: CECILIA Ondansetron HCl (Ondansetron Hcl 4 Mg/2 Ml Vial) 4 mg IVPUSH Q8H PRN PRN Reason: Nausea and Vomiting Oxycodone HCl (Oxycodone Hcl Er 10 Mg Tab.Er.12h) 10 mg PO BID [facility] Last Admin: 09/14/22 08:47 Dose: 10 mg Documented By: CECILIA Oxycodone HCl (Oxycodone Hcl Immed Release 5 Mg Tablet) 10 mg PO Q4H PRN PRN Reason: Pain, Moderate(Pain Scale 4-6) Last Admin: 09/14/22 08:46 Dose: 10 mg Documented By: CECILIA Pharmacy Consult (Consult Rx Perform Med Rec) 1 each MISCELLANE ONCE PRN PRN Reason: Consult order Sodium Chloride (0.9 % Sodium Chloride Flush 3 Ml Syringe) 3 ml IVFLUSH QSHIFT [facility] Last Admin: 09/14/22 08:48 Dose: 3 ml Documented By: CECILIA Labs 09/14/22 05:22 09/14/22 05:22 Labs: Laboratory Results - last 24 hr 09/13/22 09/13/22 09/13/22 11:11 16:32 19:53 MCV MCH MCHC RDW Plt Count MPV Immature Gran % (Auto) Neut % (Auto) Lymph % (Auto) [place] % (Auto) Eos % (Auto) Baso % (Auto) Lymph # (Auto) [place] # (Auto) Eos # (Auto) Baso # (Auto) Abs Immat Gran (auto) Absolute Neuts (auto) Absolute Nucleated RBC Nucleated RBC % (auto) Smear Tech's Comments Anion Gap Estim Creat Clear Calc Estimated GFR POC Glucose 269 H 167 H 210 H Random Glucose Calcium 09/14/22 09/14/22 09/14/22 05:22 05:22 07:36 MCV 93.8 MCH 33.0 MCHC 35.1 RDW 12.4 Plt Count 220 MPV 9.1 L Immature Gran % (Auto) 0.9 H Neut % (Auto) 66.9 Lymph % (Auto) 14.5 L [place] % (Auto) 14.0 H Eos % (Auto) 3.4 Baso % (Auto) 0.3 Lymph # (Auto) 1.7 [place] # (Auto) 1.7 H Eos # (Auto) 0.4 Baso # (Auto) 0.0 Abs Immat Gran (auto) 0.11 H Absolute Neuts (auto) 8.0 Absolute Nucleated RBC 0.000 Nucleated RBC % (auto) 0.0 Smear Tech's Comments VERIFIED Anion Gap 11 L Estim Creat Clear Calc 116.5 Estimated GFR > 60 POC Glucose 146 H Random Glucose 135 H Calcium 8.3 L Assessment and Plan (1) S/P total left hip arthroplasty: Status: Acute (2) Fall: Status: Acute Plan 57M PMH of CHF with reduced ejection fracture, diabetes, presented with mechanical fall complicated by left femoral neck fracture acute left femoral neck fracture secondary to mechanical fall POD 3 pain control orthopedic following, started Lovenox dvt ppx PT Acute on chronic anemia Hb below 10 no evidence of bleeding, 2/2 loss during surgery, inflammation, and dilutional no need for transfusion diabetes sliding scale insulin and Lantus diabetic diet CHF with reduced ejection fraction not in acute exacerbation continue Lasix, spironolactone, Cardiology input appreciated, increased carvedilol to 12.5 mg b.i.d. and hydralazine to 50 mg b.i.d. and isosorbide to 30 mg b.i.d hypertension continue antihypertensives as above DVT prophylaxis: Lovenox full code reason for continued hospitalization:STR pending Time Spent With Patient Time: Total time managing care of this patient today ____ minutes. Quality Stroke Does the patient have a stroke diagnosis?: No VTE Prior VTE?: No VTE Risk Level:: Surgical - high VTE Device Contraindication: N/A - Device Ordered VTE Drug Contraindication: Treatment Not Indicated
[2022-09-14 11:27] LABS: Glucose, Whole Blood 260 mg/dL (60-115)
[2022-09-14] MEDS: Insulin Lispro 100 UNIT/ML 3 ML VIAL SUBCUT ×3 (11:34→22:03)
[2022-09-14] MEDS: Enoxaparin Sodium 40 MG/0.4 ML SYRINGE SUBCUT (11:34)
[2022-09-14] MEDS: Acetaminophen 325 MG TABLET 650 MG PO (14:02)
[2022-09-14 15:18] VITALS: BP 114/72; PULSE 99; RESP 18; TEMP 36.1; O2SAT 96
[2022-09-14 16:17] LABS: Glucose, Whole Blood 155 mg/dL (60-115)
[2022-09-14 19:34] VITALS: BP 125/74; PULSE 96; RESP 20; TEMP 36.8; O2SAT 94
[2022-09-14 21:26] LABS: Glucose, Whole Blood 420 mg/dL (60-115)
--- NOTE | 2022-09-14 21:44 | PC.NURSE ---
BS 420 ,patient states he was eating candy,Dr. Darnell notified
[2022-09-14] MEDS: Insulin Glargine,Hum.rec.anlog 100 UNIT/ML 10 ML VIAL 30 UNIT SUBCUT (22:04)
[2022-09-14] MEDS: Atorvastatin Calcium 40 MG TABLET PO (22:05)
[2022-09-15] MEDS: 0.9 % Sodium Chloride Flush 3 ML SYRINGE IVFLUSH ×4 (00:34→23:30)
[2022-09-15 04:00] VITALS: BP 113/62; PULSE 84; RESP 18; TEMP 36.1; O2SAT 93
[2022-09-15 06:28] LABS: MANUAL DIFF FLAG NO
[2022-09-15 06:35] LABS: Basophils Absolute Auto 0.1 X10*3/uL (0.0-0.2); Basophils Percent Auto 0.5 % (0-2); Eosinophils Absolute Auto 0.4 X10*3/uL (0.0-0.4); Eosinophils Percent Auto 4.1 % (0-4); Hematocrit 25.9 % (42.0-52.0); Imm Gran Abs Auto 0.09 X10*3/uL (0.00-0.03); Imm Gran Pct Auto 0.8 % (0.0-0.4); Lymphocytes Absolute Auto 1.7 X10*3/uL (1.2-4.9); Lymphocytes Percent Auto 15.8 % (20-40); Mean Corpuscular HGB Conc 34.7 g/dl (31.0-36.0); Mean Corpuscular Hemoglobin 32.8 pg (27.0-33.0); Mean Corpuscular Volume 94.5 fL (80.0-98.0); Mean Platelet Volume 9.7 fL (9.4-12.4); Monocytes Absolute Auto 1.4 X10*3/uL (0.1-1.2); Monocytes Percent Auto 12.7 % (2-11); Neutrophils Absolute Auto 7.1 x10*3/uL (2.0-8.3); Neutrophils Percent Auto 66.1 % (45-73); Platelet Count 260 X10*3/uL (160-400); Red Blood Count 2.74 X10*6/uL (4.60-5.80); Red Cell Distribution Width 12.3 % (11.0-16.0); White Blood Count 10.7 X10*3/uL (4.8-10.8)
[2022-09-15 06:47] LABS: Anion Gap 13 (12-20); Blood Urea Nitrogen 14 mg/dL (9-16); Calcium 8.1 mg/dL (8.4-10.2); Carbon Dioxide 25 mmol/L (22-29); Chloride 99 mmol/L (96-108); Estimated Glomerular Filt Rate > 60; Glucose Random 226 mg/dL (60-115); Potassium 3.9 mmol/L (3.3-5.1); Sodium 133 mmol/L (135-145)
[2022-09-15 07:29] LABS: Glucose, Whole Blood 192 mg/dL (60-115)
[2022-09-15 07:44] VITALS: BP 130/78; PULSE 84; RESP 16; TEMP 36.6; O2SAT 95
--- NOTE | 2022-09-15 09:01 | PM.PNORT ---
Subjective Subjective Date of Service: 09/15/22 Interval history: POD4 s/p left SARWAT. Patient resting comfortably in bed. No overnight events. Pain is managed. No additional complaints. Physical Exam Vital Signs: Vital Signs: Last Vital Signs Temp 97.8 F 09/15/22 07:44 Pulse 84 09/15/22 07:44 Resp 16 09/15/22 07:44 BP 130/78 09/15/22 07:44 Pulse Ox 95 09/15/22 07:44 O2 Del Method Room Air 09/15/22 07:44 O2 Flow Rate 2 09/11/22 13:44 BMI result Body Mass Index 31.6 Const: General: cooperative, healthy appearing and no acute distress Resp: Effort & Inspection: normal respiratory effort and able to speak in complete sentences Cardio: Rate: regular rate Peripheral pulses: Peripheral pulses 2+ throughout GI: Palpation (GI): Soft to palpation Skin: Lesions: no lesions Rashes: no rashes Extrem: Other: Left hip Aquacel is c/d/i. Incision site is intact. Thanh intact. No drainage. New Aquacel dressing applied. Able to dorsi/plantar flex. NVI. Procedures Date of Service Date of Service: 09/15/22 Progress Note: A&P Assessment and plan (1) S/P total left hip arthroplasty: Status: Acute Assessment and Plan: Continue pain mgmnt continue Lovenox for dvt ppx continue PT /OT for LTHA - WBAT posterior precautions Dispo planning-STR placement, cleared for d/c from ortho standpoint (2) Closed fracture of neck of left femur: Status: Acute Time Spent With Patient Time: Total time managing care of this patient today ____ minutes. Quality Stroke Does the patient have a stroke diagnosis?: No VTE Prior VTE?: No VTE Risk Level:: Surgical - high VTE Device Contraindication: N/A - Device Ordered VTE Drug Contraindication: Treatment Not Indicated
[2022-09-15] MEDS: Gabapentin 100 MG CAPSULE PO ×3 (09:10→21:07)
[2022-09-15] MEDS: oxyCODONE HCl ER 10 MG TAB.ER.12H PO ×2 (09:10→21:06)
[2022-09-15] MEDS: carvediloL 12.5 MG TABLET PO ×2 (09:10→21:07)
[2022-09-15] MEDS: Loratadine 10 MG TABLET PO (09:10)
[2022-09-15] MEDS: Omeprazole 20 MG CAPSULE.DR PO (09:10)
[2022-09-15] MEDS: Insulin Lispro 100 UNIT/ML 3 ML VIAL SUBCUT ×4 (09:10→21:04)
[2022-09-15] MEDS: Isosorbide Mononitrate 30 MG TAB.ER.24H PO ×2 (09:11→21:05)
[2022-09-15] MEDS: hydrALAZINE HCl 50 MG TABLET PO ×2 (09:11→21:06)
[2022-09-15] MEDS: oxyCODONE HCl Immed Release 5 MG TABLET 10 MG PO ×4 (09:12→22:09)
--- NOTE | 2022-09-15 09:15 | P.PNIM_ITS ---
Subjective Subjective Date of Service: 09/15/22 Interval History: hip pain improving Physical Exam Vital Signs: Vital Signs: Last Vital Signs Temp 97.8 F 09/15/22 07:44 Pulse 84 09/15/22 07:44 Resp 16 09/15/22 07:44 BP 130/78 09/15/22 07:44 Pulse Ox 95 09/15/22 07:44 O2 Del Method Room Air 09/15/22 07:44 O2 Flow Rate 2 09/11/22 13:44 BMI result Body Mass Index 31.6 Const: General: cooperative, healthy appearing and no acute distress Resp: Effort & Inspection: normal respiratory effort and able to speak in complete sentences Cardio: Rate: regular rate Peripheral pulses: Peripheral pulses 2+ throughout GI: Palpation (GI): Soft to palpation Skin: Lesions: no lesions Rashes: no rashes Extrem: Other: Left hip Aquacel is c/d/i. Incision site is intact. [place] intact. No drainage. New Aquacel dressing applied. Able to dorsi/plantar flex. NVI. Objective Data Active Medications Acetaminophen (Acetaminophen 325 Mg Tablet) 650 mg PO Q6H PRN PRN Reason: Pain, Mild (Pain Scale 1-3) Last Admin: 09/14/22 14:02 Dose: 650 mg Documented By: BOB Atorvastatin Calcium (Atorvastatin Calcium 40 Mg Tablet) 40 mg PO BEDTIME [facility] Last Admin: 09/14/22 22:05 Dose: 40 mg Documented By: PAULINA Carvedilol (Carvedilol 12.5 Mg Tablet) 12.5 mg PO BID [facility]; Protocol Last Admin: 09/15/22 09:10 Dose: 12.5 mg Documented By: WAYNE Enoxaparin Sodium (Enoxaparin Sodium 40 Mg/0.4 Ml Syringe) 40 mg SUBCUT Q24H [facility] Last Admin: 09/14/22 11:34 Dose: 40 mg Documented By: BOB Fluticasone Propionate (Fluticasone Propionate Nasal 16 Gm [place]) 1 spray NOSTRIL-B DAILY [facility] Last Admin: 09/14/22 08:49 Dose: 1 spray Documented By: CECILIA Furosemide (Furosemide 20 Mg Tablet) 20 mg PO DAILY [facility]; Protocol Last Admin: 09/10/22 08:51 Dose: 20 mg Documented By: SUSHMA Gabapentin (Gabapentin 100 Mg Capsule) 100 mg PO TID [facility] Last Admin: 09/15/22 09:10 Dose: 100 mg Documented By: WAYNE Glucose (Glucose Gel 15 Gm Gel..Gram.) 15 gm PO Q15M PRN; Protocol PRN Reason: per Hypoglycemia Standing Ord. Hydralazine HCl (Hydralazine Hcl 50 Mg Tablet) 50 mg PO BID [facility]; Protocol Last Admin: 09/15/22 09:11 Dose: 50 mg Documented By: WAYNE Hydromorphone HCl (Hydromorphone Hcl 1 Mg/Ml Syringe) 0.5 mg IVPUSH Q3H PRN; Protocol PRN Reason: Pain, Severe (Pain Scale 7-10) Dextrose (D10) 250 mls @ 750 mls/hr IV Q15M PRN; Protocol PRN Reason: per Hypoglycemia Standing Ord. Dextrose (D10) 250 mls @ 750 mls/hr IV Q15M PRN; Protocol PRN Reason: per Hypoglycemia Standing Ord. Insulin Glargine (Insulin Glargine,Hum.Rec.Anlog 100 Unit/Ml 10 Ml Vial) 30 unit SUBCUT BEDTIME [facility] Last Admin: 09/14/22 22:04 Dose: 30 unit Documented By: PAULINA Insulin Human Lispro (Insulin Lispro 100 Unit/Ml 3 Ml Vial) 0 unit SUBCUT QIDACHS [facility]; Protocol Last Admin: 09/15/22 09:10 Dose: 2 unit Documented By: WAYNE Isosorbide Mononitrate (Isosorbide Mononitrate 30 Mg Tab.Er.24h) 30 mg PO BID [facility]; Protocol Last Admin: 09/15/22 09:11 Dose: 30 mg Documented By: WAYNE Levalbuterol HCl (Levalbuterol Hcl 1.25 Mg/3 Ml Vial.Neb) 1.25 mg INHALE Q3H PRN PRN Reason: Shortness of Breath/Wheezing Loratadine (Loratadine 10 Mg Tablet) 10 mg PO DAILY [facility] Last Admin: 09/15/22 09:10 Dose: 10 mg Documented By: WAYNE Naloxone HCl (Naloxone Hcl Nasal 4 Mg [place]) 4 mg NOSTRILALT ONCE PRN PRN Reason: Opiate Reversal Omeprazole (Omeprazole 20 Mg Capsule.) 20 mg PO DAILY [facility] Last Admin: 09/15/22 09:10 Dose: 20 mg Documented By: WAYNE Ondansetron HCl (Ondansetron Hcl 4 Mg/2 Ml Vial) 4 mg IVPUSH Q8H PRN PRN Reason: Nausea and Vomiting Oxycodone HCl (Oxycodone Hcl Er 10 Mg Tab.Er.12h) 10 mg PO BID [facility] Last Admin: 09/15/22 09:10 Dose: 10 mg Documented By: WAYNE Oxycodone HCl (Oxycodone Hcl Immed Release 5 Mg Tablet) 10 mg PO Q4H PRN PRN Reason: Pain, Moderate(Pain Scale 4-6) Last Admin: 09/15/22 09:12 Dose: 10 mg Documented By: WAYNE Pharmacy Consult (Consult Rx Perform Med Rec) 1 each MISCELLANE ONCE PRN PRN Reason: Consult order Sodium Chloride (0.9 % Sodium Chloride Flush 3 Ml Syringe) 3 ml IVFLUSH QSHIFT [facility] Last Admin: 09/15/22 09:11 Dose: 3 ml Documented By: WAYNE Labs 09/15/22 05:47 09/15/22 05:46 Labs: Laboratory Results - last 24 hr 09/14/22 09/14/22 09/14/22 11:20 16:10 20:42 MCV MCH MCHC RDW Plt Count MPV Immature Gran % (Auto) Neut % (Auto) Lymph % (Auto) [place] % (Auto) Eos % (Auto) Baso % (Auto) Lymph # (Auto) [place] # (Auto) Eos # (Auto) Baso # (Auto) Abs Immat Gran (auto) Absolute Neuts (auto) Absolute Nucleated RBC Nucleated RBC % (auto) Anion Gap Estim Creat Clear Calc Estimated GFR POC Glucose 260 H 155 H 420 H* Random Glucose Calcium 09/15/22 09/15/22 09/15/22 05:46 05:47 07:22 MCV 94.5 MCH 32.8 MCHC 34.7 RDW 12.3 Plt Count 260 MPV 9.7 Immature Gran % (Auto) 0.8 H Neut % (Auto) 66.1 Lymph % (Auto) 15.8 L [place] % (Auto) 12.7 H Eos % (Auto) 4.1 H Baso % (Auto) 0.5 Lymph # (Auto) 1.7 [place] # (Auto) 1.4 H Eos # (Auto) 0.4 Baso # (Auto) 0.1 Abs Immat Gran (auto) 0.09 H Absolute Neuts (auto) 7.1 Absolute Nucleated RBC 0.000 Nucleated RBC % (auto) 0.0 Anion Gap 13 Estim Creat Clear Calc 122.0 Estimated GFR > 60 POC Glucose 192 H Random Glucose 226 H Calcium 8.1 L Assessment and Plan (1) S/P total left hip arthroplasty: Status: Acute (2) Fall: Status: Acute Plan 57M PMH of CHF with reduced ejection fracture, diabetes, presented with mechanical fall complicated by left femoral neck fracture acute left femoral neck fracture secondary to mechanical fall POD 4 pain control orthopedic following, started Lovenox dvt ppx PT Acute on chronic anemia Hb below 10 no evidence of bleeding, 2/2 loss during surgery, inflammation, and dilutional no need for transfusion diabetes sliding scale insulin and Lantus diabetic diet CHF with reduced ejection fraction not in acute exacerbation continue Lasix, spironolactone, Cardiology input appreciated, increased carvedilol to 12.5 mg b.i.d. and hydralazine to 50 mg b.i.d. and isosorbide to 30 mg b.i.d hypertension continue antihypertensives as above urinary retention trial of void DVT prophylaxis: Lovenox full code reason for continued hospitalization:STR pending Time Spent With Patient Time: Total time managing care of this patient today ____ minutes. Quality Stroke Does the patient have a stroke diagnosis?: No VTE Prior VTE?: No VTE Risk Level:: Surgical - high VTE Device Contraindication: N/A - Device Ordered VTE Drug Contraindication: Treatment Not Indicated
[2022-09-15] MEDS: Fluticasone Propionate Nasal 16 GM SPRAY 1 SPRAY NOSTRIL-B (09:17)
--- NOTE | 2022-09-15 10:24 | MHC.CM.PN ---
Addendum entered by Dory Jordan 09/15/22 15:11: ENTRY LEVEL ASSISTANT MANAGER INFORMED CM SHE HAS FAXED THE RX FOR THE WALKER AND TOILET SEAT. PT WILL NEED TO CALL [facility] @ [phone] Addendum entered by Dory Jordan 09/15/22 12:56: [facility], HOWEVER PT REPORTS HE DOES NOT WANT TO GO THAT FAR FROM HOME CM ATTEMPTED TO REVIEW HIS CONCERNS HOWEVER HE STILL DECLINES TO GO PT REPORTS HE HAS BEEN DOING WELL WITH THERAPY AND FEELS HE COULD GO HOME IF HE COULD GET UP THE STAIRS PER DISCUSSION, BLS TRANSPORT AND VNA WILL BE ARRANGED PT WILL NEED A SCRIPT FOR A WALKER AND IS REQUESTING A SCRIPT FOR A TOILET RISER REQUEST SENT TO [facility] Original Note: PT IS READY FOR DC HOWEVER NEEDS STR AND THERE ARE CURRENTLY NO ACCEPTING FACILITIES PTS REFERRAL HAS BEEN UPDATED AND EXPANDED PTS MDS HAS ALREADY BEEN COMPLETED/SUBMITTED
[2022-09-15 11:23] LABS: Glucose, Whole Blood 195 mg/dL (60-115)
[2022-09-15] MEDS: Enoxaparin Sodium 40 MG/0.4 ML SYRINGE SUBCUT (12:19)
[2022-09-15 15:36] VITALS: BP 124/74; PULSE 88; RESP 20; TEMP 36.6; O2SAT 93
[2022-09-15 16:07] LABS: Glucose, Whole Blood 155 mg/dL (60-115)
--- NOTE | 2022-09-15 17:54 | PC.NURSE ---
Curve Saw Operator reported patient is outside smoking with his son.Security was notified ,patient brought back to his room safely ,informed son and patient about the risks of not being assisted by nurse and leaving the unit.Offered nicotine patch to patient but patient refused.patient also refuses camera in his room.
[2022-09-15 19:18] VITALS: BP 130/72; PULSE 94; RESP 18; TEMP 36.2; O2SAT 93
[2022-09-15 20:16] LABS: Glucose, Whole Blood 278 mg/dL (60-115)
[2022-09-15] MEDS: Insulin Glargine,Hum.rec.anlog 100 UNIT/ML 10 ML VIAL 30 UNIT SUBCUT (21:04)
[2022-09-15] MEDS: Atorvastatin Calcium 40 MG TABLET PO (21:07)
[2022-09-16 03:03] VITALS: BP 123/67; PULSE 78; RESP 18; TEMP 37.2; O2SAT 95
[2022-09-16 06:27] LABS: MANUAL DIFF FLAG NO
[2022-09-16 06:36] LABS: Basophils Absolute Auto 0.1 X10*3/uL (0.0-0.2); Basophils Percent Auto 0.6 % (0-2); Eosinophils Absolute Auto 0.5 X10*3/uL (0.0-0.4); Eosinophils Percent Auto 5.1 % (0-4); Hematocrit 25.8 % (42.0-52.0); Hemoglobin 8.8 g/dl (14.0-18.0); Imm Gran Abs Auto 0.17 X10*3/uL (0.00-0.03); Imm Gran Pct Auto 1.7 % (0.0-0.4); Lymphocytes Absolute Auto 1.7 X10*3/uL (1.2-4.9); Lymphocytes Percent Auto 17.3 % (20-40); Mean Corpuscular HGB Conc 34.1 g/dl (31.0-36.0); Mean Corpuscular Hemoglobin 32.5 pg (27.0-33.0); Mean Corpuscular Volume 95.2 fL (80.0-98.0); Mean Platelet Volume 9.5 fL (9.4-12.4); Monocytes Absolute Auto 1.5 X10*3/uL (0.1-1.2); Monocytes Percent Auto 14.8 % (2-11); Neutrophils Percent Auto 60.5 % (45-73); Platelet Count 297 X10*3/uL (160-400); Red Blood Count 2.71 X10*6/uL (4.60-5.80); Red Cell Distribution Width 12.3 % (11.0-16.0); White Blood Count 9.8 X10*3/uL (4.8-10.8)
[2022-09-16 06:58] VITALS: BP 112/73; PULSE 73; RESP 19; TEMP 36.6; O2SAT 93
[2022-09-16 07:01] LABS: Anion Gap 15 (12-20); Blood Urea Nitrogen 14 mg/dL (9-16); Calcium 8.3 mg/dL (8.4-10.2); Carbon Dioxide 25 mmol/L (22-29); Chloride 99 mmol/L (96-108); Creatinine Clr Calc Pharmacy 123.4; Estimated Glomerular Filt Rate > 60; Glucose Random 142 mg/dL (60-115); Potassium 3.9 mmol/L (3.3-5.1); Sodium 135 mmol/L (135-145)
[2022-09-16] MEDS: 0.9 % Sodium Chloride Flush 3 ML SYRINGE IVFLUSH (07:04)
[2022-09-16] MEDS: oxyCODONE HCl ER 10 MG TAB.ER.12H PO (07:04)
[2022-09-16] MEDS: oxyCODONE HCl Immed Release 5 MG TABLET 10 MG PO ×2 (07:05→10:59)
[2022-09-16] MEDS: Omeprazole 20 MG CAPSULE.DR PO (07:05)
[2022-09-16] MEDS: Isosorbide Mononitrate 30 MG TAB.ER.24H PO (07:05)
[2022-09-16] MEDS: Loratadine 10 MG TABLET PO (07:05)
[2022-09-16] MEDS: hydrALAZINE HCl 50 MG TABLET PO (07:06)
[2022-09-16] MEDS: Gabapentin 100 MG CAPSULE PO (07:06)
[2022-09-16] MEDS: carvediloL 12.5 MG TABLET PO (07:06)
[2022-09-16] MEDS: Fluticasone Propionate Nasal 16 GM SPRAY 1 SPRAY NOSTRIL-B (07:07)
[2022-09-16 07:08] LABS: Glucose, Whole Blood 151 mg/dL (60-115)
[2022-09-16] MEDS: Insulin Lispro 100 UNIT/ML 3 ML VIAL SUBCUT ×2 (07:10→11:36)
--- NOTE | 2022-09-16 08:25 | P.PNIM_ITS ---
Subjective Subjective Date of Service: 09/16/22 Interval History: tov successful Physical Exam Vital Signs: Vital Signs: Last Vital Signs Temp 97.9 F 09/16/22 06:58 Pulse 73 09/16/22 06:58 Resp 19 09/16/22 06:58 BP 112/73 09/16/22 06:58 Pulse Ox 93 09/16/22 06:58 O2 Del Method Room Air 09/16/22 06:58 O2 Flow Rate 2 09/11/22 13:44 BMI result Body Mass Index 31.6 Const: General: cooperative, healthy appearing and no acute distress Resp: Effort & Inspection: normal respiratory effort and able to speak in complete sentences Cardio: Rate: regular rate Peripheral pulses: Peripheral pulses 2+ throughout GI: Palpation (GI): Soft to palpation Skin: Lesions: no lesions Rashes: no rashes Objective Data Active Medications Acetaminophen (Acetaminophen 325 Mg Tablet) 650 mg PO Q6H PRN PRN Reason: Pain, Mild (Pain Scale 1-3) Last Admin: 09/14/22 14:02 Dose: 650 mg Documented By: BOB Atorvastatin Calcium (Atorvastatin Calcium 40 Mg Tablet) 40 mg PO BEDTIME [facility] Last Admin: 09/15/22 21:07 Dose: 40 mg Documented By: PAULINA Carvedilol (Carvedilol 12.5 Mg Tablet) 12.5 mg PO BID [facility]; Protocol Last Admin: 09/16/22 07:06 Dose: 12.5 mg Documented By: BOB Enoxaparin Sodium (Enoxaparin Sodium 40 Mg/0.4 Ml Syringe) 40 mg SUBCUT Q24H [facility] Last Admin: 09/15/22 12:19 Dose: 40 mg Documented By: WAYNE Fluticasone Propionate (Fluticasone Propionate Nasal 16 Gm [place]) 1 spray NOSTRIL-B DAILY [facility] Last Admin: 09/16/22 07:07 Dose: 1 spray Documented By: BOB Furosemide (Furosemide 20 Mg Tablet) 20 mg PO DAILY [facility]; Protocol Last Admin: 09/10/22 08:51 Dose: 20 mg Documented By: SUSHMA Gabapentin (Gabapentin 100 Mg Capsule) 100 mg PO TID [facility] Last Admin: 09/16/22 07:06 Dose: 100 mg Documented By: BOB Glucose (Glucose Gel 15 Gm Gel..Gram.) 15 gm PO Q15M PRN; Protocol PRN Reason: per Hypoglycemia Standing Ord. Hydralazine HCl (Hydralazine Hcl 50 Mg Tablet) 50 mg PO BID [facility]; Protocol Last Admin: 09/16/22 07:06 Dose: 50 mg Documented By: BOB Hydromorphone HCl (Hydromorphone Hcl 1 Mg/Ml Syringe) 0.5 mg IVPUSH Q3H PRN; Protocol PRN Reason: Pain, Severe (Pain Scale 7-10) Dextrose (D10) 250 mls @ 750 mls/hr IV Q15M PRN; Protocol PRN Reason: per Hypoglycemia Standing Ord. Dextrose (D10) 250 mls @ 750 mls/hr IV Q15M PRN; Protocol PRN Reason: per Hypoglycemia Standing Ord. Insulin Glargine (Insulin Glargine,Hum.Rec.Anlog 100 Unit/Ml 10 Ml Vial) 30 unit SUBCUT BEDTIME [facility] Last Admin: 09/15/22 21:04 Dose: 30 unit Documented By: PAULINA Insulin Human Lispro (Insulin Lispro 100 Unit/Ml 3 Ml Vial) 0 unit SUBCUT QIDACHS [facility]; Protocol Last Admin: 09/16/22 07:10 Dose: 2 unit Documented By: BOB Isosorbide Mononitrate (Isosorbide Mononitrate 30 Mg Tab.Er.24h) 30 mg PO BID [facility]; Protocol Last Admin: 09/16/22 07:05 Dose: 30 mg Documented By: BOB Levalbuterol HCl (Levalbuterol Hcl 1.25 Mg/3 Ml Vial.Neb) 1.25 mg INHALE Q3H PRN PRN Reason: Shortness of Breath/Wheezing Loratadine (Loratadine 10 Mg Tablet) 10 mg PO DAILY [facility] Last Admin: 09/16/22 07:05 Dose: 10 mg Documented By: BOB Naloxone HCl (Naloxone Hcl Nasal 4 Mg [place]) 4 mg NOSTRILALT ONCE PRN PRN Reason: Opiate Reversal Omeprazole (Omeprazole 20 Mg Capsule.Dr) 20 mg PO DAILY [facility] Last Admin: 09/16/22 07:05 Dose: 20 mg Documented By: BOB Ondansetron HCl (Ondansetron Hcl 4 Mg/2 Ml Vial) 4 mg IVPUSH Q8H PRN PRN Reason: Nausea and Vomiting Oxycodone HCl (Oxycodone Hcl Er 10 Mg Tab.Er.12h) 10 mg PO BID [facility] Last Admin: 09/16/22 07:04 Dose: 10 mg Documented By: BOB Oxycodone HCl (Oxycodone Hcl Immed Release 5 Mg Tablet) 10 mg PO Q4H PRN PRN Reason: Pain, Moderate(Pain Scale 4-6) Last Admin: 09/16/22 07:05 Dose: 10 mg Documented By: BOB Pharmacy Consult (Consult Rx Perform Med Rec) 1 each MISCELLANE ONCE PRN PRN Reason: Consult order Sodium Chloride (0.9 % Sodium Chloride Flush 3 Ml Syringe) 3 ml IVFLUSH QSHIFT [facility] Last Admin: 09/16/22 07:04 Dose: 3 ml Documented By: BOB Labs 09/16/22 05:45 09/16/22 05:45 Labs: Laboratory Results - last 24 hr 09/15/22 09/15/22 09/15/22 11:13 16:00 20:07 MCV MCH MCHC RDW Plt Count MPV Immature Gran % (Auto) Neut % (Auto) Lymph % (Auto) [place] % (Auto) Eos % (Auto) Baso % (Auto) Lymph # (Auto) [place] # (Auto) Eos # (Auto) Baso # (Auto) Abs Immat Gran (auto) Absolute Neuts (auto) Absolute Nucleated RBC Nucleated RBC % (auto) Anion Gap Estim Creat Clear Calc Estimated GFR POC Glucose 195 H 155 H 278 H Random Glucose Calcium 09/16/22 09/16/22 09/16/22 05:45 05:45 06:57 MCV 95.2 MCH 32.5 MCHC 34.1 RDW 12.3 Plt Count 297 MPV 9.5 Immature Gran % (Auto) 1.7 H Neut % (Auto) 60.5 Lymph % (Auto) 17.3 L [place] % (Auto) 14.8 H Eos % (Auto) 5.1 H Baso % (Auto) 0.6 Lymph # (Auto) 1.7 [place] # (Auto) 1.5 H Eos # (Auto) 0.5 H Baso # (Auto) 0.1 Abs Immat Gran (auto) 0.17 H Absolute Neuts (auto) 6.0 Absolute Nucleated RBC 0.000 Nucleated RBC % (auto) 0.0 Anion Gap 15 Estim Creat Clear Calc 123.4 Estimated GFR > 60 POC Glucose 151 H Random Glucose 142 H Calcium 8.3 L Assessment and Plan (1) S/P total left hip arthroplasty: Status: Acute (2) Fall: Status: Acute Plan 57M PMH of CHF with reduced ejection fracture, diabetes, presented with mechanical fall complicated by left femoral neck fracture acute left femoral neck fracture secondary to mechanical fall POD 5 pain control orthopedic following, started Lovenox dvt ppx PT Acute on chronic anemia no evidence of bleeding, 2/2 loss during surgery, inflammation, and dilutional no need for transfusion diabetes sliding scale insulin and Lantus diabetic diet CHF with reduced ejection fraction not in acute exacerbation continue Lasix, spironolactone, Cardiology input appreciated, increased carvedilol to 12.5 mg b.i.d. and hydralazine to 50 mg b.i.d. and isosorbide to 30 mg b.i.d hypertension continue antihypertensives as above urinary retention trial of void successful DVT prophylaxis: Lovenox full code reason for continued hospitalization:STR pending Time Spent With Patient Time: Total time managing care of this patient today ____ minutes. Quality Stroke Does the patient have a stroke diagnosis?: No VTE Prior VTE?: No VTE Risk Level:: Surgical - high VTE Device Contraindication: N/A - Device Ordered VTE Drug Contraindication: Treatment Not Indicated
[2022-09-16 08:59] VITALS: BP 112/73; PULSE 73; O2SAT 93
--- NOTE | 2022-09-16 10:09 | P.DS_ITS ---
DS: Providers Provider Date of Service: 09/16/22 Date of admission: 09/10/22 00:33 Primary care physician: Amita Noe NP Consults: 09/10/22 00:34 Consult to Orthopedics Stat Consulting Provider: [facility] Reason for consultation: left femoral neck fracture, admitted to hospitalist service Has provider been notified: Yes 09/10/22 06:03 Consult to Cardiology Routine Consulting Provider: [facility] Cardiovascular Services Reason for consultation: hip fracture, high cardiac risk factors DS: Diagnosis Discharge Diagnosis (1) S/P total left hip arthroplasty: Status: Acute (2) Fall: Status: Acute DS: Summary Hospital Course Hospital Course: from initial hpi: 57-year-old male with past medical history of diabetes, COPD, HFrEF, presents to the hospital after experiencing a mechanical fall.? Patient reports that he got home, trying to grab something from his car, twisted his foot and fell to the left side, causing him cell significant pain in the left hip.? Patient denies any loss of consciousness, no head injury, denies any chest pain, no shortness of breath, no palpitations, no headache or change in vision, no urinary symptoms and no lower extremity edema.? No abdominal pain nausea or vomiting, no diarrhea constipation, On arrival to the ED patient hemodynamically stable with no significant abnormal vitals Labs are significant for WBC count of 12.6, hemoglobin of 12.8, hematocrit 36.9, Hip x-ray shows displaced an impacted left femoral neck fracture ?orthopedic consult to, patient will be admitted for further evaluation hospital course: patient was admitted for acute left femoral neck fracture due to mechanical fall. he underwent left SARWAT. he had some acute on chronic anemia due to inflammation and blood loss. did not require transfusion. for DM was given insulin. for chf with reduced EF, was continued on lasix, coreg in creased to 12.5mg bid, hydralazine to 50mg bid and imdur 30. hypertension was treated with mentioned meds. had some uyrinary retention requiring sands, but had successful trial of void prior to discharge. patient now ambulating well enough for discharge home. Time Spent with Patient Time attestation: Total time managing care of this patient today ____ minutes. Discharge coordination time: Greater than 30 minutes Quality: Safe Use of Opioids Does Pt have an Active Cancer Diagnosis on the Problem List?: No Quality: Stroke Does the patient have a stroke diagnosis?: No Physical Exam Vital Signs: Vital Signs: Last Vital Signs Temp 97.9 F 09/16/22 06:58 Pulse 73 09/16/22 08:59 Resp 19 09/16/22 06:58 BP 112/73 09/16/22 08:59 Pulse Ox 93 09/16/22 08:59 O2 Del Method Room Air 09/16/22 06:58 O2 Flow Rate 2 09/11/22 13:44 BMI result Body Mass Index 31.6 Const: General: cooperative, healthy appearing and no acute distress Resp: Effort & Inspection: normal respiratory effort and able to speak in complete sentences Cardio: Rate: regular rate Peripheral pulses: Peripheral pulses 2+ throughout GI: Palpation (GI): Soft to palpation Skin: Lesions: no lesions Rashes: no rashes DS: Data Data Completed and Pending Completed studies during hospitalization [Text1]: Pending at discharge 09/11/22 12:02 Surgical [PTH] Routine Procedures Drainage of Right Pleural Cavity, Percutaneous Approach (03/24/21) Labs on day of discharge: Laboratory Results - last 24 hr 09/15/22 09/15/22 09/15/22 11:13 16:00 20:07 WBC RBC Hgb Hct MCV MCH MCHC RDW Plt Count MPV Immature Gran % (Auto) Neut % (Auto) Lymph % (Auto) [facility] % (Auto) Eos % (Auto) Baso % (Auto) Lymph # (Auto) [facility] # (Auto) Eos # (Auto) Baso # (Auto) Abs Immat Gran (auto) Absolute Neuts (auto) Absolute Nucleated RBC Nucleated RBC % (auto) Sodium Potassium Chloride Carbon Dioxide Anion Gap BUN Creatinine Estim Creat Clear Calc Estimated GFR POC Glucose 195 H 155 H 278 H Random Glucose Calcium 09/16/22 09/16/22 09/16/22 05:45 05:45 06:57 WBC 9.8 RBC 2.71 L Hgb 8.8 L Hct 25.8 L MCV 95.2 MCH 32.5 MCHC 34.1 RDW 12.3 Plt Count 297 MPV 9.5 Immature Gran % (Auto) 1.7 H Neut % (Auto) 60.5 Lymph % (Auto) 17.[address] [facility] % (Auto) 14.8 H Eos % (Auto) 5.1 H Baso % (Auto) 0.6 Lymph # (Auto) 1.7 [facility] # (Auto) 1.5 H Eos # (Auto) 0.5 H Baso # (Auto) 0.1 Abs Immat Gran (auto) 0.17 H Absolute Neuts (auto) 6.0 Absolute Nucleated RBC 0.000 Nucleated RBC % (auto) 0.0 Sodium 135 Potassium 3.9 Chloride 99 Carbon Dioxide 25 Anion Gap 15 BUN 14 Creatinine 0.85 Estim Creat Clear Calc 123.4 Estimated GFR > 60 POC Glucose 151 H Random Glucose 142 H Calcium 8.3 L Discharge Plan Discharge Anticipated Discharge Date/Time: 09/16/22 10:07 Patient Disposition: Home Health Service Discharge Diagnosis: hip fracture Referrals: Abdias Diaz PA-C [Physician Veneer Taping Machine Operator] - 2 Weeks (09/29/22 3:30 [facility] Abdias Diaz PA-C) Amita Noe DIGITAL COORDINATOR [Primary Care Provider] - 1 Week Discharge Medications: New acetaminophen 325 mg Tablet 650 mg PO Q6H PRN (Reason: Pain, Mild (Pain Scale 1-3)) 30 Days Qty: 240 0RF enoxaparin 40 mg/0.4 mL Syringe 40 mg subcut Q24H 42 Days Qty: 16.8 0RF oxycodone 10 mg tablet 10 mg PO Q4H PRN (Reason: Pain, Moderate(Pain Scale 4-6)) 7 Days Qty: 42 0RF Rx Instructions: Partial Fill upon patient request. Continued isosorbide mononitrate 30 mg tablet extended release 24 hr 30 mg PO DAILY 90 Days Qty: 90 3RF Protocol: Hold for SBP< HOLD for SBP < : 90 (DME) walker [facility] See Rx Instructions .ROUTE .MEDSUPPLY Qty: 1 0RF Rx Instructions: Folding front wheeled walker (DME) Raised toliet seat See Rx Instructions .ROUTE .MEDSUPPLY Qty: 1 0RF Rx Instructions: As directed ([facility]) blood-glucose meter [FreeStyle Lite Meter] Kit See Rx Instructions .ROUTE .MEDSUPPLY Qty: 1 0RF Rx Instructions: As directed ([facility]) FreeStyle Lite Strips Strip See Rx Instructions .ROUTE .MEDSUPPLY Qty: 100 0RF Rx Instructions: As directed ([facility]) lancets [employer] [facility] See Rx Instructions .ROUTE .MEDSUPPLY Qty: 100 0RF Rx Instructions: 4 times daily (DME) needle (disp) 32 gauge 32 gauge x 5/16 needle See Rx Instructions .ROUTE .MEDSUPPLY Qty: 100 0RF Rx Instructions: As directed metformin 500 mg tablet 500 mg PO BID Qty: 60 0RF (DME) needle (disp) 31 gauge 31 gauge x 5/16 needle See Rx Instructions .Route Qty: 100 1RF Rx Instructions: As directed furosemide 40 mg tablet 20 mg PO DAILY atorvastatin 40 mg tablet 40 mg PO BEDTIME carvedilol 6.25 mg tablet 6.25 mg PO BID spironolactone 25 mg tablet 25 mg PO DAILY omeprazole 20 mg capsule,delayed release(DR/EC) 20 mg PO DAILY@0630 hydralazine 50 mg tablet 25 mg PO TID gabapentin 100 mg capsule 100 mg PO TID levalbuterol tartrate [Xopenex HFA] 45 mcg/actuation HFA aerosol inhaler 2 puff INHALATION Q6H PRN (Reason: Shortness Of Breath Or Wheezing) insulin glargine [Lantus Solostar U-100 Insulin] 100 unit/mL (3 mL) insulin pen 30 unit subcut BEDTIME multivitamin Tablet 1 tab PO DAILY ascorbic acid (vitamin C) [Vitamin C] 500 mg Tablet 500 mg PO DAILY fluticasone propionate 50 mcg/actuation spray,suspension 1 spray intranasal DAILY Rx Instructions: 1 spray into each nostril cholecalciferol (vitamin D3) [Vitamin D3] 10 mcg (400 unit) Tablet 10 mcg PO DAILY loratadine [Claritin] 10 mg Tablet 10 mg PO DAILY (DME) lancets [FreeStyle Lancets] 28 gauge misc See Rx Instructions topical QID Qty: 100 Rx Instructions: As directed Discharge Orders: Discharge Order (Routine); Ordered 09/16/22 Ordered By: Adrian Cartwright Diet: Regular diet Activity on Discharge: Use cane or walker Stand Alone Forms: Patient Portal Discharge page Activity Restrictions/Additional Instructions: * Physical Therapy for Total hip arthroplasty: wbat, posterior precautions, gait training, ROM, strength * Limit stair climbing * No showering, no tub bath-keep dressing clean, dry and intact * No driving x6 weeks * Continue lovenox once a day x 6 weeks * Follow up with [facility] in 2 weeks: * --you will also have your first out patient PT eval on the day of your post op appt-so please plan on being in the office that day for an extended period of time. Care Plan Goals: recovery Health Concerns: hip fracture Plan of Treatment: pt Assessment: see above
--- NOTE | 2022-09-16 10:42 | W.MHC.F2F ---
Service Date Service Date: 09/16/22 Encounter Date of encounter: 09/16/22 Reasons for Services Signs and symptoms assessed: recent hip surgeyr, pain on ambulation Reason for nursing home: medication management, medication treatment and teach disease management Reason for physical therapy: home safety and mobility, therapeutic exercises, restore joint function and gait/transfer training Reason for occupational therapy: home safety and mobility, therapeutic exercises and restore joint function Homebound: Leaving the home is medically contraindicated at this time without the asist of a device and/or another person due th the listed conditions above and below. Reason homebound: unsteady gait / fall risk Certification: Based on the above findings, I certify that this patient is confined to the home and needs intermittent nursing home care, physical therapy and/or speech therapy, or continues to need occupational therapy. The patient is under my care, and I have initiated the establishment of the plan of care. The patient will be followed by a physician who will periodically review the plan of care. Time Spent With Patient Time: Total time managing care of this patient today ____ minutes.
[2022-09-16] MEDS: Enoxaparin Sodium 40 MG/0.4 ML SYRINGE SUBCUT (10:56)
[2022-09-16 11:20] LABS: Glucose, Whole Blood 246 mg/dL (60-115)
--- NOTE | 2022-09-16 11:21 | PC.NURSE ---
Pt's methadone dose obtained from [facility] [facility][1] verification form Fax to pharmacy
--- NOTE | 2022-09-16 11:43 | MHC.CM.PN ---
CM MET WITH PT THIS MORNING, PT CONFIRMS HE WANTS TO DC HOME WITH [facility]. PT REPORTS HE HAS FAMILY NEARBY THAT CAN ASSIST AND ONCE HE IS IN HIS APARTMENT HE FEELS HE WILL BE FINE HE SAYS HE SPOKE TO [facility] AND HIS SISTER WILL BE GOING TO [employer] HIS DME PT WILL BE TRANSPORTED VIA [facility]
--- NOTE | 2022-09-16 12:27 | PC.NURSE ---
pt to be discharged home on Lovenox for self injections. pt reports hes comfortable with self injections as he administers his own insulin . reviewed with pt technique for subcutaneous injections , pt receptive to teaching and all questions answered
== END 2022-09-16 12:43 | disposition home health service (06) | DRG 323 ==
LOC: HO.ED 09-10 00:36 → HO.EDOVER 09-10 01:16 → HO.S3 09-10 01:33
PROVIDERS: Orthopaedic Surgery; Physician Assistant; Student in an Organized Health Care Education/Training Program; Admitting Provider Internal Medicine; Emergency Provider Emergency Medicine Emergency Medical Services; PCP Nurse Practitioner Primary Care; Visit Provider Internal Medicine
PROC: 0SRB0JA Replacement of Left Hip Joint with Synthetic Substitute, Uncemented, Open Approach (ICD-10-PCS; CPT 27130; principal; 2022-09-11 09:00)
DX: S72.002A Fracture of unspecified part of neck of left femur, initial encounter for closed fracture (principal); E11.40 Type 2 diabetes mellitus with diabetic neuropathy, unspecified; I50.22 Chronic systolic (congestive) heart failure; D62 Acute posthemorrhagic anemia; I11.0 Hypertensive heart disease with heart failure; F17.210 Nicotine dependence, cigarettes, uncomplicated; J44.9 Chronic obstructive pulmonary disease, unspecified; E11.65 Type 2 diabetes mellitus with hyperglycemia; W19.XXXA Unspecified fall, initial encounter; R33.9 Retention of urine, unspecified; Z71.6 Tobacco abuse counseling; Z88.0 Allergy status to penicillin; Z88.2 Allergy status to sulfonamides; Z79.4 Long term (current) use of insulin; Z79.51 Long term (current) use of inhaled steroids; Z79.84 Long term (current) use of oral hypoglycemic drugs; Z79.899 Other long term (current) drug therapy
CPT/HCPCS: 36415; 72170; 73502; 80048; 80053; 80307; 82947; 85025; 85027; 85610; 85730; 86850; 86900; 86901; 87635; 88305; 88311; 93005; 97110; 97116; 97162; 97166; 97530; 97535; 99285; C1758; C1776; J0690; J1170; J1200; J1650; J2405; J2795; J3010

== ENCOUNTER → 2022-09-29 15:13 | Outpatient (BNVA) | payer MEDICAID, SELFPAY ==
[2021-12-20 07:44] VITALS: BP 106/62; BP 116/74
[2022-07-12 07:42] VITALS: BMI 28.8
[2022-09-29 15:14] VITALS: BP 122/74
== END ==
PROVIDERS: PCP Nurse Practitioner Primary Care; Visit Provider Physician Assistant
DX: Z96.642 Presence of left artificial hip joint (principal); Z48.02 Encounter for removal of sutures
CPT/HCPCS: 99212

== ENCOUNTER → 2022-10-12 11:04 | Outpatient (BNVA) | payer MEDICAID, SELFPAY ==
[2021-12-20 07:44] VITALS: BP 106/62; BP 116/74
[2022-07-12 07:42] VITALS: BMI 28.8
[2022-09-29 15:14] VITALS: BP 122/74
== END ==
PROVIDERS: PCP Nurse Practitioner Primary Care; Visit Provider Orthopaedic Surgery

== ENCOUNTER → 2022-10-27 15:29 | Outpatient (BNVA) | payer MEDICAID, SELFPAY ==
[2021-12-20 07:44] VITALS: BP 106/62; BP 116/74
[2022-07-12 07:42] VITALS: BMI 28.8
[2022-09-29 15:14] VITALS: BP 122/74
== END ==
PROVIDERS: PCP Nurse Practitioner Primary Care; Visit Provider Physician Assistant
DX: Z47.1 Aftercare following joint replacement surgery (principal); Z96.642 Presence of left artificial hip joint
CPT/HCPCS: 99212

== ENCOUNTER → 2022-11-07 15:38 | Outpatient (BNVA) | payer MEDICAID, SELFPAY ==
[2021-12-20 07:44] VITALS: BP 106/62; BP 116/74
[2022-07-12 07:42] VITALS: BMI 28.8
[2022-09-29 15:14] VITALS: BP 122/74
== END ==
PROVIDERS: Visit Provider Internal Medicine Cardiovascular Disease
DX: I50.9 Heart failure, unspecified (principal)
CPT/HCPCS: 99212

== ENCOUNTER → 2022-12-07 13:54 | Outpatient (REF) | payer MEDICAID, SELFPAY ==
[2021-12-20 07:44] VITALS: BP 106/62; BP 116/74
[2022-07-12 07:42] VITALS: BMI 28.8
[2022-09-29 15:14] VITALS: BP 122/74
--- NOTE | 2022-12-07 13:56 | CA_ITS ---
Transthoracic Echocardiogram Patient (Last, First, Middle): Immanuel Turcios E Gender: Male Date of : 1965 Age: 57 Procedure Date: 12/07/2022 Procedure Type: Transthoracic Echocardiogram Location: OP Height: 182.88 cm Weight: 97.98 kg BSA: 2.20 m2 Heart Rate: 90 bpm BP: 108 / 70 mmHg Label Maker: GERONIMO Referring MD: Alirio Childress MD Upper Cutter Machine: Alirio Childress MD Symptoms: I50.9 - Heart failure, unspecified Study Quality: Adequate w contrast ECG Rhythm: Sinus Conclusions: - The left ventricular systolic function is mildly decreased. The visually estimated ejection fraction is between 45-50%. Findings Procedure Information Contrast agent, definity, is being given per protocol without apparent complications. Left Ventricle Normal left ventricular cavity size. There is mildly increased left ventricular wall thickness. The left ventricular systolic function is mildly decreased. The visually estimated ejection fraction is between 45-50%. There is mild global hypokinesis. Evidence suggests grade I (mild) diastolic dysfunction. Prior Study Comparison No significant change compared to prior study dated: 12/06/2021. Measurements 2D Linear Measurements IVSd: 1.08 0.6-0.9/0.6-1.0 cm LVIDd: 4.33 3.9-5.3/4.2-5.9 cm LVIDd Index: 1.97 2.4-3.2/2.2-3.1 cm/m2 LVIDs: 3.29 2.0-3.6 cm LVPWd: 1.14 0.7-1.1 cm LV Mass: 207.82 67-162/88-224 g LV Mass Index: 94.46 43-95/49-115 g/m2 LVOT Diam: 2.20 3.0+(-)1.3 cm 2D Systolic Function EF 4C: 61.40 >55% EF 2C: 62.50 >55% EF BiP: 61.60 >55% Mitral Valve MV Pk E: 0.57 MV PK A: 0.94 MV Decel Time: 140.00 E/A: 0.60 E'Lateral: 8.70 E'Medial: 6.74 E/E' Med: 8.50 E/E' Lat: 6.60 PHT: 41.00 MVA PHT: 5.37 Decel White: 4.06 LVOT LVOT Pk Bismark: 0.81 LVOT Mn B[place]ark: 0.59 LVOT VTI: 0.15 LVOT Pk Grad: 3.00 LVOT Mn Grad: 2.00 LVOT Diam: 2.20 LVOT Area: 3.80 Diastolic Function MV Pk E: 0.57 MV Pk A: 0.94 E/A: 0.60 E'Medial: 6.74 E/E' Med: 8.50 E' Laterial: 8.70 E/E' Lat: 6.60 Tricuspid Valve RA Press: 3.00 Updated in Other Vendor System with Status of Final Mino Back MD electronically signed on 12/10/2022 9:32:03 AM with status of Final
== END ==
LOC: HO.CARD 13:54
PROVIDERS: PCP Nurse Practitioner Primary Care; Visit Provider Internal Medicine Cardiovascular Disease
DX: I50.9 Heart failure, unspecified (principal)
CPT/HCPCS: 93308; 93356; Q9957

== ENCOUNTER → 2022-12-07 13:56 | Outpatient (BNV) | payer MEDICAID, SELFPAY ==
[2021-12-20 07:44] VITALS: BP 106/62; BP 116/74
[2022-07-12 07:42] VITALS: BMI 28.8
[2022-09-29 15:14] VITALS: BP 122/74
== END ==
PROVIDERS: PCP Nurse Practitioner Primary Care; Visit Provider Internal Medicine
DX: I51.9 Heart disease, unspecified (principal)
CPT/HCPCS: 93308

== ENCOUNTER 2022-12-08 07:47 | Outpatient (REF) | payer MEDICAID, SELFPAY ==
[2021-12-20 07:44] VITALS: BP 106/62; BP 116/74
[2022-07-12 07:42] VITALS: BMI 28.8
[2022-09-29 15:14] VITALS: BP 122/74
--- NOTE | ~2022-12-08 | XR_ITS ---
EXAMINATION: XR HIP, LEFT CLINICAL INFORMATION: Hip pain. COMPARISON: 09/11/2022. TECHNIQUE: Two views of the left hip. FINDINGS: Immediate postop changes in the left hip have resolved with interval removal of rosalinda. The left hip prosthesis is in good position. No fractures. Some minimal degenerative changes are seen on the right. XR/XR hip LT min 2V IMPRESSION: Normal-appearing left hip prosthesis.
== END 2022-12-08 07:48 | disposition home or self-care (01) ==
LOC: HO.HOSX 07:47
PROVIDERS: Visit Provider Orthopaedic Surgery
DX: M25.552 Pain in left hip (principal); Z47.1 Aftercare following joint replacement surgery; Z96.642 Presence of left artificial hip joint
CPT/HCPCS: 73502

== ENCOUNTER 2022-12-08 14:17 | Outpatient (AMB) | payer MEDICAID, SELFPAY ==
[2021-12-20 07:44] VITALS: BP 106/62; BP 116/74
[2022-07-12 07:42] VITALS: BMI 28.8
[2022-09-29 15:14] VITALS: BP 122/74
--- NOTE | 2022-12-08 14:21 | MHC.OFFVIS ---
Intake Intake Visit Reasons: p.o LT SARWAT dos 09/11/22 Intake Note: Immanuel ia a 57 year old male who presents today for a post operative appt s/p Left SARWAT 09/11/22. Patient reports that he is doing well but is still having some mild pain. Allergies canagliflozin [Invokana] Allergy (Unknown, Verified 11/07/22 15:43) Unknown cats Allergy (Unknown, Verified 11/07/22 15:43) Unknown Clindamycin HCl Allergy (Unknown, Verified 11/07/22 15:43) itch Diltiazem HCl Allergy (Unknown, Verified 11/07/22 15:43) itch hydrochlorothiazide [HYDROCHLOROTHIAZIDE] Allergy (Unknown, Verified 11/07/22 15:43) GOUT lisinopril [LISINOPRIL] Allergy (Unknown, Verified 11/07/22 15:43) TONGUE SWELLING naproxen [From NAPROSYN] Allergy (Unknown, Verified 11/07/22 15:43) NIGHTMARES penicillin V Allergy (Unknown, Verified 11/07/22 15:43) Unknown Sulfa (Sulfonamide Antibiotics) [SULFA(SULFONAMIDE ANTIBIOTICS)] Allergy (Unknown, Verified 11/07/22 15:43) UNKNOWN Taztia XT Allergy (Unknown, Uncoded 11/07/22 15:43) Unknown HPI p.o LT SARWAT dos 09/11/22 HPI Details Immanuel is a 57 year old man who presents ~3 months S/P left SARWAT. He complains of new and worsening pain in the lateral aspect of his hip, which he says was not there prior to surgery. He is seen today using a cane, which he says he does not use often. He says he continues to work with PT and doing at-home exercises. 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 [facility] Medical History Alcohol abuse Asthma Cardiomyopathy Congestive heart failure COPD (chronic obstructive pulmonary disease) Diabetes Personal history of nicotine dependence Uncontrolled diabetes mellitus Surgical History (Updated 11/07/22 @ 15:46 by IVET [place]) History of appendectomy History of cardiac cath History of esophagogastroduodenoscopy (EGD) History of left hip replacement History of shoulder surgery Family History Father Leukemia Mother Scleroderma Social History Household Members: Children Housing: Apartment Do you presently have visiting nurse or other home services: No Alcohol intake: current Alcohol intake frequency: 3 or more drinks per day Alcohol type: beer and hard liquor Patient Tobacco Use Status: Current everyday Tobacco user Tobacco use type: Cigarette Cigarette Packs Per Day: 1 Cigarettes Per Day: 20.0 Years Smoked: (onset 20yo, 3/4-1ppd x 36yrs, 30pyh) Second Hand Smoke Exposure: No service: No Current occupational status: employed Review of Systems Const All systems reviewed & are unremarkable except as noted in HPI and below Physical Exam Const General: no acute distress and alert Orientation/consciousness: patient oriented x3 Neuro General: patient oriented x3 Extrem Other: Left Hip: No groin pain with hip ROM Walking comfortably Well-healed incision Psych Appearance: grossly normal Affect: normal affect Attitude: cooperative Assessment & Plan Assessment & Plan (1) S/P total left hip arthroplasty: Code(s): Z96.642 - Presence of left artificial hip joint Plan: This is a 57 year old man S/P left SARWAT for femoral neck fracture, DOS: 09/11/22. He says he is doing well but has pain in the lateral aspect of his hip. He occasionally ambulates with an assistive cane, and he continues to work with PT. He does not feel ready to RTW at this time due to his job involving heavy lifting activities. I recommend he continue with PT. He was given a note for work to remain out of work for the next 6 weeks. He will follow up in 6 weeks to discuss his RTW status. Plan Scribed for Leeroy Denis MD by Jorge Blake, medical services coordinator, on 12/08/22 at 2:35 PM, EST. Coding Level of Care Code Global (32519) Diagnoses S/P total left hip arthroplasty Z96.642
== END 2022-12-08 15:08 | disposition home or self-care (01) ==
PROVIDERS: PCP Nurse Practitioner Primary Care; Visit Provider Orthopaedic Surgery
DX: Z96.642 Presence of left artificial hip joint (principal)
CPT/HCPCS: 99024

== ENCOUNTER 2022-12-19 15:12 | Outpatient (REF) | payer MEDICAID, SELFPAY ==
[2021-12-20 07:44] VITALS: BP 106/62; BP 116/74
[2022-07-12 07:42] VITALS: BMI 28.8
[2022-09-29 15:14] VITALS: BP 122/74
--- NOTE | ~2022-12-19 | XR_ITS ---
EXAMINATION: XR SHOULDER, RIGHT CLINICAL INFORMATION: Acute right shoulder pain. COMPARISON: None available. TECHNIQUE: AP external rotation, Grashey, scapular Y, and axillary views of the right shoulder. XR/XR shoulder RT min 2V FINDINGS/IMPRESSION: There is no acute radiographic finding. No fracture or dislocation is seen. The joint spaces appear maintained. A tiny calcification projects roughly over the expected location of the insertion of the supraspinatus tendon on the humeral head, raising the possibility of calcific tendinitis versus calcific bursitis. Mild degenerative changes of the visualized portion of the thoracic spine. Normal variant azygous fissure.
[2022-12-20 01:57] LABS: Prostate Specific Antigen 0.43 ng/mL (<0.05-4.0)
[2022-12-20 02:21] LABS: Alanine Aminotransferase 22 U/L (0-40); Albumin Level 4.5 g/dL (3.5-5.0); Alkaline Phosphatase 109 U/L (39-117); Anion Gap 15 (12-20); Aspartate Amino Transferase 18 U/L (5-37); Bilirubin Total 0.5 mg/dL (0.0-1.0); Blood Urea Nitrogen 17 mg/dL (9-16); Calcium 9.3 mg/dL (8.4-10.2); Carbon Dioxide 27 mmol/L (22-29); Chloride 101 mmol/L (96-108); Cholesterol 146 mg/dL; Estimated Glomerular Filt Rate > 60; Glucose Random 176 mg/dL (60-115); HDL Cholesterol 36 mg/dL; LDL Cholesterol Calculated 44 mg/dl; Potassium 4.4 mmol/L (3.3-5.1); Sodium 139 mmol/L (135-145); Total Protein 7.2 g/dL (6.5-8.0); Triglycerides 334 mg/dL
[2022-12-20 02:35] LABS: Creatinine Urine 32.98 mg/dL; Microalbum/Creatinine Ratio Ur 72.7 ug/mg cr
== END 2022-12-19 15:13 | disposition home or self-care (01) ==
LOC: HO.HHCL 15:12
PROVIDERS: PCP Nurse Practitioner Primary Care; Visit Provider Nurse Practitioner Primary Care
DX: Z12.5 Encounter for screening for malignant neoplasm of prostate (principal); M25.511 Pain in right shoulder; E11.65 Type 2 diabetes mellitus with hyperglycemia; R35.0 Frequency of micturition
CPT/HCPCS: 36415; 73030; 80053; 80061; 82043; 84153

== ENCOUNTER 2023-01-17 15:00 | Outpatient (RCR) | payer MEDICAID, SELFPAY ==
[2021-12-20 07:44] VITALS: BP 106/62; BP 116/74
[2022-07-12 07:42] VITALS: BMI 28.8
[2022-09-29 15:14] VITALS: BP 122/74
--- NOTE | 2023-02-03 07:49 | MHC.PT.DC ---
[facility] [place] Office [place] Office [place] Office [address] Haseeb Iverson [address] [phone] F: [phone] F: [phone] F: [phone] F: [phone] Physical Therapy Discharge Report Diagnosis: S/P LEFT SARWAT (KP) Date of Surgery: 09/12/11 Date of Evaluation: 11/01/22 Date of Discharge: 01/19/23 Treatments to Date: 13 Cancellations to Date: 0 No Shows to Date: 0 Discharge Status: Achieved Goals Improved Function Independent with HEP Discharge Summary: Pt independent w/HEP. Pt kavitha 8 step w/single UE support 2 x 10 rps LEFS improved significantly Electronically signed by: Keyonna Figueroa PT DPT Please sign and return to therapist. Thank you for your referral.
== END 2023-02-03 07:46 | disposition home or self-care (01) ==
LOC: HO.PT 15:00
PROVIDERS: PCP Nurse Practitioner Primary Care; Visit Provider Physician Assistant
DX: Z96.642 Presence of left artificial hip joint (principal)
CPT/HCPCS: 97110; 97161; 97530

== ENCOUNTER 2023-01-19 14:37 | Outpatient (AMB) | payer MEDICAID, SELFPAY ==
[2021-12-20 07:44] VITALS: BP 106/62; BP 116/74
[2022-07-12 07:42] VITALS: BMI 28.8
[2022-09-29 15:14] VITALS: BP 122/74
--- NOTE | 2023-01-19 15:00 | A.OFFVIS_ITS ---
Intake Intake Visit Reasons: ov- LT SARWAT dos 09/11/22 Intake Note: Immanuel rios a 57 year old male who presents today for a post operative appt s/p Left SARWAT 09/11/22. Patient reports that he is doing well , some days are good and some are bad. He has some mild stiffness in the morning. He would like his FMLA extended from 01/20 to 01/26 Allergies canagliflozin [Invokana] Allergy (Unknown, Verified 01/19/23 15:03) Unknown cats Allergy (Unknown, Verified 01/19/23 15:03) Unknown Clindamycin HCl Allergy (Unknown, Verified 01/19/23 15:03) itch Diltiazem HCl Allergy (Unknown, Verified 01/19/23 15:03) itch hydrochlorothiazide [HYDROCHLOROTHIAZIDE] Allergy (Unknown, Verified 01/19/23 15:03) GOUT lisinopril [LISINOPRIL] Allergy (Unknown, Verified 01/19/23 15:03) TONGUE SWELLING naproxen [From NAPROSYN] Allergy (Unknown, Verified 01/19/23 15:03) NIGHTMARES penicillin V Allergy (Unknown, Verified 01/19/23 15:03) Unknown Sulfa (Sulfonamide Antibiotics) [SULFA(SULFONAMIDE ANTIBIOTICS)] Allergy (Unknown, Verified 01/19/23 15:03) UNKNOWN Taztia XT Allergy (Unknown, Uncoded 01/19/23 15:03) Unknown HPI ov- LT SARWAT dos 09/11/22 HPI Details 4 months s/p left SARWAT for femoral neck f racture. He has some pain laterally but minimal and almost ready to return to work Still walks with a limp. [facility] Medical History Personal history of nicotine dependence Uncontrolled diabetes mellitus Cardiomyopathy Alcohol abuse Congestive heart failure Diabetes Asthma COPD (chronic obstructive pulmonary disease) Surgical History (Updated 11/07/22 @ 15:46 by IVET [place]) History of left hip replacement History of esophagogastroduodenoscopy (EGD) History of appendectomy History of shoulder surgery History of cardiac cath Family History Father Leukemia Mother Scleroderma Social History Household Members: Children Housing: Apartment Do you presently have visiting nurse or other home services: No Alcohol intake: current Alcohol intake frequency: 3 or more drinks per day Alcohol type: beer and hard liquor Patient Tobacco Use Status: Current everyday Tobacco user Tobacco use type: Cigarette Cigarette Packs Per Day: 1 Cigarettes Per Day: 20.0 Years Smoked: (onset 20yo, 3/4-1ppd x 36yrs, 30pyh) Second Hand Smoke Exposure: No service: No Current occupational status: employed Physical Exam Extrem Other: Trendelenberg gait improved from prior No yolanda nwith ROM limited IR on exam Inc c/d/i Assessment & Plan Assessment & Plan (1) S/P total left hip arthroplasty: Code(s): Z96.642 - Presence of left artificial hip joint Plan: s/p left SARWAT for femoral neck fracture Doing well. May return to work gradually over next 4 weeks Coding Level of Care Code Est Pt Level 3 (82582) Diagnoses S/P total left hip arthroplasty Z96.642
== END 2023-01-19 15:26 | disposition home or self-care (01) ==
PROVIDERS: PCP Nurse Practitioner Primary Care; Visit Provider Orthopaedic Surgery
DX: Z47.1 Aftercare following joint replacement surgery (principal); Z96.642 Presence of left artificial hip joint
CPT/HCPCS: 99213

== ENCOUNTER → 2023-01-19 14:37 | Outpatient (BNVA) | payer MEDICAID, SELFPAY ==
[2021-12-20 07:44] VITALS: BP 106/62; BP 116/74
[2022-07-12 07:42] VITALS: BMI 28.8
[2022-09-29 15:14] VITALS: BP 122/74
== END ==
PROVIDERS: PCP Nurse Practitioner Primary Care; Visit Provider Orthopaedic Surgery
DX: S72.002D Fracture of unspecified part of neck of left femur, subsequent encounter for closed fracture with routine healing (principal); Z96.642 Presence of left artificial hip joint
CPT/HCPCS: 99212

== ENCOUNTER 2023-02-08 12:59 | Outpatient (AMB) | payer MEDICAID, SELFPAY ==
[2021-12-20 07:44] VITALS: BP 106/62; BP 116/74
[2022-07-12 07:42] VITALS: BMI 28.8
[2022-09-29 15:14] VITALS: BP 122/74
--- NOTE | 2023-02-08 13:11 | A.OFFVIS_ITS ---
Intake Vital Signs 02/08/23 13:12 02/08/23 13:12 Height 5 ft 11 in 5 ft 11 in Weight 233 lb 11.04 oz BMI 32.6 BP 134/82 Blood Pressure Location Lt brachial Position Sitting Pulse 94 Intake Visit Reasons: 3month f/u after echo Intake Note: 3 month follow-up after echo feeling good [employer] Attacher Required: No Allergies canagliflozin [Invokana] Allergy (Unknown, Verified 01/19/23 15:03) Unknown cats Allergy (Unknown, Verified 01/19/23 15:03) Unknown Clindamycin HCl Allergy (Unknown, Verified 01/19/23 15:03) itch Diltiazem HCl Allergy (Unknown, Verified 01/19/23 15:03) itch hydrochlorothiazide [HYDROCHLOROTHIAZIDE] Allergy (Unknown, Verified 01/19/23 15:03) GOUT lisinopril [LISINOPRIL] Allergy (Unknown, Verified 01/19/23 15:03) TONGUE SWELLING naproxen [From NAPROSYN] Allergy (Unknown, Verified 01/19/23 15:03) NIGHTMARES penicillin V Allergy (Unknown, Verified 01/19/23 15:03) Unknown Sulfa (Sulfonamide Antibiotics) [SULFA(SULFONAMIDE ANTIBIOTICS)] Allergy (Unknown, Verified 01/19/23 15:03) UNKNOWN Taztia XT Allergy (Unknown, Uncoded 01/19/23 15:03) Unknown Medication List - Last Reconciled 02/08/23 by Alirio Childress MD acetaminophen 650 mg (2 x 325 mg) PO Q6H PRN 30 days ascorbic acid (vitamin C) (Vitamin C) 500 mg PO DAILY atorvastatin 40 mg PO BEDTIME blood sugar diagnostic (FreeStyle Lite Strips) As directed blood-glucose meter (FreeStyle Lite Meter kit) As directed carvedilol 12.5 mg PO BID cholecalciferol (vitamin D3) (Vitamin D3) 10 mcg PO DAILY fluticasone propionate 50 mcg/actuation 1 spray intranasal DAILY furosemide 20 mg PO DAILY gabapentin 100 mg PO TID hydralazine 50 mg See Protocol PO BID insulin glargine (Lantus Solostar U-100 Insulin) 30 units subcut BEDTIME isosorbide mononitrate ER 30 mg See Protocol PO BID lancets 4 times daily lancets (FreeStyle Lancets) As directed levalbuterol tartrate 45 mcg/actuation (Xopenex HFA) 2 puffs inhalation Q6H PRN loratadine (Claritin) 10 mg PO DAILY metformin 500 mg PO BID multivitamin 1 tab PO DAILY needle (disp) 31 gauge As directed needle (disp) 32 gauge As directed omeprazole 20 mg PO DAILY@0630 [Raised toliet seat As directed] [Shower chair As directed] spironolactone 25 mg PO DAILY walker Folding front wheeled walker HPI HPI Comments History of Present Illness Details 57-year-old gentleman with 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 His ejection fraction previously was 30-35%. He has an allergy to Rafael inhibitor and unable to take Entresto or ARB. Was started on hydralazine isosorbide combination. Repeat echocardiography last year showed ejection fraction 45-50%. Clinically has improved significantly. 11/07/22: He is here for follow-up. In 2022 unfortunately had a mechanical fall and broke his left hip. He is status post hemiarthroplasty at this stage. He is undergoing physiotherapy. He continues to smoke and is smoking 1 pack per day. He is saying he is otherwise doing well. Taking medications regularly. No dyspnea or chest pains. 02/08/23: Here for f/u. Doing well. Denluis rosario CP or SOB. No orthopnea. PENDING SALE TO [facility] Medical History Personal history of nicotine dependence Uncontrolled diabetes mellitus Cardiomyopathy Alcohol abuse Congestive heart failure Diabetes Asthma COPD (chronic obstructive pulmonary disease) Surgical History (Updated 11/07/22 @ 15:46 by IVET [place]) History of left hip replacement History of esophagogastroduodenoscopy (EGD) History of appendectomy History of shoulder surgery History of cardiac cath Family History Father Leukemia Mother Scleroderma Social History Household Members: Children Housing: Apartment Do you presently have visiting nurse or other home services: No Alcohol intake: current Alcohol intake frequency: 3 or more drinks per day Alcohol type: beer and hard liquor Patient Tobacco Use Status: Current everyday Tobacco user Tobacco use type: Cigarette Cigarette Packs Per Day: 1 Cigarettes Per Day: 20.0 Years Smoked: (onset 20yo, 3/4-1ppd x 36yrs, 30pyh) Second Hand Smoke Exposure: No service: No Current occupational status: employed Review of Systems Const Denies chills, Denies fatigue, Denies fever(s), Denies frequent falls, Denies weakness, Denies weight gain and Denies weight loss ENT Denies dizziness Card Denies chest pain, Denies leg edema, Denies lightheadedness, Denies palpitations, Denies dyspnea, Denies dyspnea on exertion, Denies orthopnea and Denies other (loss of consciousness) Resp Denies cough, Denies dyspnea and Denies dyspnea on exertion GI Denies hematochezia and Denies change in stool character Musc Denies abnormal gait, Denies muscle weakness, Denies numbness, Denies radiating pain into limb and Denies tingling Neuro Denies abnormal gait, Denies dizziness, Denies frequent falls, Denies numbness, Denies tingling and Denies weakness Endo Denies fatigue and Denies palpitations Physical Exam Vital Signs: Last Vital Signs Pulse 94 02/08/23 13:12 BP 134/82 02/08/23 13:12 BMI result Body Mass Index 32.6 GENERAL APPEARANCE: in no acute distress, pleasant. NECK: no carotid bruit, no jugular venous distention. SKIN: no suspicious lesions, warm and dry. HEART: no murmurs, regular rate and rhythm. LUNGS: clear to auscultation bilaterally. ABDOMEN: soft, nontender. EXTREMITIES: no edema. PERIPHERAL PULSES: equal. NEUROLOGIC: No gross deficits, AAO X 3 Assessment & Plan Assessment & Plan (1) Chronic heart failure: Code(s): I50.9 - Heart failure, unspecified Plan 57 male with chronic heart failure. Eurvolemic and asymptomatic. Continue the same meds. f/u in 6 months. Coding Level of Care Code Est Pt Level 3 (27642) Diagnoses Chronic heart failure I50.9
[2023-02-08 13:12] VITALS: BP 134/82; PULSE 94; BMI 32.6
== END 2023-02-08 13:51 | disposition home or self-care (01) ==
PROVIDERS: PCP Nurse Practitioner Primary Care; Visit Provider Internal Medicine Cardiovascular Disease
DX: I50.9 Heart failure, unspecified (principal)
CPT/HCPCS: 99213

== ENCOUNTER → 2023-02-08 12:59 | Outpatient (BNVA) | payer MEDICAID, SELFPAY ==
[2021-12-20 07:44] VITALS: BP 106/62; BP 116/74
[2022-07-12 07:42] VITALS: BMI 28.8
[2022-09-29 15:14] VITALS: BP 122/74
== END ==
PROVIDERS: PCP Nurse Practitioner Primary Care; Visit Provider Internal Medicine Cardiovascular Disease
DX: I50.9 Heart failure, unspecified (principal); I42.8 Other cardiomyopathies
CPT/HCPCS: 99212

== ENCOUNTER 2023-09-11 13:44 | Outpatient (AMB) | payer MEDICAID, SELFPAY ==
[2021-12-20 07:44] VITALS: BP 106/62; BP 116/74
[2022-07-12 07:42] VITALS: BMI 28.8
[2022-09-29 15:14] VITALS: BP 122/74
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
== END 2023-09-11 14:00 | disposition home or self-care (01) ==
PROVIDERS: PCP Nurse Practitioner Primary Care; Visit Provider Orthopaedic Surgery
DX: M67.911 Unspecified disorder of synovium and tendon, right shoulder (principal)
CPT/HCPCS: 20610; 99214

== ENCOUNTER → 2023-09-11 13:44 | Outpatient (BNVA) | payer MEDICAID, SELFPAY ==
[2021-12-20 07:44] VITALS: BP 106/62; BP 116/74
[2022-07-12 07:42] VITALS: BMI 28.8
[2022-09-29 15:14] VITALS: BP 122/74
== END ==
PROVIDERS: PCP Nurse Practitioner Primary Care; Visit Provider Orthopaedic Surgery
DX: M67.911 Unspecified disorder of synovium and tendon, right shoulder (principal)
CPT/HCPCS: 20610; 99212; J0665; J1100

== ENCOUNTER 2023-09-26 16:38 | Emergency (ER) | payer MEDICAID, SELFPAY ==
[2021-12-20 07:44] VITALS: BP 106/62; BP 116/74
[2022-07-12 07:42] VITALS: BMI 28.8
[2022-09-29 15:14] VITALS: BP 122/74
--- NOTE | ~2023-09-26 | XR_ITS ---
EXAMINATION: XR LUMBAR SPINE CLINICAL INFORMATION: Reason for Exam atraumatic L low back pain COMPARISON: None TECHNIQUE: Frontal lateral and coned-down L5-S1 frontal lateral, total of 3 views FINDINGS: Five [id number] lumbar vertebrae were identified maintaining normal height and alignments. Narrowing of intervertebral disc spaces suggest underlying degenerative disc disease. Heavy vascular calcification of the aorta. Paravertebral soft tissues are unremarkable. There are radiolucencies, most likely superimposed bowel gas.. No radiographic evidence of osteolytic or osteoblastic lesions. XR/XR lumbar spine 2-3V IMPRESSION: No fracture. Narrowing of intervertebral disc spaces suggest underlying degenerative disc disease. . Heavy vascular calcification.
--- NOTE | ~2023-09-26 | XR_ITS ---
EXAMINATION: XR HIP, LEFT , AP pelvis CLINICAL INFORMATION: Post replacement COMPARISON: None available at the time of this dictation. TECHNIQUE: Frontal and lateral views of the hip acquired. , AP pelvis FINDINGS: Total hip replacement prosthesis in place properly positioned. Radiolucency developing around the acetabular component of the device raising concern for possible bone resorption. Bone alignments maintained. No radiographic evidence of device failure. Adjacent pubic rami and iliac bone are intact. Degenerative osteoarthritic changes of symphysis pubis. XR/XR hip LT w PEL1V IMPRESSION: 1. Total hip replacement prosthesis in place properly positioned. 2. Radiolucency developing around the acetabular component of the device raising concern for possible bone resorption consider correlation with follow-up bone scan or CT scan for further investigation..
[2023-09-26 16:53] VITALS: BP 153/93; PULSE 93; RESP 16; TEMP 36.6; O2SAT 98; BMI 34.9
--- NOTE | 2023-09-26 16:53 | ED_ITS ---
HPI - Back Pain/Injury General Chief Complaint: Back Pain/Injury Stated Complaint: Back injury Time Seen by Provider: 09/26/23 18:56 Source: patient and RN notes reviewed Mode of arrival: ambulatory Limitations: no limitations History of Present Illness ED Provider: Dilcia Armando PA-C HPI Narrative: This is a 58-year-old male, diabetes mellitus, diabetic neuropathy, hypertension cardiomegaly, left SARWAT, and CHF, who presents emergency department with complaints of back pain since yesterday. Patient states that he was moving a radiator in his home yesterday when suddenly he felt pain in his back. He states that the pain has increased in severity over the last day. He states that he took Tylenol for his symptoms which has provided him without any relief. He denies any saddle anesthesia, urinary or bowel retention or incontinence. States that the pain worsens with movement. He denies any pain radiating into his legs. He states that the pain stays in his back. He denies any fevers, chills, chest pain, shortness of breath, abdominal pain, nausea, vomiting or diarrhea. No urinary symptoms. No other complaints or concerns at this time. MD elicited complaint: back pain and back injury Pertinent past history: prior back pain Onset (ago): day(s) Timing: constant Severity: moderate Quality: aching Location: lumbar spine Radiation: none Exacerbating factors: movement Relieving factors: immobilization Context: while lifting Associated symptoms: denies other symptoms Work related injury: No Related Data Home Medications ?Medication ?Instructions ?Recorded ?Confirmed lancets 28 gauge (FreeStyle #100 ea 05/26/21 11/07/22 Lancets) ascorbic acid (vitamin C) 500 mg 500 mg PO DAILY 09/10/22 02/08/23 tablet (Vitamin C) atorvastatin 40 mg tablet 40 mg PO BEDTIME 09/10/22 02/08/23 cholecalciferol (vitamin D3) 10 10 mcg PO DAILY 09/10/22 02/08/23 mcg (400 unit) tablet (Vitamin D3) fluticasone propionate 50 1 spray intranasal DAILY 09/10/22 02/08/23 mcg/actuation nasal spray,suspension gabapentin 100 mg capsule 100 mg PO TID 09/10/22 02/08/23 insulin glargine 100 unit/mL (3 30 unit subcut BEDTIME 09/10/22 02/08/23 mL) subcutaneous pen (Lantus Solostar U-100 Insulin) levalbuterol tartrate 45 2 puff inhalation Q6H PRN 09/10/22 02/08/23 mcg/actuation aerosol inhaler Shortness Of Breath Or Wheezing (Xopenex HFA) loratadine 10 mg tablet (Claritin) 10 mg PO DAILY 09/10/22 02/08/23 multivitamin 1 tab PO DAILY 09/10/22 02/08/23 omeprazole 20 mg capsule,delayed 20 mg PO DAILY@0630 09/10/22 02/08/23 release Previous Rx's ?Medication ?Instructions ?Recorded blood sugar diagnostic (FreeStyle #100 ea 03/30/21 Lite Strips) blood-glucose meter (FreeStyle #1 ea 03/30/21 Lite Meter kit) lancets #100 ea 03/30/21 metformin 500 mg tablet 500 mg PO BID #60 tabs 03/30/21 needle (disp) 32 gauge 32 gauge x #100 ea 03/30/2109/20 needle (disp) 31 gauge 31 gauge x #100 ea 03/31/21 5 acetaminophen 325 mg tablet 650 mg (2 x 325 mg) PO Q6H PRN 09/13/22 Pain, Mild (Pain Scale 1-3) 30 days #240 tabs Raised toliet seat #1 ea 09/15/22 walker #1 ea 09/15/22 isosorbide mononitrate 30 mg 30 mg PO BID #60 tabs 09/16/22 tablet,extended release 24 hr Shower chair #1 ea 09/21/22 furosemide 20 mg tablet 20 mg PO DAILY #90 tabs 02/22/23 carvedilol 12.5 mg tablet 12.5 mg PO BID #120 tabs 06/16/23 hydralazine 50 mg tablet 50 mg PO BID #60 tabs 09/25/23 spironolactone 25 mg tablet 25 mg PO DAILY #90 tabs 09/25/23 acetaminophen 500 mg tablet 500 mg PO Q6H PRN pain #30 tabs 09/26/23 (Tylenol Extra Strength) lidocaine 5 % topical patch 1 patch topical DAILY #30 ea 09/26/23 (Lidoderm) oxycodone 5 mg tablet 5 mg PO Q6H PRN pain #7 tabs 09/26/23 Allergies Allergy/AdvReac Type Severity Reaction Status Date / Time canagliflozin [Invokana] Allergy Unknown Unknown Verified 09/26/23 16:56 cats Allergy Unknown Unknown Verified 09/26/23 16:56 Clindamycin HCl Allergy Unknown itch Verified 09/26/23 16:56 Diltiazem HCl Allergy Unknown itch Verified 09/26/23 16:56 hydrochlorothiazide Allergy Unknown GOUT Verified 09/26/23 16:56 [HYDROCHLOROTHIAZIDE] lisinopril [LISINOPRIL] Allergy Unknown TONGUE Verified 09/26/23 16:56 SWELLING naproxen [From NAPROSYN] Allergy Unknown NIGHTMARES Verified 09/26/23 16:56 penicillin V Allergy Unknown Unknown Verified 09/26/23 16:56 Sulfa (Sulfonamide Allergy Unknown UNKNOWN Verified 09/26/23 16:56 Antibiotics) [SULFA(SULFONAMIDE ANTIBIOTICS)] Taztia XT Allergy Unknown Unknown Uncoded 01/19/23 15:03 Review of Systems Review of Systems: Yes all other systems are reviewed and are negative Constitutional: Constitutional: Reports as per [facility] Past Medical History Attestation statement: The following information was validated with the patient. Medical History Personal history of nicotine dependence Uncontrolled diabetes mellitus Cardiomyopathy Alcohol abuse Congestive heart failure Diabetes Asthma COPD (chronic obstructive pulmonary disease) Surgical History History of left hip replacement History of esophagogastroduodenoscopy (EGD) History of appendectomy History of shoulder surgery History of cardiac cath Family History Family History Father Leukemia Mother Scleroderma Social History Social History Household Members: Children Housing: Apartment Do you presently have visiting nurse or other home services: No Alcohol intake: current Alcohol intake frequency: 3 or more drinks per day Alcohol type: beer and hard liquor Patient Tobacco Use Status: Current everyday Tobacco user Tobacco use type: Cigarette Cigarette Packs Per Day: 1 Cigarettes Per Day: 20.0 Years Smoked: (onset 20yo, 3/4-1ppd x 36yrs, 30pyh) Second Hand Smoke Exposure: No Advance Directives: No Advance Directives Information Provided: No service: No Current occupational status: employed Physical Exam Vital Signs: Vital Signs: Last Vital Signs Temp 98.2 F 09/26/23 20:35 Pulse 91 09/26/23 20:35 Resp 18 09/26/23 20:35 BP 155/91 H 09/26/23 20:35 Pulse Ox 96 09/26/23 20:35 O2 Del Method Room Air 09/26/23 20:35 BMI result Body Mass Index 34.9 Const: General: cooperative, comfortable and no acute distress Orientation/consciousness: patient oriented x3 Limitations: no limitations HEENT: Head: Yes normal to inspection, Yes normocephalic and Yes atraumatic Ears: hearing grossly normal bilaterally General nose exam: Normal external nose present Face and sinus: Yes normal facial exam Mouth: Normal oral and palatal mucosa present, oropharynx normal and moist mucous membranes Throat: Yes posterior oropharynx normal Eyes: General: appearance normal, both eyes and all related structures Eyelids: Yes eyelids normal Conjunctivae: conjunctivae normal Sclerae: sclerae normal Pupils: Equal, round and reactive pupils present EOM: EOMs intact bilaterally Neck: Neck: Yes normal visual inspection, Yes full ROM and Yes no lymphadenopathy Lymphatic: no lymphadenopathy noted Chest: Chest palpation & inspection: normal inspection of the chest Resp: Effort & Inspection: normal respiratory effort and able to speak in complete sentences Auscultation: clear to auscultation bilaterally, no crackles, no rales, no rhonchi and no wheezes Cardio: Rate: regular rate Rhythm: regular rhythm Heart sounds: S1 normal heart sound present and S2 normal heart sound present GI: Inspection: Yes normal to inspection : General: Yes no CVA tenderness Back/Spine/Pelvis: Other: Tenderness palpation along the lumbar paraspinous muscles, no midline spine tenderness, no tenderness along the posterior hip. Back: no CVA tenderness Cervical Spine: normal cervical lordosis Thoracic/Lumbar Spine: thoracic and lumbar spine normal to inspection Skin: General skin exam: no rashes or lesions noted Trauma: no lacerations or abrasions Wounds: no wounds Neuro: General: patient oriented x3 and moves all extremities Cranial nerves: Yes Equal, round and reactive pupils present Extrem: General: Yes normal to inspection Right upper extremity: normal to inspection Left upper extremity: normal to inspection Right lower extremity: normal to inspection Left lower extremity: normal to inspection Course Course Course Narrative: This is a Rapid Medical Examination (RME) performed by Sofie Cobb PA-C in triage. Full HPI, ROS, assessment and treatment plan per primary provider in the Main ED. 58 yo male hx of CHF, DM, asthma, COPD, cardiomyopathy here w/ lower left back pain which began while attempting to move a cast iron radiator last night. no trauma. s/p left hip replacement 1 yr ago. no hx spinal surgery. no IVDU. Denies saddle anesthesia, bowel or bladder incontinence or retention, numbness/tingling/weakness of the lower extremity. ambulating with cane. No midline spinous tenderness or step off deformity. No paraspinal muscle tenderness. Plan: imaging Medical Decision Making Medical Decision Making [facility] Narrative: This is a 58-year-old male, with a past medical history of diabetes mellitus, diabetic neuropathy, hypertension cardiomegaly, and CHF, who presents emergency department with complaints of back pain since yesterday. On arrival, patient mildly hypertensive at 153/93, all other vital signs within normal limits. Patient is ambulatory with steady gait. He is tenderness palpation along the lumbar paraspinous muscles, no bony tenderness.This patient presents with back pain most consistent with lumbar strain. Differential diagnoses includes lumbago versus musculoskeletal spasm / strain versus sciatica. No back pain red flags on history or physical. Presentation not consistent with malignancy (lack of history of malignancy, lack of B symptoms), fracture (no trauma, no bony tenderness to palpation), cauda equina syndrome (no bowel or urinary incontinence/retention, no saddle anesthesia, no distal weakness), pyelonephritis (afebrile, no CVAT, no urinary symptoms). X-rays were obtained which revealed no fracture, there are evidence suggesting degenerative disc disease as well as heavy vascular calcification. The hip and pelvis x-ray reveals radiolucency developing around the acetabular component of the device raising concern for possible bone resorption. He discussed this finding with patient and advised patient to follow-up with primary care physician as he may need bone density scan and further evaluation of this. He understands and agrees with this plan. Will treat with Lidoderm patches, Tylenol, and oxycodone. Given return precautions. He understands and agrees with plan. Patient stable for discharge. Differential Diagnosis Differential Diagnoses: The differential diagnosis associated with the presentation includes See above Radiology Impression Discussion of test interpretation with radiology: I have reviewed the radiologist's reading. Radiologist Impression: EXAMINATION: XR HIP, LEFT , AP pelvis CLINICAL INFORMATION: Post replacement COMPARISON: None available at the time of this dictation. TECHNIQUE: Frontal and lateral views of the hip acquired. , AP pelvis FINDINGS: Total hip replacement prosthesis in place properly positioned. Radiolucency developing around the acetabular component of the device raising concern for possible bone resorption. Bone alignments maintained. No radiographic evidence of device failure. Adjacent pubic rami and iliac bone are intact. Degenerative osteoarthritic changes of symphysis pubis. XR/XR hip LT w PEL1V IMPRESSION: 1. Total hip replacement prosthesis in place properly positioned. 2. Radiolucency developing around the acetabular component of the device raising concern for possible bone resorption consider correlation with follow-up bone scan or CT scan for further investigation.. Dictated By: Kiko Lund MD XR/XR lumbar spine 2-3V IMPRESSION: No fracture. Narrowing of intervertebral disc spaces suggest underlying degenerative disc disease. . Heavy vascular calcification. Dictated By: Kiko Lund MD Discharge Plan Discharge Clinical Impression: Back pain Patient Disposition: Home, Self-Care Instructions: Back Pain (ED) Additional Instructions: You were seen in the emergency department due to back pain after moving a large radiator. Your x-ray of your back in your hip do not show any new injury. Your hip x-ray reveals abnormalities around your left hip replacement, please follow-up with your primary care physician as you may need a bone density scan or CT scan for further investigation. Call your primary care physician regarding this finding. Please rest, gentle massage, and stretching can also help with your symptoms. Take ibuprofen or Tylenol as needed for pain. You may also take oxycodone as needed for severe pain only. Please be advised that this can cause drowsiness, do not drink alcohol or drive while taking this medication. Please be advised that this medication is addictive, you can not return for any medication refills of this, and disposed of any additional tablets that you may have left over. If any new or worsening symptoms occur including but not limited to chest pain, shortness of breath, severe headache, dizziness, urinary or bowel incontinence or retention, please return for re-evaluation. Prescriptions: New oxycodone 5 mg tablet 5 mg PO Q6H PRN (Reason: pain) Qty: 7 0RF Rx Instructions: Partial Fill upon patient request. lidocaine [Lidoderm] 5 % adhesive patch,medicated 1 patch topical DAILY Qty: 30 0RF Rx Instructions: leave on most painful area for up to 12 hrs acetaminophen [Tylenol Extra Strength] 500 mg tablet 500 mg PO Q6H PRN (Reason: pain) Qty: 30 0RF No Action (DME) walker Misc See Rx Instructions .ROUTE .MEDSUPPLY Qty: 1 0RF Rx Instructions: Folding front wheeled walker (DME) Raised toliet seat See Rx Instructions .ROUTE .MEDSUPPLY Qty: 1 0RF Rx Instructions: As directed (DME) Shower chair See Rx Instructions .ROUTE .MEDSUPPLY Qty: 1 0RF Rx Instructions: As directed furosemide 20 mg tablet 20 mg PO DAILY Qty: 90 3RF carvedilol 12.5 mg tablet 12.5 mg PO BID Qty: 120 3RF Rx Instructions: must administer with a meal/food hydralazine 50 mg tablet 50 mg PO BID Qty: 60 3RF spironolactone 25 mg tablet 25 mg PO DAILY Qty: 90 1RF (DME) blood-glucose meter [FreeStyle Lite Meter] Kit See Rx Instructions .ROUTE .MEDSUPPLY Qty: 1 0RF Rx Instructions: As directed (DME) FreeStyle Lite Strips Strip See Rx Instructions .ROUTE .MEDSUPPLY Qty: 100 0RF Rx Instructions: As directed (DME) lancets Misc See Rx Instructions .ROUTE .MEDSUPPLY Qty: 100 0RF Rx Instructions: 4 times daily (DME) needle (disp) 32 gauge 32 gauge x 5/16 needle See Rx Instructions .ROUTE .MEDSUPPLY Qty: 100 0RF Rx Instructions: As directed metformin 500 mg tablet 500 mg PO BID Qty: 60 0RF (DME) needle (disp) 31 gauge 31 gauge x 5/16 needle See Rx Instructions .Route Qty: 100 1RF Rx Instructions: As directed atorvastatin 40 mg tablet 40 mg PO BEDTIME omeprazole 20 mg capsule,delayed release(DR/EC) 20 mg PO DAILY@0630 gabapentin 100 mg capsule 100 mg PO TID levalbuterol tartrate [Xopenex HFA] 45 mcg/actuation HFA aerosol inhaler 2 puff INHALATION Q6H PRN (Reason: Shortness Of Breath Or Wheezing) insulin glargine [Lantus Solostar U-100 Insulin] 100 unit/mL (3 mL) insulin pen 30 unit subcut BEDTIME multivitamin Tablet 1 tab PO DAILY ascorbic acid (vitamin C) [Vitamin C] 500 mg Tablet 500 mg PO DAILY fluticasone propionate 50 mcg/actuation spray,suspension 1 spray intranasal DAILY Rx Instructions: 1 spray into each nostril cholecalciferol (vitamin D3) [Vitamin D3] 10 mcg (400 unit) Tablet 10 mcg PO DAILY loratadine [Claritin] 10 mg Tablet 10 mg PO DAILY acetaminophen 325 mg Tablet 650 mg PO Q6H PRN (Reason: Pain, Mild (Pain Scale 1-3)) 30 Days Qty: 240 0RF isosorbide mononitrate 30 mg Tablet Extended Release 24 Hr 30 mg PO BID Qty: 60 0RF Protocol: Hold for SBP< HOLD for SBP < : 90 (DME) lancets [FreeStyle Lancets] 28 gauge misc See Rx Instructions topical QID Qty: 100 Rx Instructions: As directed Interventions: ED Discharge Assessment Last Done: 09/26/23 20:35 Discharge Date/Time: 09/26/23 20:40 Print Language: Montenegrin
[2023-09-26 19:42] VITALS: BP 130/84; PULSE 87; RESP 16; TEMP 36.2; O2SAT 98
[2023-09-26 20:35] VITALS: BP 155/91; PULSE 91; RESP 18; TEMP 36.8; O2SAT 96
== END 2023-09-26 20:40 | disposition home or self-care (01) ==
PROVIDERS: Emergency Provider Emergency Medicine; PCP Nurse Practitioner Primary Care
DX: M54.9 Dorsalgia, unspecified (principal); I11.0 Hypertensive heart disease with heart failure; I50.9 Heart failure, unspecified; E11.8 Type 2 diabetes mellitus with unspecified complications; Z96.642 Presence of left artificial hip joint
CPT/HCPCS: 72100; 73502; 99282; 99283

== ENCOUNTER 2023-10-04 14:50 | Outpatient (AMB) | payer MEDICAID, SELFPAY ==
[2021-12-20 07:44] VITALS: BP 106/62; BP 116/74
[2022-07-12 07:42] VITALS: BMI 28.8
[2022-09-29 15:14] VITALS: BP 122/74
[2023-10-04 14:53] VITALS: BP 140/82; PULSE 92; BMI 32.9
--- NOTE | 2023-10-04 14:53 | A.OFFVIS_ITS ---
Vital Signs 10/04/23 14:53 Height 5 ft 11 in Weight 235 lb 14.314 oz BMI 32.9 BP 140/82 H Blood Pressure Location Lt brachial Position Sitting Pulse 92 Intake Visit Reasons: 6 mth f/up Clinical Research Coordinator Required: No Accompanied by: Self / Same As Patient Allergies canagliflozin [Invokana] Allergy (Unknown, Verified 09/26/23 16:56) Unknown cats Allergy (Unknown, Verified 09/26/23 16:56) Unknown Clindamycin HCl Allergy (Unknown, Verified 09/26/23 16:56) itch Diltiazem HCl Allergy (Unknown, Verified 09/26/23 16:56) itch hydrochlorothiazide [HYDROCHLOROTHIAZIDE] Allergy (Unknown, Verified 09/26/23 16:56) GOUT lisinopril [LISINOPRIL] Allergy (Unknown, Verified 09/26/23 16:56) TONGUE SWELLING naproxen [From NAPROSYN] Allergy (Unknown, Verified 09/26/23 16:56) NIGHTMARES penicillin V Allergy (Unknown, Verified 09/26/23 16:56) Unknown Sulfa (Sulfonamide Antibiotics) [SULFA(SULFONAMIDE ANTIBIOTICS)] Allergy (Unknown, Verified 09/26/23 16:56) UNKNOWN Taztia XT Allergy (Unknown, Uncoded 01/19/23 15:03) Unknown Medication List - Last Reconciled 10/04/23 by Alirio Childress MD acetaminophen 650 mg (2 x 325 mg) PO Q6H PRN 30 days acetaminophen (Tylenol Extra Strength) 500 mg PO Q6H PRN ascorbic acid (vitamin C) (Vitamin C) 500 mg PO DAILY aspirin (Adult Low Dose Aspirin) 81 mg PO DAILY atorvastatin 40 mg PO BEDTIME blood sugar diagnostic (FreeStyle Lite Strips) As directed blood-glucose meter (FreeStyle Lite Meter kit) As directed carvedilol 12.5 mg PO BID cholecalciferol (vitamin D3) (Vitamin D3) 10 mcg PO DAILY fluticasone propionate 50 mcg/actuation 1 spray intranasal DAILY furosemide 20 mg PO DAILY gabapentin 100 mg PO TID hydralazine 50 mg PO BID insulin glargine (Lantus Solostar U-100 Insulin) 30 units subcut BEDTIME isosorbide mononitrate ER 30 mg See Protocol PO BID lancets 4 times daily lancets (FreeStyle Lancets) As directed levalbuterol tartrate 45 mcg/actuation (Xopenex HFA) 2 puffs inhalation Q6H PRN lidocaine 5% (Lidoderm) 1 patch topical DAILY loratadine (Claritin) 10 mg PO DAILY metformin 500 mg PO BID needle (disp) 31 gauge As directed needle (disp) 32 gauge As directed omeprazole 20 mg PO DAILY@0630 oxycodone 5 mg PO Q6H PRN [Raised toliet seat As directed] [Shower chair As directed] spironolactone 25 mg PO DAILY walker Folding front wheeled walker HPI Comments Details: 58-year-old gentleman with nonischemic cardiomyopathy likely due to alcohol use in the past. His ejection fraction previously was 30-35%. He has an allergy to Rafael inhibitor and unable to take Entresto or ARB. Was started on hydralazine isosorbide combination. Repeat echocardiography last year showed ejection fraction 45-50%. Clinically has improved significantly. 11/07/22: He is here for follow-up. In September 2022 unfortunately had a mechanical fall and broke his left hip. He is status post hemiarthroplasty at this stage. He is undergoing physiotherapy. He continues to smoke and is smoking 1 pack per day. He is saying he is otherwise doing well. Taking medications regularly. No dyspnea or chest pains. 02/08/23: Here for f/u. Doing well. Denying CP or SOB. No orthopnea. 10/04/23: He returns for follow-up. He is denying any symptoms. No chest pain or significant shortness of breath. He continues to smoke 1 pack per day. He had some hip pain and had an x-ray performed which is showing heavy calcification in his iliac arteries. No claudication symptoms. He has been started on aspirin by his primary care physician. Blood pressure elevated. [facility] Medical History Personal history of nicotine dependence Uncontrolled diabetes mellitus Cardiomyopathy Alcohol abuse Congestive heart failure Diabetes Asthma COPD (chronic obstructive pulmonary disease) Surgical History History of left hip replacement History of esophagogastroduodenoscopy (EGD) History of appendectomy History of shoulder surgery History of cardiac cath Family History Father Leukemia Mother Scleroderma Social History Household Members: Children Housing: Apartment Do you presently have visiting nurse or other home services: No Alcohol intake: current Alcohol intake frequency: 3 or more drinks per day Alcohol type: beer and hard liquor Patient Tobacco Use Status: Current everyday Tobacco user Tobacco use type: Cigarette Cigarette Packs Per Day: 1 Cigarettes Per Day: 20.0 Years Smoked: (onset 20yo, 3/4-1ppd x 36yrs, 30pyh) Second Hand Smoke Exposure: No service: No Current occupational status: employed Review of Systems Const Denies chills, Denies fatigue, Denies fever(s), Denies frequent falls, Denies weakness, Denies weight gain and Denies weight loss ENT Denies dizziness Card Denies chest pain, Denies leg edema, Denies lightheadedness, Denies palpitations, Denies dyspnea and Denies dyspnea on exertion Resp Denies cough, Denies dyspnea and Denies dyspnea on exertion GI Denies hematochezia Musc Denies abnormal gait, Denies muscle weakness, Denies numbness, Denies radiating pain into limb and Denies tingling Neuro Denies abnormal gait, Denies dizziness, Denies frequent falls, Denies numbness, Denies tingling and Denies weakness Endo Denies fatigue and Denies palpitations Physical Exam Vital Signs: Last Vital Signs Pulse 92 10/04/23 14:53 BP 140/82 H 10/04/23 14:53 BMI result Body Mass Index 32.9 GENERAL APPEARANCE: in no acute distress, pleasant. NECK: no carotid bruit, no jugular venous distention. SKIN: no suspicious lesions, warm and dry. HEART: no murmurs, regular rate and rhythm. LUNGS: clear to auscultation bilaterally. ABDOMEN: soft, nontender. EXTREMITIES: no edema. PERIPHERAL PULSES: equal. NEUROLOGIC: No gross deficits, AAO X 3 Office Procedures EKG Details: Sinus rhythm 93 beats per minute,, inferior infarct, QTC 435 milliseconds. [id number], Complete Assessment & Plan Assessment & Plan (1) Chronic heart failure: Code(s): I50.9 - Heart failure, unspecified Category: Medical Plan [age] gentleman here for follow-up. He has background history of nonischemic cardiomyopathy in the setting of alcohol use. His EF was 45-50% as of a year ago. Clinically not in heart failure. Blood pressure is elevated and I am increasing carvedilol to 25 mg twice a day. We previously increased his hydralazine to 3 times a day but he could not tolerate it due to hypotension. He is a heavy smoker and I have advised him to stop smoking. His hip x-ray is showing heavy calcification in the iliac arteries. I have explained to him that this is due to smoking he must quit smoking. Agree with baby aspirin. He is already on atorvastatin 40 mg daily. Follow-up in 4 months. Thank you for allowing me to participate in the care of your patient. Please feel free to contact me if you have any questions. Medications: New carvedilol must administer with a meal/food 25 mg PO BID 120 tabs 3RF I50.9 - Heart failure, unspecified Discontinued carvedilol must administer with a meal/food Discontinued Reason: None 12.5 mg PO BID 120 tabs 3RF Coding Level of Care Code Est Pt Level 4 (35288) Diagnoses Chronic heart failure I50.9 CPT Codes EKG - CPT: 98272-[id number], Complete ([id number])
== END 2023-10-04 15:16 | disposition home or self-care (01) ==
PROVIDERS: PCP Nurse Practitioner Primary Care; Referring Provider Nurse Practitioner Primary Care; Visit Provider Internal Medicine Cardiovascular Disease
DX: I50.9 Heart failure, unspecified (principal)
CPT/HCPCS: 93010; 99214

== ENCOUNTER → 2023-10-04 14:50 | Outpatient (BNVA) | payer MEDICAID, SELFPAY ==
[2021-12-20 07:44] VITALS: BP 106/62; BP 116/74
[2022-07-12 07:42] VITALS: BMI 28.8
[2022-09-29 15:14] VITALS: BP 122/74
== END ==
PROVIDERS: PCP Nurse Practitioner Primary Care; Visit Provider Internal Medicine Cardiovascular Disease
DX: I50.9 Heart failure, unspecified (principal); R94.31 Abnormal electrocardiogram [ECG] [EKG]
CPT/HCPCS: 93005; 99212

== ENCOUNTER 2023-12-19 13:57 | Outpatient (REF) | payer MEDICAID, SELFPAY ==
[2021-12-20 07:44] VITALS: BP 106/62; BP 116/74
[2022-07-12 07:42] VITALS: BMI 28.8
[2022-09-29 15:14] VITALS: BP 122/74
--- NOTE | ~2023-12-19 | MM_ITS ---
EXAMINATION: BONE DENSITOMETRY CLINICAL INDICATION: Encounter for screening for osteoporosis. COMPARISON: This is the patient's baseline examination. TECHNIQUE: Using a [employer]emock DXA System (software version: 13.1) manufactured by [employer], dual-energy x-ray absorptiometry was performed of the lumbar spine and left hip. The images are of good technical quality. Summary results are attached. FINDINGS: RIGHT FEMUR, NECK: BMD 0.794 g/cm2, Z-score -1.8, T-score -2.1, osteopenia. RIGHT FEMUR, TOTAL: BMD 0.834 g/cm2, Z-score -1.9, T-score -1.9, osteopenia. AP SPINE L1-L2 (excluding L3 and L4): The data of L1-L4 has been changed to exclude the L3 and L4 vertebral bodies, because degenerative sclerosis at these levels may cause overestimation of lumbar spine density. BMD 1.122 g/cm2, Z-score -1.1, T-score -0.7, normal. IDENTIFIED RISK FACTORS: Low calcium intake, current smoker, history of fracture (adult). HISTORY OF FRACTURE: Hip. MEDICATIONS: Vitamin D. MM/XR DEXA axial skeleton IMPRESSION: 1. DIAGNOSIS: Osteopenia based on the lowest T-score value of -2.1 in the femoral neck applying World Health Organization criteria. 2. 10-YEAR FRACTURE RISK PREDICTION, FRAX: Major osteoporotic fracture (clinical spine, forearm, hip or shoulder) 11.7%. Hip fracture 3.3%. 3. Treatment Recommendations: NOF guidelines recommend consideration for treatment in postmenopausal women and men age 50 and older presenting with the following: -A hip or vertebral (clinical or morphometric) fracture. -T-score less than or equal to -2.5 at the femoral neck or spine after appropriate evaluation to exclude secondary causes. -Low bone mass at the hip or spine and a 10-year fracture probability by FRAX of greater than or equal to 3% for hip fracture or greater than or equal to 20% for major osteoporotic fracture based on the [place] adapted WHO algorithm. 4. Other Recommendations: All treatment decisions require clinical judgment and consideration of individual patient factors, including patient preferences, comorbidities, previous drug use, risk factors not captured in the FRAX model (e.g. frailty, falls, vitamin D deficiency, increased bone turnover, interval significant decline in bone density) and possible under or overestimation of fracture risk by FRAX. Additional medical evaluation for secondary cause of low bone mineral density may be appropriate. FUTURE SCAN RECOMMENDATION: People with diagnosed cases of osteoporosis or at high risk for fracture should have regular bone mineral density tests. For patients eligible for Medicare, routine testing is allowed once every 2 years. The testing frequency can be increased to one year for patients who have rapidly progressing disease, those who are receiving or discontinuing medical therapy to restore bone mass, or have additional risk factors.
== END 2023-12-19 13:58 | disposition home or self-care (01) ==
LOC: HO.MAMMO 13:57
PROVIDERS: PCP Nurse Practitioner Primary Care; Visit Provider Nurse Practitioner Primary Care
DX: Z13.820 Encounter for screening for osteoporosis (principal); Z87.81 Personal history of (healed) traumatic fracture; M85.851 Other specified disorders of bone density and structure, right thigh
CPT/HCPCS: 77080

== ENCOUNTER 2024-06-18 12:42 | Outpatient (REF) | payer MEDICAID, SELFPAY ==
[2021-12-20 07:44] VITALS: BP 106/62; BP 116/74
[2022-07-12 07:42] VITALS: BMI 28.8
[2022-09-29 15:14] VITALS: BP 122/74
--- OUTSIDE RECORDS SUMMARY | 2024-06-18 13:45 | XMS_ITS | Encounter Summary ---
Author Organization [employer] Address [address] [facility] [address] [place] [address] Care Team Providers Care Metal Casket Maker Name Role Phone Amita Noe Primary Care Provider [phone] Encounter Details Date Type Department Care Team (Late st Contact Info) Description 05/30/2024 Orders Only [facility] MEDICINE [address] [place] [address] Amita Noe ANP [address] [place] [address] Social History Tobacco Use Types Packs/Day Years Used Date Smoking Tobacco: Every Day Cigarettes Smokeless Tobacco: Never Alcohol Use Standard Drinks/Week Comments Never 0 (1 standard drink = 0.6 oz pur e alcohol) Depression Answer Date Recorded Patient Health Questionnaire-9 Score 0 12/19/2022 Housing Stability Answer Date Recorded What is your housing situation today? I have vidalkarely elliott 02/20/[address] you li ve. Do you have problems with any of the following? None of the above 02/20/2023 Food Insecurity Answer Date Recorded Within the past 12 months, y ou worried that your food would run out before you got money to buy more: Sometimes True 2023 Within the past 12 months,th e food you bought just didn't last and you didn't have enough money to get more: Sometimes True 11/06/2023 Transportation Answer Date Recorded In the past 12 months, has l ack of transportation kept you from medical appts, meetings, work or from getting things needed for daily living? No 02/20/2023 Utilities Answer Date Recorded In the past 12 months, has t he electric, gas, oil or water company threatened to shut off services in your home? No 02/20/2023 Depression Answer Date Recorded Patient Health Questionnaire-2 Score 0 12/19/2022 Internet Access Answer Date Recorded Internet Access Q1 Yes 01/08/2024 Internet Access Q2 Not on file 01/08/2024 Sex and Gender Information Value Date Recorded Sex Assigned at Male 03/07/2022 10:22 AM EDT Legal Sex Male 10:22 AM EDT Gender Identity Male 03/07/2022 10:22 AM EDT Sexual Orientation Straight 03/07/2022 10 :22 AM EDT documented as of this encounter Progress Notes * EREN Gipson - 05/30/2024 1:16 PM EST Hydralazine refill, PCP covering for cards documented in this encounter Plan of Treatment Upcoming Encounters Date Type Department Care Team (Late st Contact Info) Description 07/08/2024 2:30 PM EST Medication Management [facility] MEDICINE [address] [place] [address] Sowmya Salinas, PharmD [address] [place] [address] 07/25/2024 2:30 PM EDT Office Visit [facility] MEDICINE [address] [place] [address] Amita Noe ANP [address] [place] [address] 09/03/2024 2:30 PM EDT Office Visit [facility] OPTOMETRY [address] [place] [address] Don, Quita, OD [address] [place] [address] documented as of this encounter Visit Diagnoses Not on filedocumented in this encounter Additional Health Concerns Assessment Noted Time PHQ-9 Depression Total Score: 0 12/20/19 2:13 PM EDT documented as of this encounter Care Teams Metal Casket Maker Relationship Specialty Start Date End Date Amita Noe ANP [address] [place] [address] PCP - General Family Medicine 12/30/21 documented as of this encounter
--- OUTSIDE RECORDS SUMMARY | 2024-06-18 13:45 | XMS_ITS | Encounter Summary ---
Author Organization [employer] Address [address] [facility] [address] [place] [address] Care Team Providers Care Condenser Operator Name Role Phone Amita Noe Primary Care Provider [phone] Babita Garcia RN Unavailable [phone] Reason for Visit * Reason Onset Date Comments Medication Question 2022 Encounter Details Date Type Department Care Team ([facility] st Contact Info) Description 2022 Telephone [facility] MEDICINE [address] [place] [address] Amita Noe ANP [address] [place] [address] Medication Question Social History Tobacco Use Types Packs/Day Years Used Date Smoking Tobacco: Every Day Cigarettes Smokeless Tobacco: Never Depression Answer Date Recorded Patient Health Questionnaire-9 Score 0 12/19/2022 Housing Stability Answer Date Recorded What is your housing situation today? I have vidal elliott 02/20/[address] you [...] AM EDT documented as of this encounter Miscellaneous Notes * Telephone Encounter - Tamika Peters - 2022 9:34 AM EST [facility] requesting a new script for omeprazole 20 mg 90 day supply capsules . Please contact at [phone] documented in this encounter Plan of Treatment Upcoming Encounters Date Type Department Care Team (Late st Contact Info) Description 07/08/2024 2:30 PM EST Medication Management [facility] MEDICINE [address] [place] [address] Sowmya Salinas, PharmD [address] [place] [address] 07/25/2024 2:30 PM EDT Office Visit [facility] MEDICINE [address] [place] [address] Amita Noe ANP [address] [place] [address] 09/03/2024 2:30 PM EDT Office Visit [facility] OPTOMETRY [address] [place] [address] Quita Ochoa OD [address] [place] [address] documented as of this encounter Visit Diagnoses Not on filedocumented in this encounter Care Teams Condenser Operator Relationship Specialty Start Date End Date Amita Noe, ANP [address] [place] [id number] PCP - General Family Medicine 12/30/21 Babita Garcia RN [address] [place] [id number] [employer] ConsultantBeater Room Supervisor 10/23/23 01/17/24 documented as of this encounter
--- OUTSIDE RECORDS SUMMARY | 2024-06-18 13:45 | XMS_ITS | Encounter Summary ---
Author Organization [employer] Address [address] [facility] 7[address] [place] [address] Care Team Providers Care Sandwich And Drink Cart Operator Name Role Phone Amita Noe EREN Primary Care Provider [phone] Sowmya Salinas PharmD Unavailable [phone] Encounter Details Date Type Department Care Team (Late st Contact Info) Description 06/18/2024 Telephone [facility] MEDICINE [address] [place] [address] Sowmya Salinas, PharmD [address] [place] [address] Social History Tobacco Use Types Packs/Day Years [...] encounter Miscellaneous Notes * Telephone Encounter - Sowmya Salinas PharmD - 06/18/2024 12:37 PM EST Please assist in sending CDTM referral for DM2 and HTN on behalf of PCP Amita Noe. Thank you! documented in this encounter Plan of Treatment Upcoming Encounters Date Type Department Care Team (Late st Contact Info) Description 07/08/2024 2:30 PM EST Medication Management [facility] MEDICINE [address] [place] [address] Sowmya Salinas, LuisaD [address] [place] [address] 07/25/2024 2:30 PM EDT Office Visit [facility] MEDICINE [address] [place] [address] Amita Noe ANP [address] [place] [address] 09/03/2024 2:30 PM EDT Office Visit [facility] OPTOMETRY [address] [place] [address] Quita Ochoa, OD [address] [place] [address] documented as of this encounter Visit Diagnoses Not on filedocumented in this encounter Additional Health Concerns Assessment Noted Time PHQ-9 Depression Total Score: 0 12/20/19 23 2:13 PM EDT documented as of this encounter Care Teams Sandwich And Drink Cart Operator Relationship Specialty Start Date End Date Amita Noe ANP [address] [place] [address] PCP - General Family Medicine 12/30/21 Sowmya Salinas PharmD [address] [place] [address] Pharmacist Internal Medicine 06/18/24 documented as of this encounter
--- OUTSIDE RECORDS SUMMARY | 2024-06-18 13:45 | XMS_ITS | Clinical Summary ---
Author Organization [employer] Address [address] [facility] 7t [place] [address] Care Team Providers Care Lease Administration Supervisor Name Role Phone Amita Noe EREN Primary Care Provider Sowmya Salinas PharmD Unavailable [phone] Allergies Active Allergy Reactions Criticality Noted Date Comments Canagliflozin 08/03/2022 Other reaction(s): Unknown Cat Dander 08/03/2022 Other reaction(s): Unknown Clindamycin 08/03/2022 Other reaction(s): itch Diltiazem 08/03/2022 Other reaction(s): itch Hydrochlorothiazide 09/20/2021 Other reaction(s): Gout Lisinopril Angioedema High 09/20/2021 Naproxen 08/03/2022 Other reaction(s): NIGHTMARES Penicillin G 05/13/2022 Sulfa Antibiotics Unknown 10/26/2021 Sulfadiazine 05/13/2022 Medications Alcohol Swabs (Alcohol Prep) 70 % padsIndications:T ype 2 diabetes mellitus with other specified complication, with long-term current use of insulin ([facility]) Use 1 pad topically daily 200 each 1 022 Active Vitamin E 268 MG (400 UNIT) capsule Take 1 capsule by mouth in the morning. 022 Active atorvastatin (Lipitor) 40 MG tablet Take 40 mg by mouth. 022 Active furosemide (Lasix) 20 MG tablet Take 1 tablet by mouth at bed time. Active Misc. Devices (Pulse Oximeter For Finger) miscIndications:C OVID 1 applicator every 4 (four) hours if needed (use if SOB, report to care if less than 90%). 1 each 023 Active FreeStyle lancetsIndication s:Type 2 diabetes mellitus without complication, unspecified whether fci insulin use ([facility]) USE TO TEST 4 TIMES A DAY. 100 each 11 023 Active Xopenex HFA 45 MCG/ACT inhaler INHALE TWO PUFFS BY MOUTH EVERY 6 HOURS 15 g 2 023 Active FREESTYLE LITE test strip USE TO TEST BLOOD SUGAR TWICE A DAY AND NEEDED FOR T2DM 100 strip 11 023 Active Continuous Blood Gluc Gauge Machine Operator (FreeStyle Ihsan 2 Melstone) deviceIndications :Type 2 diabetes mellitus with hyperlipidemia ([facility]/HCC) ([facility]) Scan sensor every 8 hours 1 each 024 Active Continuous Blood Gluc Sensor (FreeStyle Ihsan 2 Sensor) miscIndications:T ype 2 diabetes mellitus with hyperlipidemia ([facility]/HCC) ([facility]) Apply 1 sensor every 14 days 2 each 024 Active glucose blood (FreeStyle Precision Johnnie Test) test stripIndications: Type 2 diabetes mellitus with hyperlipidemia ([facility]/HCC) ([facility]) Use to test blood sugar 4 times daily 100 each 12 024 2024 Active aspirin (Aspirin Adult Low Dose) 81 MG EC tabletIndications :Arterial calcification Take 1 tablet (81 mg) by mouth Once per day. 90 tablet 3 024 2024 Active metFORMIN (Glucophage) 500 MG tabletIndications :Hypertension associated with diabetes ([facility]/HCC) ([facility]) TAKE TWO TABLETS BY MOUTH TWICE A DAY WITH MEALS 360 tablet 1 024 Active fluticasone (Flonase) 50 MCG/ACT nasal sprayIndications: Non-seasonal allergic rhinitis, unspecified trigger INSTILL 2 SPRAYS INTO NOSTRILS DAILY. 48 g 024 Active B-D UF III MINI PEN NEEDLES 31G X 5 MM misc FOR USE WITH INSULIN PEN. 100 each 024 Active omeprazole (PriLOSEC) [address] capsule TAKE ONE CAPSULE BY MOUTH EVERY DAY 90 capsule 1 024 Active Calcium Carb-Cholecalcife rol (Calcium-Vitamin D3) 600-10 MG-MCG capsuleIndication s:Osteopenia, unspecified location Take 1 capsule by mouth 2 times daily. 180 capsule 1 Active gabapentin (Neurontin) 100 MG capsuleIndication s:Type 2 diabetes mellitus with chronic painful diabetic neuropathy (CMS/HCC) Take 2 capsules (200 mg) by mouth 3 times daily. 180 capsule 1 Active insulin glargine (Lantus SoloStar) 100 UNIT/ML penIndications:Ty pe 2 diabetes mellitus with chronic painful diabetic neuropathy (CMS/HCC) Inject 35 Units under the skin Once daily. 15 mL 2 Active spironolactone (Aldactone) 25 MG tabletIndications :Other congestive heart failure (CMS/HCC) Take 1 tablet (25 mg) by mouth Once per day. 90 tablet 1 Active hydrALAZINE (Apresoline) 50 MG tablet TAKE 1 TABLET BY MOUTH TWICE DAILY 60 tablet 025 Active carvedilol (Coreg) 25 MG tablet TAKE 1 TABLET BY MOUTH TWICE DAILY WITH A MEAL / FOOD Active hydrALAZINE (Apresoline) 25 MG tablet Take 1 tablet by mouth 2 times daily. 2024 Discontinued(T herapy completed) isosorbide mononitrate ER (Imdur) 30 MG 24 hr tablet Take 30 mg by mouth 2 times daily. 023 2024 Discontinued(M ed list cleanup (will not trigger notification to Pharmacy)) Trulicity 0.75 MG/0.5ML solution pen-injectorIndic ations:Type 2 diabetes mellitus with hyperglycemia, unspecified whether terminologist insulin use (CMS/[facility]) Inject 0.75 mg under the skin 1 (one) time per week for 4 doses. 4 each 024 2024 Discontinued(M ed list cleanup (will not trigger notification to Pharmacy)) carvedilol (Coreg) 12.5 MG tabletIndications :Heart Failure Take 25 mg by mouth with breakfast and with evening meal. 024 2024 Discontinued(M ed list cleanup (will not trigger notification to Pharmacy)) Active Problems Patient Care Coordination No te Formatting of this note migh t be different from the original. C3/CM Alena Roberto RN Problem Noted Date Diagnosed Date Abnormal nuclear stress test 12/16/2022 Alcohol abuse 12/16/2022 Cardiomyopathy 12/16/2022 Closed fracture of neck of left femur 12/16/2022 Fall 12/16/2022 Personal history of nicotine dependence 12/17/19 Preoperative cardiovascular examination 12/17/19 S/P total left hip arthroplasty 12/16/2022 Chronic heart failure 12/16/2022 Nicotine dependence, cigarettes, uncomplicated 0 12/16/2022 Chronic back pain 05/13/2022 Congestive heart failure 05/13/2022 Gastroesophageal reflux disease 05/13/2022 Tobacco dependence syndrome 05/13/2022 Type 2 diabetes mellitus with other specified co mplication 05/13/2022 Nonischemic congestive cardiomyopathy 08/13/2021 Overview (12/13/2023): Cardiology Dr. Childress Currently managed with spironolactone 25 mg, carvedilol 25 mg BID, furosemide 20 mg nightly, hydralazine 25 mg BID, isosorbide mononitrate ER 30 mg Could not tolerate hydralazine TID d/t hypotension Chronic obstructive lung disease 06/20/2021 Encounters Date Type Department Care Team Description 06/18/[address] [facility] [address] [facility] [place] [address] Sowmya Salinas, LuisaD 06/10/2024 Travel 05/30/[address] [facility] [address] [facility] [place] [address] Amita Noe ANP 05/30/[address] [facility] [address] [facility] [place] [address] Amita Noe ANP 05/17/[address] [facility] [address] [facility] [place] [address] Cristo Felton [place] July recall 05/03/[address] [facility] [address] [facility] [place] [address] Amita Noe ANP Insurance 04/01/2024 2:30 PM EST Office Visit [facility] [address] [facility] [place] [address] Amita Noe ANP Pulmonary emphysema, unspecified emphysema type (CMS/HCC) (Primary Dx); Tobacco dependence syndrome; Nonischemic congestive cardiomyopathy ([facility]/HCC); Type 2 diabetes mellitus with hyperlipidemia (CMS/HCC) ([facility]); Encounter for immunization; Type 2 diabetes mellitus with chronic painful diabetic neuropathy ([facility]); Other congestive heart failure ([facility]); Closed fracture of neck of left femur with routine healing, subsequent encounter 04/01/2024 Travel 04/01/[address] [facility] [address] [place], [place] [phone] Aleksandra Jeffries [place] chart prep 03/21/[address] [facility] [address] [place] [address] Amita Noe ANP Pre-visit Planning ([facility] screening was completed on 11/06/2023) from Last 3 Months Immunizations Name Administration Dates Next Due Hep B, adult 10/26/2021 Influenza injectable quadriv alent IIV4 with preservative 04/12/2019,02/05/2018,02/06/2017,01/14 Influenza injectable quadriv alent preservative free 03/27/2023,01/24/2022,03/25/2021 Influenza, IIV3, injectable 04/27/2015, 4 Influenza, Split (incl. osnu fied surface antigen) 05/11/2012 Influenza, seasonal, injecta ble, preservative free 04/01/2024 Influenza, seasonal, intrade rmal, preservative free 02/15/2013 PPD Test 05/15/2019 Pneumococcal Conjugate PCV 20 03/27/2023 Pneumococcal Polysaccharide PPSV23 06/08/2021, Tdap 02/05/2018 Zoster, Recombinant 11/05/2021,08/16/2021 Family History Medical History Relation Name Comments Albinism Mother Blindness Mother Relation Name Status Comments Mother Social History Tobacco Use Types Packs/Day Years Used Date Smoking Tobacco: Every Day Cigarettes Smokeless Tobacco: Never Tobacco Cessation:Ready to Q uit: No; Counseling Given: Not Answered Alcohol Use Standard Drinks/Week Comments Never 0 [...] Orientation Straight 03/07/2022 10 :22 AM EDT Last Filed Vital Signs Vital Sign Reading Time Taken Comments Blood Pressure 150/70 06/10/2024 2:50 PM EST Pulse 84 06/10/2024 2:50 PM EST Temperature 36.6 ??C (97.8 ??F) 04/01/2024 2:48 PM ES T Respiratory Rate 14 04/01/2024 2:48 PM EST Oxygen Saturation 100% 04/01/2024 2:48 PM EST Inhaled Oxygen Concentration - - Weight 108 kg (238 lb 9.6 oz) 04/01/2024 2:48 PM EST Height 182.9 cm (6') 06/28/2023 3:54 PM EST Body Mass Index 32.36 06/28/2023 3:54 PM EST Plan of Treatment Upcoming Encounters Date Type Department Care Team (Late st Contact Info) Description 07/08/2024 2:30 PM EST Medication Management [facility] MED[facility] [address] [place], [place] [phone] Sowmya Salinas, PharmD [address] [place] [address] 07/25/2024 2:30 PM EDT Office Visit [facility] [address] [place] [address] Amita Noe, ANP [address] [place] [address] 09/03/2024 2:30 PM EDT Office Visit [facility] OPTOMETRY [address] [place] [address] DonQuita baldwin, OD [address] [place] [address] Health Maintenance Due Date Last Done Comments CT Colonography 1967 FIT DNA/Cologuard 1967 FIT 1967 FOBT 1967 Sigmoidoscopy 1967 Diabetes: Foot Exam 1977 Alcohol/Substance Use Screening 1979 Hepatitis A Vaccines (1 of 2 - Risk 2-dose series) 1986 Hepatitis B Vaccines (2 of 3 - 19+ 3-dose series) 11/23/2021 10/26/2021 Depression Screening 12/20/2023 12/19/2022, 12/20/19 23 Diabetes: Urine Protein Screening 12/20/2023 12/19/2022, 06/08/2021 Lipid Panel 12/20/2023 12/19/2022, 11/05/2021 COVID-19 Vaccine ( season) 2024 Eye Exam 04/10/2024 04/10/2023, 08/2022, 04/10/2023, Additional history exists Diabetes: Hemoglobin A1C 07/02/202404/01/2 024, 06/28/2023, 03/27/2023, Additional history exists SDOH Screening 11/05/2024 11/06/2023 Colonoscopy 12/22/2024 12/22/2021 Colorectal Cancer Screening 12/22/2024 Tobacco Screening 04/01/2025 04/01/2024 DTaP/Tdap/Td Vaccines (2 - Td or Tdap) 02/06/2028 02/05/2018 RSV Patients and Patients Aged 60 years or older (1 - 1-dose 75+ series) 2042 HIV Screening Completed 06/08/2021 Hepatitis C Screening Completed 06/08/2021 Zoster Vaccines Completed 11/05/2021, 08/16/2021 Pneumococcal Vaccine: 50+ Years Completed 03/27/2023, 06/08/2021, 03/15/2013 Influenza Vaccine Completed 04/01/2024, , 01/24/2022, Additional history exists HIB Vaccines Aged Out No longer eligi ble based on patient's age to complete this topic HPV Vaccines Aged Out No longer eligi ble based on patient's age to complete this topic IPV Vaccines Aged Out No longer eligi ble based on patient's age to complete this topic Meningococcal Vaccine Aged Out No domenico danielle eligible based on patient's age to complete this topic RSV under 20 months Aged Out No longe r eligible based on patient's age to complete this topic Rotavirus Vaccines Aged Out No longer eligible based on patient's age to complete this topic Procedures Procedure Name Priority Date/Time Associated Diagnosis Comments POCT GLYCATED HEMOGLOBIN, TOTAL Routine 04/01/2024 3:05 PM EST Type 2 diabetes mellitus with hyperlipidemia (CMS/HCC) (CMS/HCC) POCT GLUCOSE Routine 04/01/2024 2:56 PM EST Type 2 diabetes mellitus with hyperlipidemia (CMS/HCC) (CMS/HCC) ALBUMIN, RANDOM URINE W/CREATININE Routine 12/19/2022 3:16 PM EDT Type 2 diabetes mellitus with hyperglycemia, unspecified whether fci insulin use (CMS/HCC) LIPID PANEL, STANDARD Routine 12/19/2022 3:16 PM EDT Type 2 diabetes mellitus with hyperglycemia, unspecified whether fci insulin use (CMS/HCC) HM COLONOSCOPY Routine 12/22/2021 ZZZ HISTORICAL HEPATITIS C AB W/REFL TO HCV RNA, QN, PCR Routine 06/08/2021 10:21 AM EST HIV 1/2 ANTIGEN/ANTIBODY, FOURTH GENERATION W/RFL Routine 06/08/2021 10:21 AM EST from Last 3 Months or Most Recently Relevant to Health Maintenance Results * (ABNORMAL) POCT HGB A1C (04/01/2024 3:05 PM EST) Hemoglobin A1C 8.0(A) 4.0 - 6.0 % QC Media Lot # [id number] Lot# Expiration Date [id number] Blood 04/01/2024 3:05 PM EST us Amita Noe ANP POINT OF CARE TEST ENTER/EDIT OR DERABLES Final Result * (ABNORMAL) POCT Glucose (04/01/2024 2:56 PM EST) Glucose Blood, POC 201(A) 60 - 200 mg/dL QC Media Lot # [id number] Lot# Expiration Date ,[id number] Blood Capillary blood specimen / Unknown 04/01/2024 2:56 PM EST us Amita Noe ANP POINT OF CARE TEST ENTER/EDIT OR DERABLES Final Result * Albumin, Random Urine W/Creatinine (12/19/2022 3:16 PM EDT) Creatinine, Urine 32.98 mg/dL [facility] Microalbumin Urine 24.0 mg/L [facility] Microalbum Creatinine Ratio Ur 72.7 ug/mg cr [facility] Comment:Albumin/Creatinine R atio Reference Ranges: Normal: < 30 ug/mg creatinine Microalbuminuria: 30 - 300 ug/mg creatinineClinical Albuminuria: > 300 ug/mg creatinine Urine 12/19/2022 3:16 PM EDT 12/19/2022 4:13 PM EDT us Amita Noe ANP LAB URINE ORDERABLES Final Resul t [facility] [address] [place] [address] [phone] * Lipid Panel, Standard (12/19/2022 3:16 PM EDT) Triglycerides 334 mg/dL [facility] Comment:Desirable Triglyceri de: less than 150 mg/dLBorderline High Triglyceride 150-199 mg/dLHigh Triglyceride: 200-499 mg/dLVery High Triglyceride: greater than or equal to 5OO mg/dL Cholesterol 146 mg/dL [facility] Comment:Desirable Cholestero l: less than 200 mg/dLBorderline High Cholesterol: 200-239 mg/dLHigh Cholesterol: greater than 239 mg/dL LDL Cholesterol Calculated 44 mg/dl [facility] Comment:Desirable LDL: less than 100 mg/dLNear Optimal/Above Optimal LDL: 110- 129 mg/dLBorderline High LDL: 130-159 mg/dLHigh LDL: 160-189 mg/dLVery High LDL: greater than or equal to 190 mg/dL HDL Cholesterol 36 mg/dL [facility] Comment:Desirable HDL: great er than 40 mg/dL Note: This HDL assay may give artificially low results in patients with liver disease. Blood Venous blood specimen / Unknown 12/19/2022 3:16 PM EDT 12/19/2022 4:00 PM EDT [facility] LAB BLOOD ORDERABLES Final Resul t Performing Organization Address [facility] Co de Phone Number [facility] [address] [place] [address] [phone] * Hm Colonoscopy (12/22/2021) Colonoscopy Normal Normal Historical Provider HEALTH MAINTENANCE Final Result * HEPATITIS C AB W/REFL TO HCV RNA, QN, PCR (06/08/2021 10:21 AM EST) HEPATITIS C ANTIBODY NON-REACT MEGHANN NON-REACT MEGHANN [facility] INDEX 0.01 <1.00 [facility] Comment: ?? HCV antibody was non-reactive. There is no laboratory ?? evidence of HCV infection. ?? In most cases, no further action is required. However, if recent HCV exposure is suspected, a test for HCV RNA (test code 55903) is suggested. ?? For additional information please refer to http://[employer]/faq/SRS19z8 (This link is being provided for informational/ educational purposes only.) ?? 06/08/2021 10:2 1 AM EST us Afua Stevens NP HISTORICAL/NON ORDERABLE LABS F inal Result Performing Organization Address [facility] Phone Number [facility] [place] [address], * HIV 1/2 ANTIGEN/ANTIBODY,FOURTH GENERATION W/RFL (06/08/2021 10:21 AM EST) HIV-1/2 ANTIGEN AND ANTIBODIES, 4TH GENERATION W/ REFLEX NON-REACT MEGHANN NON-REACT MEGHANN [facility] Comment: HIV-1 antigen and HIV-1/HIV-2 antibodies were not detected. There is no laboratory evidence of HIV infection. ?? PLEASE NOTE: This information has been disclosed to you from records whose confidentiality may be protected by state law. ??If your state requires such protection, then the state law prohibits you from making any further disclosure of the information without the specific written consent of the person to whom it pertains, or as otherwise permitted by law. A general authorization for the release of medical or other information is NOT sufficient for this purpose. ? For additional information please refer to http://[employer]/faq/FLF795 (This link is being provided for informational/ educational purposes only.) ? The performance of this assay has not been clinically validated in patients less than 2 years old. ?? 06/08/2021 10:2 1 AM EST us Afua Stevens NP LAB BLOOD ORDERABLES Final Resu lt Performing Organization Address [facility] de Phone Number [facility] [address] from Last 3 Months or Most Recently Relevant to Health Maintenance Insurance [employer] F[employer] Care Teams Lease Administration Supervisor Relationship Specialty Start Date End Date Amita Noe ANP [address] [place] [address] PCP - General Family Medicine 12/30/21 Sowmya Salinas PharmD [address] [place] [address] Pharmacist Internal Medicine 06/18/24
--- OUTSIDE RECORDS SUMMARY | 2024-06-18 13:45 | XMS_ITS | Encounter Summary ---
Author Organization [employer] Address [address] [facility] [address]t [place] [address] Care Team Providers Care Railroad Operator Name Role Phone Amita Noe Primary Care Provider [phone] Reason for Visit * Reason Comments Med Refill Encounter Details Date Type Department Care Team ([facility] st Contact Info) Description 05/30/2024 Refill [facility] MEDICINE [address] [place] [address] Amita Noe ANP [address] [place] [address] Social History Tobacco Use Types Packs/Day Years [...] AM EDT documented as of this encounter Plan of Treatment Upcoming Encounters Date Type Department Care Team (Late st Contact Info) Description 07/08/2024 2:30 PM EST Medication Management [facility]INE [address] [place] [address] Sowmya Salinas, PharmD [address] [place] [address] 07/25/2024 2:30 PM EDT Office Visit [facility] MEDICINE [address] [place] [address] Amita Noe ANP [address] [place] [address] 09/03/2024 2:30 PM EDT Office Visit [facility] OPTOMETRY [address] [place] [address] Don, Quita, OD [address] [place] [address] documented as of this encounter Visit Diagnoses Not on filedocumented in this encounter Additional Health Concerns Assessment Noted Time PHQ-9 Depression Total Score: 0 12/20/19 23 2:13 PM EDT documented as of this encounter Care Teams Railroad Operator Relationship Specialty Start Date End Date Amita Noe ANP [address] [place] [address] PCP - General Family Medicine 12/30/21 documented as of this encounter
--- OUTSIDE RECORDS SUMMARY | 2024-06-18 13:45 | XMS_ITS | Encounter Summary ---
Author Organization [employer] Address [address] [facility] 7t [place] [address] Care Team Providers Care Casino Surveillance Officer Name Role Phone Amita Noe Primary Care Provider [phone] Encounter Details Date Type Department Care Team (Latest Contact Info) Description 06/10/2024 Travel Social History Tobacco Use Types Packs/Day Years [...] Description 07/08/2024 2:30 PM EST Medication Management [facility] MEDICINE [address] [place] [address] Sowmya Salinas, PharmD [address] [place] [address] 07/25/2024 2:30 PM EDT Office Visit [facility] MEDICINE [address] [place] [address] Amita Noe ANP [address] [place] [address] 09/03/2024 2:30 PM EDT Office Visit [facility] OPTOMETRY [address] [place] [address] Don, Quita, OD [address] [place] [address] documented as of this encounter Visit Diagnoses Not on filedocumented in this encounter Additional Health Concerns Assessment Noted Time PHQ-9 Depression Total Score: 0 12/20/19 23 2:13 PM EDT documented as of this encounter Care Teams Casino Surveillance Officer Relationship Specialty Start Date End Date Amita Noe ANP [address] [place] [phone] PCP - General Family Medicine 12/30/21 documented as of this encounter
[2024-06-18 16:53] LABS: Creatinine Urine 105.92 mg/dL; Microalbum/Creatinine Ratio Ur 135.9 ug/mg cr (<30)
[2024-06-18 17:15] LABS: Vitamin B12 1458 pg/mL (200-900)
[2024-06-18 17:22] LABS: Alanine Aminotransferase 30 U/L (0-40); Albumin Level 4.5 g/dL (3.5-5.0); Alkaline Phosphatase 66 U/L (39-117); Anion Gap 12 (12-20); Aspartate Amino Transferase 22 U/L (5-37); Bilirubin Direct 0.1 mg/dL (0.0-0.5); Bilirubin Total 0.5 mg/dL (0.0-1.0); Blood Urea Nitrogen 25 mg/dL (9-16); Calcium 9.1 mg/dL (8.4-10.2); Carbon Dioxide 26 mmol/L (22-29); Chloride 107 mmol/L (96-108); Cholesterol 136 mg/dL (<200); Estimated Glomerular Filt Rate > 60; Glucose Random 172 mg/dL (60-115); HDL Cholesterol 32 mg/dL (>40); LDL Cholesterol Calculated 43 mg/dL (<100); Potassium 4.7 mmol/L (3.3-5.1); Sodium 140 mmol/L (135-145); Total Protein 7.3 g/dL (6.5-8.0); Triglycerides 309 mg/dL (<150)
== END 2024-06-18 12:43 | disposition home or self-care (01) ==
LOC: HO.HHCL 12:42
PROVIDERS: Visit Provider Nurse Practitioner Primary Care
DX: E11.59 Type 2 diabetes mellitus with other circulatory complications (principal); E78.5 Hyperlipidemia, unspecified; I25.2 Old myocardial infarction
CPT/HCPCS: 36415; 80048; 80061; 80076; 82043; 82570; 82607

== ENCOUNTER 2024-08-06 07:23 | Emergency (ER) | payer SELFPAY ==
[2021-12-20 07:44] VITALS: BP 106/62; BP 116/74
[2022-07-12 07:42] VITALS: BMI 28.8
[2022-09-19 15:20] VITALS: BP 106/62; BP 116/74; BMI 28.8
[2022-09-29 15:14] VITALS: BP 122/74
--- NOTE | 2024-08-06 | ECG_ITS ---
Test Reason : chest pain Blood Pressure : */* mmHG Vent. Rate : 75 BPM Atrial Rate : 75 BPM P-R Int : 138 ms QRS Dur : 92 ms QT Int : 398 ms P-R-T Axes : 34 -24 31 degrees QTcB Int : 444 ms Normal sinus rhythm Normal ECG When compared with ECG of 10-Sep-2022 00:33, No significant change was found Referred By: Generic ED Physician Electronically Signed By: JANIS GE
--- NOTE | ~2024-08-06 | XR_ITS ---
EXAMINATION: XR CHEST 2 VIEWS HISTORY: chest pain COMPARISON: Comparison is made with the prior examination dated 03/30/2021. FINDINGS: PA and lateral views of the chest are submitted. The lungs are expanded and clear. There is no pleural effusion, pneumothorax, or pulmonary vascular congestion. The heart is normal in size. There is degenerative disc disease of the spine. XR/XR chest 2V IMPRESSION: No acute cardiopulmonary abnormality. Electronically signed by: Nitin Schultz MD 08/06/2024 08:53 AM EDT
[2024-08-06 07:32] VITALS: BP 150/80; PULSE 110; O2SAT 98
[2024-08-06 07:33] VITALS: BP 127/70; PULSE 82; RESP 18; TEMP 36.8; BMI 34.5
[2024-08-06 09:06] LABS: MANUAL DIFF FLAG NO
[2024-08-06 09:08] LABS: Basophils Absolute Auto 0.1 X10*3/uL (0.0-0.2); Basophils Percent Auto 0.6 % (0-2); Eosinophils Absolute Auto 0.6 X10*3/uL (0.0-0.4); Eosinophils Percent Auto 4.5 % (0-4); Hematocrit 35.7 % (42.0-52.0); Hemoglobin 12.1 g/dl (14.0-18.0); Imm Gran Abs Auto 0.04 X10*3/uL (0.00-0.03); Imm Gran Pct Auto 0.3 % (0.0-0.4); Lymphocytes Absolute Auto 2.2 X10*3/uL (1.2-4.9); Lymphocytes Percent Auto 17.1 % (20-40); Mean Corpuscular HGB Conc 33.9 g/dl (31.0-36.0); Mean Corpuscular Hemoglobin 33.4 pg (27.0-33.0); Mean Corpuscular Volume 98.6 fL (80.0-98.0); Mean Platelet Volume 9.5 fL (9.4-12.4); Monocytes Absolute Auto 0.9 X10*3/uL (0.1-1.2); Monocytes Percent Auto 7.1 % (2-11); Neutrophils Percent Auto 70.4 % (45-73); Platelet Count 280 X10*3/uL (160-400); Red Blood Count 3.62 X10*6/uL (4.60-5.80); Red Cell Distribution Width 12.6 % (11.0-16.0); White Blood Count 12.7 X10*3/uL (4.8-10.8)
[2024-08-06 09:27] LABS: Alanine Aminotransferase 39 U/L (0-40); Albumin Level 4.1 g/dL (3.5-5.0); Alkaline Phosphatase 60 U/L (39-117); Anion Gap 12 (12-20); Aspartate Amino Transferase 24 U/L (5-37); Bilirubin Total 0.3 mg/dL (0.0-1.0); Blood Urea Nitrogen 22 mg/dL (9-16); Calcium 8.8 mg/dL (8.4-10.2); Carbon Dioxide 26 mmol/L (22-29); Chloride 106 mmol/L (96-108); Creatinine Clr Calc Pharmacy 97.8; Estimated Glomerular Filt Rate > 60; Glucose Random 183 mg/dL (60-115); Lipase 14 U/L (8-78); Magnesium 1.7 mg/dL (1.6-2.6); Potassium 4.8 mmol/L (3.3-5.1); Sodium 139 mmol/L (135-145); Total Protein 6.3 g/dL (6.5-8.0)
[2024-08-06 09:41] LABS: Troponin-I High Sensitivity < 2.7 ng/L (<3.5-35.0)
[2024-08-06 09:52] LABS: Influenza A PCR NEGATIVE (Negative); Influenza B PCR NEGATIVE (Negative); Resp Syncy Virus RNA Qual PCR NEGATIVE (Negative); SARS COV2 PCR INHOUSE NEGATIVE (Negative)
--- NOTE | 2024-08-06 10:51 | ED.CHESTPAIN ---
HPI - Chest Pain General Chief Complaint: Chest Pain Stated Complaint: BACK/CHEST PAIN,BP 180/100 PER EMS Time Seen by Provider: 08/06/24 08:08 Source: patient and EMS Mode of arrival: EMS Limitations: no limitations History of Present Illness ED Provider: DANIKA COBB PA-C HPI narrative: 59 year old male with pmhx significant for asthma/ COPD, DM, CHF, alcohol abuse, cardiomyopathy presents to the ED today via EMS from for evaluation of sternal chest pain that woke him from his sleep around 0530 this morning. Describes the pain as hard . No radiation. Pain was 9/10 at onset. Now a 4/10. Pain is worse with movement. He is unsure if he was sleeping in an odd position. He initially thought it was his acid reflux however symptoms continued. He was treated with aspirin and nitro en route to ED. Denies headache, dizziness, fever/chills, palpitations, SOB, orthopnea, leg pain/ swelling. Compliant with all home medications. no recent heavy lifting. no injury to chest. no recent travel or long car rides. Also admits to mid back pain last night that had since resolved. Attributed this to his chronic back pain. no back pain red flag symptoms. no urinary sx. Related Data Home Medications ?Medication ?Instructions ?Recorded ?Confirmed lancets 28 gauge (FreeStyle #100 ea 05/26/21 11/07/22 Lancets) ascorbic acid (vitamin C) 500 mg 500 mg PO DAILY 09/10/22 10/04/23 tablet (Vitamin C) cholecalciferol (vitamin D3) 10 10 mcg PO DAILY 09/10/22 10/04/23 mcg (400 unit) tablet (Vitamin D3) fluticasone propionate 50 1 spray intranasal DAILY 09/10/22 10/04/23 mcg/actuation nasal spray,suspension gabapentin 100 mg capsule 100 mg PO TID 09/10/22 10/04/23 insulin glargine 100 unit/mL (3 30 unit subcut BEDTIME 09/10/22 10/04/23 mL) subcutaneous pen (Lantus Solostar U-100 Insulin) levalbuterol tartrate 45 2 puff inhalation Q6H PRN 09/10/22 10/04/23 mcg/actuation aerosol inhaler Shortness Of Breath Or Wheezing (Xopenex HFA) loratadine 10 mg tablet (Claritin) 10 mg PO DAILY 09/10/22 10/04/23 omeprazole 20 mg capsule,delayed 20 mg PO DAILY@0630 09/10/22 10/04/23 release aspirin 81 mg tablet,delayed 81 mg PO DAILY 10/04/23 10/04/23 release (Adult Low Dose Aspirin) Previous Rx's ?Medication ?Instructions ?Recorded blood sugar diagnostic (FreeStyle #100 ea 03/30/21 Lite Strips) blood-glucose meter (FreeStyle #1 ea 03/30/21 Lite Meter kit) lancets #100 ea 03/30/21 metformin 500 mg tablet 500 mg PO BID #60 tabs 03/30/21 needle (disp) 32 gauge 32 gauge x #100 ea 03/30/2109/20 needle (disp) 31 gauge 31 gauge x #100 ea 03/31/2109/20 acetaminophen 325 mg tablet 650 mg (2 x 325 mg) PO Q6H PRN 09/13/22 Pain, Mild (Pain Scale 1-3) 30 days #240 tabs Raised toliet seat #1 ea 09/15/22 walker #1 ea 09/15/22 isosorbide mononitrate 30 mg 30 mg PO BID #60 tabs 09/16/22 tablet,extended release 24 hr Shower chair #1 ea 09/21/22 spironolactone 25 mg tablet 25 mg PO DAILY #90 tabs 09/25/23 acetaminophen 500 mg tablet 500 mg PO Q6H PRN pain #30 tabs 09/26/23 (Tylenol Extra Strength) lidocaine 5 % topical patch 1 patch topical DAILY #30 ea 09/26/23 (Lidoderm) oxycodone 5 mg tablet 5 mg PO Q6H PRN pain #7 tabs 09/26/23 carvedilol 25 mg tablet 25 mg PO BID #120 tabs 10/04/23 atorvastatin 40 mg tablet 40 mg PO BEDTIME #90 tabs 11/22/23 furosemide 20 mg tablet 20 mg PO DAILY #90 tabs 01/01/24 hydralazine 50 mg tablet 50 mg PO BID 90 days #180 tabs 05/31/24 Allergies Allergy/AdvReac Type Severity Reaction Status Date / Time canagliflozin [Invokana] Allergy Unknown Unknown Verified 08/06/24 07:34 cats Allergy Unknown Unknown Verified 08/06/24 07:34 Clindamycin HCl Allergy Unknown itch Verified 08/06/24 07:34 Diltiazem HCl Allergy Unknown itch Verified 08/06/24 07:34 hydrochlorothiazide Allergy Unknown GOUT Verified 08/06/24 07:34 [HYDROCHLOROTHIAZIDE] lisinopril [LISINOPRIL] Allergy Unknown TONGUE Verified 08/06/24 07:34 SWELLING naproxen [From NAPROSYN] Allergy Unknown NIGHTMARES Verified 08/06/24 07:34 penicillin V Allergy Unknown Unknown Verified 08/06/24 07:34 Sulfa (Sulfonamide Allergy Unknown UNKNOWN Verified 08/06/24 07:34 Antibiotics) [SULFA(SULFONAMIDE ANTIBIOTICS)] Taztia XT Allergy Unknown Unknown Uncoded 08/06/24 07:34 Review of Systems Review of Systems: Yes all other systems are reviewed and are negative [facility] Past Medical History Attestation statement: The following information was validated with the patient. Source: old records reviewed and nursing notes reviewed Medical History Personal history of nicotine dependence Uncontrolled diabetes mellitus Cardiomyopathy Alcohol abuse Congestive heart failure Diabetes Asthma COPD (chronic obstructive pulmonary disease) Surgical History History of left hip replacement History of esophagogastroduodenoscopy (EGD) History of appendectomy History of shoulder surgery History of cardiac cath Family History Family History Father Leukemia Mother Scleroderma Social History Social History Household Members: Children Housing: Apartment Do you presently have visiting nurse or other home services: No Alcohol intake: former Patient Tobacco Use Status: Current everyday Tobacco user Tobacco use type: Cigarette Cigarette Packs Per Day: 1 Cigarettes Per Day: 20.0 Years Smoked: (onset 20yo, 3/4-1ppd x 36yrs, 30pyh) Second Hand Smoke Exposure: No Substance Use Type: Marijuana service: No Current occupational status: employed Physical Exam Vital Signs: Vital Signs: Last Vital Signs Temp 98.2 F 08/06/24 14:35 Pulse 76 08/06/24 14:35 Resp 18 08/06/24 14:35 BP 135/84 08/06/24 14:35 Pulse Ox 97 08/06/24 14:35 O2 Del Method Room Air 08/06/24 14:35 BMI result Body Mass Index 34.5 Vital signs stable. Not tachycardic or hypoxic. General: Well appearing, in no acute distress. Skin: Warm, dry, intact. No rashes or lesions. Head: Normocephalic, atraumatic. EENT: Hearing is intact b/l. Conjunctiva clear. PERRLA. EOM intact. Moist mucous membranes.? Cardiac: Chest wall symmetric. +reproducible tenderness to anterior chest wall, no palpable deformity or crepitus. RRR. No JVD. No pitting edema. Lungs: Normal respiratory effort without accessory muscle use. CTA bilaterally. ? Abdomen: Soft, non-tender, non-distended. No rebound tenderness or guarding. Positive BS x4. Back: No midline spinous or paraspinal tenderness. No step off deformity. Ext: Upper and lower extremities atraumatic, without tenderness, deformity, swelling or erythema. No calf tenderness bilaterally. Neuro: AOx3. Normal speech. Ambulating with steady gait. Psych: Appropriate mood and affect. Responds appropriately to questions. Course Course Course Narrative: WBC 12.7, no left shift. macrocytic anemia likely secondary to etoh abuse. h&h stable when compared to priors. chemistry without acute electrolyte abnormality requiring intervention. bun slightly elevated to 22, normal cr. random glucose 183. normal liver function. troponin flat x2. lipase wnl. cxr without infiltrate or consolidation. no effusion. ekg without ischemic changes. > treated with tylenol - reports improvment. negative cardiac work up. possibly musculoskeletal in etiology given exacerbation wtih movement/ palpation and improvement with tylenol. Patient has remained stable throughout ED visit today. Discussed worrisome signs and symptoms and when to return to the ED. All questions answered at this time. Patient is agreeable with disposition and stable for discharge. Medications Administered Discontinued Medications Generic Name Dose Route Start Last Admin Trade Name Freq PRN Reason Stop Dose Admin Acetaminophen 975 mg 08/06/24 10:56 08/06/24 11:01 Acetaminophen 325 Mg Tablet PO 08/06/24 10:57 975 mg ONCE ONE Administration Medical Decision Making Medical Decision Making [facility] Narrative: 59 year old male with pmhx significant for asthma/ COPD, DM, CHF, alcohol abuse, cardiomyopathy presents to the ED today via EMS from for evaluation of sternal chest pain that woke him from his sleep around 0530 this morning. History without high risk features (not substernal, no exertional component, not relieved with rest).? Exam without evidence of volume overload. EKG without signs of active ischemia. HEART score: 3 Given the timing of pain to ED presentation, plan to send delta troponin to evaluate for NSTEMI. Differential diagnosis also includes anemia, electrolyte abnormality, costochondritis, msk pain, pneumonia, pleurisy, anxiety Presentation not consistent with acute PE, pneumothorax, thoracic aortic dissection, cardiac effusion or tamponade, myocarditis, pericarditis. Plan: labs, troponin, EKG, CXR, pain control, reassessment Differential Diagnosis Differential Diagnoses: The differential diagnosis associated with the presentation includes as above. Admission/Observation not indicated. Lab Data MDM Lab Attestation statement: I reviewed the patient's lab results. as above. 08/06/24 09:01 08/06/24 09:01 Labs: Lab Results 08/06/24 08/06/24 Range/Units 09:01 12:52 WBC 12.7 H (4.8-10.8) X10*3/uL RBC 3.62 L D (4.60-5.80) X10*6/uL Hgb 12.1 L D (14.0-18.0) g/dl Hct 35.7 L D (42.0-52.0) % MCV 98.6 H (80.0-98.0) fL MCH 33.4 H (27.0-33.0) pg MCHC 33.9 (31.0-36.0) g/dl RDW 12.6 (11.0-16.0) % Plt Count 280 (160-400) X10*3/uL MPV 9.5 (9.4-12.4) fL Immature Gran % (Auto) 0.3 (0.0-0.4) % Neut % (Auto) 70.4 (45-73) % Lymph % (Auto) 17.1 L (20-40) % [place] % (Auto) 7.1 (2-11) % Eos % (Auto) 4.5 H (0-4) % Baso % (Auto) 0.6 (0-2) % Lymph # (Auto) 2.2 (1.2-4.9) X10*3/uL [place] # (Auto) 0.9 (0.1-1.2) X10*3/uL Eos # (Auto) 0.6 H (0.0-0.4) X10*3/uL Baso # (Auto) 0.1 (0.0-0.2) X10*3/uL Abs Immat Gran (auto) 0.04 H (0.00-0.03) X10*3/uL Absolute Neuts (auto) 9.0 H (2.0-8.3) x10*3/uL Absolute Nucleated RBC 0.000 (0.0-0.012) X10*3/uL Nucleated RBC % (auto) 0.0 (0.0-0.2) /100WBC Sodium 139 (135-145) mmol/L Potassium 4.8 (3.3-5.1) mmol/L Chloride 106 (96-108) mmol/L Carbon Dioxide 26 (22-29) mmol/L Anion Gap 12 (12-20) BUN 22 H (9-16) mg/dL Creatinine 1.03 (0.5-1.4) mg/dL Estim Creat Clear Calc 97.8 Estimated GFR > 60 Random Glucose 183 H (60-115) mg/dL Calcium 8.8 (8.4-10.2) mg/dL Magnesium 1.7 (1.6-2.6) mg/dL Total Bilirubin 0.3 (0.0-1.0) mg/dL AST 24 (5-37) U/L ALT 39 (0-40) U/L Alkaline Phosphatase 60 (39-117) U/L Troponin I High Sens < 2.7 < 2.7 (<3.5-35.0) ng/L Total Protein 6.3 L (6.5-8.0) g/dL Albumin 4.1 (3.5-5.0) g/dL Lipase 14 (8-78) U/L Influenza Type A (PCR) NEGATIVE (Negative) Influenza Type B (PCR) NEGATIVE (Negative) RSV RNA Qual (PCR) NEGATIVE (Negative) SARS-CoV-2 RNA (RT-PCR) NEGATIVE (Negative) Independent Interpretation I performed an independent interpretation of an: EKG and Plain X-Ray Interpretation: EKG showing normal sinus rhythm, rate 75 beats per minute, QT 390, QTC 444, no acute ischemic changes or ST elevations cxr without infiltrate or consolidation, no effusion Radiology Impression Discussion of test interpretation with radiology: I have reviewed the radiologist's reading. Radiologist Impression: Date of Service: 08/06/24 Procedure(s): ECG 12 lead EKG Accession Number(s): [id number] cc: ~ Test Reason : chest pain Blood Pressure : */* mmHG Vent. Rate : 75 BPM Atrial Rate : 75 BPM P-R Int : 138 ms QRS Dur : 92 ms QT Int : 398 ms P-R-T Axes : 34 -24 31 degrees QTcB Int : 444 ms Normal sinus rhythm Normal ECG When compared with ECG of 10-Sep-2022 00:33, No significant change was found Date of Service: 08/06/24 Procedure(s): XR chest 2V Accession Number(s): [id number] cc: Danika Cobb; SADI MORA OPERATIONS SUPPORT MANAGER~ EXAMINATION: XR CHEST 2 VIEWS HISTORY: chest pain COMPARISON: Comparison is made with the prior examination dated 03/30/2021. FINDINGS: PA and lateral views of the chest are submitted. The lungs are expanded and clear. There is no pleural effusion, pneumothorax, or pulmonary vascular congestion. The heart is normal in size. There is degenerative disc disease of the spine. XR/XR chest 2V IMPRESSION: No acute cardiopulmonary abnormality. Independent Historian Clinical information obtained from an independent historian. History obtained from or confirmed by: Spouse () and EMS External Record Review External record reviewed: Inpatient record Prescription Management I considered prescription management with: Pain Medication Chronic Conditions Patient?s care impacted by: Diabetes and Hypertension Social Determinants Patient?s care significantly limited by Social Determinants of Health including: Other Social Determinant of Health Critical Care Time Critical Care Time Critical Care Time: No Discharge Plan Discharge Clinical Impression: Atypical chest pain Patient Disposition: Home, Self-Care Instructions: Noncardiac Chest Pain (ED), Chest Wall Pain (ED) Additional Instructions: You were evaluated in the Emergency Department today for chest pain. Your evaluation has shown no signs of medical conditions requiring emergent intervention at this time. I recommend that you follow up with your primary care provider or your medical sales specialist as soon as possible for further testing as an outpatient. If you do not have one, a referral has been provided. Please call them to make an appointment, they will not call you. I recommend you take 600mg ibuprofen every 6 hours or Tylenol 650mg every 6 hours as needed for pain. If needed, you can alternate these medications so that you take one medication every 3 hours. For example, at noon take ibuprofen, then at 3pm take Tylenol, then at 6pm take ibuprofen. Return to the Emergency Department if you experience worsening or uncontrolled chest pain, shortness of breath, light headedness, feeling faint, nausea, vomiting, or any other concerning symptoms. Prescriptions: No Action (DME) walker [facility] [place] See Rx Instructions .ROUTE .MEDSUPPLY Qty: 1 0RF Rx Instructions: Folding front wheeled walker (DME) Raised toliet seat See Rx Instructions .ROUTE .MEDSUPPLY Qty: 1 0RF Rx Instructions: As directed (DME) Shower chair See Rx Instructions .ROUTE .MEDSUPPLY Qty: 1 0RF Rx Instructions: As directed spironolactone 25 mg tablet 25 mg PO DAILY Qty: 90 1RF atorvastatin 40 mg tablet 40 mg PO BEDTIME Qty: 90 1RF furosemide 20 mg tablet 20 mg PO DAILY Qty: 90 3RF hydralazine 50 mg tablet 50 mg PO BID 90 Days Qty: 180 3RF (DME) blood-glucose meter [FreeStyle Lite Meter] Kit See Rx Instructions .ROUTE .MEDSUPPLY Qty: 1 0RF Rx Instructions: As directed (DME) FreeStyle Lite Strips Strip See Rx Instructions .ROUTE .MEDSUPPLY Qty: 100 0RF Rx Instructions: As directed (DME) lancets [facility] [place] See Rx Instructions .ROUTE .MEDSUPPLY Qty: 100 0RF Rx Instructions: 4 times daily (DME) needle (disp) 32 gauge 32 gauge x 5/16 needle See Rx Instructions .ROUTE .MEDSUPPLY Qty: 100 0RF Rx Instructions: As directed metformin 500 mg tablet 500 mg PO BID Qty: 60 0RF (DME) needle (disp) 31 gauge 31 gauge x 5/16 needle See Rx Instructions .Route Qty: 100 1RF Rx Instructions: As directed omeprazole 20 mg capsule,delayed release(DR/EC) 20 mg PO DAILY@0630 gabapentin 100 mg capsule 100 mg PO TID levalbuterol tartrate [Xopenex HFA] 45 mcg/actuation HFA aerosol inhaler 2 puff INHALATION Q6H PRN (Reason: Shortness Of Breath Or Wheezing) insulin glargine [Lantus Solostar U-100 Insulin] 100 unit/mL (3 mL) insulin pen 30 unit subcut BEDTIME ascorbic acid (vitamin C) [Vitamin C] 500 mg Tablet 500 mg PO DAILY fluticasone propionate 50 mcg/actuation spray,suspension 1 spray intranasal DAILY Rx Instructions: 1 spray into each nostril cholecalciferol (vitamin D3) [Vitamin D3] 10 mcg (400 unit) Tablet 10 mcg PO DAILY loratadine [Claritin] 10 mg Tablet 10 mg PO DAILY acetaminophen 325 mg Tablet 650 mg PO Q6H PRN (Reason: Pain, Mild (Pain Scale 1-3)) 30 Days Qty: 240 0RF isosorbide mononitrate 30 mg Tablet Extended Release 24 Hr 30 mg PO BID Qty: 60 0RF Protocol: Hold for SBP< HOLD for SBP < : 90 oxycodone 5 mg tablet 5 mg PO Q6H PRN (Reason: pain) Qty: 7 0RF Rx Instructions: Partial Fill upon patient request. lidocaine [Lidoderm] 5 % adhesive patch,medicated 1 patch topical DAILY Qty: 30 0RF Rx Instructions: leave on most painful area for up to 12 hrs acetaminophen [Tylenol Extra Strength] 500 mg tablet 500 mg PO Q6H PRN (Reason: pain) Qty: 30 0RF (DME) lancets [FreeStyle Lancets] 28 gauge misc See Rx Instructions topical QID Qty: 100 Rx Instructions: As directed aspirin [Adult Low Dose Aspirin] 81 mg tablet,delayed release (DR/EC) 81 mg PO DAILY carvedilol 25 mg tablet 25 mg PO BID Qty: 120 3RF Rx Instructions: must administer with a meal/food Referrals: [facility] [Provider Group] Sadi Mora NP [Primary Care Provider] - Interventions: ED Discharge Assessment Last Done: 08/06/24 14:35 Discharge Date/Time: 08/06/24 14:36 Print Language: Macedonian
[2024-08-06] MEDS: Acetaminophen 325 MG TABLET 975 MG PO (11:01)
[2024-08-06 11:04] VITALS: BP 135/84; PULSE 76; RESP 18; TEMP 36.8; O2SAT 97
[2024-08-06 13:39] LABS: Troponin-I High Sensitivity < 2.7 ng/L (<3.5-35.0)
[2024-08-06 14:35] VITALS: BP 135/84; PULSE 76; RESP 18; TEMP 36.8; O2SAT 97
== END 2024-08-06 14:36 | disposition home or self-care (01) ==
PROVIDERS: Physician Assistant Medical; Emergency Provider Emergency Medicine; PCP Nurse Practitioner Primary Care
DX: R07.89 Other chest pain (principal); I50.9 Heart failure, unspecified; E11.9 Type 2 diabetes mellitus without complications; Z03.818 Encounter for observation for suspected exposure to other biological agents ruled out; J45.909 Unspecified asthma, uncomplicated
CPT/HCPCS: 0241U; 36415; 71046; 80053; 83690; 83735; 84484; 85025; 93005; 99283; 99285

== ENCOUNTER → 2024-08-06 07:47 | Outpatient (BNV) | payer SELFPAY ==
[2022-09-19 15:20] VITALS: BP 106/62; BP 116/74; BMI 28.8
[2022-09-29 15:14] VITALS: BP 122/74
== END ==
PROVIDERS: Emergency Provider Emergency Medicine; PCP Nurse Practitioner Primary Care; Visit Provider Internal Medicine
DX: R07.9 Chest pain, unspecified (principal)
CPT/HCPCS: 93010

== ENCOUNTER → 2024-08-06 08:17 | Outpatient (BNV) | payer MEDICAID, SELFPAY ==
[2022-09-19 15:20] VITALS: BP 106/62; BP 116/74; BMI 28.8
[2022-09-29 15:14] VITALS: BP 122/74
== END ==
PROVIDERS: Emergency Provider Emergency Medicine; PCP Nurse Practitioner Primary Care; Visit Provider Radiology Diagnostic Radiology
DX: R07.9 Chest pain, unspecified (principal)
CPT/HCPCS: 71046